=== PATIENT | female | born 1970 | race Caucasian/White ===

== ENCOUNTER → 2019-08-15 11:16 | Outpatient (BNVA) | payer MEDICAID, SELFPAY | PROVIDERS: Family Provider Family Medicine; PCP Family Medicine; Visit Provider Nurse Practitioner | DX: M54.42 Lumbago with sciatica, left side (principal); M54.2 Cervicalgia; G43.109 Migraine with aura, not intractable, without status migrainosus; F17.210 Nicotine dependence, cigarettes, uncomplicated; Z79.891 Long term (current) use of opiate analgesic | CPT/HCPCS: 99213; 99214 ==

== ENCOUNTER → 2019-09-01 10:16 | Outpatient (BNVA) | payer MEDICAID, SELFPAY | PROVIDERS: Family Provider Family Medicine; PCP Family Medicine; Visit Provider Nurse Practitioner | DX: F31.4 Bipolar disorder, current episode depressed, severe, without psychotic features (principal); F41.1 Generalized anxiety disorder | CPT/HCPCS: 99213 ==

== ENCOUNTER → 2019-09-04 11:00 | Outpatient (BNVA) | payer MEDICAID, SELFPAY | PROVIDERS: Family Provider Family Medicine; PCP Family Medicine; Visit Provider Counselor Professional | DX: F31.4 Bipolar disorder, current episode depressed, severe, without psychotic features (principal) | CPT/HCPCS: 90834 ==

== ENCOUNTER → 2019-09-26 10:52 | Outpatient (BNVA) | payer MEDICAID, SELFPAY | PROVIDERS: Family Provider Family Medicine; PCP Family Medicine; Visit Provider Anesthesiology | DX: G89.29 Other chronic pain (principal); M54.41 Lumbago with sciatica, right side; M54.42 Lumbago with sciatica, left side; M54.2 Cervicalgia; F17.210 Nicotine dependence, cigarettes, uncomplicated; Z79.891 Long term (current) use of opiate analgesic | CPT/HCPCS: 99214 ==

== ENCOUNTER → 2019-09-27 09:42 | Outpatient (BNVA) | payer MEDICAID, SELFPAY | PROVIDERS: Family Provider Family Medicine; PCP Family Medicine; Visit Provider Counselor Professional | DX: F31.4 Bipolar disorder, current episode depressed, severe, without psychotic features (principal) | CPT/HCPCS: 90834; 80053; 80061; 83721; 85025 ==

== ENCOUNTER → 2019-09-28 08:35 | Outpatient (BNVA) | payer MEDICAID, SELFPAY | PROVIDERS: Family Provider Family Medicine; PCP Family Medicine; Visit Provider Family Medicine | DX: Z13.6 Encounter for screening for cardiovascular disorders (principal); R06.2 Wheezing; K58.9 Irritable bowel syndrome, unspecified; G47.10 Hypersomnia, unspecified; R73.09 Other abnormal glucose | CPT/HCPCS: 83036 ==

== ENCOUNTER → 2019-10-31 12:12 | Outpatient (BNVA) | payer MEDICAID, SELFPAY | PROVIDERS: Family Provider Family Medicine; PCP Family Medicine; Visit Provider Counselor Professional | DX: F31.4 Bipolar disorder, current episode depressed, severe, without psychotic features (principal); F41.1 Generalized anxiety disorder | CPT/HCPCS: 90834 ==

== ENCOUNTER → 2019-11-07 12:44 | Outpatient (BNVA) | payer MEDICAID, SELFPAY | PROVIDERS: Family Provider Family Medicine; PCP Family Medicine; Visit Provider Counselor Professional | DX: F31.4 Bipolar disorder, current episode depressed, severe, without psychotic features (principal); F41.1 Generalized anxiety disorder | CPT/HCPCS: 90834 ==

== ENCOUNTER → 2019-11-14 08:37 | Outpatient (BNVA) | payer MEDICAID, SELFPAY | PROVIDERS: Family Provider Family Medicine; PCP Family Medicine; Visit Provider Counselor Professional | DX: F31.4 Bipolar disorder, current episode depressed, severe, without psychotic features (principal); F41.1 Generalized anxiety disorder | CPT/HCPCS: 90834 ==

== ENCOUNTER → 2019-11-21 08:32 | Outpatient (BNVA) | payer MEDICAID, SELFPAY | PROVIDERS: Family Provider Family Medicine; PCP Family Medicine; Visit Provider Counselor Professional | DX: F31.4 Bipolar disorder, current episode depressed, severe, without psychotic features (principal); F41.1 Generalized anxiety disorder | CPT/HCPCS: 90834 ==

== ENCOUNTER → 2019-11-24 08:22 | Outpatient (BNVA) | payer MEDICAID, SELFPAY | PROVIDERS: Family Provider Family Medicine; PCP Family Medicine; Visit Provider Nurse Practitioner | DX: F41.1 Generalized anxiety disorder (principal); F31.4 Bipolar disorder, current episode depressed, severe, without psychotic features; F43.12 Post-traumatic stress disorder, chronic | CPT/HCPCS: 99213 ==

== ENCOUNTER → 2019-11-29 09:35 | Outpatient (BNVA) | payer MEDICAID, SELFPAY | PROVIDERS: Family Provider Family Medicine; PCP Family Medicine; Visit Provider Family Medicine | DX: E78.5 Hyperlipidemia, unspecified (principal); E11.9 Type 2 diabetes mellitus without complications; F17.219 Nicotine dependence, cigarettes, with unspecified nicotine-induced disorders | CPT/HCPCS: 80053 ==

== ENCOUNTER → 2019-12-07 09:12 | Outpatient (BNVA) | payer MEDICAID, SELFPAY ==
[2019-11-21 14:38] VITALS: BP 122/68; BMI 38.1
== END ==
PROVIDERS: Family Provider Family Medicine; Visit Provider Counselor Professional
DX: F41.1 Generalized anxiety disorder (principal); F31.4 Bipolar disorder, current episode depressed, severe, without psychotic features
CPT/HCPCS: 90834

== ENCOUNTER → 2019-12-28 09:04 | Outpatient (BNVA) | payer MEDICAID, SELFPAY ==
[2019-11-21 14:38] VITALS: BP 122/68; BMI 38.1
== END ==
PROVIDERS: Family Provider Family Medicine; Visit Provider Counselor Professional
DX: F31.4 Bipolar disorder, current episode depressed, severe, without psychotic features (principal)
CPT/HCPCS: 90834

== ENCOUNTER → 2019-12-29 08:41 | Outpatient (BNVA) | payer MEDICAID, SELFPAY ==
[2019-11-21 14:38] VITALS: BP 122/68; BMI 38.1
== END ==
PROVIDERS: Family Provider Family Medicine; Visit Provider Family Medicine
DX: E11.9 Type 2 diabetes mellitus without complications (principal); F17.219 Nicotine dependence, cigarettes, with unspecified nicotine-induced disorders
CPT/HCPCS: 80053; 82044; 83036

== ENCOUNTER → 2020-01-04 08:31 | Outpatient (BNVA) | payer MEDICAID, SELFPAY ==
[2019-11-21 14:38] VITALS: BP 122/68; BMI 38.1
== END ==
PROVIDERS: Family Provider Family Medicine; Visit Provider Counselor Professional
DX: F31.4 Bipolar disorder, current episode depressed, severe, without psychotic features (principal)
CPT/HCPCS: 90834

== ENCOUNTER → 2020-01-10 09:35 | Outpatient (BNVA) | payer MEDICAID, SELFPAY ==
[2019-11-21 14:38] VITALS: BP 122/68; BMI 38.1
== END ==
PROVIDERS: Family Provider Family Medicine; PCP Family Medicine; Visit Provider Anesthesiology
DX: G89.29 Other chronic pain (principal); M54.41 Lumbago with sciatica, right side; M54.42 Lumbago with sciatica, left side; M54.2 Cervicalgia; G43.109 Migraine with aura, not intractable, without status migrainosus; F17.210 Nicotine dependence, cigarettes, uncomplicated; Z79.891 Long term (current) use of opiate analgesic
CPT/HCPCS: 99214

== ENCOUNTER → 2020-01-11 08:19 | Outpatient (BNVA) | payer MEDICAID, SELFPAY ==
[2020-01-10 10:00] VITALS: BP 122/68; BMI 38.1
== END ==
PROVIDERS: Family Provider Family Medicine; PCP Family Medicine; Visit Provider Counselor Professional
DX: F31.4 Bipolar disorder, current episode depressed, severe, without psychotic features (principal); F41.1 Generalized anxiety disorder
CPT/HCPCS: 90834

== ENCOUNTER → 2020-01-17 07:58 | Outpatient (BNVA) | payer MEDICAID, SELFPAY ==
[2020-01-10 10:00] VITALS: BP 122/68; BMI 38.1
== END ==
PROVIDERS: Family Provider Family Medicine; PCP Family Medicine; Visit Provider Counselor Professional
DX: F31.4 Bipolar disorder, current episode depressed, severe, without psychotic features (principal); F41.1 Generalized anxiety disorder
CPT/HCPCS: 90834

== ENCOUNTER → 2020-02-08 08:15 | Outpatient (BNVA) | payer MEDICAID, SELFPAY ==
[2020-01-10 10:00] VITALS: BP 122/68; BMI 38.1
== END ==
PROVIDERS: Family Provider Family Medicine; PCP Family Medicine; Visit Provider Counselor Professional
DX: F31.4 Bipolar disorder, current episode depressed, severe, without psychotic features (principal)
CPT/HCPCS: 90834

== ENCOUNTER → 2020-02-22 08:16 | Outpatient (BNVA) | payer MEDICAID, SELFPAY ==
[2020-02-08 13:39] VITALS: BP 122/68; BMI 38.1
== END ==
PROVIDERS: Family Provider Family Medicine; PCP Family Medicine; Visit Provider Counselor Professional
DX: F31.4 Bipolar disorder, current episode depressed, severe, without psychotic features (principal)
CPT/HCPCS: 90834

== ENCOUNTER → 2020-02-27 08:13 | Outpatient (BNVA) | payer MEDICAID, SELFPAY ==
[2020-02-08 13:39] VITALS: BP 122/68; BMI 38.1
== END ==
PROVIDERS: Family Provider Family Medicine; PCP Family Medicine; Visit Provider Nurse Practitioner
DX: F41.1 Generalized anxiety disorder (principal); F31.4 Bipolar disorder, current episode depressed, severe, without psychotic features; F17.219 Nicotine dependence, cigarettes, with unspecified nicotine-induced disorders
CPT/HCPCS: 99213

== ENCOUNTER → 2020-02-29 09:01 | Outpatient (BNVA) | payer MEDICAID, SELFPAY ==
[2020-02-08 13:39] VITALS: BP 122/68; BMI 38.1
== END ==
PROVIDERS: Family Provider Family Medicine; PCP Family Medicine; Visit Provider Counselor Professional
DX: F31.4 Bipolar disorder, current episode depressed, severe, without psychotic features (principal); F41.1 Generalized anxiety disorder
CPT/HCPCS: 90834; 80061; 83721

== ENCOUNTER → 2020-03-08 09:43 | Outpatient (BNVA) | payer MEDICAID, SELFPAY ==
[2020-02-08 13:39] VITALS: BP 122/68; BMI 38.1
== END ==
PROVIDERS: Family Provider Family Medicine; PCP Family Medicine; Visit Provider Anesthesiology
DX: G89.29 Other chronic pain (principal); M54.42 Lumbago with sciatica, left side; M54.41 Lumbago with sciatica, right side; M54.2 Cervicalgia; G43.109 Migraine with aura, not intractable, without status migrainosus; F17.219 Nicotine dependence, cigarettes, with unspecified nicotine-induced disorders; Z79.891 Long term (current) use of opiate analgesic
CPT/HCPCS: 99213; 99214

== ENCOUNTER → 2020-03-14 08:57 | Outpatient (BNVA) | payer MEDICAID, SELFPAY ==
[2020-03-08 10:02] VITALS: BP 122/68; BMI 38.1
== END ==
PROVIDERS: Family Provider Family Medicine; PCP Family Medicine; Visit Provider Counselor Professional
DX: F31.4 Bipolar disorder, current episode depressed, severe, without psychotic features (principal); F41.1 Generalized anxiety disorder
CPT/HCPCS: 90834

== ENCOUNTER → 2020-03-20 08:25 | Outpatient (BNVA) | payer MEDICAID, SELFPAY ==
[2020-03-08 10:02] VITALS: BP 122/68; BMI 38.1
== END ==
PROVIDERS: Family Provider Family Medicine; PCP Family Medicine; Visit Provider Counselor Professional
DX: F31.4 Bipolar disorder, current episode depressed, severe, without psychotic features (principal); F41.1 Generalized anxiety disorder
CPT/HCPCS: 90834

== ENCOUNTER 2020-03-29 09:09 | Outpatient (CLI) | payer MEDICAID, SELFPAY ==
[2020-03-08 10:02] VITALS: BP 122/68; BMI 38.1
[2020-03-29 09:45] LABS: Basophils # 0.1 10^3/uL (0.0-0.1); Basophils % 0.7 %; Eosinophils # 0.2 10^3/uL (0.0-0.8); Eosinophils % 2.9 %; Hematocrit 43.3 % (37.0-47.0); Hemoglobin 13.6 g/dL (11.5-15.3); Lymphocytes # 1.5 10^3/uL (0.8-4.8); Lymphocytes % 18.6 %; Mean Corpuscular HGB Conc 31.4 g/dL (30.0-36.0); Mean Corpuscular Hemoglobin 30.9 pg (28.0-34.0); Mean Corpuscular Volume 98.4 fL (81-99); Mean Platelet Volume 10.3 fL (7.4-10.4); Monocytes # 0.7 10^3/uL (0.2-0.9); Neutrophils # 5.56 10^3/uL (1.8-7.7); Neutrophils % 68.1 %; Nucleated Red Blood Cells % 0 %; Platelet Count 265 10^3/cmm (130-400); Red Cell Distribution Width 13.8 % (12.1-15.1); White Blood Count 8.2 10^3/uL (4.0-10.0)
[2020-03-29 10:24] LABS: Estmated Average Glucose 160; Hemoglobin A1C 7.2 % (4.0-6.0)
[2020-03-29 10:28] LABS: Calcium 10.5 mg/dL (8.5-10.5); Parathyroid Hormone 32.9 pg/mL (15-65)
[2020-03-29 10:44] LABS: 25 Hydroxy Vitamin D 20 ng/mL (30-100); Alanine Aminotransferase 19 U/L (0-33); Albumin Level 4.6 g/dL (3.5-5.2); Alkaline Phosphatase 63 IU/L (35-105); Anion Gap 12.1 (5-19); Aspartate Amino Transferase 13 U/L (0-32); Blood Urea Nitrogen 13 mg/dL (6-20); Calcium 9.8 mg/dL (8.5-10.5); Carbon Dioxide 25 mmol/L (22-29); Chloride 103 mmol/L (98-107); Glomerular Filtration Rate 39.6 mL/min (90-130); Glucose 151 mg/dL (65-115); Osmolality Calculated 281 mOsm/kg (285-295); Phosphorus 3.9 mg/dL (2.5-4.5); Potassium 4.1 mmol/L (3.5-5.1); Sodium 136 mmol/L (136-145); Total Bilirubin 0.3 mg/dL (0.15-1.2); Total Protein 7.6 g/dL (6.6-8.7)
[2020-03-29 11:09] LABS: Creatinine Urine, Random 14 mg/dL (28-217)
[2020-03-29 11:10] LABS: UPRO/UCREAT Ratio 0.29 mg/mg CR; Urine Creatinine 14 mg/dL (28-217)
[2020-03-29 11:11] LABS: Microalbum Creatinine Ratio Ur 71 mg/dL (0-20); Microalbumin Random Urine < 1 ug/dL (0-20); Urine Protein Random < 4 mg/dL
[2020-03-30 10:02] LABS: PROTEIN, TOTAL 7.1 g/dL (6.1-8.1)
[2020-04-02 15:53] LABS: KAPPA LIGHT CHAIN, FREE, SERUM 23.5 mg/L (3.3-19.4); KAPPA/LAMBDA LIGHT CHAINS FREE 1.12 (0.26-1.65)
[2020-04-02 17:17] LABS: ALBUMIN 4.2 g/dL (3.8-4.8); ALPHA 1 GLOBULIN 0.4 g/dL (0.2-0.3); ALPHA 2 GLOBULIN 0.8 g/dL (0.5-0.9); BETA 1 GLOBULIN 0.6 g/dL (0.4-0.6); BETA 2 GLOBULIN 0.4 g/dL (0.2-0.5); GAMMA GLOBULIN 0.8 g/dL (0.8-1.7)
== END 2020-03-29 09:10 | disposition home or self-care (01) ==
LOC: LAB 09:12
PROVIDERS: PCP Family Medicine; Visit Provider Family Medicine
DX: E11.9 Type 2 diabetes mellitus without complications (principal); N18.9 Chronic kidney disease, unspecified
CPT/HCPCS: 36415; 80053; 80069; 82044; 82306; 82310; 82570; 83036; 83883; 83970; 84155; 84156; 84165; 85025

== ENCOUNTER → 2020-04-03 08:38 | Outpatient (BNVA) | payer MEDICAID, SELFPAY ==
[2020-03-08 10:02] VITALS: BP 122/68; BMI 38.1
== END ==
PROVIDERS: Family Provider Family Medicine; PCP Family Medicine; Visit Provider Counselor Professional
DX: F31.4 Bipolar disorder, current episode depressed, severe, without psychotic features (principal); F41.1 Generalized anxiety disorder
CPT/HCPCS: 90834

== ENCOUNTER → 2020-04-11 07:43 | Outpatient (BNVA) | payer MEDICAID, SELFPAY ==
[2020-03-08 10:02] VITALS: BP 122/68; BMI 38.1
== END ==
PROVIDERS: Family Provider Family Medicine; PCP Family Medicine; Visit Provider Counselor Professional
DX: F31.4 Bipolar disorder, current episode depressed, severe, without psychotic features (principal); F41.1 Generalized anxiety disorder
CPT/HCPCS: 90834

== ENCOUNTER → 2020-04-18 07:45 | Outpatient (BNVA) | payer MEDICAID, SELFPAY ==
[2020-03-08 10:02] VITALS: BP 122/68; BMI 38.1
== END ==
PROVIDERS: Family Provider Family Medicine; PCP Family Medicine; Visit Provider Counselor Professional
DX: F31.4 Bipolar disorder, current episode depressed, severe, without psychotic features (principal); F41.1 Generalized anxiety disorder
CPT/HCPCS: 90832; 90834

== ENCOUNTER → 2020-04-26 08:51 | Outpatient (BNVA) | payer MEDICAID, SELFPAY ==
[2020-04-26 08:57] VITALS: BP 122/68; BMI 38.1
== END ==
PROVIDERS: Family Provider Family Medicine; PCP Family Medicine; Visit Provider Family Medicine
DX: E11.9 Type 2 diabetes mellitus without complications (principal); N61.0 Mastitis without abscess; F17.219 Nicotine dependence, cigarettes, with unspecified nicotine-induced disorders
CPT/HCPCS: 36415; 80048; 84450; 87070; 87075; 87205

== ENCOUNTER → 2020-04-29 08:34 | Outpatient (BNVA) | payer MEDICAID, SELFPAY ==
[2020-04-26 08:57] VITALS: BP 122/68; BMI 38.1
== END ==
PROVIDERS: Family Provider Family Medicine; PCP Family Medicine; Visit Provider Counselor Professional
DX: F31.4 Bipolar disorder, current episode depressed, severe, without psychotic features (principal); F41.1 Generalized anxiety disorder
CPT/HCPCS: 90834

== ENCOUNTER → 2020-05-07 08:59 | Outpatient (BNVA) | payer MEDICAID, SELFPAY ==
[2020-04-26 08:57] VITALS: BP 122/68; BMI 38.1
== END ==
PROVIDERS: Family Provider Family Medicine; PCP Family Medicine; Visit Provider Anesthesiology
DX: G89.29 Other chronic pain (principal); M54.41 Lumbago with sciatica, right side; M54.42 Lumbago with sciatica, left side; M54.2 Cervicalgia; G43.109 Migraine with aura, not intractable, without status migrainosus; F17.219 Nicotine dependence, cigarettes, with unspecified nicotine-induced disorders; Z79.891 Long term (current) use of opiate analgesic
CPT/HCPCS: 99214

== ENCOUNTER 2020-05-09 07:47 | Outpatient (CLI) | payer MEDICAID, SELFPAY ==
[2020-04-26 08:57] VITALS: BP 122/68; BMI 38.1
--- NOTE | 2020-05-09 08:00 | US_ITS ---
WS: [id number] ULTRASOUND BREAST RIGHT TECHNIQUE: Ultrasound right breast focused area of concern. CLINICAL INFORMATION: ABSCESS OF RIGHT BREAST COMPARISON: None. FINDINGS: Ultrasound right breast at the 6 clock position. No evidence of drainable abscess or fluid collection . Benign ductal ectasia. No cystic or solid lesions. No other abnormalities. US/US breast RT complete [id number] IMPRESSION: No evidence of drainable abscess or fluid collection. Incidental ductal ectasia .
== END 2020-05-09 07:48 | disposition home or self-care (01) ==
PROVIDERS: PCP Family Medicine; Visit Provider Surgery
DX: N61.1 Abscess of the breast and nipple (principal); N60.41 Mammary duct ectasia of right breast
CPT/HCPCS: 76641

== ENCOUNTER → 2020-05-10 08:49 | Outpatient (BNVA) | payer MEDICAID, SELFPAY ==
[2020-04-26 08:57] VITALS: BP 122/68; BMI 38.1
== END ==
PROVIDERS: Family Provider Family Medicine; PCP Family Medicine; Visit Provider Counselor Professional
DX: F31.4 Bipolar disorder, current episode depressed, severe, without psychotic features (principal); F41.1 Generalized anxiety disorder
CPT/HCPCS: 90834; 87635

== ENCOUNTER 2020-05-13 08:00 | Day surgery (SDC) | payer MEDICAID, SELFPAY ==
[2020-05-10 09:45] VITALS: BP 122/68; BMI 38.1
[2020-05-10 10:25] VITALS: BMI 37.1
[2020-05-13 08:27] LABS: Glucose Point of Care 161 mg/dL (70-110)
[2020-05-13] MEDS: sodium chloride 0.9% 1,000 ML 30 ML IV (08:30)
[2020-05-13 08:32] VITALS: BP 142/78; PULSE 89; RESP 18; TEMP 36.8; O2SAT 94
--- NOTE | 2020-05-13 08:37 | P.ANESASSM_ITS ---
Pre-Anesthetic Assessment Pre-Anesthetic Assessment: Height/Weight: Height 1.68 m Weight 104.326 kg Temp Pulse Resp BP Pulse Ox 98.2 F 89 18 142/78 94 05/13/20 08:32 05/13/20 08:32 05/13/20 08:32 05/13/20 08:32 05/13/20 08:32 Preop Diagnosis: Right breast abscess Proposed Procedure: Operation Date: 05/13/20 11:20 Proposed Procedures p Incision And Drainage of right breast abscess 1006 N61.1(Right) - Tor Ahuja MD Familial anesthetic complications: NOne Was Beta Tamy taken within 24 hours: N/A Last intake: Intake NPO > 8 hrs Last Liquid Date 05/12/20 Last Solid Date 05/12/20 Social: Social History: Tobacco and No alcohol Exam: Pre-Anes Outpt Exam: alert, oriented x 3 and regular rate & rhythm Additional Exam Findings (including area of procedure): B/L wheezes - had patient use her personal inhaler before procedure Airway: Cervical ROM: WNL MP: 2 Dentition: False Pulmonary: Comments: Wheezing, but no diagnosis GI: GI: GERD Comments: IBS Metabolic: Metabolic: DM and Hyperlipidemia Musc/skel: Musc/skel: OA/DJD Comments: Back and neck pain Neuropsych: Neuropsych: Anxiety, Bipolar and COLLAZO Comments: opioid contract Anesthetic Plan: ASA status: 3 Anesthesia: General Risk of > 500 ml blood loss (7ml/kg in children): No Meds/Allergies Current Medications: Current Medications Generic Name Dose Route Start Last Admin Trade Name Freq PRN Reason Stop Dose Admin Sodium Chloride 1,000 mls @ 30 ml s/hr 05/13/20 08:15 05/13/20 08:30 Sodium Chloride 0.9% IV 05/14/20 08:14 30 mls/hr .Q24H ÁNGEL Administration PFSH Anesthesia PFSH: Medical History Bipolar 1 disorder Bipolar disorder, current episode depressed, severe, without psychotic features Chronic bilateral low back pain with bilateral sciatica Dyslipidemia Encounter for long-term opiate analgesic use Encounter for long-term use of opiate analgesic Generalized anxiety disorder Long-term use of high-risk medication Migraine aura without headache Neck pain Opioid contract exists Panic disorder with agoraphobia Type 2 diabetes mellitus, without long-term current use of insulin Surgical History History of adenoidectomy S/P tonsillectomy AGE 4 Family History Mother Hypertension Grandmother Hypertension Atrial fibrillation Other Bipolar 1 disorder CAD (coronary artery disease) Denies family history of Anesthesia complication Bleeding disorder Social History (Updated 05/07/20 @ 09:21 by Jimena Obando LPN) Smoking and tobacco status: current every day smoker cigarettes Years cigarettes smoked: 35 [ Other cigarette details: 3 CIGS PER DAY ] Second hand smoke exposure: No Smoking risk assessment/counseling performed?: Yes Tobacco counseling given: counseling >3 minutes Alcohol intake: former Year of sobriety/quit date alcohol: 1999 Former alcohol use details: alcoholic - quit in 1999 Desire information about alcohol rehabilitation?: No Counseling given: No Adopted: No Caregiver/support person: No Lives independently: Yes Household members: family Housing: House Marital status: Number of children: 3 Number of grandchildren: 0 Highest education level completed: GED or Equivalent service: No Current occupational status: disabled Pets and animals: Yes Pets & animals: dog(s) Pets & animal details: indoor History of recent travel: No Leisure activites: music Sexually active: No Current gender identity: Female Tessa/Rastafari: Samaritan Special tessa needs: No Agree to transfusion: Yes Financial difficulty paying for basics: Decline to Answer Female Reproductive History: Para: 0 Spontaneous abortions: No Date of menopause: 08/27/17 Data Anesthesia Other Labs: Laboratory Results - last 48 hr 05/13/20 08:24 POC Glucose 161 Cardiac Studies: No Data to Display
--- NOTE | 2020-05-13 08:54 | SUR.PREOP ---
As patient got up to go to the bathroom, her grown came open in the back exposing different stages of dark red and purple mottled spots on her back and buttocks. patient reports she didn't know that was there but she is sure it is from her heating pad. she reports she has chronic back pain and spends approx 10 hrs per day sitting on her heating pad. I suggested patient should keep an eye on it and spend 20 min on and 20 min off of heating pad to avoid burn.
--- NOTE | 2020-05-13 09:30 | W.PM.OPSUD ---
Surgery/Procedure H&P Update DATE OF PROCEDURE: May 13, 2020 DATE H&P PERFORMED: 05/06/20 H&P UPDATE INFORMATION: I have reviewed H&P completed within last 30 days, I have examined patient prior to procedure and No changes to prior documentation PREOP DIAGNOSIS: Right breast abscess PRIMARY INDICATION FOR PROCEDURE: The same PLANNED PROCEDURE: Operation Date: 05/13/20 11:20 Proposed Procedures p Incision And Drainage of right breast abscess 1006 N61.1(Right) - Tor Ahuja MD
[2020-05-13] MEDS: lidocaine 2% INJ 20 mL INJECTION (09:48)
--- NOTE | 2020-05-13 10:02 | PM.OP ---
Operative Report Date of procedure: May 13, 2020 Pre-op Diagnosis: Right breast abscess Post-op diagnosis: other (Right breast mass with history of right breast abscess) Post-op Findings: No evidence of active infection or purulent discharge,No evidence of inflammatory breast cancerIn the form of pitting edema of the skin or redness Procedure Done: Excision of right breast mass Specimens removed/disposition: Mass with short sutures marked superior and long sutures marked right lateral Surgeon: Tor Ahuja Agronomy Location Manager: Pretty Doper Circulating nurse Jluis Anesthesia: General (winding machine operator Jorge) Estimated blood loss (mL): 5 Condition: stable Disposition: same day Brief History: This is a pleasant 50 years old female patient presented to my office with right breast abscess and with concern about inflammatory breast component of breast cancer on clinical basis.Patient was counseled for I&D of right breast abscess, today upon examination prior to surgery does not seem to have any purulent discharge yet she does have an indurated nodule/mass at the same site. Patient agreed to proceed accordingly and informed consent per chart Procedure: After identifying the patient holding area, the right breast was marked before the procedure by myself, in the form of female mobile manager Yaneth nursing staff, patient was then taken to the operative suite, was placed in supine position, intubated by anesthesia, prophylactic IV antibiotics were given per protocol, right arm was placed in 90? to her body, prep and drape of the right pectoralis region was done under the usual sterile technique. Timeout was done verifying the patient's name/date of /planned procedure and destination after the procedure, all were in agreement. After palpation of the breast lump I did add transverse,Elliptical incision on top of the mass Including the skin overlying.I was able to dissect using the Bovie cautery a good margin of normal breast tissue surrounding the mass , and appropriate orientation was done for the breast mass in the form of, short superior sutures, long right lateral sutures, and the specimen was taken out and passed to the circulating nurse for permanent pathology,Noticed that the mass was beneath the skin. Copious and Thorough irrigation of the cavity was done and hemostasis, followed by deep dermal closure by 3-0 Vicryl, then 4-0 Monocryl for skin closure Lidocaine 2% was injected at the site of the incision, surgical glue was then applied followed by dry dressing.Followed by sports bra Patient tolerated the procedure well, count of instruments, needles and sponges were completed at the end of the procedure. And then patient was taken to the recovery area in stable condition After extubation. I Was present for the whole entire procedure
[2020-05-13 10:16] VITALS: BP 131/69; PULSE 80; RESP 22; TEMP 36.8; O2SAT 97
[2020-05-13 10:20] VITALS: BP 134/69; PULSE 81; RESP 22; O2SAT 97
--- NOTE | 2020-05-13 10:23 | SUR.PHASEI ---
PT AWAKE ALERT ON RA PT REQUESTS GLASSES AND SPRITE TO SIP ON RT BREAST DRESSING D/I PT DENIES PAIN AND NAUSEA, VSS.
[2020-05-13 10:25] VITALS: BP 131/70; PULSE 82; RESP 24; TEMP 36.4; O2SAT 94
[2020-05-13 10:35] VITALS: BP 151/84; PULSE 81; RESP 18; O2SAT 94
--- NOTE | 2020-05-13 11:00 | ANE.PACU2 ---
Inpatient post-anesthesia follow up: Airway intact: Yes Vital signs: Temperature 97.6 F Pulse Rate 81 Respiratory Rate 18 Blood Pressure 151/84 Pulse Oximetry 94 Oxygen Delivery Me thod Room Air Oxygen Flow Rate 8 Fraction of Inspir ed Oxygen Hydration adequate: Yes Nausea and vomiting: No Pain level: 1 Mental status: Baseline
== END 2020-05-13 11:00 | disposition home or self-care (01) ==
PROVIDERS: PCP Family Medicine; Visit Provider Surgery
PROC: (CPT 19301; principal; 2020-05-13 09:50)
DX: N61.1 Abscess of the breast and nipple (principal); E11.9 Type 2 diabetes mellitus without complications; E78.5 Hyperlipidemia, unspecified; M19.90 Unspecified osteoarthritis, unspecified site; Z79.891 Long term (current) use of opiate analgesic; F41.9 Anxiety disorder, unspecified; Z79.4 Long term (current) use of insulin; F17.210 Nicotine dependence, cigarettes, uncomplicated
CPT/HCPCS: 19301; 12345; 36416; 82962; J0690; J2405; J2704; J2710; J3010; J3490; J7030

== ENCOUNTER → 2020-05-22 07:38 | Outpatient (BNVA) | payer MEDICAID, SELFPAY ==
[2020-05-13 10:32] VITALS: BP 122/68; BMI 38.1
== END ==
PROVIDERS: PCP Family Medicine; Visit Provider Nurse Practitioner
DX: F17.219 Nicotine dependence, cigarettes, with unspecified nicotine-induced disorders (principal); F31.4 Bipolar disorder, current episode depressed, severe, without psychotic features; F41.1 Generalized anxiety disorder
CPT/HCPCS: 99213

== ENCOUNTER → 2020-05-27 08:53 | Outpatient (BNVA) | payer MEDICAID, SELFPAY ==
[2020-05-13 10:32] VITALS: BP 122/68; BMI 38.1
== END ==
PROVIDERS: PCP Family Medicine; Visit Provider Counselor Professional
DX: F31.4 Bipolar disorder, current episode depressed, severe, without psychotic features (principal); F41.1 Generalized anxiety disorder
CPT/HCPCS: 90834

== ENCOUNTER → 2020-06-12 08:37 | Outpatient (BNVA) | payer MEDICAID, SELFPAY ==
[2020-05-13 10:32] VITALS: BP 122/68; BMI 38.1
== END ==
PROVIDERS: PCP Family Medicine; Visit Provider Counselor Professional
DX: F31.4 Bipolar disorder, current episode depressed, severe, without psychotic features (principal); F41.1 Generalized anxiety disorder
CPT/HCPCS: 90834

== ENCOUNTER → 2020-06-19 07:41 | Outpatient (BNVA) | payer MEDICAID, SELFPAY ==
[2020-06-12 09:43] VITALS: BP 122/68; BMI 38.1
== END ==
PROVIDERS: PCP Family Medicine; Visit Provider Counselor Professional
DX: F31.4 Bipolar disorder, current episode depressed, severe, without psychotic features (principal)
CPT/HCPCS: 90834

== ENCOUNTER 2020-07-01 11:19 | Outpatient (CLI) | payer MEDICAID, SELFPAY ==
[2020-06-12 09:43] VITALS: BP 122/68; BMI 38.1
[2020-07-01 12:44] LABS: Basophils # 0.1 10^3/uL (0.0-0.1); Basophils % 0.6 %; Eosinophils # 0.2 10^3/uL (0.0-0.8); Eosinophils % 1.9 %; Hematocrit 42.9 % (37.0-47.0); Hemoglobin 13.5 g/dL (11.5-15.3); Lymphocytes # 1.8 10^3/uL (0.8-4.8); Lymphocytes % 18.9 %; Mean Corpuscular HGB Conc 31.5 g/dL (30.0-36.0); Mean Corpuscular Hemoglobin 30.7 pg (28.0-34.0); Mean Corpuscular Volume 97.5 fL (81-99); Mean Platelet Volume 10.5 fL (7.4-10.4); Monocytes % 10.3 %; Neutrophils # 6.41 10^3/uL (1.8-7.7); Neutrophils % 67.6 %; Nucleated Red Blood Cells % 0 %; Platelet Count 263 10^3/cmm (130-400); White Blood Count 9.5 10^3/uL (4.0-10.0)
[2020-07-01 13:32] LABS: Albumin Level 4.5 g/dL (3.5-5.2); Anion Gap 14.4 (5-19); Blood Urea Nitrogen 15 mg/dL (6-20); Calcium 10.5 mg/dL (8.5-10.5); Carbon Dioxide 25 mmol/L (22-29); Chloride 103 mmol/L (98-107); Glomerular Filtration Rate 52.4 mL/min (90-130); Glucose 128 mg/dL (65-115); Phosphorus 3.8 mg/dL (2.5-4.5); Potassium 4.4 mmol/L (3.5-5.1); Sodium 138 mmol/L (136-145)
[2020-07-01 17:25] LABS: Calcium 10.3 mg/dL (8.5-10.5)
[2020-07-01 18:11] LABS: Parathyroid Hormone 44.9 pg/mL (15-65)
== END 2020-07-01 11:20 | disposition home or self-care (01) ==
PROVIDERS: PCP Family Medicine; Visit Provider Registered Nurse
DX: N18.30 Chronic kidney disease, stage 3 unspecified (principal)
CPT/HCPCS: 80069; 82310; 83970; 85025

== ENCOUNTER → 2020-07-03 09:46 | Outpatient (BNVA) | payer MEDICAID, SELFPAY ==
[2020-06-12 09:43] VITALS: BP 122/68; BMI 38.1
== END ==
PROVIDERS: Family Provider Family Medicine; PCP Family Medicine; Visit Provider Anesthesiology
DX: G89.29 Other chronic pain (principal); M54.42 Lumbago with sciatica, left side; M54.41 Lumbago with sciatica, right side; M17.12 Unilateral primary osteoarthritis, left knee; M54.2 Cervicalgia; G43.109 Migraine with aura, not intractable, without status migrainosus; F17.219 Nicotine dependence, cigarettes, with unspecified nicotine-induced disorders; Z79.899 Other long term (current) drug therapy; Z79.891 Long term (current) use of opiate analgesic
CPT/HCPCS: 99214

== ENCOUNTER → 2020-07-10 08:24 | Outpatient (BNVA) | payer MEDICAID, SELFPAY ==
[2020-06-12 09:43] VITALS: BP 122/68; BMI 38.1
== END ==
PROVIDERS: PCP Family Medicine; Visit Provider Counselor Professional
DX: F31.4 Bipolar disorder, current episode depressed, severe, without psychotic features (principal); F41.1 Generalized anxiety disorder
CPT/HCPCS: 90834

== ENCOUNTER → 2020-07-17 07:55 | Outpatient (BNVA) | payer MEDICAID, SELFPAY ==
[2020-06-12 09:43] VITALS: BP 122/68; BMI 38.1
== END ==
PROVIDERS: PCP Family Medicine; Visit Provider Counselor Professional
DX: F31.4 Bipolar disorder, current episode depressed, severe, without psychotic features (principal); F41.1 Generalized anxiety disorder
CPT/HCPCS: 90834

== ENCOUNTER → 2020-07-30 08:50 | Outpatient (BNVA) | payer MEDICAID, SELFPAY ==
[2020-06-12 09:43] VITALS: BP 122/68; BMI 38.1
== END ==
PROVIDERS: PCP Family Medicine; Visit Provider Counselor Professional
DX: F31.4 Bipolar disorder, current episode depressed, severe, without psychotic features (principal); F41.1 Generalized anxiety disorder
CPT/HCPCS: 90834

== ENCOUNTER → 2020-08-05 08:17 | Outpatient (BNVA) | payer MEDICAID, SELFPAY ==
[2020-07-30 09:37] VITALS: BP 122/68; BMI 38.1
== END ==
PROVIDERS: PCP Family Medicine; Visit Provider Counselor Professional
DX: F31.4 Bipolar disorder, current episode depressed, severe, without psychotic features (principal)
CPT/HCPCS: 90834

== ENCOUNTER → 2020-08-06 09:19 | Outpatient (BNVA) | payer MEDICAID, SELFPAY ==
[2020-07-30 09:37] VITALS: BP 122/68; BMI 38.1
== END ==
PROVIDERS: Family Provider Family Medicine; PCP Family Medicine; Visit Provider Family Medicine
DX: E11.9 Type 2 diabetes mellitus without complications (principal); E78.5 Hyperlipidemia, unspecified; N18.31 Chronic kidney disease, stage 3a; F17.219 Nicotine dependence, cigarettes, with unspecified nicotine-induced disorders; Z12.31 Encounter for screening mammogram for malignant neoplasm of breast
CPT/HCPCS: 80061; 83036

== ENCOUNTER → 2020-08-09 08:03 | Outpatient (BNVA) | payer MEDICAID, SELFPAY ==
[2020-07-30 09:37] VITALS: BP 122/68; BMI 38.1
== END ==
PROVIDERS: Family Provider Family Medicine; PCP Family Medicine; Visit Provider Nurse Practitioner
DX: F31.4 Bipolar disorder, current episode depressed, severe, without psychotic features (principal); F41.1 Generalized anxiety disorder; Z79.899 Other long term (current) drug therapy; F17.219 Nicotine dependence, cigarettes, with unspecified nicotine-induced disorders
CPT/HCPCS: 99213

== ENCOUNTER → 2020-08-13 08:25 | Outpatient (BNVA) | payer MEDICAID, SELFPAY ==
[2020-07-30 09:37] VITALS: BP 122/68; BMI 38.1
== END ==
PROVIDERS: Family Provider Family Medicine; PCP Family Medicine; Visit Provider Counselor Professional
DX: F31.4 Bipolar disorder, current episode depressed, severe, without psychotic features (principal); F41.1 Generalized anxiety disorder
CPT/HCPCS: 90834

== ENCOUNTER → 2020-08-20 08:44 | Outpatient (BNVA) | payer MEDICAID, SELFPAY ==
[2020-07-30 09:37] VITALS: BP 122/68; BMI 38.1
== END ==
PROVIDERS: PCP Family Medicine; Visit Provider Counselor Professional
DX: F31.4 Bipolar disorder, current episode depressed, severe, without psychotic features (principal)
CPT/HCPCS: 90834

== ENCOUNTER → 2020-08-27 08:32 | Outpatient (BNVA) | payer MEDICAID, SELFPAY ==
[2020-07-30 09:37] VITALS: BP 122/68; BMI 38.1
== END ==
PROVIDERS: Family Provider Family Medicine; PCP Family Medicine; Visit Provider Counselor Professional
DX: F31.4 Bipolar disorder, current episode depressed, severe, without psychotic features (principal)
CPT/HCPCS: 90834

== ENCOUNTER → 2020-09-04 09:42 | Outpatient (BNVA) | payer MEDICAID, SELFPAY ==
[2020-07-30 09:37] VITALS: BP 122/68; BMI 38.1
== END ==
PROVIDERS: Family Provider Family Medicine; PCP Family Medicine; Visit Provider Anesthesiology
DX: G89.29 Other chronic pain (principal); M54.41 Lumbago with sciatica, right side; M54.42 Lumbago with sciatica, left side; G43.109 Migraine with aura, not intractable, without status migrainosus; M54.2 Cervicalgia; M25.562 Pain in left knee; F17.219 Nicotine dependence, cigarettes, with unspecified nicotine-induced disorders; Z79.899 Other long term (current) drug therapy; Z79.891 Long term (current) use of opiate analgesic
CPT/HCPCS: 99214

== ENCOUNTER → 2020-09-18 08:14 | Outpatient (BNVA) | payer MEDICAID, SELFPAY ==
[2020-09-04 10:18] VITALS: BP 122/68; BMI 38.1
== END ==
PROVIDERS: PCP Family Medicine; Visit Provider Counselor Professional
DX: F31.4 Bipolar disorder, current episode depressed, severe, without psychotic features (principal); F41.1 Generalized anxiety disorder
CPT/HCPCS: 90834

== ENCOUNTER → 2020-10-02 07:51 | Outpatient (BNVA) | payer MEDICAID, SELFPAY ==
[2020-09-18 10:33] VITALS: BP 122/68; BMI 38.1
== END ==
PROVIDERS: PCP Family Medicine; Visit Provider Counselor Professional
DX: F41.1 Generalized anxiety disorder (principal)
CPT/HCPCS: 90834

== ENCOUNTER → 2020-10-07 08:13 | Outpatient (BNVA) | payer MEDICAID, SELFPAY ==
[2020-10-02 08:22] VITALS: BP 122/68; BMI 38.1
== END ==
PROVIDERS: PCP Family Medicine; Visit Provider Counselor Professional
DX: F41.1 Generalized anxiety disorder (principal); F31.5 Bipolar disorder, current episode depressed, severe, with psychotic features
CPT/HCPCS: 90832; 90834

== ENCOUNTER → 2020-10-16 08:26 | Outpatient (BNVA) | payer MEDICAID, SELFPAY ==
[2020-10-02 08:22] VITALS: BP 122/68; BMI 38.1
== END ==
PROVIDERS: PCP Family Medicine; Visit Provider Counselor Professional
DX: F41.1 Generalized anxiety disorder (principal); F31.5 Bipolar disorder, current episode depressed, severe, with psychotic features
CPT/HCPCS: 90834

== ENCOUNTER → 2020-10-23 09:25 | Outpatient (BNVA) | payer MEDICAID, SELFPAY ==
[2020-10-02 08:22] VITALS: BP 122/68; BMI 38.1
== END ==
PROVIDERS: PCP Family Medicine; Visit Provider Counselor Professional
DX: F31.5 Bipolar disorder, current episode depressed, severe, with psychotic features (principal)
CPT/HCPCS: 90834

== ENCOUNTER → 2020-10-24 09:56 | Outpatient (BNVA) | payer MEDICAID, SELFPAY ==
[2020-10-02 08:22] VITALS: BP 122/68; BMI 38.1
== END ==
PROVIDERS: PCP Family Medicine; Visit Provider Nurse Practitioner
DX: Z79.899 Other long term (current) drug therapy (principal)
CPT/HCPCS: 80178

== ENCOUNTER → 2020-10-29 08:16 | Outpatient (BNVA) | payer MEDICAID, SELFPAY ==
[2020-10-24 10:33] VITALS: BP 133/74; BMI 36.9
== END ==
PROVIDERS: PCP Family Medicine; Visit Provider Counselor Professional
DX: F31.9 Bipolar disorder, unspecified (principal); F41.1 Generalized anxiety disorder
CPT/HCPCS: 90834

== ENCOUNTER → 2020-10-31 08:16 | Outpatient (BNVA) | payer MEDICAID, SELFPAY ==
[2020-10-24 10:33] VITALS: BP 133/74; BMI 36.9
== END ==
PROVIDERS: PCP Family Medicine; Visit Provider Nurse Practitioner
DX: F31.4 Bipolar disorder, current episode depressed, severe, without psychotic features (principal); F41.1 Generalized anxiety disorder; F17.219 Nicotine dependence, cigarettes, with unspecified nicotine-induced disorders; G89.29 Other chronic pain; M54.42 Lumbago with sciatica, left side; M54.41 Lumbago with sciatica, right side; M54.2 Cervicalgia; G43.109 Migraine with aura, not intractable, without status migrainosus; M17.12 Unilateral primary osteoarthritis, left knee; Z79.891 Long term (current) use of opiate analgesic; Z79.899 Other long term (current) drug therapy
CPT/HCPCS: 99214

== ENCOUNTER → 2020-11-21 07:41 | Outpatient (BNVA) | payer MEDICAID, SELFPAY ==
[2020-10-24 10:33] VITALS: BP 133/74; BMI 36.9
== END ==
PROVIDERS: PCP Family Medicine; Visit Provider Counselor Professional
DX: F31.9 Bipolar disorder, unspecified (principal)
CPT/HCPCS: 90834

== ENCOUNTER → 2020-12-05 08:18 | Outpatient (BNVA) | payer MEDICAID, SELFPAY ==
[2020-10-24 10:33] VITALS: BP 133/74; BMI 36.9
== END ==
PROVIDERS: PCP Family Medicine; Visit Provider Counselor Professional
DX: F31.9 Bipolar disorder, unspecified (principal)
CPT/HCPCS: 90834

== ENCOUNTER → 2020-12-17 08:11 | Outpatient (BNVA) | payer MEDICAID, SELFPAY ==
[2020-10-24 10:33] VITALS: BP 133/74; BMI 36.9
== END ==
PROVIDERS: PCP Family Medicine; Visit Provider Counselor Professional
DX: F31.9 Bipolar disorder, unspecified (principal)
CPT/HCPCS: 90834

== ENCOUNTER → 2020-12-24 07:58 | Outpatient (BNVA) | payer MEDICAID, SELFPAY ==
[2020-12-17 08:14] VITALS: BP 133/74; BMI 36.9
== END ==
PROVIDERS: PCP Family Medicine; Visit Provider Counselor Professional
DX: F31.9 Bipolar disorder, unspecified (principal)
CPT/HCPCS: 90834

== ENCOUNTER → 2020-12-27 11:04 | Outpatient (BNVA) | payer MEDICAID, SELFPAY ==
[2020-12-17 08:14] VITALS: BP 133/74; BMI 36.9
== END ==
PROVIDERS: PCP Family Medicine; Visit Provider Anesthesiology
DX: G89.29 Other chronic pain (principal); M54.42 Lumbago with sciatica, left side; M54.41 Lumbago with sciatica, right side; M54.2 Cervicalgia; G43.109 Migraine with aura, not intractable, without status migrainosus; F17.219 Nicotine dependence, cigarettes, with unspecified nicotine-induced disorders; Z79.891 Long term (current) use of opiate analgesic
CPT/HCPCS: 99214

== ENCOUNTER → 2021-01-15 08:27 | Outpatient (BNVA) | payer MEDICAID, SELFPAY ==
[2020-12-17 08:14] VITALS: BP 133/74; BMI 36.9
== END ==
PROVIDERS: PCP Family Medicine; Visit Provider Counselor Professional
DX: F31.9 Bipolar disorder, unspecified (principal)
CPT/HCPCS: 90834

== ENCOUNTER → 2021-01-23 11:15 | Outpatient (BNVA) | payer MEDICAID, SELFPAY ==
[2021-01-15 09:45] VITALS: BP 133/74; BMI 36.9
== END ==
PROVIDERS: PCP Family Medicine; Visit Provider Nurse Practitioner
DX: F31.4 Bipolar disorder, current episode depressed, severe, without psychotic features (principal); F41.1 Generalized anxiety disorder; F17.219 Nicotine dependence, cigarettes, with unspecified nicotine-induced disorders; F31.9 Bipolar disorder, unspecified; Z79.899 Other long term (current) drug therapy
CPT/HCPCS: 99214

== ENCOUNTER → 2021-01-29 09:51 | Outpatient (BNVA) | payer MEDICAID, SELFPAY ==
[2021-01-15 09:45] VITALS: BP 133/74; BMI 36.9
== END ==
PROVIDERS: PCP Family Medicine; Visit Provider Counselor Professional
DX: F31.9 Bipolar disorder, unspecified (principal); F41.1 Generalized anxiety disorder
CPT/HCPCS: 90834

== ENCOUNTER → 2021-02-03 08:51 | Outpatient (BNVA) | payer MEDICAID, SELFPAY ==
[2021-01-15 09:45] VITALS: BP 133/74; BMI 36.9
== END ==
PROVIDERS: PCP Family Medicine; Visit Provider Family Medicine
DX: E11.9 Type 2 diabetes mellitus without complications (principal); E78.5 Hyperlipidemia, unspecified; N18.31 Chronic kidney disease, stage 3a; F17.219 Nicotine dependence, cigarettes, with unspecified nicotine-induced disorders; Z12.31 Encounter for screening mammogram for malignant neoplasm of breast
CPT/HCPCS: 80053; 82043; 83036

== ENCOUNTER → 2021-02-05 09:58 | Outpatient (BNVA) | payer MEDICAID, SELFPAY ==
[2021-01-15 09:45] VITALS: BP 133/74; BMI 36.9
== END ==
PROVIDERS: PCP Family Medicine; Visit Provider Counselor Professional
DX: F31.9 Bipolar disorder, unspecified (principal)
CPT/HCPCS: 90834

== ENCOUNTER → 2021-02-12 10:00 | Outpatient (BNVA) | payer MEDICAID, SELFPAY ==
[2021-01-15 09:45] VITALS: BP 133/74; BMI 36.9
== END ==
PROVIDERS: PCP Family Medicine; Visit Provider Counselor Professional
DX: F31.9 Bipolar disorder, unspecified (principal)
CPT/HCPCS: 90834

== ENCOUNTER → 2021-02-19 10:50 | Outpatient (BNVA) | payer MEDICAID, SELFPAY ==
[2021-01-15 09:45] VITALS: BP 133/74; BMI 36.9
== END ==
PROVIDERS: PCP Family Medicine; Visit Provider Counselor Professional
DX: F31.89 Other bipolar disorder (principal)
CPT/HCPCS: 90834

== ENCOUNTER → 2021-02-26 08:32 | Outpatient (BNVA) | payer MEDICAID, SELFPAY ==
[2021-01-15 09:45] VITALS: BP 133/74; BMI 36.9
== END ==
PROVIDERS: PCP Family Medicine; Visit Provider Anesthesiology
DX: G89.29 Other chronic pain (principal); M54.42 Lumbago with sciatica, left side; M54.41 Lumbago with sciatica, right side; M54.2 Cervicalgia; G43.109 Migraine with aura, not intractable, without status migrainosus; F17.219 Nicotine dependence, cigarettes, with unspecified nicotine-induced disorders; Z79.891 Long term (current) use of opiate analgesic
CPT/HCPCS: 99214

== ENCOUNTER → 2021-03-12 09:46 | Outpatient (BNVA) | payer MEDICAID, SELFPAY ==
[2021-02-26 09:16] VITALS: BP 133/74; BMI 36.9
== END ==
PROVIDERS: PCP Family Medicine; Visit Provider Social Worker
DX: F31.9 Bipolar disorder, unspecified (principal)
CPT/HCPCS: 90834

== ENCOUNTER → 2021-05-06 09:17 | Outpatient (BNVA) | payer MEDICAID, SELFPAY ==
[2021-02-26 09:16] VITALS: BP 133/74; BMI 36.9
== END ==
PROVIDERS: PCP Family Medicine; Visit Provider Anesthesiology
DX: F31.9 Bipolar disorder, unspecified (principal); G89.29 Other chronic pain; M25.551 Pain in right hip; M54.42 Lumbago with sciatica, left side; M54.41 Lumbago with sciatica, right side; M54.2 Cervicalgia; G43.109 Migraine with aura, not intractable, without status migrainosus; F17.290 Nicotine dependence, other tobacco product, uncomplicated; Z79.899 Other long term (current) drug therapy; Z79.891 Long term (current) use of opiate analgesic
CPT/HCPCS: 90832; 90834; 99214

== ENCOUNTER 2021-06-30 11:31 | Outpatient (CLI) | payer MEDICAID, SELFPAY ==
[2021-02-26 09:16] VITALS: BP 133/74; BMI 36.9
--- NOTE | 2021-06-30 12:09 | XR_ITS ---
WS: [id number] HIP WITH PELVIS RIGHT TECHNIQUE: 3 views of the right hip with pelvis CLINICAL INFORMATION: chronic right hip pain COMPARISON: None. FINDINGS: Mild osteoarthritis right hip. Mild joint space narrowing. No acute fractures. Visualized right pubic rami are normal. XR/XR hip RT 2-3V wo/w pel* [id number] IMPRESSION: Mild degenerative arthritis right hip with joint space narrowing. No acute frac tures. Tonnis classification: grade 1: sclerosis of femoral head and acetabulum or sli ght joint space narrowing or slight lippig at joint margins
== END 2021-06-30 11:32 | disposition home or self-care (01) ==
PROVIDERS: PCP Family Medicine; Visit Provider Family Medicine
DX: M16.11 Unilateral primary osteoarthritis, right hip (principal)
CPT/HCPCS: 73502

== ENCOUNTER → 2021-07-08 09:04 | Outpatient (BNVA) | payer MEDICAID, SELFPAY ==
[2021-02-26 09:16] VITALS: BP 133/74; BMI 36.9
== END ==
PROVIDERS: PCP Family Medicine; Visit Provider Family Medicine
DX: E11.9 Type 2 diabetes mellitus without complications (principal); E78.5 Hyperlipidemia, unspecified; M54.42 Lumbago with sciatica, left side; M54.41 Lumbago with sciatica, right side; G89.29 Other chronic pain; M25.551 Pain in right hip; F17.219 Nicotine dependence, cigarettes, with unspecified nicotine-induced disorders
CPT/HCPCS: 80053; 80061; 82043; 83036; 83721; 85025

== ENCOUNTER → 2021-07-23 09:16 | Outpatient (BNVA) | payer MEDICAID, SELFPAY ==
[2021-02-26 09:16] VITALS: BP 133/74; BMI 36.9
== END ==
PROVIDERS: PCP Family Medicine; Visit Provider Nurse Practitioner
DX: F31.9 Bipolar disorder, unspecified (principal); F41.1 Generalized anxiety disorder
CPT/HCPCS: 99214

== ENCOUNTER → 2021-08-04 09:16 | Outpatient (BNVA) | payer MEDICAID, SELFPAY ==
[2021-02-26 09:16] VITALS: BP 133/74; BMI 36.9
== END ==
PROVIDERS: PCP Family Medicine; Visit Provider Family Medicine
DX: E11.9 Type 2 diabetes mellitus without complications (principal)
CPT/HCPCS: 80048

== ENCOUNTER → 2021-08-06 08:51 | Outpatient (BNVA) | payer MEDICAID, SELFPAY ==
[2021-02-26 09:16] VITALS: BP 133/74; BMI 36.9
== END ==
PROVIDERS: PCP Family Medicine; Visit Provider Anesthesiology
DX: Z02.89 Encounter for other administrative examinations (principal); G89.29 Other chronic pain; M54.42 Lumbago with sciatica, left side; M54.41 Lumbago with sciatica, right side; M54.2 Cervicalgia; G43.109 Migraine with aura, not intractable, without status migrainosus; F17.219 Nicotine dependence, cigarettes, with unspecified nicotine-induced disorders; Z79.899 Other long term (current) drug therapy; Z79.891 Long term (current) use of opiate analgesic
CPT/HCPCS: 99214

== ENCOUNTER → 2021-08-12 09:30 | Outpatient (BNVA) | payer MEDICAID, SELFPAY ==
[2021-02-26 09:16] VITALS: BP 133/74; BMI 36.9
== END ==
PROVIDERS: PCP Family Medicine; Visit Provider Social Worker
DX: F31.9 Bipolar disorder, unspecified (principal)
CPT/HCPCS: 90834

== ENCOUNTER → 2021-09-09 09:37 | Outpatient (BNVA) | payer MEDICAID, SELFPAY ==
[2021-02-26 09:16] VITALS: BP 133/74; BMI 36.9
== END ==
PROVIDERS: PCP Family Medicine; Visit Provider Social Worker
DX: F41.1 Generalized anxiety disorder (principal)
CPT/HCPCS: 90834

== ENCOUNTER → 2021-10-03 10:20 | Outpatient (BNVA) | payer MEDICAID, SELFPAY ==
[2021-02-26 09:16] VITALS: BP 133/74; BMI 36.9
== END ==
PROVIDERS: PCP Family Medicine; Visit Provider Nurse Practitioner
DX: R51.9 Headache, unspecified (principal)
CPT/HCPCS: 87400

== ENCOUNTER → 2021-10-08 09:33 | Outpatient (BNVA) | payer MEDICAID, SELFPAY ==
[2021-02-26 09:16] VITALS: BP 133/74; BMI 36.9
== END ==
PROVIDERS: PCP Family Medicine; Visit Provider Social Worker
DX: F31.9 Bipolar disorder, unspecified (principal); F41.1 Generalized anxiety disorder
CPT/HCPCS: 90834

== ENCOUNTER 2021-10-23 11:19 | Outpatient (CLI) | payer MEDICAID, SELFPAY ==
[2021-02-26 09:16] VITALS: BP 133/74; BMI 36.9
[2021-10-23 12:13] LABS: Basophils # 0.1 10^3/uL (0.0-0.1); Basophils % 0.6 %; Eosinophils # 0.2 10^3/uL (0.0-0.8); Eosinophils % 1.8 %; Hematocrit 41.7 % (37.0-47.0); Lymphocytes # 1.2 10^3/uL (0.8-4.8); Lymphocytes % 14.7 %; Mean Corpuscular HGB Conc 31.2 g/dL (30.0-36.0); Mean Corpuscular Volume 96.3 fl (81-99); Mean Platelet Volume 10.6 fL (7.4-10.4); Monocytes # 0.7 10^3/uL (0.2-0.9); Monocytes % 8.4 %; Neutrophils # 6.09 10^3/uL (1.8-7.7); Neutrophils % 73.5 %; Nucleated Red Blood Cells % 0 %; Platelet Count 278 10^3/cmm (130-400); Red Blood Count 4.33 10^6/uL (4.1-5.3); Red Cell Distribution Width 14.3 % (12.1-15.1); White Blood Count 8.3 10^3/uL (4.0-10.0)
[2021-10-23 12:23] LABS: Albumin Level 4.4 g/dL (3.5-5.2); Blood Urea Nitrogen 18 mg/dL (6-20); Calcium 10.4 mg/dL (8.5-10.5); Carbon Dioxide 21 mmol/L (22-29); Chloride 103 mmol/L (98-107); Glomerular Filtration Rate 47.2 mL/min (90-130); Glucose 240 mg/dL (65-115); Phosphorus 3.3 mg/dL (2.5-4.5); Sodium 135 mmol/L (136-145)
[2021-10-23 12:26] LABS: Creatinine Urine, Random 16 mg/dL (28-217); Microalbumin Random Urine 1 ug/dL (0-20)
[2021-10-23 12:27] LABS: Calcium 10.3 mg/dL (8.5-10.5)
[2021-10-23 12:27] LABS: Microalbum Creatinine Ratio Ur 63 mg/dL (0-20)
[2021-10-23 12:29] LABS: Anion Gap 15.6 (5-19); Potassium 4.6 mmol/L (3.5-5.1)
[2021-10-23 12:34] LABS: Parathyroid Hormone 62.7 pg/mL (15-65)
== END 2021-10-23 11:20 | disposition home or self-care (01) ==
LOC: LAB 11:30
PROVIDERS: PCP Family Medicine; Visit Provider Internal Medicine Nephrology
DX: N18.31 Chronic kidney disease, stage 3a (principal)
CPT/HCPCS: 80069; 82044; 82310; 83970; 85025

== ENCOUNTER → 2021-10-24 08:28 | Outpatient (BNVA) | payer MEDICAID, SELFPAY ==
[2021-02-26 09:16] VITALS: BP 133/74; BMI 36.9
== END ==
PROVIDERS: PCP Family Medicine; Visit Provider Nurse Practitioner
DX: F41.1 Generalized anxiety disorder (principal); F31.9 Bipolar disorder, unspecified; Z79.899 Other long term (current) drug therapy
CPT/HCPCS: 99214

== ENCOUNTER → 2021-11-26 11:15 | Outpatient (BNVA) | payer MEDICAID, SELFPAY ==
[2021-02-26 09:16] VITALS: BP 133/74; BMI 36.9
== END ==
PROVIDERS: PCP Family Medicine; Visit Provider Orthopaedic Surgery
DX: M17.12 Unilateral primary osteoarthritis, left knee (principal); F17.210 Nicotine dependence, cigarettes, uncomplicated
CPT/HCPCS: 20610; J0702; J3490

== ENCOUNTER → 2021-12-09 09:27 | Outpatient (BNVA) | payer MEDICAID, SELFPAY ==
[2021-02-26 09:16] VITALS: BP 133/74; BMI 36.9
== END ==
PROVIDERS: PCP Family Medicine; Visit Provider Family Medicine
DX: E11.65 Type 2 diabetes mellitus with hyperglycemia (principal); F17.219 Nicotine dependence, cigarettes, with unspecified nicotine-induced disorders
CPT/HCPCS: 80053; 83036

== ENCOUNTER → 2022-01-22 09:22 | Outpatient (BNVA) | payer MEDICAID, SELFPAY ==
[2021-02-26 09:16] VITALS: BP 133/74; BMI 36.9
== END ==
PROVIDERS: PCP Family Medicine; Visit Provider Nurse Practitioner
DX: F31.9 Bipolar disorder, unspecified (principal); F41.1 Generalized anxiety disorder
CPT/HCPCS: 99214

== ENCOUNTER → 2022-03-03 09:33 | Outpatient (BNVA) | payer MEDICAID, SELFPAY ==
[2021-02-26 09:16] VITALS: BP 133/74; BMI 36.9
== END ==
PROVIDERS: PCP Family Medicine; Visit Provider Nurse Practitioner Family
DX: M17.12 Unilateral primary osteoarthritis, left knee (principal)
CPT/HCPCS: 20610; 99213; J1100; J2795; J3301

== ENCOUNTER → 2022-03-10 09:39 | Outpatient (BNVA) | payer MEDICAID, SELFPAY ==
[2021-02-26 09:16] VITALS: BP 133/74; BMI 36.9
== END ==
PROVIDERS: PCP Family Medicine; Visit Provider Family Medicine
DX: E78.5 Hyperlipidemia, unspecified (principal); E11.65 Type 2 diabetes mellitus with hyperglycemia
CPT/HCPCS: 80053; 80061; 83036

== ENCOUNTER 2022-04-28 13:23 | Outpatient (CLI) | payer MEDICAID, SELFPAY ==
[2021-02-26 09:16] VITALS: BP 133/74; BMI 36.9
--- NOTE | 2022-04-28 14:00 | USCV_ITS ---
Jabier Ignacio Age: 52 Gender: F : 1970 Exam Date: 04/28/2022 13:34 Ordering Phys: Zunilda Orta Technologist: Nati Pittman Exam Location[place] [facility] [place] Indication: Pt has swollen red Lt leg HISTORY: Pt had cellulitis but swelling is not getting better. PROCEDURES: Venous duplex imaging was performed in only the left lower extremity. The following venous structures were evaluated: common femoral vein, profunda vein, proximal portion of the greater saphenous vein, superficial femoral vein, and the popliteal vein. In addition, the posterior tibial and peroneal trunk were evaluated. Serial compression, augmentation maneuvers, and spectral Doppler flow evaluation were performed. FINDINGS: Normal 2-D Doppler and augmentation and compressibility throughout the lower extremity venous structures. Additional imaging through the proximal calf veins also reveals no thrombus. Limited evaluation of the greater saphenous vein is patent with no thrombus.. CONCLUSIONS No evidence of left lower extremity DVT. Dar Dwyer MD (Electronically Signed) Final Date: 28 April 2022 17:20 S
== END 2022-04-28 13:24 | disposition home or self-care (01) ==
LOC: RAD 13:23
PROVIDERS: PCP Family Medicine; Visit Provider Registered Nurse Neonatal Intensive Care
DX: R22.42 Localized swelling, mass and lump, left lower limb (principal)
CPT/HCPCS: 93971

== ENCOUNTER 2022-07-14 13:04 | Emergency (ER) | payer MEDICAID, SELFPAY ==
[2021-02-26 09:16] VITALS: BP 133/74; BMI 36.9
[2022-07-14] VITALS (20 sets, daily range): BP systolic 125–146; BP diastolic 64–107; PULSE 65–97; RESP 14–19; TEMP 37.2; O2SAT 94–99; BMI 35.5
--- NOTE | 2022-07-14 13:32 | CT_ITS ---
WS: [id number] CT HEAD NONCONTRAST HISTORY: R sided weakness, onset 5 days ago. TECHNIQUE: Contiguous axial imaging performed through the brain in 2.5 mm imaging. Bone and soft tiss ue windows. Sagittal and coronal reformats reviewed. All CT scans at [facility] use at least one of these dose optimization techniques: automated exposure control; mA and/or kV adjustment per pa tient size (includes targeted exams where dose is matched to clinical indication); or iterative recon struction. DLP: 985.88 mGy.cm COMPARISON: None available. No acute intracranial hemorrhage, midline shift or mass effect. Significant atrophy. No sulcal effacement. Prior lacunar infarct involving the anterior limb of the R IGHT internal capsule. Ventricles: Normal size with no hydrocephalus. No inferior displacement of cerebellar tonsils. Paranasal sinuses: As visualized are clear. Mastoid air cells: Well pneumatized. Calvarium and scalp: Skull is intact with no soft tissue edema or swelling. CT/CT head wo con* [id number] IMPRESSION: 1. No acute intracranial hemorrhage or edema. 2. Remote infarct anterior limb RIGHT internal capsule.
--- NOTE | 2022-07-14 13:48 | ECG_ITS ---
[facility] Test Date: 2022-07-14 Pat Name: Ignacio Eugene Department: Room: Gender: Female Mattress Weaver: : 1970 Requested By: Mukul Fairbanks Order Number: [id number] Ad MD: Chele Caro M.D. Measurements Intervals [place] Rate: 60 P: 55 WA: 215 QRS: 41 QRSD: 88 T: -21 QT: 376 QTc: 378 Interpretive Statements SINUS RHYTHM WITH FIRST DEGREE AV BLOCK LOW QRS VOLTAGE IN PRECORDIAL LEADS [QRS DEFLECTION < 1.0 mV IN CHEST LEADS] NONSPECIFIC T-WAVE ABNORMALITY No previous ECG available for comparison Electronically Signed On 07-14-2022 17:46:35 RECREATION ASSISTANT by Chele Caro M.D. [id number]
[2022-07-14 14:08] LABS: Basophils % 0.4 %; Eosinophils # 0.2 10^3/uL (0.0-0.8); Eosinophils % 1.5 %; Hematocrit 40.9 % (37.0-47.0); Hemoglobin 12.8 g/dL (11.5-15.3); Lymphocytes # 1.1 10^3/uL (0.8-4.8); Lymphocytes % 10.4 %; Mean Corpuscular HGB Conc 31.3 g/dL (30.0-36.0); Mean Corpuscular Hemoglobin 30.7 pg (28.0-34.0); Mean Corpuscular Volume 98.1 fl (81-99); Mean Platelet Volume 10.7 fL (7.4-10.4); Monocytes # 1.1 10^3/uL (0.2-0.9); Monocytes % 10.7 %; Neutrophils # 8.13 10^3/uL (1.8-7.7); Neutrophils % 76.4 %; Nucleated Red Blood Cells % 0 %; Platelet Count 277 10^3/cmm (130-400); Red Blood Count 4.17 10^6/uL (4.1-5.3); White Blood Count 10.6 10^3/uL (4.0-10.0)
--- NOTE | 2022-07-14 14:33 | W.ED.NEUROSD ---
HPI - Neuro Symptoms/Deficit General: Chief Complaint: Neuro Symptoms/Deficit Stated Complaint: Right Side Weakness Time Seen by Provider: 07/14/22 13:24 Source: patient Mode of arrival: ambulatory History of Present Illness: 52-year-old female presents emergency room with right-sided weakness evidently this is been going on for several months she has been using a cane during that time over the last 1 to 2 weeks is worsened and now she is progressed to using a walker. No chest pain no difficulty speech or swallowing. No chest pain no abdominal pain. Onset (ago): month(s) Location: right arm and right leg Severity: moderate Quality: weak Relieving factors: none Exacerbating factors: none Context: gradual onset Associated symptoms: Deny chest pain, cough, diaphoresis, fevers/chills, headache(s), anorexia, malaise, nausea, seizures, short of breath, syncope, tingling, vertigo, vomiting or weakness Treatments Prior to Arrival: none Review of Systems Const: Denies: fever(s), chills, fatigue, malaise or diaphoresis ENMT: Denies: throat pain, ear or mastoid pain, nasal discharge or nasal congestion Card: Denies: chest pain or syncope Resp: Denies: dyspnea, productive cough or non-productive cough GI: Denies: abdominal pain, nausea or vomiting : Denies: flank pain, difficulty voiding, dysuria, urinary frequency or urinary urgency Skin/Breast: Denies: rash or pruritus Neuro: Denies: headache(s) or vertigo PFSH ED PFSH: Medical History Bipolar 1 disorder Bipolar disorder, current episode depressed, severe, with psychotic features Chronic bilateral low back pain with bilateral sciatica Chronic headache with normal neurologic examination Dyslipidemia Encounter for long-term opiate analgesic use Encounter for long-term use of opiate analgesic Generalized anxiety disorder Acampo use Long-term use of high-risk medication Migraine aura without headache Neck pain Opioid contract exists Panic disorder with agoraphobia Psychiatric care Type 2 diabetes mellitus, without long-term current use of insulin Surgical History History of adenoidectomy S/P tonsillectomy AGE 4 Family History Mother Hypertension Grandmother Hypertension Atrial fibrillation Other Bipolar 1 disorder CAD (coronary artery disease) Denies family history of Anesthesia complication Bleeding disorder Social History Smoking and tobacco status: current every day smoker Quit status (tobacco): has tried quititng Second hand smoke exposure: Yes Smoking risk assessment/counseling performed?: Yes Tobacco counseling given: counseling >3 minutes Alcohol intake: former Year of sobriety/quit date alcohol: 1999 Former alcohol use details: alcoholic - quit in 1999 Desire information about alcohol rehabilitation?: No Counseling given: No Adopted: No Caregiver/support person: No Lives independently: Yes Household members: family and children Housing: House Marital status: Number of children: 3 Number of grandchildren: 1 Highest education level completed: GED or Equivalent service: No Current occupational status: disabled Pets and animals: Yes Pets & animals: cat(s) and dog(s) Pets & animal details: indoor History of recent travel: No Leisure activites: music, reading and other Leisure activities details: watch TV Sexually active: No Current gender identity: Female Tessa/Episcopalian: Episcopalian Special tessa needs: No Agree to transfusion: Yes Financial difficulty paying for basics: Not Very Hard Female Reproductive History: Para: 3 Spontaneous abortions: No Date of menopause: 08/27/17 Physical Exam Const: COMMON NORMALS: no acute distress GENERAL APPEARANCE: cooperative and comfortable ORIENTATION/CONSCIOUSNESS: Yes awake, Yes oriented to person, Yes oriented to place and Yes oriented to time HENMT: COMMON NORMALS: normocephalic, atraumatic and hearing grossly normal bilaterally HEAD & SCALP: normocephalic and atraumatic Resp: COMMON NORMALS: normal respiratory effort, No retractions, No use of accessory muscles and clear to auscultation bilaterally AUSCULTATION: clear to auscultation bilaterally Cardio: COMMON NORMALS: regular rate, regular rhythm and No murmurs present (Cardio) RATE: regular rate RHYTHM: regular rhythm GI: COMMON NORMALS: Soft to palpation and No hepatosplenomegaly present AUSCULTATION: Yes normoactive bowel sounds PALPATION: Yes Soft to palpation, No Tenderness to palpation present (GI), No Guarding due to palpation present (GI) and Yes No hepatosplenomegaly present Extremity: COMMON NORMALS: normal to inspection, capillary refill normal, no clubbing, cyanosis or edema, no calf tenderness and no pedal edema Neuro: SENSORIUM/ORIENTATION: Yes oriented to person, Yes oriented to place and Yes oriented to time Skin: COMMON NORMALS: no rashes or lesions noted GENERAL SKIN EXAM: no rashes or lesions noted Course Vital Signs: Vital signs: Vital Signs Temperature 98.9 F 07/14/22 13:18 Pulse Rate 97 07/14/22 17:15 Respiratory Rate 14 07/14/22 17:15 Blood Pressure 146/107 07/14/22 17:45 Pulse Oximetry 99 07/14/22 17:15 Oxygen Delivery Me thod 07/14/22 13:18 MDM - Neuro Symptoms/Deficit Medical Decision Making CT head shows old infarct but it is on the right side of the brain. We did have physical therapy walker she did well with the walker she has significant arthritic complaints and significant scoliosis at present severe challenge for her she does have a bladder infection but no sign of any obstruction or pyelonephritis discharged home on oral antibiotics and refer her to orthopedics. Medical Records I reviewed the patient's medical records. Lab Data I reviewed the patient's lab results. 07/14/22 14:00 07/14/22 14:[address] 07/14/22 13:32 IMPRESSION: 1. No acute intracranial hemorrhage or edema. 2. Remote infarct anterior limb RIGHT internal capsule. Abdomen/Pelvis CT 07/14/22 15:31 IMPRESSION: 1. No renal obstruction or significant perinephric stranding. 2. Normal appendix. 3. Distal colon diverticular disease without acute diverticulitis. 4. No adenopathy or free fluid. 5. LEFT adrenal adenoma. Laboratory Results WBC 10.6 10^3/uL (4.0-10.0) H 07/14/22 14:00 RBC 4.17 10^6/uL (4.1-5.3) 07/14/22 14:00 Hgb 12.8 g/dL (11.5-15.3) 07/14/22 14:00 Hct 40.9 % (37.0-47.0) 07/14/22 14:00 MCV 98.1 fl (81-99) 07/14/22 14:00 MCH 30.7 pg (28.0-34.0) 07/14/22 14:00 MCHC 31.3 g/dL (30.0-36.0) 07/14/22 14:00 RDW 14.0 % (12.1-15.1) 07/14/22 14:00 Plt Count 277 10^3/cmm (130-400) 07/14/22 14:00 MPV 10.7 fL (7.4-10.4) H 07/14/22 14:00 Neut % (Auto) 76.4 % 07/14/22 14:00 Lymph % (Auto) 10.4 % 07/14/22 14:00 Person % (Auto) 10.7 % 07/14/22 14:00 Eos % (Auto) 1.5 % 07/14/22 14:00 Baso % (Auto) 0.4 % 07/14/22 14:00 Neut # (Auto) 8.13 10^3/uL (1.8-7.7) H 07/14/22 14:00 Lymph # (Auto) 1.1 10^3/uL (0.8-4.8) 07/14/22 14:00 Person # (Auto) 1.1 10^3/uL (0.2-0.9) H 07/14/22 14:00 Eos # (Auto) 0.2 10^3/uL (0.0-0.8) 07/14/22 14:00 Baso # (Auto) 0.0 10^3/uL (0.0-0.1) 07/14/22 14:00 Nucleated RBC % (auto) 0 % 07/14/22 14:00 Nucleated RBCs # 0.0 /100WBC 07/14/22 14:00 Sodium 135 mmol/L (136-145) L 07/14/22 14:00 Potassium 4.8 mmol/L (3.5-5.1) 07/14/22 14:00 Chloride 103 mmol/L (98-107) 07/14/22 14:00 Carbon Dioxide 23 mmol/L (22-29) 07/14/22 14:00 Anion Gap 13.8 (5-19) 07/14/22 14:00 BUN 22 mg/dL (6-20) H 07/14/22 14:00 Creatinine 2.3 mg/dL (0.5-0.9) H 07/14/22 14:00 GFR Calculation 22.2 mL/min (90-130) L 07/14/22 14:00 Glucose 103 mg/dL (65-115) 07/14/22 14:00 Calculated Osmolality 284 mOsm/kg (285-295) L 07/14/22 14:00 Calcium 10.3 mg/dL (8.5-10.5) 07/14/22 14:00 Total Bilirubin 0.3 mg/dL (0.15-1.2) 07/14/22 14:00 AST 14 U/L (0-32) 07/14/22 14:00 ALT 13 U/L (0-33) 07/14/22 14:00 Alkaline Phosphatase 89 U/L (35-105) 07/14/22 14:00 Total Protein 7.4 g/dL (6.6-8.7) 07/14/22 14:00 Albumin 4.2 g/dL (3.5-5.2) 07/14/22 14:00 Globulin 3.2 g/dL (1.3-4.6) 07/14/22 14:00 Urine Color Yellow (Yellow) 07/14/22 14:21 Urine Appearance Cloudy (CLEAR) A 07/14/22 14:21 Urine pH 5 (5-7) 07/14/22 14:21 Ur Specific Heber 1.010 (1.005-1.030) 07/14/22 14:21 Urine Protein 1+ (Negative) H 07/14/22 14:21 Urine Glucose (UA) Norm (Normal) 07/14/22 14:21 Urine Ketones Negative (Negative) 07/14/22 14: Urine Blood 2+ (Negative) H 07/14/22 14:21 Urine Nitrate Negative (Negative) 07/14/22 14:21 Urine Bilirubin Neg (Negative) 07/14/22 14:21 Urine Urobilinogen Norm mg/dL (Negative) 07/14/22 14:21 Ur Leukocyte Esterase 2+ (Negative) H 07/14/22 14:21 Urine RBC 0-4 /hpf (0-2) H 07/14/22 14:21 Urine WBC Too numerous to cnt /hpf (0-5) H 07/14/22 14:21 Ur Squamous Epith Cells None /hpf (0-5) 07/14/22 14:21 Amorphous Sediment Not Reportable 07/14/22 14:21 Urine Bacteria 4+ /hpf (NONE) H 07/14/22 14:21 Discharge Plan Discharge Patient Disposition: Home Clinical Impression: Cystitis, SAMANTHA (acute kidney injury) Condition: Stable Prescriptions: New ciprofloxacin HCl 500 mg tablet 500 mg PO BID Qty: 14 0RF No Action (DME) blood-glucose meter [OneTouch Ultra2 Meter] Misc See Rx Instructions .Route Qty: 1 0RF Rx Instructions: to use to check blood sugar TID (DME) OneTouch Ultra Test Strip See Rx Instructions .Route Qty: 300 3RF Rx Instructions: to use in onetouch meter TID to check blood sugar 90 supply nicotine 14 mg/24 hr patch 24 hour 1 patch transdermal DAILY Qty: 28 0RF hydrocodone-acetaminophen 7.5-325 mg tablet 1 tab PO QID PRN (Reason: pain) 30 Days Qty: 120 0RF Rx Instructions: fill on or after 09/05/21 gabapentin 800 mg tablet 800 mg PO QID 30 Days Qty: 120 1RF budesonide-formoterol [Symbicort] 160-4.5 mcg/actuation HFA aerosol inhaler 2 puff inhalation Q12H Qty: 10.2 2RF Januvia 100 mg tablet 100 mg PO DAILY 90 Days Qty: 90 1RF atorvastatin 40 mg tablet 40 mg PO DAILY 90 Days Qty: 90 1RF fenofibrate nanocrystallized 145 mg tablet 145 mg PO DAILY Qty: 90 1RF (DME) lancets [OneTouch Delica Lancets] 30 gauge misc See Rx Instructions .Route Qty: 300 3RF Rx Instructions: use to check blood sugar TID 90 day supply hydroxyzine HCl 25 mg tablet 50 mg PO TID PRN (Reason: anxiety) Qty: 180 2RF lamotrigine 150 mg tablet 150 mg PO BID Qty: 60 2RF lithium carbonate 300 mg capsule 600 mg PO BID Qty: 120 2RF risperidone 2 mg tablet 2 mg PO BID Qty: 60 2RF methocarbamol 750 mg tablet 750 mg PO QID PRN (Reason: Muscle Spasm) omeprazole 20 mg capsule,delayed release(DR/EC) 20 mg PO DAILY ProAir HFA 90 mcg/actuation HFA aerosol inhaler 2 puff inhalation Q6H PRN (Reason: Shortness Of Breath Or Wheezing) Lantus Solostar U-100 Insulin 100 unit/mL (3 mL) insulin pen 60 unit SUBCUT QPM ibuprofen 200 mg Capsule 400 mg PO Q6H PRN (Reason: Pain) Discharge Orders: Discharge ED (Routine); Ordered 07/14/22 Ordered By: Mukul Capellan Referrals: Annabel Arcos DO [Primary Care Provider] - Discharge Diet: Usual diet Discharge Activity: Resume usual activity Patient Instructions: Opioid Safety, Pain Management Activity Restrictions/Additional Instructions: He was seen today for weakness. With physical therapy you are able to ambulate with the use of a walker. Additionally has found that you had a bladder infection but there is no signs of obstruction of the ureters or pyelonephritis. There is a mild worsening of your kidney function as well. The fluids given while you are in the emergency room should improve this. Recommend that you start the ciprofloxacin 1 pill twice daily tomorrow for 7 days. He should also have your kidney function rechecked in 2 to 3 days to your primary care doctor increase your oral fluid intake over the next several days. Coding Level of Care Code ED Pipe Threading Machine Operator for Damir Fwd Exam Detailed
[2022-07-14 14:40] LABS: Add Urine Culture? Yes; Add Urine Microscopic? YES; Bacteria Urine 4+ /hpf; Bilirubin Urine Neg (Negative); Blood Urine 2+ (Negative); Glucose Urine UA Norm (Normal); Ketones Urine Negative (Negative); Leukocyte Esterase Urine 2+ (Negative); Nitrate Urine Negative (Negative); Protein Urine 1+ (Negative); RBC Urine 0-4 /hpf (0-2); Urine Appearance Cloudy (CLEAR); Urine Color Yellow (Yellow); Urobilinogen Urine Norm (Negative); WBC Urine TOO NUMEROUS TO CNT /hpf (0-5); pH Urine 5 (5-7)
[2022-07-14 14:42] LABS: Alanine Aminotransferase 13 U/L (0-33); Albumin Level 4.2 g/dL (3.5-5.2); Alkaline Phosphatase 89 U/L (35-105); Anion Gap 13.8 (5-19); Aspartate Amino Transferase 14 U/L (0-32); Blood Urea Nitrogen 22 mg/dL (6-20); Calcium 10.3 mg/dL (8.5-10.5); Carbon Dioxide 23 mmol/L (22-29); Chloride 103 mmol/L (98-107); Globulin 3.2 g/dL (1.3-4.6); Glomerular Filtration Rate 22.2 mL/min (90-130); Glucose 103 mg/dL (65-115); Osmolality Calculated 284 mOsm/kg (285-295); Potassium 4.8 mmol/L (3.5-5.1); Sodium 135 mmol/L (136-145); Total Bilirubin 0.3 mg/dL (0.15-1.2); Total Protein 7.4 g/dL (6.6-8.7)
--- NOTE | 2022-07-14 15:31 | CT_ITS ---
WS: [id number] CT ABDOMEN AND PELVIS NONCONTRAST HISTORY: SAMANTHA /cystitis TECHNIQUE: Imaging performed through the abdomen and pelvis. Coronal and sagittal reformats are submi tted. All CT scans at [facility] use at least one of these dose optimization techniques: auto mated exposure control; mA and/or kV adjustment per patient size (includes targeted exams where dose is matched to clinical indication); or iterative reconstruction. DLP: 970.60 mGy.cm COMPARISON: None available. Lower thorax: Lung bases are clear. Visualized heart is normal. No hiatal hernia. Liver: Normal size liver. No mass or bile duct dilatation. Gallbladder: Normal gallbladder. Pancreas: Normal size and attenuation. Normal pancreatic duct. No pancreatitis or mass. Spleen: Normal. Adrenal glands: Normal RIGHT adrenal gland. LEFT adrenal adenoma 18 x 13 mm. Right kidney: Normal size kidney. Vague low-attenuation region mid kidney measures 13 x 17 mm. No obs truction of the kidney. Tiny exophytic nodule from the lower pole RIGHT kidney. Left kidney: Normal size kidney with no mass or hydronephrosis. Aorta: Mild atherosclerosis abdominal aorta with no aneurysm. No free fluid, intraperitoneal air or significant lymphadenopathy. GI tract: Nondistended stomach. No small bowel obstruction. Normal appendix. Mild diffuse constipatio n. Numerous diverticula in the distal colon. No evidence for acute diverticulitis. Abdominal wall: Negative. No hernia. Pelvis: No free fluid or adenopathy. Osseous structures: Small amount of fluid surrounding the LEFT femoral head. Cortical irregularity in volving the superior surface of the LEFT femoral head may be an area of developing osteonecrosis. Lum bar scoliosis. CT/CT kidney stone [id number] IMPRESSION: 1. No renal obstruction or significant perinephric stranding. 2. Normal appendix. 3. Distal colon diverticular disease without acute diverticulitis. 4. No adenopathy or free fluid. 5. LEFT adrenal adenoma.
[2022-07-14] MEDS: cefTRIAXone 1,000 MG in sodium chloride 0.9% (plus) 50 ML 100 MG IV (15:46)
[2022-07-14] MEDS: sodium chloride 0.9% 1,000 ML 999 ML IV ×2 (15:46→16:28)
--- NOTE | 2022-07-14 16:48 | PC.NURSE ---
PT IS PLACED ON CONTINUOUS SPO2, NIBP, AND CM.
--- NOTE | 2022-07-15 09:38 | DCPLANNER ---
Addendum entered by Miri Art 08/05/22 12:39: appointment cancelled Addendum entered by Miri Art 07/15/22 14:37: Patient has a follow up appointment scheduled for Thursday, August 04, 2022 at 11:[address] Goddard at ortho. Clinic will call patient with appointment information. Original Note: manager labor delivery had message to schedule a follow up appointment for patient with ortho. manager labor delivery sent patients information to the front office staff at ortho. Patients information will be printed and reviewed. Clinic will call patient with appointment information.
== END 2022-07-14 17:55 | disposition home or self-care (01) ==
PROVIDERS: Emergency Provider Family Medicine; PCP Family Medicine
DX: N17.9 Acute kidney failure, unspecified (principal); N30.90 Cystitis, unspecified without hematuria
CPT/HCPCS: 70450; 74176; 80053; 81001; 85025; 87040; 87086; 87186; 93005; 96365; 97116; 97161; 99285; J0696; J7030

== ENCOUNTER → 2022-07-23 09:34 | Outpatient (BNVA) | payer MEDICAID, SELFPAY ==
[2021-02-26 09:16] VITALS: BP 133/74; BMI 36.9
== END ==
PROVIDERS: PCP Family Medicine; Visit Provider Nurse Practitioner
DX: N39.0 Urinary tract infection, site not specified (principal); Z79.899 Other long term (current) drug therapy; Z13.6 Encounter for screening for cardiovascular disorders
CPT/HCPCS: 80053; 80178; 84439; 84443

== ENCOUNTER 2022-07-26 10:42 | Inpatient (IN) | payer MEDICAID, SELFPAY ==
[2021-02-26 09:16] VITALS: BP 133/74; BMI 36.9
[2022-07-26] VITALS (75 sets, daily range): BP systolic 119–198; BP diastolic 66–124; PULSE 73–99; RESP 15–33; TEMP 37.3–37.4; O2SAT 86–97; BMI 41.9; BMI 34.2
--- NOTE | 2022-07-26 10:55 | CTR_ITS ---
PROCEDURE INFORMATION: Exam: CT Head Without Contrast Exam date and time: 07/26/2022 11:22 AM Age: 52 years old Clinical indication: Altered mental status/memory loss; Additional info: Confusion, weakness TECHNIQUE: Imaging protocol: Computed tomography of the head without contrast. Radiation optimization: All CT scans at this facility use at least one of these dose optimization techniques: automated exposure control; mA and/or kV adjustment per patient size (includes targeted exams where dose is matched to clinical indication); or iterative reconstruction. COMPARISON: CT head wo con* [id number] 07/14/2022 2:03 PM RADIATION DOSE METRICS: Total DLP (mGy-cm): 914.94 FINDINGS: Brain: Indistinct hypodensity anterior limb right internal capsule and adjacent portion of the right lentiform nucleus likely representing a lacunar infarct of indeterminate age. No evidence of an acute cortical infarct. No evidence of intracranial hemorrhage. Cortical sulci are unremarkable. Cerebral ventricles: Unremarkable for age. Paranasal sinuses: Visualized sinuses are unremarkable. No fluid levels. Mastoid air cells: Visualized mastoid air cells are well aerated. Bones/joints: Unremarkable. No acute fracture. Soft tissues: Unremarkable. CT/CT head wo con* [id number] IMPRESSION: Stable appearance of right basal ganglia infarct of indeterminate age. Consider follow-up MRI examination for further assessment. Remainder of the CT examination is unremarkable.
--- NOTE | 2022-07-26 10:56 | ECG_ITS ---
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 Measurements Intervals [place] Rate: 74 P: 50 AZ: 173 QRS: 43 QRSD: 85 T: 3 QT: 371 QTc: 414 Interpretive Statements SINUS RHYTHM MODERATE T-WAVE ABNORMALITY, CONSIDER ANTERIOR ISCHEMIA [-0.1+ mV T-WAVE IN V3/V4] Compared to ECG 07/14/2022 13:48:01 Possible ischemia now present First degree AV block no longer present T-wave abnormality still present Electronically Signed On 07-26-2022 20:19:07 HEALTH CARE SANITARY TECHNICIAN by Felton Guidry M.D. [id number]
--- NOTE | 2022-07-26 10:57 | ED_ITS ---
HPI - General Adult General: Chief complaint: Altered Mental Status Stated complaint: AMS Time Seen by Provider: 07/26/22 10:49 History of Present Illness: 52-year-old female presents with generalized weakness and reports that she cannot think patient reports that she just cannot find the right words she feels. Patient reports that she cannot walk patient was seen on 07/23/2022 by her primary care provider with exact same complaints. At that time she reported that she has not been able to walk for 2 weeks that she just has a hard time finding words. Patient reports that she wants an MRI because she thinks she has muscular dystrophy. Patient has no acute changes based on her complaints today versus review of her chart on 07/23/2022 by her primary care provider. Associated symptoms: Deny chest pain, dyspnea, nausea, rash, palpitations or vomiting Review of Systems General: Reports: Other (Patient somewhat uncooperative in review of system) Const: Denies: fever(s) or chills ENMT: Denies: throat pain or ear or mastoid pain Card: Denies: chest pain, palpitations or lightheadedness Resp: Denies: dyspnea, productive cough or wheezing GI: Denies: abdominal pain, nausea or vomiting : Denies: flank pain or difficulty voiding Musc: Reports: other (Please see HPI) Skin/Breast: Denies: rash or pruritus Neuro: Reports: weakness in extremities, difficulty walking, difficulty communicating thoughts and involuntary movements PFSH ED PFSH: Medical History Bipolar 1 disorder Bipolar disorder, current episode depressed, severe, with psychotic features Chronic bilateral low back pain with bilateral sciatica Chronic headache with normal neurologic examination Dyslipidemia Encounter for long-term opiate analgesic use Encounter for long-term use of opiate analgesic Generalized anxiety disorder [place] use Long-term use of high-risk medication Migraine aura without headache Neck pain Opioid contract exists Panic disorder with agoraphobia Psychiatric care Type 2 diabetes mellitus, without long-term current use of insulin Surgical History History of adenoidectomy S/P tonsillectomy AGE 4 Family History Mother Hypertension Grandmother Hypertension Atrial fibrillation Other Bipolar 1 disorder CAD (coronary artery disease) Denies family history of Anesthesia complication Bleeding disorder Social History Smoking and tobacco status: current every day smoker Quit status (tobacco): has tried quititng Second hand smoke exposure: Yes Smoking risk assessment/counseling performed?: Yes Tobacco counseling given: counseling >3 minutes Alcohol intake: former Year of sobriety/quit date alcohol: 1999 Former alcohol use details: alcoholic - quit in 1999 Desire information about alcohol rehabilitation?: No Counseling given: No Adopted: No Caregiver/support person: No Lives independently: Yes Household members: family and children Housing: House Marital status: Number of children: 3 Number of grandchildren: 1 Highest education level completed: GED or Equivalent service: No Current occupational status: disabled Pets and animals: Yes Pets & animals: cat(s) and dog(s) Pets & animal details: indoor History of recent travel: No Leisure activites: music, reading and other Leisure activities details: watch TV Sexually active: No Current gender identity: Female Tessa/Catholic: Temple Special tessa needs: No Agree to transfusion: Yes Financial difficulty paying for basics: Not Very Hard Female Reproductive History: Para: 3 Spontaneous abortions: No Date of menopause: 08/27/17 Physical Exam Const: COMMON NORMALS: no acute distress, average body habitus and patient oriented x3 EXAM LIMITATIONS: behavioral limitations HENMT: COMMON NORMALS: hearing grossly normal bilaterally and moist oral mucous membranes Resp: COMMON NORMALS: normal respiratory effort, No retractions and No use of accessory muscles AUSCULTATION: diminished lung sounds Cardio: COMMON NORMALS: regular rate and regular rhythm RATE: regular rate RHYTHM: regular rhythm GI: COMMON NORMALS: Soft to palpation INSPECTION: Yes central obesity PALPATION: Yes Soft to palpation and Yes Firmness to palpation present (GI) Neuro: COMMON NORMALS: patient oriented x3 Skin: NARRATIVE SKIN EXAM: large reticular rash, back family states chronic x 2 years Course Vital Signs: Vital signs: Vital Signs Temperature 99.3 F 07/26/22 10:46 Pulse Rate 95 07/26/22 18:05 Respiratory Rate 21 H 07/26/22 16:45 Blood Pressure 151/66 07/26/22 18:05 Pulse Oximetry 93 07/26/22 18:05 Oxygen Delivery Me thod 07/26/22 15:00 Oxygen Flow Rate 2 01/01/23 10:46 Fraction of Inspir ed Oxygen 4 07/26/22 15:00 MDM - General Adult Medical Decision Making Patient with likely pneumonia. Patient was started on Rocephin 2 g prior to Infectious process. Patient with a negative lactate. Patient is normally not on oxygen and was requiring 2 L. Patient to be admitted to Dr. Voss for further inpatient management. Patient's chest CT showed infiltrate left lower lobe. Patient with no other findings on CT abdomen and pelvis. Lab Data 07/26/22 10:30 07/26/22 10:[address] 07/26/22 10:55 IMPRESSION: Stable appearance of right basal ganglia infarct of indeterminate age. Consider follow-up MRI examination for further assessment. Remainder of the CT examination is unremarkable. Chest X-Ray 07/26/22 14:09 IMPRESSION: Ill-defined retrocardiac opacity concerning for left lower lobe infiltrate which could be clarified on follow-up PA and lateral chest or CT exam. Chest/Abdomen/Pelvis CT 07/26/22 16:32 IMPRESSION: 1. Diffuse infiltrate left lower lobe likely secondary to pneumonia and atelectasis. 2. Subsegmental atelectasis right lung base. 3. Mild cardiomegaly. 4. Nodular goiter right lobe of the thyroid gland. IMPRESSION: 1. No acute findings within the abdomen or pelvis. 2. Moderate distended urinary bladder. No evidence of renal obstruction. 3. Mild-moderate degree of retained stool throughout the large bowel. Please correlate for constipation. 4. Mild splenomegaly Laboratory Results WBC 17.3 10^3/uL (4.0-10.0) H 07/26/22 10:30 RBC 4.48 10^6/uL (4.1-5.3) 07/26/22 10:30 Hgb 13.4 g/dL (11.5-15.3) 07/26/22 10:30 Hct 44.5 % (37.0-47.0) 07/26/22 10:30 MCV 99.3 fl (81-99) H 07/26/22 10:30 MCH 29.9 pg (28.0-34.0) 07/26/22 10:30 MCHC 30.1 g/dL (30.0-36.0) 07/26/22 10:30 RDW 14.8 % (12.1-15.1) 07/26/22 10:30 Plt Count 300 10^3/cmm (130-400) 07/26/22 10:30 MPV 11.5 fL (7.4-10.4) H 07/26/22 10:30 Neut % (Auto) 85.2 % 07/26/22 10:30 Lymph % (Auto) 5.3 % 07/26/22 10:30 [place] % (Auto) 7.6 % 07/26/22 10:30 Eos % (Auto) 0.8 % 07/26/22 10:30 Baso % (Auto) 0.2 % 07/26/22 10:30 Neut # (Auto) 14.78 10^3/uL (1.8-7.7) H 07/26/22 10:30 Lymph # (Auto) 0.9 10^3/uL (0.8-4.8) 07/26/22 10:30 [place] # (Auto) 1.3 10^3/uL (0.2-0.9) H 07/26/22 10:30 Eos # (Auto) 0.1 10^3/uL (0.0-0.8) 07/26/22 10:30 Baso # (Auto) 0.0 10^3/uL (0.0-0.1) 07/26/22 10:30 Nucleated RBC % (auto) 0 % 07/26/22 10:30 Nucleated RBCs # 0.0 /100WBC 07/26/22 10:30 Sodium 141 mmol/L (136-145) 07/26/22 10:30 Potassium 4.4 mmol/L (3.5-5.1) 07/26/22 10:30 Chloride 110 mmol/L (98-107) H 07/26/22 10:30 Carbon Dioxide 22 mmol/L (22-29) 07/26/22 10:30 Anion Gap 13.4 (5-19) 07/26/22 10:30 BUN 40 mg/dL (6-20) H 07/26/22 10:30 Creatinine 2.7 mg/dL (0.5-0.9) H 07/26/22 10:30 GFR Calculation 18.4 mL/min (90-130) L 07/26/22 10:30 Glucose 109 mg/dL (65-115) 07/26/22 10:30 Calculated Osmolality 302 mOsm/kg (285-295) H 07/26/22 10:30 Lactate 0.6 mmol/L (0.5-2.2) 07/26/22 11:50 Calcium 11.5 mg/dL (8.5-10.5) H 07/26/22 10:30 Magnesium 3.0 mg/dL (1.7-2.3) H 07/26/22 10:30 Total Bilirubin 0.3 mg/dL (0.15-1.2) 07/26/22 10:30 AST 14 U/L (0-32) 07/26/22 10:30 ALT 8 U/L (0-33) 07/26/22 10:30 Alkaline Phosphatase 103 U/L (35-105) 07/26/22 10:30 C-Reactive Protein 147.2 mg/L (0.0-4.9) H 07/26/22 10:30 Total Protein 8.4 g/dL (6.6-8.7) 07/26/22 10:30 Albumin 4.2 g/dL (3.5-5.2) 07/26/22 10:30 Globulin 4.2 g/dL (1.3-4.6) 07/26/22 10:30 Procalcitonin 0.59 ng/mL (0-0.5) H 07/26/22 10:30 TSH 0.79 uIU/mL (0.27-4.20) 07/26/22 10:30 Urine Color Yellow (Yellow) 07/26/22 14:32 Urine Appearance Sl hazy (CLEAR) A 07/26/22 14:32 Urine pH 6.5 (5-7) 07/26/22 14:32 Ur Specific [place] 1.005 (1.005-1.030) 07/26/22 14:32 Urine Protein Neg (Negative) 07/26/22 14:32 Urine Glucose (UA) Norm (Normal) 07/26/22 14:32 Urine Ketones Negative (Negative) 07/26/22 14:32 Urine Blood Neg (Negative) 07/26/22 14:32 Urine Nitrate Negative (Negative) 07/26/22 14:32 Urine Bilirubin Neg (Negative) 07/26/22 14:32 Urine Urobilinogen Norm mg/dL (Negative) 07/26/22 14:32 Ur Leukocyte Esterase Negative (Negative) 07/26/22 14:32 Urine Creatinine 37 mg/dL (28-217) 07/26/22 14:32 Urine Opiates Screen Positive ng/mL (Negative) H 07/26/22 14:32 Ur Barbiturates Screen Negative ng/mL (Negative) 07/26/22 14:32 Ur Phencyclidine Scrn Negative ng/mL (Negative) 07/26/22 14:32 Ur Amphetamines Screen Negative ng/mL (Negative) 07/26/22 14:32 U Benzodiazepines Scrn Negative ng/mL (Negative) 07/26/22 14:32 Urine Cocaine Screen Negative ng/mL (Negative) 07/26/22 14:32 U Marijuana (THC) Screen Negative ng/mL (Negative) 07/26/22 14:32 Influenza Type A Ag negative (Negative) 07/26/22 15:54 Influenza Type B Ag negative (Negative) 07/26/22 15:54 SARS-CoV-2 Ag (Rapid) negative (Negative) 07/26/22 15:54 EKG Data EKG 1: I personally reviewed and interpreted this EKG as follows: EKG interpretation date: 07/26/22 EKG interpretation time: 11:39 Interpretation: hr 74, NSR, IA 173, nonspecific lateral t wave. Computer generated interpretation: Head CT 07/26/22 10:55 IMPRESSION: Stable appearance of right basal ganglia infarct of indeterminate age. Consider follow-up MRI examination for further assessment. Remainder of the CT examination is unremarkable. Chest X-Ray 07/26/22 14:09 IMPRESSION: Ill-defined retrocardiac opacity concerning for left lower lobe infiltrate which could be clarified on follow-up PA and lateral chest or CT exam. Chest/Abdomen/Pelvis CT 07/26/22 16:32 IMPRESSION: 1. Diffuse infiltrate left lower lobe likely secondary to pneumonia and atelectasis. 2. Subsegmental atelectasis right lung base. 3. Mild cardiomegaly. 4. Nodular goiter right lobe of the thyroid gland. IMPRESSION: 1. No acute findings within the abdomen or pelvis. 2. Moderate distended urinary bladder. No evidence of renal obstruction. 3. Mild-moderate degree of retained stool throughout the large bowel. Please correlate for constipation. 4. Mild splenomegaly Discharge Plan Discharge Patient Disposition: Admitted As Inpatient Admit Provider: Carrington Voss Clinical Impression: Pneumonia, Weakness Condition: Stable Coding Level of Care Code ED Water Service Dispatcher for [place] Fwd Exam Detailed
[2022-07-26] MEDS: sodium chloride 0.9% 1,000 ML 999 ML IV (11:54)
[2022-07-26 12:15] LABS: Basophils % 0.2 %; Eosinophils # 0.1 10^3/uL (0.0-0.8); Eosinophils % 0.8 %; Hematocrit 44.5 % (37.0-47.0); Hemoglobin 13.4 g/dL (11.5-15.3); Lymphocytes # 0.9 10^3/uL (0.8-4.8); Lymphocytes % 5.3 %; Mean Corpuscular HGB Conc 30.1 g/dL (30.0-36.0); Mean Corpuscular Hemoglobin 29.9 pg (28.0-34.0); Mean Corpuscular Volume 99.3 fl (81-99); Mean Platelet Volume 11.5 fL (7.4-10.4); Monocytes # 1.3 10^3/uL (0.2-0.9); Monocytes % 7.6 %; Neutrophils # 14.78 10^3/uL (1.8-7.7); Neutrophils % 85.2 %; Nucleated Red Blood Cells % 0 %; Platelet Count 300 10^3/cmm (130-400); Red Blood Count 4.48 10^6/uL (4.1-5.3); Red Cell Distribution Width 14.8 % (12.1-15.1); White Blood Count 17.3 10^3/uL (4.0-10.0)
[2022-07-26 12:27] LABS: Lactate (Lactic Acid level) 0.6 mmol/L (0.5-2.2)
[2022-07-26 12:28] LABS: Procalcitonin 0.59 ng/mL (0-0.5); Thyroid Stimulating Hormone 0.79 uIU/mL (0.27-4.20)
[2022-07-26 12:39] LABS: Alanine Aminotransferase 8 U/L (0-33); Albumin Level 4.2 g/dL (3.5-5.2); Alkaline Phosphatase 103 U/L (35-105); Anion Gap 13.4 (5-19); Aspartate Amino Transferase 14 U/L (0-32); Blood Urea Nitrogen 40 mg/dL (6-20); C Reactive Protein 147.2 mg/L (0.0-4.9); Calcium 11.5 mg/dL (8.5-10.5); Carbon Dioxide 22 mmol/L (22-29); Chloride 110 mmol/L (98-107); Globulin 4.2 g/dL (1.3-4.6); Glomerular Filtration Rate 18.4 mL/min (90-130); Glucose 109 mg/dL (65-115); Osmolality Calculated 302 mOsm/kg (285-295); Potassium 4.4 mmol/L (3.5-5.1); Sodium 141 mmol/L (136-145); Total Bilirubin 0.3 mg/dL (0.15-1.2); Total Protein 8.4 g/dL (6.6-8.7)
[2022-07-26] MEDS: cefTRIAXone 2,000 MG in sodium chloride 0.9% (plus) 50 ML 100 MG IV (13:26)
--- NOTE | 2022-07-26 14:09 | XRR_ITS ---
PROCEDURE INFORMATION: Exam: XR Chest Exam date and time: 07/26/2022 2:19 PM Age: 52 years old Clinical indication: Other: AMS; Additional info: SOB TECHNIQUE: Imaging protocol: Radiologic exam of the chest. Views: 1 view. COMPARISON: CT kidney stone [id number] 07/14/2022 3:49 PM FINDINGS: Lungs: There is a large retrocardiac opacity on the current study concerning for left lower lobe consolidation. There are minor atelectatic changes at the right lung base. Upper lung zones are clear. Pleural spaces: Unremarkable. No pleural effusion. No pneumothorax. Heart/Mediastinum: Cardiac silhouette is enlarged. Bones/joints: Unremarkable for age. Other findings: Study is limited due to patient rotation. XR/XR chest 1V portable [id number] IMPRESSION: Ill-defined retrocardiac opacity concerning for left lower lobe infiltrate which could be clarified on follow-up PA and lateral chest or CT exam.
[2022-07-26 14:48] LABS: Add Urine Microscopic? NO; Charge for UA Resulting for Rev
[2022-07-26 14:50] LABS: Bilirubin Urine Neg (Negative); Blood Urine Neg (Negative); Glucose Urine UA Norm (Normal); Ketones Urine Negative (Negative); Leukocyte Esterase Urine Negative (Negative); Nitrate Urine Negative (Negative); Protein Urine Neg (Negative); Specific Gravity, Urine 1.005 (1.005-1.030); Urine Appearance SL Hazy (CLEAR); Urine Color Yellow (Yellow); Urobilinogen Urine Norm (Negative); pH Urine 6.5 (5-7)
[2022-07-26 14:59] LABS: Amphetamines Screen Urine Negative (Negative); Barbiturates Screen Urine Negative (Negative); Benzodiazepines Screen Urine Negative (Negative); Cocaine Screen Urine Negative (Negative); Opiate Screen Urine Positive (Negative); PCP Screen Urine Negative (Negative); THC Screen Urine Negative (Negative)
[2022-07-26] MEDS: albuterol 2.5 mg/3 mL Neb INHALATION ×2 (15:10→21:57)
[2022-07-26] MEDS: ipratropium 0.5 mg/2.5 mL Neb INHALATION ×2 (15:10→21:57)
[2022-07-26 16:19] LABS: Influenza A by IFA negative (Negative); Influenza B by IFA negative (Negative); SARS Covid-2 Antigen negative (Negative)
--- NOTE | 2022-07-26 16:32 | CTR_ITS ---
PROCEDURE INFORMATION: Exam: CT Chest Without Contrast; Diagnostic Exam date and time: 07/26/2022 4:49 PM Age: 52 years old Clinical indication: Abdominal tenderness and bloating; Shortness of breath; Additional info: Pna, edgardo, obstructive uropathy TECHNIQUE: Imaging protocol: Diagnostic computed tomography of the chest without contrast. Radiation optimization: All CT scans at this facility use at least one of these dose optimization techniques: automated exposure control; mA and/or kV adjustment per patient size (includes targeted exams where dose is matched to clinical indication); or iterative reconstruction. COMPARISON: CR (CHEST, ) 07/26/2022 2:19 PM RADIATION DOSE METRICS: Total DLP (mGy-cm): 1084.68 FINDINGS: Thyroid: Right lobe of the thyroid gland is enlarged and nodular in appearance likely secondary to multinodular goiter. Lungs: There is extensive consolidation within the left lower lung zone likely representing combination of pneumonia and atelectasis. There is mild subsegmental atelectasis posteriorly at the right lung base. Pleural spaces: Unremarkable. No pneumothorax. No pleural effusion. Heart: Heart is enlarged. No significant coronary artery calcifications or pericardial effusion. Lymph nodes: Unremarkable. No enlarged lymph nodes. Vasculature: Unremarkable. No aortic aneurysm. Bones/joints: Unremarkable. No acute fracture. Soft tissues: Unremarkable. PROCEDURE INFORMATION: Exam: CT Abdomen And Pelvis Without Contrast Exam date and time: 07/26/2022 4:49 PM Age: 52 years old Clinical indication: Abdominal tenderness and bloating; Shortness of breath; Additional info: Pna, edgardo, obstructive uropathy TECHNIQUE: Imaging protocol: Computed tomography of the abdomen and pelvis without contrast. Radiation optimization: All CT scans at this facility use at least one of these dose optimization techniques: automated exposure control; mA and/or kV adjustment per patient size (includes targeted exams where dose is matched to clinical indication); or iterative reconstruction. COMPARISON: CT kidney stone [id number] 07/14/2022 3:49 PM RADIATION DOSE METRICS: Total DLP (mGy-cm): 1084.68 FINDINGS: Lungs: Lung bases are clear. Liver: Normal. No mass. Gallbladder and bile ducts: Normal. No calcified stones. No ductal dilation. Pancreas: Normal. No ductal dilation. Spleen: Spleen is mildly enlarged. Adrenal glands: Normal. No mass. Kidneys and ureters: Small cortical and peripelvic cysts right kidney otherwise kidneys are unremarkable. No ureteral stones or hydronephrosis. Stomach and bowel: Mild-moderate degree of retained stool throughout the large bowel that may reflect some degree of constipation. Appendix: No evidence of acute appendicitis. Intraperitoneal space: Unremarkable. No free air. No significant fluid collection. Vasculature: Unremarkable. No abdominal aortic aneurysm. Lymph nodes: Unremarkable. No enlarged lymph nodes. Urinary bladder: Urinary bladder is distended measuring 16 cm in greatest dimension. Reproductive: Unremarkable as visualized. Bones/joints: Unremarkable. No acute fracture. Soft tissues: Unremarkable. CT/[place] [id number] IMPRESSION: 1. Diffuse infiltrate left lower lobe likely secondary to pneumonia and atelectasis. 2. Subsegmental atelectasis right lung base. 3. Mild cardiomegaly. 4. Nodular goiter right lobe of the thyroid gland. IMPRESSION: 1. No acute findings within the abdomen or pelvis. 2. Moderate distended urinary bladder. No evidence of renal obstruction. 3. Mild-moderate degree of retained stool throughout the large bowel. Please correlate for constipation. 4. Mild splenomegaly
--- NOTE | 2022-07-26 16:32 | PM.HP ---
Providers/Chief Complaint Primary Care Provider: Annabel Arcos DO Chief Complaint: AMS History of Present Illness Ignacio Eugene is a 52 year old female with past medical history of type 2 diabetes mellitus on insulin, bipolar disorder, dyslipidemia, COPD, chronic smoker presents to the hospital with, generalized weakness and confusion. As per the patient and her mother who is her caregiver patient has been having worsening weakness and confusion on and off for last 1 month but for last 4 days she has not been able to stand up because of weakness and confusion. Denies any fever. States shortness of breath is slightly worse than her usual. Attributes shortness of breath to chronic smoking. In the ER patient was slightly hypoxic and required with liters of oxygen supplementation. She denies any decrease, change in urination, diarrhea. Denies any changes in medication recently. Patient lives with her mother who also takes care of some of her ADLs given her history of bipolar disorder. As per mother patient has not taken her medications today including lithium. As per mother in the past when the lithium dose has been changed or dealt with she starts having worsening of bipolar disorder. Review of Systems General: Reports: 10 or more systems reviewed and unremarkable except in HPI and below Const: Denies: fever(s), chills, body aches, change in appetite, change in weight, malaise, night sweats, diaphoresis, change in sleep pattern, daytime sleepiness or snoring Eyes: Denies: change in vision, blurry vision, photophobia, eye discomfort or eye discharge ENMT: Denies: throat pain, enlarged tonsils, hoarseness, mouth pain, oral sores, dry mouth, tinnitus, nasal congestion or post nasal drip Card: Denies: chest pain, palpitations, irregular heart rhythm, edema, swelling of feet/ankles, lightheadedness, syncope, pre-syncope, dyspnea on exertion, orthopnea, leg pain with exertion or acrocyanosis Resp: Denies: dyspnea, productive cough, non-productive cough, wheezing, stridor, pain on inspiration, change in phlegm color, hemoptysis or chest congestion GI: Denies: abdominal pain, nausea, vomiting, hematemesis, coffee ground emesis, dysphagia, heartburn, diarrhea, constipation, bloating, GI cramping, change in bowel habits, pain on defecation, hematochezia or melena : Denies: flank pain, dysuria, urinary frequency, urinary urgency, urinary hesitancy, nocturia or hematuria Musc: Denies: neck pain, back pain, extremity pain, joint pain, joint swelling, joint redness, joint stiffness or limited range of motion Neuro: Denies: headache(s), numbness in extremities, weakness in extremities, sensory changes, lack of coordination, difficulty walking, frequent falls, dizziness, vertigo, confusion, Slurred speech present, difficulty communicating thoughts or seizure-like activity Psych: Denies: anxiety, depression, mood swings, panic attacks, hopelessness or irritability Endo: Denies: polyuria, polydipsia, tired all the time, cold intolerance, excessive sweating, flushing or heat intolerance Alexsander/Lymph: Denies: easy bruising or easy bleeding All/Imm: Denies: tongue swelling, facial swelling or acute wheezing Medications/Allergies Home Medications Medication Instructions Recorded Confirmed Last Taken Type blood sugar diagnostic ([facility] #300 ea 08/04/21 07/23/22 Unknown Rx Ultra Test strips) blood-glucose meter ([facility] #1 ea 08/04/21 07/23/22 Unknown Rx Ultra2 Meter) gabapentin 800 mg tablet 800 mg PO QID 30 days #120 tabs 08/06/21 07/23/22 07/14/22 Rx hydrocodone 7.5 mg-acetaminophen 1 tab PO QID PRN pain 30 days #120 08/06/21 07/23/22 07/14/22 Rx 325 mg tablet tabs nicotine 14 mg/24 hr daily 1 patch transdermal DAILY #28 ea 03/10/22 07/23/22 07/14/22 Rx transdermal patch atorvastatin 40 mg tablet 40 mg PO DAILY 90 days #90 tabs 04/03/22 07/23/22 07/14/22 Rx fenofibrate nanocrystallized 145 145 mg PO DAILY #90 tabs 04/03/22 07/23/22 07/14/22 Rx mg tablet budesonide-formoterol HFA 160 2 puff inhalation Q12H #10.2 grams 05/25/22 07/23/22 07/14/22 Rx mcg-4.5 mcg/actuation aerosol inhaler (Symbicort) lancets 30 gauge ([facility] [place] #300 ea 06/30/22 07/23/22 Unknown Rx Lancets) hydroxyzine HCl 25 mg tablet 50 mg PO TID PRN anxiety #180 tabs 07/09/22 07/23/22 Unknown Rx lamotrigine 150 mg tablet 150 mg PO BID #60 tabs 07/09/22 07/23/22 07/14/22 Rx lithium carbonate 300 mg capsule 600 mg PO BID #120 caps 07/09/22 07/23/22 07/14/22 Rx risperidone 2 mg tablet 2 mg PO BID #60 tabs 07/09/22 07/23/22 07/14/22 Rx albuterol sulfate 90 mcg/actuation 2 puff inhalation Q6H PRN 07/14/22 07/23/22 Unknown History aerosol inhaler (ProAir HFA) Shortness Of Breath Or Wheezing ibuprofen 200 mg capsule 400 mg PO Q6H PRN Pain 07/14/22 07/23/22 Unknown History insulin glargine 100 unit/mL (3 60 unit SUBCUT QPM 07/14/22 07/23/22 07/13/22 History mL) subcutaneous pen (Lantus Solostar U-100 Insulin) methocarbamol 750 mg tablet 750 mg PO QID PRN Muscle Spasm 07/14/22 07/23/22 Unknown History omeprazole 20 mg capsule,delayed 20 mg PO DAILY 07/14/22 07/23/22 07/14/22 History release sitagliptin 25 mg tablet (Januvia) 25 mg PO DAILY #90 tabs 07/24/22 Unknown Rx Allergies Allergy/AdvReac Type Severity Reaction Status Date / Time sulfamethoxazole AdvReac UNKNOWN Verified 07/23/22 09:51 [From Bactrim] trimethoprim [From Bactrim] AdvReac UNKNOWN Verified 07/23/22 09:51 PFSH Acute PFSH: Medical History Bipolar 1 disorder Bipolar disorder, current episode depressed, severe, with psychotic features Chronic bilateral low back pain with bilateral sciatica Chronic headache with normal neurologic examination Dyslipidemia Encounter for long-term opiate analgesic use Encounter for long-term use of opiate analgesic Generalized anxiety disorder [place] use Long-term use of high-risk medication Migraine aura without headache Neck pain Opioid contract exists Panic disorder with agoraphobia Psychiatric care Type 2 diabetes mellitus, without long-term current use of insulin Surgical History History of adenoidectomy S/P tonsillectomy AGE 4 Family History Mother Hypertension Grandmother Hypertension Atrial fibrillation Other Bipolar 1 disorder CAD (coronary artery disease) Denies family history of Anesthesia complication Bleeding disorder Social History Smoking and tobacco status: current every day smoker Quit status (tobacco): has tried quititng Second hand smoke exposure: Yes Smoking risk assessment/counseling performed?: Yes Tobacco counseling given: counseling >3 minutes Alcohol intake: former Year of sobriety/quit date alcohol: 1999 Former alcohol use details: alcoholic - quit in 1999 Desire information about alcohol rehabilitation?: No Counseling given: No Adopted: No Caregiver/support person: No Lives independently: Yes Household members: family and children Housing: House Marital status: Number of children: 3 Number of grandchildren: 1 Highest education level completed: GED or Equivalent service: No Current occupational status: disabled Pets and animals: Yes Pets & animals: cat(s) and dog(s) Pets & animal details: indoor History of recent travel: No Leisure activites: music, reading and other Leisure activities details: watch TV Sexually active: No Current gender identity: Female Tessa/Yarsanism: Alevism Special tessa needs: No Agree to transfusion: Yes Financial difficulty paying for basics: Not Very Hard Female Reproductive History: Para: 3 Spontaneous abortions: No Date of menopause: 08/27/17 Vitals/I&O/Wt Last Vital Signs Temp 99.3 F 07/26/22 10:46 Pulse 91 07/26/22 16:05 Resp 20 H 07/26/22 16:05 BP 182/124 07/26/22 16:05 Pulse Ox 90 07/26/22 16:05 O2 Del Method 07/26/22 15:00 O2 Flow Rate 2 07/26/22 10:46 FiO2 4 07/26/22 15:00 07/26/22 07/26/22 07/26/22 06:59 14:59 22:59 Intake Total 1000 / 1000 Balance 1000 / 1000 Weight last 48 hrs Weight 117.934 kg Physical Exam Narrative: General: No acute distress, AO x 2-3, slightly confused, NC oxygen supplementation HEENT: PERRLA, pupils bilaterally equal and reactive Chest:Bronchial breath sounds b/l ,decreased air entry, equal good air entry bilaterally, no more fine basal crackles CVS: S1-S2 regular, no murmurs, no tachycardia, no gallops, no rubs Abdomen: Soft, nontender, no organomegaly, bowel sounds present, morbidly obese Neuro: No focal deficits, no facial deformity, AO x3, power 5/5 in all limbs Data 07/26/22 10:30 07/26/22 10:30 A&P Assessment and plan (1) Confusion: (2) [place] toxicity: (3) Weakness: (4) SAMANTHA (acute kidney injury): (5) COPD (chronic obstructive pulmonary disease): Qualifiers: COPD type: emphysema Emphysema type: panlobular Qualified Code(s): J43.1 - Panlobular emphysema (6) Uncontrolled type II diabetes mellitus: Qualifiers: Glycemic state: with hyperglycemia Qualified Code(s): E11.65 - Type 2 diabetes mellitus with hyperglycemia (7) Bipolar 1 disorder: (8) Chronic kidney disease, stage 3a: Plan Most likely secondary to combination of acute kidney injury, uremia in setting of acute kidney injury, possible lithium toxicity in setting of recent 2.6 few days ago. Could be secondary to source though unlikely. Acute urinary most likely in setting of chronic NSAID use. Normal saline at 75 cc/h. Check urine lites, urine creatinine, urinalysis. López catheterization Strict input/output charting. CT abdomen pelvis without contrast to rule out obstructive nephropathy. Medical reconciliation done for nephrotoxic drugs. Change dose of gabapentin for now 200 mg 3 times a day. Check lithium level. Hold lithium for now. Patient has not taken lithium doses today morning. Shortness of breath: Could be secondary to COPD exacerbation. DuoNeb every 6 hour, desonide twice daily. Oxygen supplementation keeping saturation over 88%. CT chest to rule out consolidation. Check D-dimer. Cannot do CTA given SAMANTHA on CKD. Type 2 diabetes mellitus: Insulin sliding scale at low-dose protocol Carb consistent diet Continue with home dose of Lantus 60 units nightly. Check vitamin B12, folate, TSH levels. CODE STATUS: Discussed in detail with patient and patient's mother at bedside. In case patient is not able to make a decision she would want her mother to be DPOA. Patient wants to remain full code. Mother states in the past patient has wanted to be DNR/DNI. Mother was also discussed CODE STATUS again later in the admission. Full code for now. Carb consistent diet Heparin 5000 every 12 hourly Famotidine for PUD prophylaxis Physical therapy evaluation. 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
--- NOTE | 2022-07-26 16:42 | USCV_ITS ---
Ignacio Eugene Age: 52 Gender: F : 1970 Exam Date: 07/26/2022 17:00 Ordering Phys: Carrington Voss MD Technologist: JENNIFER Exam Location: [facility] [place]_ Indication: CHRONIC HEART FAILURE, HYPERTENSION BP: 182 / 94 HR: Rhythm: Sinus Technical Quality: Very technically difficult study MEASUREMENTS (Male / Female) Normal Values 2D ECHO LVOT Diameter 2.0 cm LA Diameter 3.3 cm Aorta at Sinotubular Diameter 2.3 cm IVC Diameter 1.8 cm M-MODE Aortic Annulus Diameter 2.6 cm LA Ao Ratio MM 1.2 MV E Point Septal Separation 0.9 cm DOPPLER Right Atrial Pressure 3.0 mmHg PV Peak Velocity 139.0 cm/s FINDINGS Left Ventricle Normal left ventricular size and systolic function, EF 67%. No regional wall motion abnormalities. Right Ventricle Possibly of normal size and ejection fraction Right Atrium Right atrium not well visualized. Left Atrium Possibly of normal size Mitral Valve No gross abnormalities noted Aortic Valve Leaflets cannot be visualized Tricuspid Valve Trace tricuspid valve regurgitation. Pulmonic Valve Pulmonic valve not well visualized. Pericardium Small to moderate echo-free space in the posterior lateral side. Small echo-free space anterior Aorta Normal aortic annulus size. IVC Normal inferior vena cava. CONCLUSIONS Normal left ventricular size and systolic function, EF 67%. Trace tricuspid valve regurgitation. No regional wall motion abnormalities. Small to moderate pericardial effusion. Technically difficult study because of the poor ultrasonic window. Dr Felton Guidry MD [facility] (Electronically Signed) Final Date: 26 July 2022 18:44 S
[2022-07-26 17:20] LABS: Urine Creatinine 37 mg/dL (28-217)
[2022-07-26 18:12] LABS: D Dimer 0.54 ug/mIFEU (0-0.59)
[2022-07-26 18:20] LABS: Iron 22 ug/dL (37-145); Percent Saturation 5.6 % (20-50); Total Iron Binding Capacity 392 mcg/dl; Unsaturated Iron Binding 370 ug/dL (112-347)
[2022-07-26 18:28] LABS: Thyroid Stimulating Hormone 0.62 uIU/mL (0.27-4.20)
[2022-07-26 18:34] LABS: Lithium 3.1 mmol/L (0.6-1.2)
[2022-07-26 18:36] LABS: Procalcitonin 0.47 ng/mL (0-0.5); Vitamin B12 250 pg/mL (232-1245)
[2022-07-26 18:46] LABS: Folate Level 6.7 ng/mL (4.8-37.3)
[2022-07-26] MEDS: ferrous gluconate 324 mg Tablet PO (19:56)
[2022-07-26] MEDS: heparin 5,000 unit/mL INJ 1 mL 5000 UNIT SUBCUT (19:56)
[2022-07-26] MEDS: sodium chloride 0.9% 1,000 ML 75 ML IV (19:56)
[2022-07-26] MEDS: docusate sodium 100 mg Capsule PO (19:56)
[2022-07-26] MEDS: risperiDONE 2 mg Tablet PO (19:57)
[2022-07-26] MEDS: lamoTRIgine 100 mg Tablet 150 MG PO (19:57)
[2022-07-26] MEDS: famotidine 20 mg/2 mL INJ IVP (19:59)
[2022-07-26 20:59] LABS: Glucose Point of Care 117 mg/dL (70-110)
[2022-07-26 21:07] LABS: Potassium, Radom Urine 11 mmol/L; Urine Random Sodium 23 mmol/L
[2022-07-26 21:10] LABS: Urine Random Chloride 16 mmol/L
[2022-07-26] MEDS: budesonide 0.5 mg/2 mL Neb INHALATION (21:58)
[2022-07-26] MEDS: insulin glargine 100 units/1 mL 60 UNIT SUBCUT (22:29)
--- NOTE | 2022-07-26 22:44 | PC.NURSE ---
Patient had change in neuro checks. Patient previously was able to swallow pills with some difficulty, perform hand dopster, barely lift feet off bed, and raise arms with moderate difficulty. Patient now unable to swallow PO meds, barely performing hand dopster, unable to lift feet off bed, and arms trembled at sides when patient tried to lift arms. Patient still A&O to name, , and current location, but now mumbling about her mother. Dr Mackenzie was notified and nurse was instructed to monitor and hold PO meds for now.
[2022-07-27] VITALS (66 sets, daily range): BP systolic 83–177; BP diastolic 43–97; PULSE 74–103; RESP 16–37; TEMP 36.7–38.8; O2SAT 85–95
[2022-07-27] MEDS: albuterol 2.5 mg/3 mL Neb INHALATION ×4 (02:25→20:01)
[2022-07-27] MEDS: ipratropium 0.5 mg/2.5 mL Neb INHALATION ×4 (02:25→20:01)
--- NOTE | 2022-07-27 04:40 | PC.NURSE ---
Dr Mackenzie informed of patient change in neuro status again. Patient is now oriented only to name, and cannot answer , location, or year. 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
[2022-07-27 04:48] LABS: Glucose Point of Care 115 mg/dL (70-110)
[2022-07-27 04:48] LABS: Basophils % 0.2 %; Eosinophils # 0.1 10^3/uL (0.0-0.8); Eosinophils % 0.4 %; Hematocrit 42.1 % (37.0-47.0); Hemoglobin 12.7 g/dL (11.5-15.3); Lymphocytes # 0.6 10^3/uL (0.8-4.8); Lymphocytes % 4.2 %; Mean Corpuscular HGB Conc 30.2 g/dL (30.0-36.0); Mean Corpuscular Hemoglobin 30.1 pg (28.0-34.0); Mean Corpuscular Volume 99.8 fl (81-99); Mean Platelet Volume 11.4 fL (7.4-10.4); Monocytes # 1.3 10^3/uL (0.2-0.9); Monocytes % 9.4 %; Neutrophils # 12.07 10^3/uL (1.8-7.7); Neutrophils % 85.1 %; Nucleated Red Blood Cells % 0 %; Platelet Count 311 10^3/cmm (130-400); Red Blood Count 4.22 10^6/uL (4.1-5.3); Red Cell Distribution Width 15.1 % (12.1-15.1); White Blood Count 14.2 10^3/uL (4.0-10.0)
--- NOTE | 2022-07-27 04:52 | PC.NURSE ---
Nurse requested Dr Mackenzie to come see patient. Awaiting physician at this time.
[2022-07-27 05:15] LABS: ABG PCO2 39.7 mmHg (35-45); ABG PH Result 7.29 (7.35-7.45); Arterial Blood Gas Hematocrit 39.5 % (37-47); Base Excess ABG -7.1 mmol/L (-2.0-2.0); Blood Gas Allen Test Pos; Blood Gas Operator Identificat CAK; Blood Gas Sample Site Radial, left; Blood Gas Sample Type Arterial; Oxygen Device OXY MASK
--- NOTE | 2022-07-27 05:15 | PC.NURSE ---
Dr Mackenzie came and saw patient. Fluids increased to 125, labs and ABG drawn. Dr Mackenzie stated that he would make decision to move to ICU after lab/ABG results. Patient lying in bed, tachypneic and lethargic at this time.
[2022-07-27 05:20] LABS: Alanine Aminotransferase 8 U/L (0-33); Alkaline Phosphatase 95 U/L (35-105); Anion Gap 16.5 (5-19); Aspartate Amino Transferase 12 U/L (0-32); Blood Urea Nitrogen 39 mg/dL (6-20); Calcium 10.8 mg/dL (8.5-10.5); Carbon Dioxide 17 mmol/L (22-29); Chloride 126 mmol/L (98-107); Chol HDL Ratio 4.57 mg/dL (0.0-4.40); Cholesterol 137 mg/dL (0-200); Globulin 3.5 g/dL (1.3-4.6); Glomerular Filtration Rate 24.6 mL/min (90-130); Glucose 119 mg/dL (65-115); HDL Cholesterol 30 mg/dL (60-100); LDL Cholesterol Calculated 56 mg/dL (50-129); Magnesium 3.1 mg/dL (1.7-2.3); Osmolality Calculated 331 mOsm/kg (285-295); Potassium 4.5 mmol/L (3.5-5.1); Sodium 155 mmol/L (136-145); Total Bilirubin 0.2 mg/dL (0.15-1.2); Total Protein 7.5 g/dL (6.6-8.7); Triglycerides 257 mg/dL (0-150); VLDL Cholestrol Calculation 51 mg/dL (0-30)
--- NOTE | 2022-07-27 05:23 | XRR_ITS ---
PROCEDURE INFORMATION: Exam: XR Chest Exam date and time: 07/27/2022 6:40 AM Age: 52 years old Clinical indication: Shortness of breath; Additional info: SOB TECHNIQUE: Imaging protocol: Radiologic exam of the chest. Views: 1 view. COMPARISON: [place] [id number] 07/26/2022 4:49 PM FINDINGS: Lungs: There are mildly decreased lung volumes with minimal accentuation of the right perihilar pulmonary vascularity. Unchanged left mid to lower lung zone opacification is seen, related to consolidation and small left pleural effusion (as seen on the prior CT). Pleural spaces: No right pleural effusion or pneumothorax. Heart/Mediastinum: The heart size is unchanged. The trachea is midline. The mediastinal contour appears unremarkable. Bones/joints: No acute osseous abnormalities seen. Soft tissues: Multiple external densities are seen overlying the chest, limiting assessment. XR/XR chest 1V portable [id number] IMPRESSION: Unchanged left mid to lower lung zone opacification, related to consolidation and small left pleural effusion (as seen on the prior CT).
[2022-07-27 05:24] LABS: Estmated Average Glucose 123; Hemoglobin A1C 5.9 % (4.0-6.0)
[2022-07-27] MEDS: sodium bicarbonate 8.4% 1 mEq/mL 50mL Syr 25 MEQ IVP (05:49)
[2022-07-27 05:50] LABS: Ammonia 56 umol/L (11-51)
[2022-07-27 05:54] LABS: Erythrocyte Sedimentation Rate 41 mm/hr (0-15)
[2022-07-27 05:58] LABS: Procalcitonin 0.41 ng/mL (0-0.5); Thyroid Stimulating Hormone 0.59 uIU/mL (0.27-4.20)
[2022-07-27 06:00] LABS: Lactate (Lactic Acid level) 0.7 mmol/L (0.5-2.2)
--- NOTE | 2022-07-27 06:02 | P.PNCC_ITS ---
Critical Care Event Note The high probability of a clinically significant, sudden or life threatening deterioration of the patient's [] system(s) required my full and direct attention, intervention and personal management. The critical care time is as shown. This time is in addition to time spent performing any reported procedures but includes the following: [x] Data and vital sign review and interpretation [x] Patient assessment, examination and intervention [x] Documentation [x] Medication orders and management Critical Care Time Code activated: No Critical Care Time (min): 30 Additional information about critical care time: I was asked to evaluate patient at roughly 5:30 AM -Throughout the night patient's mentation has declined, she is less responsive, more lethargic according to nursing staff -Upon examination, blood pressure 147/75, pulse 98, respiratory 28, temperature 100.7 4 L oxygen mask urine output 1900 cc -She awakens to her name, she is alert to person, to place, not to time -She can follow commands, but is quite drowsy and falls back to sleep -She can get her name right -She has no complaints, no complaints of back pain, no headache, blurry vision, no shortness of breath -She has equal strength bilateral upper extremities, she has weakness of her lower extremities, strength 1 out of 5, she tells that she does not walk at home -She does have some diffuse tremors of her upper extremities, nursing staff tell me that she has had this since admission -Review of her blood work showed a lithium level of 3.1 yesterday -Possible lithium toxicity? -Recheck lithium levels -Blood work revealed serum sodium of 155, increase for fluid to 125 cc also for lithium toxicity -Ammonia level slightly elevated -Her creatinine is 2.1, BUN 39 -For now we will move her down to the ICU -Neurochecks, aspiration precautions, stroke scale -Recheck lithium levels if her lithium levels go up with her creatinine, I have increased her fluids but she might need dialysis if this truly is lithium toxicity -I have ordered a CT of her head -She is covered appropriate with antibiotics is on Rocephin and azithromycin for her pneumonia, but given her persistent fever -I will broaden her antibiotic coverage to vancomycin and Zosyn Review of her ABG does show metabolic acidosis, will give 1 amp of bicarb It also shows hypoxia, likely secondary to pneumonia, broaden antibiotic cover age as above Possibly her altered mentation is from hypoxia Coding Level of Care Code Acute Php Consultant for [facility]
[2022-07-27 06:09] LABS: Creatine Phosphokinase 56 U/L (26-192); Lipase 100 U/L (13-60)
[2022-07-27 06:17] LABS: Acetaminophen < 5.0 ug/mL (10-30); Salicylate < 0.3 mg/dL (3-10)
[2022-07-27] MEDS: heparin 5,000 unit/mL INJ 1 mL 5000 UNIT SUBCUT ×2 (06:19→17:58)
[2022-07-27] MEDS: sodium chloride 0.9% 1,000 ML 75 ML IV (06:19)
[2022-07-27] MEDS: famotidine 20 mg/2 mL INJ IVP (06:19)
[2022-07-27 06:27] LABS: Lithium 2.5 mmol/L (0.6-1.2)
[2022-07-27 06:29] LABS: Glucose Point of Care 125 mg/dL (70-110)
[2022-07-27] MEDS: vancomycin 1,250 MG/250 ML PIGGYBACK 250 MG IV (06:41)
--- NOTE | 2022-07-27 06:55 | PC.NURSE ---
Bedside report completed with CRISTIAN Jin
--- NOTE | 2022-07-27 06:58 | PC.NURSE ---
Patient transferred to ICU 6 at 0545. Patient is lethargic. Oriented to name, date of , place, and year. Generalized weakness.
--- NOTE | 2022-07-27 08:00 | PC.NURSE ---
Elevated temp. 101.7 axillary . 101.5 orally. Pt too lethargic to swallow Tylenol, Ice packs applied to bilat axilla and groin. Dr Mendez notified of temp increase from arrival to ICU.
[2022-07-27 08:26] LABS: Sodium 160 mmol/L (136-145)
[2022-07-27 08:49] LABS: Glucose Point of Care 136 mg/dL (70-110)
--- NOTE | 2022-07-27 08:52 | CTR_ITS ---
PROCEDURE INFORMATION: Exam: CT Head Without Contrast Exam date and time: 07/27/2022 11:18 AM Age: 52 years old Clinical indication: Altered mental status/memory loss. TECHNIQUE: Imaging protocol: Computed tomography of the head without contrast. Radiation optimization: All CT scans at this facility use at least one of these dose optimization techniques: automated exposure control; mA and/or kV adjustment per patient size (includes targeted exams where dose is matched to clinical indication); or iterative reconstruction. COMPARISON: CT head wo con* [id number] 07/26/2022 11:22 AM RADIATION DOSE METRICS: Total DLP (mGy-cm): 1064.69 FINDINGS: Brain: Lacunar infarcts within/adjacent to the right basal ganglia that are unchanged since July 26. These infarcts remain indeterminate in age. Consider MRI to further assess if clinically warranted. No acute intracranial hemorrhage. No mass, mass effect or midline shift. There is no evidence of acute large vessel infarct. The subcortical and periventricular white matter is normal in attenuation. The posterior fossa is grossly unremarkable; however, it is partially obscurred by beam hardening artifact. Cerebral ventricles: The ventricles are normal in configuration. Paranasal sinuses: The visualized paranasal sinuses are clear. Mastoid air cells: No mastoid effusion. Orbital cavities: The visualized orbits are unremarkable. Bones/joints: No acute fracture is seen. Soft tissues: No significant soft tissue swelling. CT/CT head wo con* [id number] IMPRESSION: 1. Lacunar infarcts within/adjacent to the right basal ganglia that are unchanged since July 26. These infarcts remain indeterminate in age. Consider MRI to further assess if clinically warranted. 2. No acute intracranial hemorrhage.
[2022-07-27] MEDS: nicotine 14 mg Patch 1 PATCH TRANSDERMA (08:53)
[2022-07-27] MEDS: piperacillin-tazobactam 3.375 GM in sodium chloride 0.9% (plus) 50 ML IV ×2 (08:53→16:01)
--- NOTE | 2022-07-27 09:00 | PC.NURSE ---
Temp improved. Ice packs removed.
[2022-07-27] MEDS: lamoTRIgine 25 mg Tablet 50 MG PO (10:36)
[2022-07-27] MEDS: dextrose 5% 1,000 ML 75 ML IV (10:37)
[2022-07-27 11:36] LABS: Glucose Point of Care 169 mg/dL (70-110)
[2022-07-27] MEDS: insulin lispro 100 unit/1 mL SUBCUT ×3 (11:52→21:59)
--- NOTE | 2022-07-27 12:33 | PC.SLP ---
Multiple attempts made to assess patient per orders. Patient is unable to be aroused to participate in an evaluation. Will continue to monitor and assess when appropriate.
--- NOTE | 2022-07-27 12:44 | PHA.FALL ---
A Pharmacy Consult Was Conducted For Ignacio Eugene Due To: Maradiaga Fall Scale Risk Level: High Fall Risk On 07/27/22 08:00 And A Medication Fall Risk Score Greater Than 10. The Recommendations Are As Follows: The [place] [employer] has referenced several resources and compiled a list of High-Risk Medications Attributed to Falls in Older Adults. This list is viewable at www.[employer]. Medications which cause/contribute to: 1 = sedation/fatigue/lethargy 2 = decreased alertness 3 = postural/orthostatic hypotension 4 = dizziness 5 = decreased neuromuscular function/ataxia 6 = decreased memory/cognitive impairment 7 = blurred vision 8 = confusion 9 = arrhythmias 10 = syncope 11 = anemia risperidone: PADDY: 2,3,4,5,7,8 Morphine: PADDY: 1,2,3,4,5,6,7,8,9,10 Hydrocodone: PADDY: 1,2,3,4,5,6,7,8,9,10 Gabapentin: PADDY: 1,3,4,5,6,7,8,10 Famotidine: PADDY: 1,4,8 Drugs not included above with adverse effects of note: lamotrigine: Neurologic: Asthenia (2% to 8% ), Ataxia (immediate-release, 2% to 11% ), Coordination problem (3% to 7% ), Dizziness (immediate-release, 7% to 54%; extended release, 14% ), Headache (immediate-release, 29% ), Insomnia (immediate-release, 5% to 10% ), Somnolence (immediate-release, 9% to 17%; extended-release, 5% ), Tremor (4% to 10% )
--- NOTE | 2022-07-27 16:00 | PC.NURSE ---
Temp increased again. 101.5 orally. Ice packs to bilat axilla.
--- NOTE | 2022-07-27 16:31 | PM.PN ---
Subjective Subjective: This morning she is lethargic. Denies any pain. Denies headache. Has been coughing. Does not remember where she is. Vitals/I&O/Wt Last Vital Signs Temp 100.7 F H 07/27/22 13:45 Pulse 102 H 07/27/22 14:45 Resp 34 H 07/27/22 14:45 BP 168/81 07/27/22 14:45 Pulse Ox 90 07/27/22 14:45 O2 Del Method 07/27/22 14:45 O2 Flow Rate 4 07/27/22 14:45 FiO2 4 07/26/22 15:00 07/27/22 07/27/22 07/27/22 06:59 14:59 22:59 Intake Total 778.75 / 2308.75 80 / 80 Output Total 2300 / 2400 1400 / 1400 1100 / 2500 Balance -1521.25 / -91.25 -1320 / -1320 -1100 / -2420 Weight last 48 hrs Weight 95.617 kg Weight 96.218 kg Weight 117.934 kg Physical Exam Const: GENERAL APPEARANCE: lethargic ORIENTATION/CONSCIOUSNESS: Yes lethargic HENMT: COMMON NORMALS: oropharynx normal Eye: OTHER: Pupils equal. Keeps eyes closed. Neck/C-Spine: COMMON NORMALS: no JVD Resp: COMMON NORMALS: normal respiratory effort and clear to auscultation bilaterally AUSCULTATION: clear to auscultation bilaterally Cardio: COMMON NORMALS: no JVD, regular rhythm, S1 normal heart sound present, S2 normal heart sound present and No murmurs present (Cardio) RHYTHM: regular rhythm HEART SOUNDS: S1 normal heart sound present and S2 normal heart sound present GI: COMMON NORMALS: Normal to inspection, nondistended, normoactive bowel sounds present, Soft to palpation and non-tender PALPATION: Yes Soft to palpation Extremity: COMMON NORMALS: no joint enlargement and no pedal edema Neuro: COMMON NORMALS: moves all extremities SENSORIUM/ORIENTATION: Yes lethargic OTHER: Keeps eyes closed. Brudzinski and Kernig negative. Skin: OTHER: brownish/purplish scarring from old heating pad burn on buttocks, lower back, upper legs. Urinary Catheter Management: López: Cath Placed During This Visit: yes Reason for Continuing Indwelling Catheter: Other Urinary Catheter Date of Insertion: 07/26/22 Sepsis: Is patient septic: Yes Focused sepsis exam performed: Yes Data 07/27/22 04:03 07/27/22 07:44 Micro: Microbiology 07/26/22 18:45 MRSA Culture - Final Nose 07/26/22 20:43 Legionella Urinary Antigen - Final Urine Catheterized 07/26/22 17:23 Blood Culture - Preliminary Blood SPECIMEN COLLECTED 07/26/22 17:28 Blood Culture - Preliminary Blood SPECIMEN COLLECTED 07/26/22 14:32 Bacterial Antigens - Final Urine Kidney A&P Assessment and plan (1) Confusion: Acute encephalopathy, possibly metabolic hypernatremia, possibly toxic secondary to medication, possibly related to infection/sepsis with pneumonia, cannot exclude meningitis. With leukocytosis 14.2, fever 101.5. Lethargic/minimally conscious. Does answer some questions. Not oriented. Headache, some photophobia. Spiking fevers. Will broaden antibiotic coverage with ceftriaxone, ampicillin. Continue vancomycin. Overnight was also broadened to Zosyn for pneumonia. Additionally noted hypernatremia. Switch IVF to D5. Recheck sodium. [place] level is coming down. Check lamotrigine level. Risperidone and gabapentin have been held. Head CT obtained. 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 No acute abnormality. Normal vitamin B12, folate, TSH levels. (2) Pneumonia: Continue Zosyn, vancomycin. Collect urine bacterial antigens. Rapid influenza and COVID-negative. (3) [place] toxicity: [place] level improving, although still elevated. Continue to hold lithium. (4) Weakness: (5) SAMANTHA (acute kidney injury): SAMANTHA on CKD. Hold ibuprofen. Discontinue NSAIDs at discharge. Continue gentle fluid challenge. Change fluids to D5 due to hypernatremia. No obstructive uropathy on imaging. (6) COPD (chronic obstructive pulmonary disease): COPD with suspected exacerbation. Continue neb treatments. Qualifiers: COPD type: emphysema Emphysema type: panlobular Qualified Code(s): J43.1 - Panlobular emphysema (7) Uncontrolled type II diabetes mellitus: Lantus held for now as she has been NPO. Continue SSI. Qualifiers: Glycemic state: with hyperglycemia Qualified Code(s): E11.65 - Type 2 diabetes mellitus with hyperglycemia (8) Bipolar 1 disorder: (9) Chronic kidney disease, stage 3a: Plan Lower back, buttock, upper leg old burn from heating heating pad. Heparin 5000 every 12 hourly Famotidine for PUD prophylaxis Physical therapy evaluation. Attestations Medical Necessity Statement*: Continue admission for assessment of management of acute encephalopathy with sepsis, pneumonia, cannot exclude other infection, possible meningitis, possible medication toxicity in the setting of SAMANTHA on CKD. Critical Care Time: The high probability of a clinically significant, sudden or life threatening deterioration of the patient's neurologic, respiratory system(s) required my full and direct attention, intervention and personal management. The critical care time is as shown. This time is in addition to time spent performing any reported procedures but includes the following: x Data and vital sign review and interpretation x Patient assessment, examination and intervention x Documentation x Medication orders and management Critical Care Time (min): 40 Coding Level of Care Code Acute Try Out Person for [facility] Fwd Diagnoses Confusion R41.0 Pneumonia J18.9 [place] toxicity T56.891A Weakness R53.1 SAMANTHA (acute kidney injury) N17.9 COPD (chronic obstructive pulmonary disease) J43.1 COPD type: emphysema Emphysema type: panlobular Uncontrolled type II diabetes mellitus E11.65 Glycemic state: with hyperglycemia Bipolar 1 disorder F31.9 Chronic kidney disease, stage 3a N18.31
[2022-07-27 16:53] LABS: Glucose Point of Care 157 mg/dL (70-110)
[2022-07-27 17:30] LABS: Anion Gap 15.2 (5-19); Blood Urea Nitrogen 40 mg/dL (6-20); Calcium 11.9 mg/dL (8.5-10.5); Carbon Dioxide 18 mmol/L (22-29); Chloride 137 mmol/L (98-107); Glomerular Filtration Rate 22.2 mL/min (90-130); Glucose 178 mg/dL (65-115); Osmolality Calculated 356 mOsm/kg (285-295); Potassium 4.2 mmol/L (3.5-5.1)
[2022-07-27 17:36] LABS: Sodium 166 mmol/L (136-145)
[2022-07-27] MEDS: ampicillin 2,000 MG in sodium chloride 0.9% (plus) 50 ML 100 MG IV (17:49)
--- NOTE | 2022-07-27 18:00 | PC.NURSE ---
Temp improved 100. Ice packs removed.
--- NOTE | 2022-07-27 19:15 | PC.NURSE ---
Bedsdie report complete with CRISTIAN Valles
--- NOTE | 2022-07-27 19:46 | PC.NURSE ---
Shift Note: Pt has rested in bed throughout shift. She does answer you when spoken to, majority of the time she an tell you her name and she is in the hospital. Her Sodium levels have been increasing. IVF changed to D5% and now ABX to be mixed with D5%. She remained on 4lpm/NC throughout shift. , Bilat lung sounds diminished, the left much more diminished. Her temp has been 99.9 to 101.7, she has been packed with Ice twice today. SHe was able , with much coaxing, to swallow her Lamictal tablets around lunch time. The rest of the shift she has been too lethargic to try oral medications, Dr Mendez had been informed and this discussed today. Urine output greater than 1500ml this shift. She did get head CT today. Frequent safety and comfort rounds continue. Orders and/or nursing care completed as indicated. Patient monitored for response to intervention and treatment(s). Education provided includes progress, plan of care, lamictal, vancomycin, Zosyn. 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 . Will continue to monitor.
[2022-07-27 20:16] LABS: Sodium 170 mmol/L (136-145)
[2022-07-27 20:33] LABS: ABG PCO2 36.8 mmHg (35-45); ABG PH Result 7.29 (7.35-7.45); Alveolar-Arterial Oxygen Gradi 6.1 mmHg (5-10); Arterial Blood Gas Hematocrit 44.2 % (37-47); Blood Gas Allen Test Pos; Blood Gas Sample Site Radial, right; Blood Gas Sample Type Arterial; Carboxyhemoglobin 0.8 %THgb (0.4-20.1); HCO3 ABG 17.8 mmol/L (22-26); HGB O2 Sat 88.1 % (95-100); Ionized Calcium Level - ABG 1.7 mmol/L (1.1-1.4); Methemoglobin 0.6 % (0.4-1.5); Oxygen Device NC; Oxygen Saturation ABG 89.4; Potassium Level - ABG 4.1 mmol/L (3.5-5.0); Total Hemoglobin 14.4 g/dL (12-16)
[2022-07-27 20:43] LABS: Glucose Point of Care 189 mg/dL (70-110)
--- NOTE | 2022-07-27 21:45 | P.CONIM_ITS ---
Providers/Reason For Consult Consulting Physician/Specialty*: /nephrology Reason for Consult*: Hypernatremia and Mitchell toxicity Attending Physician: Iron Mendez Primary Care Provider: Annabel Arcos DO History of Present Illness History of Present Illness patient is a 52-year-old female with past medical history of diabetes, history of bipolar disorder dyslipidemia COPD presented to the hospital hospital due to generalized weakness and altered mental status. Symptoms have been going on for the last few days per patient and mother. In ER patient was noted to be slightly hypoxic. Vital signs stable. Currently patient is not able to answer any questions, on 6 L O2 by nasal cannula, more obtunded, no hypotension, no arrhythmias noted. Lab data was significant. Elevated lithium levels 3.1 , improved to 2. 5 currently. Repeat lithium levels pending. Also has elevated creatinine of 2.7 on presentation, currently at 3.3. Has good urine output. Also has mild metabolic acidosis. Review of Systems Narrative: unable to obtain from pt Medications/Allergies Home Medications Medication Instructions Recorded Confirmed Last Taken Type blood sugar diagnostic (OneTouch #300 ea 08/04/21 07/26/22 Unknown Rx Ultra Test strips) blood-glucose meter (OneTouch #1 ea 08/04/21 07/26/22 Unknown Rx Ultra2 Meter) gabapentin 800 mg tablet 800 mg PO QID 30 days #120 tabs 08/06/21 07/26/22 07/25/22 Rx hydrocodone 7.5 mg-acetaminophen 1 tab PO QID PRN pain 30 days #120 08/06/21 07/26/22 07/14/22 Rx 325 mg tablet tabs nicotine 14 mg/24 hr daily 1 patch transdermal DAILY #28 ea 03/10/22 07/26/22 07/25/22 Rx transdermal patch atorvastatin 40 mg tablet 40 mg PO DAILY 90 days #90 tabs 04/03/22 07/26/22 07/25/22 Rx fenofibrate nanocrystallized 145 145 mg PO DAILY #90 tabs 04/03/22 07/26/22 07/25/22 Rx mg tablet budesonide-formoterol HFA 160 2 puff inhalation Q12H #10.2 grams 05/25/22 07/26/22 07/25/22 Rx mcg-4.5 mcg/actuation aerosol inhaler (Symbicort) lancets 30 gauge (OneTouch Delica #300 ea 06/30/22 07/26/22 Unknown Rx Lancets) hydroxyzine HCl 25 mg tablet 50 mg PO TID PRN anxiety #180 tabs 07/09/22 07/26/22 Unknown Rx lamotrigine 150 mg tablet 150 mg PO BID #60 tabs 07/09/22 07/26/22 07/25/22 Rx lithium carbonate 300 mg capsule 600 mg PO BID #120 caps 07/09/22 07/26/22 07/25/22 Rx risperidone 2 mg tablet 2 mg PO BID #60 tabs 07/09/22 07/26/22 07/25/22 Rx albuterol sulfate 90 mcg/actuation 2 puff inhalation Q6H PRN 07/14/22 07/26/22 Unknown History aerosol inhaler (ProAir HFA) Shortness Of Breath Or Wheezing ibuprofen 200 mg capsule 400 mg PO Q6H PRN Pain 07/14/22 07/26/22 Unknown Histor y insulin glargine 100 unit/mL (3 60 unit SUBCUT QPM 07/14/22 07/26/22 07/25/22 History mL) subcutaneous pen (Lantus Solostar U-100 Insulin) methocarbamol 750 mg tablet 750 mg PO QID PRN Muscle Spasm 07/14/22 07/26/22 Unknown History omeprazole 20 mg capsule,delayed 20 mg PO DAILY 07/14/22 07/26/22 07/25/22 History release sitagliptin 25 mg tablet (Januvia) 25 mg PO DAILY #90 tabs 07/24/22 07/26/22 07/25/22 Rx Allergies Allergy/AdvReac Type Severity Reaction Status Date / Time sulfamethoxazole AdvReac UNKNOWN Verified 07/23/22 09:51 [From Bactrim] trimethoprim [From Bactrim] AdvReac UNKNOWN Verified 07/23/22 09:51 Current Medications Generic Name Dose Route Start Last Admin Trade Name Freq PRN Reason Stop Dose Admin Albuterol Sulfate 2.5 mg 07/26/22 21:00 07/27/22 20:01 Albuterol 2.5 Mg/3 Ml Neb INHALATION 2.5 mg Q6H.RESP ÁNGEL Administration Atorvastatin Calcium 40 mg 07/27/22 09:00 07/27/22 08:50 Atorvastatin 40 Mg Tablet PO Not Given DAILY [facility] Docusate Sodium 100 mg 07/26/22 18:30 07/27/22 18:05 Docusate Sodium 100 Mg Capsule PO Not Given BID [facility] Fenofibrate 145 mg 07/27/22 09:00 07/27/22 09:10 Fenofibrate 145 Mg Tablet PO Not Given DAILY [facility] Ferrous Gluconate 324 mg 07/26/22 18:30 07/27/22 18:05 Ferrous Gluconate 324 Mg Tablet PO Not Given BIDWM [facility] Gabapentin 200 mg 07/26/22 21:00 07/26/22 23:11 Gabapentin 100 Mg Capsule PO Not Given TID [facility] Heparin Sodium (Porcine) 5,000 unit 07/26/22 18:30 07/27/22 17:58 Heparin 5,000 Unit/Ml Inj 1 Ml SUBCUT 5,000 unit Q12H ÁNGEL Administration Vancomycin/PEG/NADA/Lysine/Water 1,250 mg in 250 mls @ 250 mls/hr 07/27/22 07:00 07/27/22 06:41 Vancocin IV 250 mls/hr Q24H ÁNGEL Administration Insulin Glargine 60 unit 07/26/22 21:00 07/26/22 22:29 Insulin Glargine 100 Units/1 Ml SUBCUT 60 unit BEDTIME ÁNGEL Administration Insulin Human Lispro 0 unit 07/26/22 21:00 07/27/22 17:58 Insulin Lispro 100 Unit/1 Ml SUBCUT 2 unit WM&BEDTIME ÁNGEL Administration Protocol Ipratropium [place] 0.5 mg 07/27/22 20:00 07/27/22 20:01 Ipratropium 0.5 Mg/2.5 Ml Neb INHALATION 0.5 mg Q6H.RESP ÁNGEL Administration Lamotrigine 50 mg 07/27/22 10:00 07/27/22 18:05 Lamotrigine 25 Mg Tablet PO Not Given BID [facility] Nicotine 1 patch 07/27/22 09:00 07/27/22 08:53 Nicotine 14 Mg Patch TRANSDERMA 1 patch DAILY ÁNGEL Administration Risperidone 2 mg 07/26/22 18:30 07/26/22 19:57 Risperidone 2 Mg Tablet PO 2 mg BID ÁNGEL Administration PFSH Acute PFSH: Medical History Bipolar 1 disorder Bipolar disorder, current episode depressed, severe, with psychotic features Chronic bilateral low back pain with bilateral sciatica Chronic headache with normal neurologic examination Dyslipidemia Encounter for long-term opiate analgesic use Encounter for long-term use of opiate analgesic Generalized anxiety disorder Mitchell use Long-term use of high-risk medication Migraine aura without headache Neck pain Opioid contract exists Panic disorder with agoraphobia Psychiatric care Type 2 diabetes mellitus, without long-term current use of insulin Surgical History History of adenoidectomy S/P tonsillectomy AGE 4 Family History Mother Hypertension Grandmother Hypertension Atrial fibrillation Other Bipolar 1 disorder CAD (coronary artery disease) Denies family history of Anesthesia complication Bleeding disorder Social History Smoking and tobacco status: current every day smoker Quit status (tobacco): has tried quititng Second hand smoke exposure: Yes Smoking risk assessment/counseling performed?: Yes Tobacco counseling given: counseling >3 minutes Alcohol intake: former Year of sobriety/quit date alcohol: 1999 Former alcohol use details: alcoholic - quit in 1999 Desire information about alcohol rehabilitation?: No Counseling given: No Adopted: No Caregiver/support person: No Lives independently: Yes Household members: family and children Housing: House Marital status: Number of children: 3 Number of grandchildren: 1 Highest education level completed: GED or Equivalent service: No Current occupational status: disabled Pets and animals: Yes Pets & animals: cat(s) and dog(s) Pets & animal details: indoor History of recent travel: No Leisure activites: music, reading and other Leisure activities details: watch TV Sexually active: No Current gender identity: Female Tessa/Uatsdin: Hindu Special tessa needs: No Agree to transfusion: Yes Financial difficulty paying for basics: Not Very Hard Female Reproductive History: Para: 3 Spontaneous abortions: No Date of menopause: 08/27/17 Vitals/I&O/Wt Last Vital Signs Temp 100 F H 07/27/22 18:00 Pulse 103 H 07/27/22 20:01 Resp 28 H 07/27/22 20:01 BP 146/71 07/27/22 19:15 Pulse Ox 90 07/27/22 20:01 O2 Del Method 07/27/22 20:01 O2 Flow Rate 4 07/27/22 20:01 FiO2 4 07/26/22 15:00 07/27/22 07/27/22 07/27/22 06:59 14:59 22:59 Intake Total 778.75 / 2308.75 80 / 80 Output Total 2300 / 2400 1400 / 1400 1400 / 2800 Balance -1521.25 / -91.25 -1320 / -1320 -1400 / -2720 Weight last 48 hrs Weight 95.617 kg Weight 96.218 kg Weight 117.934 kg Physical Exam Narrative: Patient is confused, on 2 L O2, no acute distress S1-S2 regular rate and rhythm per report Bibasilar crackles per report No pedal edema Urinary Catheter Management: López: Cath Placed During This Visit: yes Reason for Continuing Indwelling Catheter: Accurate Measurement of Urinary Output in Critically Ill Patients Urinary Catheter Date of Insertion: 07/26/22 Data 07/27/22 04:03 07/27/22 19:46 Micro: Microbiology 07/27/22 18:45 Legionella Urinary Antigen - Final Urine,Clean Catch 07/26/22 17:23 Blood Culture - Preliminary Blood NEGATIVE TO DATE 07/26/22 17:28 Blood Culture - Preliminary Blood NEGATIVE TO DATE 07/26/22 18:45 MRSA Culture - Final Nose 07/26/22 20:43 Legionella Urinary Antigen - Final Urine Catheterized 07/26/22 14:32 Bacterial Antigens - Final Urine Kidney A&P Assessment and plan (1) SAMANTHA (acute kidney injury): (2) Mitchell use: Plan 1. Acute on chronic kidney disease: Patient's creatinine is currently in the 2 range, has mild metabolic acidosis, nonoliguric has good urine output. Continue to monitor 2. Mitchell toxicity: Mitchell levels have been improving currently, trending down, no hypotension no arrhythmias, no seizures, -Await repeat lithium levels and BMP levels -Though patient do not have indication for dialysis currently, if no improvement in lithium levels will consider dialysis in a.m. 3. Hyponatremia: Worsening, increase D5W rate to 125 cc an hour, changed all medications to be mixed with D5W instead of normal saline. If patient is intubated, will request to place NGT to give more free water via NGT. 4. Acute respiratory failure: Patient hypoxic, likely has aspiration pneumonia, antibiotics per primary team, plan for intubation. 5. Metabolic acidosis: Mild, monitor. Patient evaluated using audiovisual cart. Time spent 45 minutes Consult Attestations Medical Necessity Statement: needs ICU stay Coding Level of Care Code Acute Brush Sander for g Fwd Diagnoses SAMANTHA (acute kidney injury) N17.9 Mitchell use Z79.899
--- NOTE | 2022-07-27 21:51 | XRR_ITS ---
PROCEDURE INFORMATION: Exam: XR Chest Exam date and time: 07/27/2022 10:14 PM Age: 52 years old Clinical indication: Device placement; Ett placement (vent status); Patient HX: Check S/P et and ng placement; Additional info: Post-intubation TECHNIQUE: Imaging protocol: Radiologic exam of the chest. Views: 1 view. COMPARISON: CR XR chest 1V portable [id number] 07/27/2022 6:40 AM FINDINGS: Tubes, catheters and devices: The tip of the endotracheal tube is approximately 1.5 cm above the renetta. The nasogastric tube is appropriately positioned with the tip in the stomach, well beyond the diaphragmatic hiatus. Lungs: There is near complete opacification of the left hemithorax. The right lung is clear. Pleural spaces: No pneumothorax. Heart/Mediastinum: The cardiomediastinal silhouette is obscured. There is leftward mediastinal shift which is progressive since the chest radiograph previously today. Bones/joints: Bones are unremarkable. XR/XR chest 1V portable [id number] IMPRESSION: 1. Progressive opacification of the left hemithorax and leftward mediastinal shift. Some component of atelectasis is present. Pleural fluid and/or infection may be superimposed. 2. Endotracheal tube tip is 1.5 cm above the renetta. 3. Satisfactory NG tube position.
[2022-07-27 22:06] LABS: Anion Gap 14.1 (5-19); Blood Urea Nitrogen 39 mg/dL (6-20); Calcium 11.3 mg/dL (8.5-10.5); Carbon Dioxide 20 mmol/L (22-29); Chloride 138 mmol/L (98-107); Glomerular Filtration Rate 22.2 mL/min (90-130); Glucose 227 mg/dL (65-115); Osmolality Calculated 363 mOsm/kg (285-295); Potassium 4.1 mmol/L (3.5-5.1)
[2022-07-27 22:07] LABS: Lithium 1.9 mmol/L (0.6-1.2)
[2022-07-27 22:13] LABS: Sodium 168 mmol/L (136-145)
[2022-07-27] MEDS: propofol 1,000 MG/100 ML INJ 5 MG IV (22:15)
--- NOTE | 2022-07-27 22:15 | ED_ITS ---
HPI - Altered Mental Status General: Chief Complaint: Altered Mental Status Stated Complaint: AMS Time Seen by Provider: 07/26/22 10:49 History of Present Illness: . PFSH ED PFSH: Medical History Bipolar 1 disorder Bipolar disorder, current episode depressed, severe, with psychotic features Chronic bilateral low back pain with bilateral sciatica Chronic headache with normal neurologic examination Dyslipidemia Encounter for long-term opiate analgesic use Encounter for long-term use of opiate analgesic Generalized anxiety disorder [place] use Long-term use of high-risk medication Migraine aura without headache Neck pain Opioid contract exists Panic disorder with agoraphobia Psychiatric care Type 2 diabetes mellitus, without long-term current use of insulin Surgical History History of adenoidectomy S/P tonsillectomy AGE 4 Family History Mother Hypertension Grandmother Hypertension Atrial fibrillation Other Bipolar 1 disorder CAD (coronary artery disease) Denies family history of Anesthesia complication Bleeding disorder Social History Smoking and tobacco status: current every day smoker Quit status (tobacco): has tried quititng Second hand smoke exposure: Yes Smoking risk assessment/counseling performed?: Yes Tobacco counseling given: counseling >3 minutes Alcohol intake: former Year of sobriety/quit date alcohol: 1999 Former alcohol use details: alcoholic - quit in 1999 Desire information about alcohol rehabilitation?: No Counseling given: No Adopted: No Caregiver/support person: No Lives independently: Yes Household members: family and children Housing: House Marital status: Number of children: 3 Number of grandchildren: 1 Highest education level completed: GED or Equivalent service: No Current occupational status: disabled Pets and animals: Yes Pets & animals: cat(s) and dog(s) Pets & animal details: indoor History of recent travel: No Leisure activites: music, reading and other Leisure activities details: watch TV Sexually active: No Current gender identity: Female Tessa/Taoism: Yarsanism Special tessa needs: No Agree to transfusion: Yes Financial difficulty paying for basics: Not Very Hard Female Reproductive History: Para: 3 Spontaneous abortions: No Date of menopause: 08/27/17 Physical Exam Urinary Catheter Management: López: Cath Placed During This Visit: yes Reason for Continuing Indwelling Catheter: Accurate Measurement of Urinary Output in Critically Ill Patients Urinary Catheter Date of Insertion: 07/26/22 Procedures Intubation Time out performed: Yes sedative: Etomidate Mg Given: 20 paralytic: Succinylcholine Mg Given: 150 Laryngoscope: Maria G ET Tube Size: 8 ET Tube Uncuffed: No Tube Secured Depth (cm): 25 Tube Secured Location: lips Tube Placement Confirmation: visualized tube passing through cords, equal breath sounds bilaterally, no breath sounds over epigastrium and confirmation by capnom etry Patient Tolerated Procedure: well Intubation Complications: none Course Vital Signs: Vital signs: Vital Signs Temperature 100 F H 07/27/22 18:00 Pulse Rate 103 H 07/27/22 20:01 Respiratory Rate 28 H 07/27/22 20:01 Blood Pressure 146/71 07/27/22 19:15 Pulse Oximetry 90 07/27/22 20:01 Oxygen Delivery Me thod 07/27/22 20:01 Oxygen Flow Rate 4 07/27/22 20:01 Fraction of Inspir ed Oxygen 4 07/26/22 15:00 MDM - Altered Mental Status Medical Decision Making I was called to ICU to intubate patient due to increasing decline patient was intubated with success no complications. Lab Data 07/27/22 04:03 07/27/22 21:20 Radiology Impressions Chest/Abdomen/Pelvis CT 07/26/22 16:32 IMPRESSION: 1. Diffuse infiltrate left lower lobe likely secondary to pneumonia and atelectasis. 2. Subsegmental atelectasis right lung base. 3. Mild cardiomegaly. 4. Nodular goiter right lobe of the thyroid gland. IMPRESSION: 1. No acute findings within the abdomen or pelvis. 2. Moderate distended urinary bladder. No evidence of renal obstruction. 3. Mild-moderate degree of retained stool throughout the large bowel. Please correlate for constipation. 4. Mild splenomegaly Chest X-Ray 07/27/22 05:23 IMPRESSION: Unchanged left mid to lower lung zone opacification, related to consolidation and small left pleural effusion (as seen on the prior CT). Head CT 07/27/22 08:52 IMPRESSION: 1. Lacunar infarcts within/adjacent to the right basal ganglia that are unchanged since July 26. These infarcts remain indeterminate in age. Consider MRI to further assess if clinically warranted. 2. No acute intracranial hemorrhage. Laboratory Results WBC 17.3 10^3/uL (4.0-10.0) H 07/26/22 10:30 RBC 4.48 10^6/uL (4.1-5.3) 07/26/22 10:30 Hgb 13.4 g/dL (11.5-15.3) 07/26/22 10:30 Hct 44.5 % (37.0-47.0) 07/26/22 10:30 MCV 99.3 fl (81-99) H 07/26/22 10:30 MCH 29.9 pg (28.0-34.0) 07/26/22 10:30 MCHC 30.1 g/dL (30.0-36.0) 07/26/22 10:30 RDW 14.8 % (12.1-15.1) 07/26/22 10:30 Plt Count 300 10^3/cmm (130-400) 07/26/22 10:30 MPV 11.5 fL (7.4-10.4) H 07/26/22 10:30 Neut % (Auto) 85.2 % 07/26/22 10:30 Lymph % (Auto) 5.3 % 07/26/22 10:30 [place] % (Auto) 7.6 % 07/26/22 10:30 Eos % (Auto) 0.8 % 07/26/22 10:30 Baso % (Auto) 0.2 % 07/26/22 10:30 Neut # (Auto) 14.78 10^3/uL (1.8-7.7) H 07/26/22 10:30 Lymph # (Auto) 0.9 10^3/uL (0.8-4.8) 07/26/22 10:30 [place] # (Auto) 1.3 10^3/uL (0.2-0.9) H 07/26/22 10:30 Eos # (Auto) 0.1 10^3/uL (0.0-0.8) 07/26/22 10:30 Baso # (Auto) 0.0 10^3/uL (0.0-0.1) 07/26/22 10:30 Nucleated RBC % (auto) 0 % 07/26/22 10:30 Nucleated RBCs # 0.0 /100WBC 07/26/22 10:30 PT 20.30 SECONDS (12.1-14.9) H 07/26/22 17:23 INR 1.70 (0.8-1.2) H 07/26/22 17:23 D-Dimer 0.54 ug/mIFEU (0-0.59) 07/26/22 17:23 Sodium 141 mmol/L (136-145) 07/26/22 10:30 Potassium 4.4 mmol/L (3.5-5.1) 07/26/22 10:30 Chloride 110 mmol/L (98-107) H 07/26/22 10:30 Carbon Dioxide 22 mmol/L (22-29) 07/26/22 10:30 Anion Gap 13.4 (5-19) 07/26/22 10:30 BUN 40 mg/dL (6-20) H 07/26/22 10:30 Creatinine 2.7 mg/dL (0.5-0.9) H 07/26/22 10:30 GFR Calculation 18.4 mL/min (90-130) L 07/26/22 10:30 Glucose 109 mg/dL (65-115) 07/26/22 10:30 Calculated Osmolality 302 mOsm/kg (285-295) H 07/26/22 10:30 Lactate 0.6 mmol/L (0.5-2.2) 07/26/22 11:50 Calcium 11.5 mg/dL (8.5-10.5) H 07/26/22 10:30 Magnesium 3.0 mg/dL (1.7-2.3) H 07/26/22 17:23 Iron 22 ug/dL (37-145) L 07/26/22 17:23 TIBC 392 mcg/dl 07/26/22 17: % Saturation 5.6 % (20-50) L 07/26/22 17:23 Unsat Iron Binding 370 ug/dL (112-347) H 07/26/22 17:23 Total Bilirubin 0.3 mg/dL (0.15-1.2) 07/26/22 10:30 AST 14 U/L (0-32) 07/26/22 10:30 ALT 8 U/L (0-33) 07/26/22 10:30 Alkaline Phosphatase 103 U/L (35-105) 07/26/22 10:30 C-Reactive Protein 147.2 mg/L (0.0-4.9) H 07/26/22 10:30 Total Protein 8.4 g/dL (6.6-8.7) 07/26/22 10:30 Albumin 4.2 g/dL (3.5-5.2) 07/26/22 10:30 Globulin 4.2 g/dL (1.3-4.6) 07/26/22 10:30 Vitamin B12 250 pg/mL (232-1245) 07/26/22 17:23 Folate 6.7 ng/mL (4.8-37.3) 07/26/22 17:23 Procalcitonin 0.47 ng/mL (0-0.5) 07/26/22 17:23 TSH 0.62 uIU/mL (0.27-4.20) 07/26/22 17:23 Urine Color Yellow (Yellow) 07/26/22 14:32 Urine Appearance Sl hazy (CLEAR) A 07/26/22 14:32 Urine pH 6.5 (5-7) 07/26/22 14:32 Ur Specific [place] 1.005 (1.005-1.030) 07/26/22 14:32 Urine Protein Neg (Negative) 07/26/22 14:32 Urine Glucose (UA) Norm (Normal) 07/26/22 14:32 Urine Ketones Negative (Negative) 07/26/22 14:32 Urine Blood Neg (Negative) 07/26/22 14:32 Urine Nitrate Negative (Negative) 07/26/22 14:32 Urine Bilirubin Neg (Negative) 07/26/22 14:32 Urine Urobilinogen Norm mg/dL (Negative) 07/26/22 14:32 Ur Leukocyte Esterase Negative (Negative) 07/26/22 14:32 Urine Creatinine 37 mg/dL (28-217) 07/26/22 14:32 Urine Opiates Screen Positive ng/mL (Negative) H 07/26/22 14:32 Ur Barbiturates Screen Negative ng/mL (Negative) 07/26/22 14:32 Ur Phencyclidine Scrn Negative ng/mL (Negative) 07/26/22 14:32 Ur Amphetamines Screen Negative ng/mL (Negative) 07/26/22 14:32 U Benzodiazepines Scrn Negative ng/mL (Negative) 07/26/22 14:32 [place] 3.1 mmol/L (0.6-1.2) H* 07/26/22 17:23 Urine Cocaine Screen Negative ng/mL (Negative) 07/26/22 14:32 U Marijuana (THC) Screen Negative ng/mL (Negative) 07/26/22 14:32 Influenza Type A Ag negative (Negative) 07/26/22 15:54 Influenza Type B Ag negative (Negative) 07/26/22 15:54 SARS-CoV-2 Ag (Rapid) negative (Negative) 07/26/22 15:54 Discharge Plan Discharge Patient Disposition: Admitted As Inpatient Admit Provider: Carrington Voss Clinical Impression: Pneumonia, Weakness Condition: Stable Coding Level of Care Code ED Public Health Outreach Worker for Damir Conway
[2022-07-27] MEDS: etomidate 2 mg/mL INJ SDV 10 mL 20 MG IVP (22:23)
[2022-07-27] MEDS: succinylcholine 20 mg/mL SDV 10mL 150 MG IVP (22:24)
[2022-07-27] MEDS: dextrose 5% 1,000 ML 125 ML IV (22:34)
[2022-07-27] MEDS: piperacillin-tazobactam 3.375 GM in dextrose 5% (plus) 50 ML IV (22:34)
--- NOTE | 2022-07-27 23:13 | PM.CCNAC ---
Critical Care Event Note Paged by RN that patient's x-ray looks worse compared to before. X-ray images reviewed. Patient does have left side almost complete white out compared to previous image. Percussion chest vest ordered along hypertonic saline nebs. Went to evaluate patient at bedside. Patient has worsening hypoxia with now requirement of 6 L nasal cannula saturating 90%. RN states that patient tends to drool and unable to take her medication. She has been in this state since the evening as per nursing staff. Patient is tachypneic breathing into 30s. Repeat blood gas done showed pH 7.2 9/36/56/17 0.8. Sodium 170. Chloride 137. Calcium 11.3. Patient does not really respond to her name at this time. She is quite drowsy. Unable to answer any questions or follow any commands. She does somewhat attempt to open her eyes and moan. Patient unable to protect her airway. Decision made to intubate. I discussed with patient's mother over the phone who is okay with intubation if needed. Discussed with nephrology as well. No acute indication to dialyze at this time however may consider that in a.m if labs are worsening. Talked with Dr. Perez over the phone. He will double to place dialysis catheter in a.m. if dialysis is required at the time. We will switch her medications to D5 water and place NG tube with free water flushes once patient is intubated. ER physician Dr. Greene intubated the patient. She has been placed on propofol and fentanyl at this time. Patient mother will come into the hospital in the morning. Patient to be reevaluated by nephrology in a.m. RN updated. Will check blood gas and adjust vent settings as required. The high probability of a clinically significant, sudden or life threatening deterioration of the patient's [resp] system(s) required my full and direct attention, intervention and personal management. The critical care time is as shown. This time is in addition to time spent performing any reported procedures but includes the following: [x] Data and vital sign review and interpretation [x] Patient assessment, examination and intervention [x] Documentation [x] Medication orders and management Critical Care Time Code activated: No Critical Care Time (min): 60 Coding Level of Care Code Acute Child Psychometrist for Damir Conway
--- NOTE | 2022-07-27 23:48 | PC.NURSE ---
Patient's Left Side lung mallyo were very diminished upon assessment. Xray from morning showed evidence of increased opacities despite report stating unchanged results. Dr. Morales notified who came and visited patient. It was determined due to increased respiration rate and blood gasses that intubation to preserve airway would be beneficial. ER physician and RT were present for intubation. Etomidate and Succs were given and patient was intubated @2211 on first attempt positive color change. Confirmation of placement of ET and OG were done thereafter with Xray. ET tube 22.5 @lip 8ga. Telenephrology was consulted before and after intubation. Orders were given for 300ml Q4 free water flushes as well as to contact after morning labs. Nephrology will confirm in AM after labs are read to determine if Dialysis line will be needed.
[2022-07-28] VITALS (49 sets, daily range): BP systolic 84–146; BP diastolic 45–68; PULSE 52–81; RESP 14–19; TEMP 37.6–39.1; O2SAT 92–100; BMI 34.2
[2022-07-28 00:09] LABS: ABG PH Result 7.26 (7.35-7.45); Arterial Blood Gas Hematocrit 40.7 % (37-47); Base Excess ABG -7.6 mmol/L (-2.0-2.0); Blood Gas Allen Test Pos; Blood Gas Sample Site Radial, right; Blood Gas Sample Type Arterial; Blood Gas Tidal Volume 0.43; HCO3 ABG 19.3 mmol/L (22-26); Oxygen Device VENT; PO2 ABG 66.3 mmHg (80.0-100.0)
[2022-07-28 01:36] LABS: Sodium 162 mmol/L (136-145)
[2022-07-28] MEDS: ipratropium 0.5 mg/2.5 mL Neb INHALATION ×3 (03:32→13:52)
[2022-07-28] MEDS: albuterol 2.5 mg/3 mL Neb INHALATION ×3 (03:33→13:52)
[2022-07-28] MEDS: piperacillin-tazobactam 3.375 GM in dextrose 5% (plus) 50 ML IV ×3 (04:32→20:15)
[2022-07-28 05:17] LABS: Basophils % 0.3 %; Eosinophils % 0.3 %; Hematocrit 44.7 % (37.0-47.0); Lymphocytes # 0.5 10^3/uL (0.8-4.8); Lymphocytes % 5.1 %; Mean Corpuscular HGB Conc 29.1 g/dL (30.0-36.0); Mean Corpuscular Hemoglobin 29.9 pg (28.0-34.0); Mean Corpuscular Volume 102.8 fl (81-99); Mean Platelet Volume 11.4 fL (7.4-10.4); Monocytes # 1.2 10^3/uL (0.2-0.9); Monocytes % 11.9 %; Neutrophils # 8.01 10^3/uL (1.8-7.7); Neutrophils % 81.7 %; Nucleated Red Blood Cells % 0 %; Platelet Count 282 10^3/cmm (130-400); Red Blood Count 4.35 10^6/uL (4.1-5.3); Red Cell Distribution Width 15.9 % (12.1-15.1); White Blood Count 9.8 10^3/uL (4.0-10.0)
[2022-07-28 05:32] LABS: Alanine Aminotransferase 9 U/L (0-33); Albumin Level 3.5 g/dL (3.5-5.2); Alkaline Phosphatase 99 U/L (35-105); Anion Gap 14.1 (5-19); Aspartate Amino Transferase 15 U/L (0-32); Blood Urea Nitrogen 47 mg/dL (6-20); Calcium 10.6 mg/dL (8.5-10.5); Carbon Dioxide 20 mmol/L (22-29); Chloride 127 mmol/L (98-107); Globulin 3.4 g/dL (1.3-4.6); Glomerular Filtration Rate 17.7 mL/min (90-130); Glucose 266 mg/dL (65-115); Osmolality Calculated 346 mOsm/kg (285-295); Potassium 4.1 mmol/L (3.5-5.1); Sodium 157 mmol/L (136-145); Total Bilirubin 0.2 mg/dL (0.15-1.2); Total Protein 6.9 g/dL (6.6-8.7)
[2022-07-28 05:42] LABS: Lithium 1.9 mmol/L (0.6-1.2)
[2022-07-28] MEDS: propofol 1,000 MG/100 ML INJ 15 MG IV ×2 (06:08→17:46)
[2022-07-28] MEDS: heparin 5,000 unit/mL INJ 1 mL 5000 UNIT SUBCUT (06:08)
[2022-07-28 07:28] LABS: Glucose Point of Care 268 mg/dL (70-110)
[2022-07-28] MEDS: dextrose 5% 1,000 ML 75 ML IV (07:39)
[2022-07-28] MEDS: ferrous gluconate 324 mg Tablet PO ×2 (08:07→18:15)
[2022-07-28] MEDS: insulin lispro 100 unit/1 mL SUBCUT ×3 (08:07→20:59)
[2022-07-28] MEDS: vancomycin 1,250 MG/250 ML PIGGYBACK 250 MG IV (08:07)
[2022-07-28] MEDS: fenofibrate 145 mg Tablet PO (08:55)
[2022-07-28] MEDS: nicotine 14 mg Patch 1 PATCH TRANSDERMA (08:55)
[2022-07-28] MEDS: lamoTRIgine 25 mg Tablet 50 MG PO ×2 (08:56→18:41)
[2022-07-28] MEDS: atorvastatin 40 mg Tablet PO (08:56)
[2022-07-28] MEDS: pantoprazole 40 mg SDV IVP (08:56)
[2022-07-28] MEDS: acetaminophen 325 mg Tablet 650 MG PO ×2 (10:29→19:37)
--- NOTE | 2022-07-28 10:41 | PM.CONSULT ---
Providers/Reason For Consult Consulting Physician/Specialty*: Dr. Freitas/thoracic surgery Reason for Consult*: Atelectasis left lung with recent intubation due to respiratory failure Requesting Physician: Dr. Mendez Attending Physician: Iron Mendez Primary Care Provider: Annabel Arcos DO History of Present Illness History of Present Illness Ignacio Eugene is a 52 year old female whom I was contacted by Dr. Mendez this morning concerning progressive respiratory failure requiring intubation yesterday with subsequent follow-up x-ray revealing atelectasis and near complete whiteout of the left hemithorax. Currently, patient is sedated and orally intubated. I was requested to assist with further evaluation to include bronchoscopy. I have tentatively made plans for this to be performed at bedside at approximately 5 PM this evening. All history was obtained from chart review and conversations with my hospitalist colleague. Her substantial history includes COPD, type 2 diabetes mellitus on insulin, bipolar disorder, and chronic tobaccoism. Patient resides with her mother. Initial laboratory data did reveal evidence for lithium toxicity with a initial level of 3.1. Most recent lab this morning revealed level is down to 1.9 which is still above our therapeutic range. Initial admitting CT scan of the chest abdomen and pelvis did reveal evidence for left lower lobe pneumonia with subsegmental atelectasis in the right lung base. She has mild splenomegaly but the abdominal portion of the CT scan was relatively unremarkable without acute findings other than a moderate distended urinary bladder and moderate degree of retained stool throughout the large bowel. Head CT scan revealed lacunar infarcts unchanged since July with no acute intracranial hemorrhage noted. The chest x-ray from yesterday morning revealed left hemothorax atelectasis with subsequent progressive respiratory failure requiring intubation. Patient currently receiving Zosyn and vancomycin IV. Review of Systems Narrative: Review of systems was obtained from chart review and dialogue with Dr. Mendez Medications/Allergies Home Medications Medication Instructions Recorded Confirmed Last Taken Type blood sugar diagnostic (OneTouch #300 ea 08/04/21 07/26/22 Unknown Rx Ultra Test strips) blood-glucose meter (OneTouch #1 ea 08/04/21 07/26/22 Unknown Rx Ultra2 Meter) gabapentin 800 mg tablet 800 mg PO QID 30 days #120 tabs 08/06/21 07/26/22 07/25/22 Rx hydrocodone 7.5 mg-acetaminophen 1 tab PO QID PRN pain 30 days #120 08/06/21 07/26/22 07/14/22 Rx 325 mg tablet tabs nicotine 14 mg/24 hr daily 1 patch transdermal DAILY #28 ea 03/10/22 07/26/22 07/25/22 Rx transdermal patch atorvastatin 40 mg tablet 40 mg PO DAILY 90 days #90 tabs 04/03/22 07/26/22 07/25/22 Rx fenofibrate nanocrystallized 145 145 mg PO DAILY #90 tabs 04/03/22 07/26/22 07/25/22 Rx mg tablet budesonide-formoterol HFA 160 2 puff inhalation Q12H #10.2 grams 05/25/22 07/26/22 07/25/22 Rx mcg-4.5 mcg/actuation aerosol inhaler (Symbicort) lancets 30 gauge (OneTouch [place] #300 ea 06/30/22 07/26/22 Unknown Rx Lancets) hydroxyzine HCl 25 mg tablet 50 mg PO TID PRN anxiety #180 tabs 07/09/22 07/26/22 Unknown Rx lamotrigine 150 mg tablet 150 mg PO BID #60 tabs 07/09/22 07/26/22 07/25/22 Rx lithium carbonate 300 mg capsule 600 mg PO BID #120 caps 07/09/22 07/26/22 07/25/22 Rx risperidone 2 mg tablet 2 mg PO BID #60 tabs 07/09/22 07/26/22 07/25/22 Rx albuterol sulfate 90 mcg/actuation 2 puff inhalation Q6H PRN 07/14/22 07/26/22 Unknown History aerosol inhaler (ProAir HFA) Shortness Of Breath Or Wheezing ibuprofen 200 mg capsule 400 mg PO Q6H PRN Pain 07/14/22 07/26/22 Unknown History insulin glargine 100 unit/mL (3 60 unit SUBCUT QPM 07/14/22 07/26/22 07/25/22 History mL) subcutaneous pen (Lantus Solostar U-100 Insulin) methocarbamol 750 mg tablet 750 mg PO QID PRN Muscle Spasm 07/14/22 07/26/22 Unknown History omeprazole 20 mg capsule,delayed 20 mg PO DAILY 1207/26/22 07/25/22 History release sitagliptin 25 mg tablet (Januvia) 25 mg PO DAILY #90 tabs 07/24/22 07/26/22 07/25/22 Rx Allergies Allergy/AdvReac Type Severity Reaction Status Date / Time sulfamethoxazole AdvReac UNKNOWN Verified 07/23/22 09:51 [From Bactrim] trimethoprim [From Bactrim] AdvReac UNKNOWN Verified 07/23/22 09:51 Current Medications Generic Name Dose Route Start Last Admin Trade Name Freq PRN Reason Stop Dose Admin Acetaminophen 650 mg 07/26/22 18:30 07/28/22 10:29 Acetaminophen 325 Mg Tablet PO 650 mg Q6H PRN Administration Mild/Mod Pain Or Temp >/= 101 Albuterol Sulfate 2.5 mg 07/26/22 21:00 07/28/22 07:39 Albuterol 2.5 Mg/3 Ml Neb INHALATION 2.5 mg Q6H.RESP ÁNGEL Administration Albuterol Sulfate 2.5 mg 07/27/22 20:00 07/28/22 07:40 Albuterol 2.5 Mg/3 Ml Neb INHALATION Not Given Q6H.RESP ÁNGEL Atorvastatin Calcium 40 mg 07/27/22 09:00 07/28/22 08:56 Atorvastatin 40 Mg Tablet PO 40 mg DAILY ÁNGEL Administration Chlorhexidine Gluconate 1 applic 07/28/22 01:00 07/28/22 07:39 Chlorhexidine Gluconate 4% Btl 118 Ml TOPICAL Not Given 0100 ÁNGEL Docusate Sodium 100 mg 07/26/22 18:30 07/28/22 08:56 Docusate Sodium 100 Mg Capsule PO Not Given BID ÁNGEL Fenofibrate 145 mg 07/27/22 09:00 07/28/22 08:55 Fenofibrate 145 Mg Tablet PO 145 mg DAILY ÁNGEL Administration Ferrous Gluconate 324 mg 07/26/22 18:30 07/28/22 08:07 Ferrous Gluconate 324 Mg Tablet PO 324 mg BIDWM ÁNGEL Administration Gabapentin 200 mg 07/26/22 21:00 07/26/22 23:11 Gabapentin 100 Mg Capsule PO Not Given TID ÁNGEL Heparin Sodium (Porcine) 5,000 unit 07/26/22 18:30 07/28/22 06:08 Heparin 5,000 Unit/Ml Inj 1 Ml SUBCUT 5,000 unit Q12H ÁNGEL Administration Vancomycin/PEG/NADA/Lysine/Water 1,250 mg in 250 mls @ 250 mls/hr 07/27/22 07:00 07/28/22 10:26 Vancocin IV Infused Q24H ÁNGEL Infusion Ampicillin Sodium 2,000 mg/ 50 mls @ 100 mls/hr 07/27/22 22:00 07/28/22 07:39 Dextrose IV Infused Q4H ÁNGEL Infusion Protocol Ceftriaxone Sodium 2,000 mg/ 50 mls @ 100 mls/hr 07/28/22 01:00 07/28/22 07:39 Dextrose IV Infused Q12H ÁNGEL Infusion Protocol Piperacillin Sod/Tazobactam 50 mls @ 12.5 mls/hr 07/27/22 20:00 07/28/22 08:50 Sod 3.375 gm/ Dextrose IV Infused Q8H ÁNGEL Infusion Propofol 1,000 mg in 100 mls @ 0 mls/hr 07/27/22 22:00 07/28/22 06:08 Diprivan IV 26.15 mcg/kg/min .Q0M ÁNGEL 15 mls/hr Administration Protocol Per Protocol Fentanyl 1,000 mcg/ Sodium 100 mls @ 0 mls/hr 07/27/22 22:00 07/28/22 08:51 Chloride IV 100 mcg/hr .Q0M ÁNGEL 10 mls/hr Administration Protocol Per Protocol Norepinephrine Bitartrate 4 mg 254 mls @ 0 mls/hr 07/28/22 02:00 07/28/22 05:47 / Dextrose IV 4 mcg/min .Q0M ÁNGEL 15.24 mls/hr Titration Protocol Per Protocol Insulin Glargine 60 unit 07/26/22 21:00 07/26/22 22:29 Insulin Glargine 100 Units/1 Ml SUBCUT 60 unit BEDTIME ÁNGEL Administration Insulin Human Lispro 0 unit 07/26/22 21:00 07/28/22 08:07 Insulin Lispro 100 Unit/1 Ml SUBCUT 8 unit WM&BEDTIME ÁNGEL Administration Protocol Ipratropium Mallory 0.5 mg 07/27/22 20:00 07/28/22 07:40 Ipratropium 0.5 Mg/2.5 Ml Neb INHALATION 0.5 mg Q6H.RESP ÁNGEL Administration Lamotrigine 50 mg 07/27/22 10:00 07/28/22 08:56 Lamotrigine 25 Mg Tablet PO 50 mg BID ÁNGEL Administration Nicotine 1 patch 07/27/22 09:00 07/28/22 08:55 Nicotine 14 Mg Patch TRANSDERMA 1 patch DAILY ÁNGEL Administration Pantoprazole Sodium 40 mg 07/28/22 09:00 07/28/22 08:56 Pantoprazole 40 Mg Sdv IVP 40 mg DAILY ÁNGEL Administration Risperidone 2 mg 07/26/22 18:30 07/26/22 19:57 Risperidone 2 Mg Tablet PO 2 mg BID ÁNGEL Administration PFSH Acute PFSH: Medical History Bipolar 1 disorder Bipolar disorder, current episode depressed, severe, with psychotic features Chronic bilateral low back pain with bilateral sciatica Chronic headache with normal neurologic examination Dyslipidemia Encounter for long-term opiate analgesic use Encounter for long-term use of opiate analgesic Generalized anxiety disorder [place] use Long-term use of high-risk medication Migraine aura without headache Neck pain Opioid contract exists Panic disorder with agoraphobia Psychiatric care Type 2 diabetes mellitus, without long-term current use of insulin Surgical History History of adenoidectomy S/P tonsillectomy AGE 4 Family History Mother Hypertension Grandmother Hypertension Atrial fibrillation Other Bipolar 1 disorder CAD (coronary artery disease) Denies family history of Anesthesia complication Bleeding disorder Social History Smoking and tobacco status: current every day smoker Quit status (tobacco): has tried quititng Second hand smoke exposure: Yes Smoking risk assessment/counseling performed?: Yes Tobacco counseling given: counseling >3 minutes Alcohol intake: former Year of sobriety/quit date alcohol: 1999 Former alcohol use details: alcoholic - quit in 1999 Desire information about alcohol rehabilitation?: No Counseling given: No Adopted: No Caregiver/support person: No Lives independently: Yes Household members: family and children Housing: House Marital status: Number of children: 3 Number of grandchildren: 1 Highest education level completed: GED or Equivalent service: No Current occupational status: disabled Pets and animals: Yes Pets & animals: cat(s) and dog(s) Pets & animal details: indoor History of recent travel: No Leisure activites: music, reading and other Leisure activities details: watch TV Sexually active: No Current gender identity: Female Tessa/Yazidism: Sikhism Special tessa needs: No Agree to transfusion: Yes Financial difficulty paying for basics: Not Very Hard Female Reproductive History: Para: 3 Spontaneous abortions: No Date of menopause: 08/27/17 Vitals/I&O/Wt Last Vital Signs Temp 101.1 F H 07/28/22 10:28 Pulse 63 07/28/22 08:30 Resp 14 07/28/22 10:25 BP 102/52 07/28/22 08:30 Pulse Ox 100 07/28/22 10:25 O2 Del Method 07/28/22 08:30 O2 Flow Rate 4 07/27/22 20:01 FiO2 40 07/28/22 10:25 07/27/22 07/28/22 07/28/22 22:59 06:59 14:59 Intake Total 2.5 / 82.5 2349.360 / 2431.860 792.25 / 792.25 Output Total 1400 / 2800 700 / 3500 Balance -1397.5 / -2717.5 1649.360 / -1068.140 792.25 / 792.25 Weight last 48 hrs Weight 212 lb Weight 210 lb 12.8 oz Weight 212 lb 2 oz Weight 260 lb Physical Exam HENMT: OTHER: Orally intubated Resp: AUSCULTATION: diminished lung sounds on the left and diffuse Cardio: COMMON NORMALS: regular rhythm and S1 normal heart sound present RATE: tachycardic RHYTHM: regular rhythm HEART SOUNDS: S1 normal heart sound present GI: AUSCULTATION: Yes Hypoactive bowel sounds present Extremity: OTHER: 1-2+ pedal edema Neuro: OTHER: Currently sedated while intubated with plantar support Urinary Catheter Management: López: Cath Placed During This Visit: yes Reason for Continuing Indwelling Catheter: Accurate Measurement of Urinary Output in Critically Ill Patients Urinary Catheter Date of Insertion: 07/26/22 Data 07/28/22 04:35 07/28/22 04:35 Micro: Microbiology 07/28/22 07:46 Gram Stain - Final Sputum - Endotracheal Tube Aspirate 07/27/22 18:45 Bacterial Antigens - Final Urine,Voided 07/27/22 18:45 Legionella Urinary Antigen - Final Urine,Clean Catch 07/26/22 17:23 Blood Culture - Preliminary Blood NEGATIVE TO DATE 07/26/22 17:28 Blood Culture - Preliminary Blood NEGATIVE TO DATE 07/26/22 18:45 MRSA Culture - Final Nose A&P Assessment and plan (1) Pneumonia: Plan We will plan for flexible diagnostic/therapeutic bronchoscopy this evening. Patient's mother will be contacted by phone to obtain appropriate informed consent. Consult Attestations Medical Necessity Statement: Respiratory failure with hemothorax opacification on the left. Coding Level of Care Code New Pt Acute Landscape Horticulture Instructor for g Fwd Patient Type New Medical Decision Making Moderate Complexity Diagnoses Pneumonia J18.9 Time Spent (min) 25
--- NOTE | 2022-07-28 11:12 | P.PN_ITS ---
Subjective Subjective: pt transferred to ICU intubated HD catheter placed Medications: Reviewed: Yes Vitals/I&O/Wt Last Vital Signs Temp 101.1 F H 07/28/22 10:28 Pulse 63 07/28/22 08:30 Resp 14 07/28/22 10:25 BP 102/52 07/28/22 08:30 Pulse Ox 100 07/28/22 10:25 O2 Del Method 07/28/22 08:30 O2 Flow Rate 4 07/27/22 20:01 FiO2 40 07/28/22 10:25 07/27/22 07/28/22 07/28/22 22:59 06:59 14:59 Intake Total 2.5 / 82.5 2349.360 / 2431.860 867.688 / 867.688 Output Total 1400 / 2800 700 / 3500 Balance -1397.5 / -2717.5 1649.360 / -1068.140 867.688 / 867.688 Weight last 48 hrs Weight 96.162 kg Weight 95.617 kg Weight 96.218 kg Physical Exam Narrative: Patient intubated and sedated No acute distress Urinary Catheter Management: López: Cath Placed During This Visit: yes Reason for Continuing Indwelling Catheter: Accurate Measurement of Urinary Output in Critically Ill Patients Urinary Catheter Date of Insertion: 07/26/22 Data 07/28/22 04:35 07/28/22 04:35 Micro: Microbiology 07/28/22 07:46 Gram Stain - Final Sputum - Endotracheal Tube Aspirate 07/27/22 18:45 Bacterial Antigens - Final Urine,Voided 07/27/22 18:45 Legionella Urinary Antigen - Final Urine,Clean Catch 07/26/22 17:23 Blood Culture - Preliminary Blood NEGATIVE TO DATE 07/26/22 17:28 Blood Culture - Preliminary Blood NEGATIVE TO DATE 07/26/22 18:45 MRSA Culture - Final Nose A&P Assessment and plan (1) [place] toxicity: (2) SAMANTHA (acute kidney injury): (3) Hypernatremia: (4) [place] use: Plan 1. Acute on chronic kidney disease: Patient's creatinine is currently in the 2 range, has mild metabolic acidosis, nonoliguric has good urine output. -Due to her neurological decline and abnormal renal function and elevated lithium levels-plan for dialysis today -Discussed with patient's mother at bedside, agreed to proceed with dialysis 2. [place] toxicity: [place] level is 1.9, but due to worsening renal function and neurological decline last night-we will do temporary dialysis, 3 hours HD today, will repeat lithium levels after HD 3. Hypernatremia: Improving, DC IV fluids, continue free water flushes via NGT 4. Acute respiratory failure: Patient hypoxic, likely has aspiration pneumonia, antibiotics per primary team, plan for intubation. 5. Metabolic acidosis: Mild, monitor. Patient evaluated using audiovisual cart. Time spent 45 minutes Attestations Medical Necessity Statement*: Continue admission for assessment of management of acute encephalopathy with sepsis, pneumonia, cannot exclude other infection, possible meningitis, possible medication toxicity in the setting of SAMANTHA on CKD. Coding Level of Care Code Acute Tree Cutter for [facility] Diagnoses [place] toxicity T56.891A SAMANTHA (acute kidney injury) N17.9 Hypernatremia E87.0 [place] use Z79.899
[2022-07-28 11:19] LABS: Hepatitis B Core AB, Total Non-Reactive (Nonreactive)
[2022-07-28] MEDS: acetylcysteine 200 mg/mL SDV 4 mL 100 MG INHALATION ×4 (12:18→23:18)
--- NOTE | 2022-07-28 12:24 | PC.CHAP ---
Pastoral Care Encounter/Spiritual Assessment Type of Contact [] Declined physician compensation analyst visit [] Patient/Family/Request visit [] Outpatient visit [] Follow-up visit [] Physician referral [] Code/Alert [x] Routine visit [] Staff referral [] Actively dying [x] Patient sleeping [] Family support [] [] Out of room [] Palliative care [] [] Receiving care in room [] Pre-surgical visit [] Trauma [] Long length of stay [x] ICU visit [x] Other: vent Relational/Emotional Strength [] Patient feels connected with others/family/visitors/staff [] Distress [] Loneliness/isolation [] Abandonment Spirituality of Patient [] Person of Tessa [] Attends Rastafarian of their Tessa [] Believes in Prayer [] Reads Bible or Rastafari materials [] There are Spiritual issues to be addressed Core Assembly Supervisor Interventions [x] Prayer [] Active listening [] Non-anxious presence [] Spiritual/emotional support [] Crisis/trauma care [] Spiritual counseling [] Bereavement support [] Provided bereavement packet [] Provided Bible/devotional materials [] Provided toy/stuffed animal, coloring book to patient or family member [] Provided Communion [] Anointing/[place] [] Salvation [x] Completed spiritual assessment [] Other: Impact on Illness or Injury [] Angry [] Fearful [] Anxious [] Often cries [] Exhaustion [] Unable to work [] Unable to attend taoism [] Unable to walk/stand [] Unable to read [] Unable to drive [] Unable to eat/drink [] Unable to sleep [] Unable to be with family [] Patient intubated [] Other: Summary Time spent with patient
[2022-07-28 12:53] LABS: Glucose Point of Care 135 mg/dL (70-110)
[2022-07-28 13:35] LABS: Hepatitis A Antibody IgM Non-Reactive (Nonreactive); Hepatitis B Core AB, Total Non-Reactive (Nonreactive); Hepatitis B Surface Antigen Non-Reactive (Nonreactive); Hepatitis C Virus Antibody Non-Reactive (Nonreactive)
[2022-07-28 13:41] LABS: Hepatitis B Surface AB < 3.5 (11.5-1000)
--- NOTE | 2022-07-28 14:58 | PM.CONSULT ---
Providers/Reason For Consult Consulting Physician/Specialty*: Dr. Zenon Perez DO/General surgery Reason for Consult*: Request for hemodialysis access Attending Physician: Iron Mendez Primary Care Provider: Annabel Arcos DO History of Present Illness History of Present Illness Ignacio Eugene is a 52 year old female who is currently in the ICU and nephrology has determined she is in need of hemodialysis. General surgery was consulted for hemodialysis access placement. Patient is intubated therefore HPI and review of systems are limited Review of Systems General: Reports: ROS unobtainable due to endotracheal tube Medications/Allergies Home Medications Medication Instructions Recorded Confirmed Last Taken Type blood sugar diagnostic ([employer]Touch #300 ea 08/04/21 07/26/22 Unknown Rx Ultra Test strips) blood-glucose meter ([employer] #1 ea 08/04/21 07/26/22 Unknown Rx Ultra2 Meter) gabapentin 800 mg tablet 800 mg PO QID 30 days #120 tabs 08/06/21 07/26/22 07/25/22 Rx hydrocodone 7.5 mg-acetaminophen 1 tab PO QID PRN pain 30 days #120 08/06/21 07/26/22 07/14/22 Rx 325 mg tablet tabs nicotine 14 mg/24 hr daily 1 patch transdermal DAILY #28 ea 03/10/22 07/26/22 07/25/22 Rx transdermal patch atorvastatin 40 mg tablet 40 mg PO DAILY 90 days #90 tabs 04/03/22 07/26/22 07/25/22 Rx fenofibrate nanocrystallized 145 145 mg PO DAILY #90 tabs 04/03/22 07/26/22 07/25/22 Rx mg tablet budesonide-formoterol HFA 160 2 puff inhalation Q12H #10.2 grams 05/25/22 07/26/22 07/25/22 Rx mcg-4.5 mcg/actuation aerosol inhaler (Symbicort) lancets 30 gauge ([employer]Touch Delica #300 ea 06/30/22 07/26/22 Unknown Rx Lancets) hydroxyzine HCl 25 mg tablet 50 mg PO TID PRN anxiety #180 tabs 07/09/22 07/26/22 Unknown Rx lamotrigine 150 mg tablet 150 mg PO BID #60 tabs 07/09/22 07/26/22 07/25/22 Rx lithium carbonate 300 mg capsule 600 mg PO BID #120 caps 07/09/22 07/26/22 07/25/22 Rx risperidone 2 mg tablet 2 mg PO BID #60 tabs 07/09/22 07/26/22 07/25/22 Rx albuterol sulfate 90 mcg/actuation 2 puff inhalation Q6H PRN 07/14/22 07/26/22 Unknown History aerosol inhaler (ProAir HFA) Shortness Of Breath Or Wheezing ibuprofen 200 mg capsule 400 mg PO Q6H PRN Pain 07/14/22 07/26/22 Unknown History insulin glargine 100 unit/mL (3 60 unit SUBCUT QPM 07/14/22 07/26/22 07/25/22 History mL) subcutaneous pen (Lantus Solostar U-100 Insulin) methocarbamol 750 mg tablet 750 mg PO QID PRN Muscle Spasm 07/14/22 07/26/22 Unknown History omeprazole 20 mg capsule,delayed 20 mg PO DAILY 07/14/22 07/26/22 07/25/22 History release sitagliptin 25 mg tablet (Januvia) 25 mg PO DAILY #90 tabs 07/24/22 07/26/22 07/25/22 Rx Allergies Allergy/AdvReac Type Severity Reaction Status Date / Time sulfamethoxazole AdvReac UNKNOWN Verified 07/23/22 09:51 [From Bactrim] trimethoprim [From Bactrim] AdvReac UNKNOWN Verified 07/23/22 09:51 Current Medications Generic Name Dose Route Start Last Admin Trade Name Freq PRN Reason Stop Dose Admin Acetaminophen 650 mg 07/26/22 18:30 07/28/22 10:29 Acetaminophen 325 Mg Tablet PO 650 mg Q6H PRN Administration Mild/Mod Pain Or Temp >/= 101 Acetylcysteine 100 mg 07/28/22 12:00 07/28/22 12:18 Acetylcysteine 200 Mg/Ml Sdv 4 Ml INHALATION 100 mg Q4H.RESPIRATORY ÁNGEL Administration Atorvastatin Calcium 40 mg 07/27/22 09:00 07/28/22 08:56 Atorvastatin 40 Mg Tablet PO 40 mg DAILY ÁNGEL Administration Chlorhexidine Gluconate 1 applic 07/28/22 01:00 07/28/22 07:39 Chlorhexidine Gluconate 4% Btl 118 Ml TOPICAL Not Given 0100 ÁNGEL Docusate Sodium 100 mg 07/26/22 18:30 07/28/22 08:56 Docusate Sodium 100 Mg Capsule PO Not Given BID ÁNGEL Fenofibrate 145 mg 07/27/22 09:00 07/28/22 08:55 Fenofibrate 145 Mg Tablet PO 145 mg DAILY ÁNGEL Administration Ferrous Gluconate 324 mg 07/26/22 18:30 07/28/22 08:07 Ferrous Gluconate 324 Mg Tablet PO 324 mg BIDWM ÁNGEL Administration Gabapentin 200 mg 07/26/22 21:00 07/26/22 23:11 Gabapentin 100 Mg Capsule PO Not Given TID ÁNGEL Heparin Sodium (Porcine) 5,000 unit 07/26/22 18:30 07/28/22 06:08 Heparin 5,000 Unit/Ml Inj 1 Ml SUBCUT 5,000 unit Q12H ÁNGEL Administration Vancomycin/PEG/NADA/Lysine/Water 1,250 mg in 250 mls @ 250 mls/hr 07/27/22 07:00 07/28/22 10:26 Vancocin IV Infused Q24H ÁNGEL Infusion Ampicillin Sodium 2,000 mg/ 50 mls @ 100 mls/hr 07/27/22 22:00 07/28/22 12:58 Dextrose IV Infused Q4H ÁNGEL Infusion Protocol Ceftriaxone Sodium 2,000 mg/ 50 mls @ 100 mls/hr 07/28/22 01:00 07/28/22 14:30 Dextrose IV 100 mls/hr Q12H ÁNGEL Administration Protocol Piperacillin Sod/Tazobactam 50 mls @ 12.5 mls/hr 07/27/22 20:00 07/28/22 13:02 Sod 3.375 gm/ Dextrose IV 12.5 mls/hr Q8H ÁNGEL Administration Propofol 1,000 mg in 100 mls @ 0 mls/hr 07/27/22 22:00 07/28/22 06:08 Diprivan IV 26.15 mcg/kg/min .Q0M ÁNGEL 15 mls/hr Administration Protocol Per Protocol Fentanyl 1,000 mcg/ Sodium 100 mls @ 0 mls/hr 07/27/22 22:00 07/28/22 08:51 Chloride IV 100 mcg/hr .Q0M ÁNGEL 10 mls/hr Administration Protocol Per Protocol Norepinephrine Bitartrate 4 mg 254 mls @ 0 mls/hr 07/28/22 02:00 07/28/22 14:50 / Dextrose IV 10 mcg/min .Q0M ÁNGEL 38.1 mls/hr Titration Protocol Per Protocol Insulin Glargine 60 unit 07/26/22 21:00 07/26/22 22:29 Insulin Glargine 100 Units/1 Ml SUBCUT 60 unit BEDTIME ÁNGEL Administration Insulin Human Lispro 0 unit 07/26/22 21:00 07/28/22 12:49 Insulin Lispro 100 Unit/1 Ml SUBCUT Not Given WM&BEDTIME ÁNGEL Protocol Ipratropium [place] 0.5 mg 07/27/22 20:00 07/28/22 13:52 Ipratropium 0.5 Mg/2.5 Ml Neb INHALATION 0.5 mg Q6H.RESP ÁNGEL Administration Lamotrigine 50 mg 07/27/22 10:00 07/28/22 08:56 Lamotrigine 25 Mg Tablet PO 50 mg BID ÁNGEL Administration Nicotine 1 patch 07/27/22 09:00 07/28/22 08:55 Nicotine 14 Mg Patch TRANSDERMA 1 patch DAILY ÁNGEL Administration Pantoprazole Sodium 40 mg 07/28/22 09:00 07/28/22 08:56 Pantoprazole 40 Mg Sdv IVP 40 mg DAILY ÁNGEL Administration Risperidone 2 mg 07/26/22 18:30 07/26/22 19:57 Risperidone 2 Mg Tablet PO 2 mg BID ÁNGEL Administration PFSH Acute PFSH: Medical History Bipolar 1 disorder Bipolar disorder, current episode depressed, severe, with psychotic features Chronic bilateral low back pain with bilateral sciatica Chronic headache with normal neurologic examination Dyslipidemia Encounter for long-term opiate analgesic use Encounter for long-term use of opiate analgesic Generalized anxiety disorder [place] use Long-term use of high-risk medication Migraine aura without headache Neck pain Opioid contract exists Panic disorder with agoraphobia Psychiatric care Type 2 diabetes mellitus, without long-term current use of insulin Surgical History History of adenoidectomy S/P tonsillectomy AGE 4 Family History Mother Hypertension Grandmother Hypertension Atrial fibrillation Other Bipolar 1 disorder CAD (coronary artery disease) Denies family history of Anesthesia complication Bleeding disorder Social History (Reviewed 07/28/22 @ 14:59 by EMILEE Coburn Smoking and tobacco status: current every day smoker Quit status (tobacco): has tried quititng Second hand smoke exposure: Yes Smoking risk assessment/counseling performed?: Yes Tobacco counseling given: counseling >3 minutes Alcohol intake: former Year of sobriety/quit date alcohol: 1999 Former alcohol use details: alcoholic - quit in 1999 Desire information about alcohol rehabilitation?: No Counseling given: No Adopted: No Caregiver/support person: No Lives independently: Yes Household members: family and children Housing: House Marital status: Number of children: 3 Number of grandchildren: 1 Highest education level completed: GED or Equivalent service: No Current occupational status: disabled Pets and animals: Yes Pets & animals: cat(s) and dog(s) Pets & animal details: indoor History of recent travel: No Leisure activites: music, reading and other Leisure activities details: watch TV Sexually active: No Current gender identity: Female Tessa/Synagogue: [employer] Special tessa needs: No Agree to transfusion: Yes Financial difficulty paying for basics: Not Very Hard Female Reproductive History: Para: 3 Spontaneous abortions: No Date of menopause: 08/27/17 Vitals/I&O/Wt Last Vital Signs Temp 102.3 F H 07/28/22 12:00 Pulse 70 07/28/22 14:00 Resp 15 07/28/22 14:00 BP 84/46 07/28/22 12:00 Pulse Ox 94 07/28/22 14:00 O2 Del Method 07/28/22 14:00 O2 Flow Rate 4 07/27/22 20:01 FiO2 40 07/28/22 14:00 07/27/22 07/28/22 07/28/22 22:59 06:59 14:59 Intake Total 2.5 / 82.5 2349.360 / 2431.860 1026.527 / 1026.527 Output Total 1400 / 2800 700 / 3500 Balance -1397.5 / -2717.5 1649.360 / -3651.161 8056.527 / 1026.527 Weight last 48 hrs Weight 212 lb Weight 210 lb 12.8 oz Weight 212 lb 2 oz Physical Exam Narrative: General: Intubated, sedated Abdomen: Soft, no grimace to palpation Urinary Catheter Management: López: Cath Placed During This Visit: yes Reason for Continuing Indwelling Catheter: Accurate Measurement of Urinary Output in Critically Ill Patients Urinary Catheter Date of Insertion: 07/26/22 Data 07/28/22 04:35 07/28/22 04:35 Micro: Microbiology 07/28/22 07:46 Gram Stain - Final Sputum - Endotracheal Tube Aspirate 07/27/22 18:45 Bacterial Antigens - Final Urine,Voided 07/27/22 18:45 Legionella Urinary Antigen - Final Urine,Clean Catch 07/26/22 17:23 Blood Culture - Preliminary Blood NEGATIVE TO DATE 07/26/22 17:28 Blood Culture - Preliminary Blood NEGATIVE TO DATE 07/26/22 18:45 MRSA Culture - Final Nose A&P Assessment and plan (1) [place] toxicity: Plan Right femoral vein hemodialysis catheter placement The risks and benefits of procedure, including but not limited to, bleeding, infection, damage to surrounding structures, catheter malfunction, were explained to the family. They are understanding the risks and wished to proceed Coding Level of Care Code Acute Machine Heddle Cleaner for Damir Conway Diagnoses [place] toxicity T56.891A
--- NOTE | 2022-07-28 15:01 | PM.DIACAT ---
Procedure Note: Date of procedure: 07/28/22 Pre-op diagnosis: [place] toxicity Post-op diagnosis: same Procedure Performed: femoral dialysis catheter Procedure: After obtaining consent, the right groin was inspected prepped and draped in usual sterile fashion. The right femoral artery was palpated and an access needle was used to access the right femoral vein just medial to this. Dark red nonpulsatile blood was found to return. A guidewire was then placed into the right femoral vein. An 11 blade scalpel was then used to make a trudi incision over the needle. Serial dilators were then used to dilate the right femoral vein. The hemodialysis catheter was then placed over the guidewire and the guidewire was removed. There was good blood flow through both sides. Normal saline was flushed through both sides. Caps were placed. The catheter was then sewn in place using 3-0 silk in an interrupted fashion. Sterile dressing was applied. Patient tolerated procedure well Anesthesia: other Surgeon: Zenon Perez Estimated blood loss (mL): 5 Coding Level of Care Code Acute Imaging Technician for Damir Conway
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
[2022-07-28] MEDS: ipratropium-albuterol 3 mL Neb INHALATION ×3 (16:14→23:18)
[2022-07-28 17:16] LABS: Glucose Point of Care 181 mg/dL (70-110)
[2022-07-28] MEDS: cetacaine Spray 5 gm Can 1 SPRAY XX (17:18)
--- NOTE | 2022-07-28 18:25 | US_ITS ---
WS: [id number] Ultrasound of left chest, 07/28/2022 Clinical Data: Assess for L side effusion Comparison: CT chest abdomen pelvis, 07/26/2022 Findings: Ultrasound of the left chest revealed no pleural effusion. US/US chest [id number] Impression: Negative for left pleural effusion.
[2022-07-28] MEDS: albumin 12.5 GM/50 ML VIAL IV (18:32)
--- NOTE | 2022-07-28 19:38 | P.OP_ITS ---
Operative Report Date of procedure: July 28, 2022 Pre-op diagnosis: Preop Diagnosis atelectasis left lung Post-op diagnosis: other (Mucous plugging left main bronchus) Procedure done: Flexible diagnostic/therapeutic bronchoscopy Specimens removed/disposition: None Pathology: none sent Surgeon: Branden Freitas Anesthesia: MAC Estimated blood loss (mL): 0 Complications: None Findings: Mucous plugging left with proximal Condition: stable Brief History: Patient is a 52-year-old female admitted for left lower lobe pneumonia and lithium toxicity. She had further detriment of her status requiring intubation and postprocedure left hemothorax opacification is noted consistent with left lung atelectasis. I was consulted by Dr. Mendez to consider bronchoscopy. This was Discussed with family preoperatively reviewed and signed. Procedure: Procedure: Ms. Eugene is currently intubated with IV Hernandez sedation in the ICU. Appropriate timeout was completed and consent confirmed. This is been signed by her mother. With adequate anesthesia, flexible bronchoscope was inserted through the endotracheal tube. In a methodical fashion the trachea, renetta, right main bronchus and associated lobar bronchi were inspected. In a similar fashion the left side was inspected. Secretions were cleared as needed to allow for adequate inspection. Normal saline or normal saline and bicarbonate solution were used to clear thick or tenacious secretions. Findings: There was moderate erythema and mild petechiae throughout the mucosa, more so on the left side than the right. Main renetta was sharp. Right side revealed mild. Spillover from the left side though no mary mucous plugging was noted. Inspection of the left side revealed moderate large volume of thick and moderately tenacious white secretions consistent with mucous plugging. This was systematically cleared with use of active bronchoscopic suction along with irrigation utilizing a solution of bicarbonate and saline. This was done in methodical fashion until bronchi. once all secretions were cleared, a methodical inspection were performed throughout the tracheobronchial tree Branching anatomy was normal. There was no evidence for submucosal infiltration or extrinsic compression. No endobronchial lesions were notified. Mucosa was mildly friable with mild edema and mild petechiae, greatest on the left side. Once completed, the scope was withdrawn under direct visualization confirming cleared secretions and no substantial bleeding. Endoscopic photos were taken as required to document pathology. The patient tolerated the procedure well. Vital signs and O2 saturation remained stable throughout the procedure and were consistently monitored. I did scholarship counselor with her mother at the completion of the procedure.
[2022-07-28] MEDS: sodium chloride 3.5% neb 4 mL Neb INHALATION (20:00)
[2022-07-28 20:26] LABS: Glucose Point of Care 263 mg/dL (70-110)
[2022-07-28 21:01] LABS: Sodium 136 mmol/L (136-145)
[2022-07-29] VITALS (91 sets, daily range): BP systolic 78–161; BP diastolic 49–83; PULSE 64–103; RESP 14–21; TEMP 37.6–38.8; O2SAT 84–100; BMI 34.5
[2022-07-29] MEDS: ipratropium-albuterol 3 mL Neb INHALATION ×6 (03:43→23:55)
[2022-07-29] MEDS: acetylcysteine 200 mg/mL SDV 4 mL 100 MG INHALATION ×6 (03:44→23:55)
[2022-07-29 04:05] LABS: Basophils # 0.1 10^3/uL (0.0-0.1); Basophils % 0.5 %; Eosinophils # 0.1 10^3/uL (0.0-0.8); Eosinophils % 0.7 %; Hematocrit 39.6 % (37.0-47.0); Hemoglobin 12.3 g/dL (11.5-15.3); Lymphocytes # 1.1 10^3/uL (0.8-4.8); Lymphocytes % 9.7 %; Mean Corpuscular HGB Conc 31.1 g/dL (30.0-36.0); Mean Corpuscular Hemoglobin 29.6 pg (28.0-34.0); Mean Corpuscular Volume 95.2 fl (81-99); Mean Platelet Volume 11.6 fL (7.4-10.4); Monocytes # 1.4 10^3/uL (0.2-0.9); Monocytes % 12.3 %; Neutrophils # 8.78 10^3/uL (1.8-7.7); Neutrophils % 76.3 %; Nucleated Red Blood Cells % 0 %; Platelet Count 235 10^3/cmm (130-400); Red Blood Count 4.16 10^6/uL (4.1-5.3); Red Cell Distribution Width 14.6 % (12.1-15.1); White Blood Count 11.5 10^3/uL (4.0-10.0)
[2022-07-29] MEDS: piperacillin-tazobactam 3.375 GM in dextrose 5% (plus) 50 ML IV ×3 (04:25→19:34)
[2022-07-29 04:38] LABS: Alanine Aminotransferase 18 U/L (0-33); Albumin Level 3.7 g/dL (3.5-5.2); Alkaline Phosphatase 90 U/L (35-105); Anion Gap 20.4 (5-19); Aspartate Amino Transferase 30 U/L (0-32); Blood Urea Nitrogen 30 mg/dL (6-20); Calcium 9.4 mg/dL (8.5-10.5); Carbon Dioxide 22 mmol/L (22-29); Chloride 98 mmol/L (98-107); Globulin 3.6 g/dL (1.3-4.6); Glomerular Filtration Rate 19.3 mL/min (90-130); Glucose 271 mg/dL (65-115); Osmolality Calculated 300 mOsm/kg (285-295); Potassium 3.4 mmol/L (3.5-5.1); Sodium 137 mmol/L (136-145); Total Bilirubin 0.4 mg/dL (0.15-1.2); Total Protein 7.3 g/dL (6.6-8.7)
[2022-07-29 04:41] LABS: ABG PCO2 41.4 mmHg (35-45); ABG PH Result 7.37 (7.35-7.45); Arterial Blood Gas Hematocrit 37.9 % (37-47); Base Excess ABG -1.4 mmol/L (-2.0-2.0); Blood Gas Operator Identificat JB; Blood Gas Sample Site Brachial, right; Blood Gas Sample Type Arterial; Carboxyhemoglobin 0.4 %THgb (0.4-20.1); HCO3 ABG 23.9 mmol/L (22-26); HGB O2 Sat 96.6 % (95-100); Ionized Calcium Level - ABG 1.3 mmol/L (1.1-1.4); Methemoglobin 0.6 % (0.4-1.5); Oxygen Device VENT; Oxygen Saturation ABG 97.6; Potassium Level - ABG 3.4 mmol/L (3.5-5.0); Total Hemoglobin 12.4 g/dL (12-16)
[2022-07-29 04:42] LABS: Alveolar-Arterial Oxygen Gradi 16.7 mmHg (5-10); Blood Gas Tidal Volume 0.43
[2022-07-29 06:03] LABS: Lithium 1.2 mmol/L (0.6-1.2)
--- NOTE | 2022-07-29 06:55 | PC.NURSE ---
Bedside report completed with CRISTIAN Valles.
[2022-07-29] MEDS: vancomycin 1,250 MG/250 ML PIGGYBACK 250 MG IV (07:42)
[2022-07-29] MEDS: sodium chloride 3.5% neb 4 mL Neb INHALATION ×2 (07:50→19:47)
--- NOTE | 2022-07-29 08:29 | XR_ITS ---
WS: [id number] Portable AP semiupright chest, 07/29/2022 Clinical Data: pna Comparison: Portable chest, 07/27/2022 Findings: The left lung shows significant improvement in the opacification. There is aeration in the left upper lobe. The right lung remains expanded. The endotracheal tube, nasal gastric tube and monit or leads remain in position. The heart is at the upper limits of normal. No pneumothorax is seen. XR/XR chest 1V portable 30011 Impression: 1. Improved aeration in the left upper lobe. 2. No change in position of nasogastric tube and endotracheal tube.
[2022-07-29] MEDS: lamoTRIgine 25 mg Tablet 50 MG PO ×2 (09:22→18:07)
[2022-07-29] MEDS: insulin lispro 100 unit/1 mL SUBCUT ×4 (09:22→20:52)
[2022-07-29] MEDS: docusate sodium 100 mg Capsule PO ×2 (09:22→18:07)
[2022-07-29] MEDS: fenofibrate 145 mg Tablet PO (09:22)
[2022-07-29] MEDS: nicotine 14 mg Patch 1 PATCH TRANSDERMA (09:22)
[2022-07-29] MEDS: pantoprazole 40 mg SDV IVP (09:23)
[2022-07-29] MEDS: atorvastatin 40 mg Tablet PO (09:23)
[2022-07-29] MEDS: ferrous gluconate 324 mg Tablet PO ×2 (09:23→18:07)
[2022-07-29] MEDS: propofol 1,000 MG/100 ML INJ 15 MG IV (09:43)
--- NOTE | 2022-07-29 10:41 | PC.CHAP ---
Pastoral Care Encounter/Spiritual Assessment Type of Contact [] Declined pure pak machine operator visit [] Patient/Family/Request visit [] Outpatient visit [] Follow-up visit [] Physician referral [] Code/Alert [x] Routine visit [] Staff referral [] Actively dying [] Patient sleeping [] Family support [] [] Out of room [] Palliative care [] [] Receiving care in room [] Pre-surgical visit [] Trauma [] Long length of stay [x] ICU visit [] Other: Relational/Emotional Strength [] Patient feels connected with others/family/visitors/staff [] Distress [] Loneliness/isolation [] Abandonment Spirituality of Patient [] Person of Tessa [] Attends Taoism of their Tessa [] Believes in Prayer [] Reads Bible or Jewish materials [] There are Spiritual issues to be addressed Battery Technician Interventions [x] Prayer [] Active listening [] Non-anxious presence [] Spiritual/emotional support [] Crisis/trauma care [] Spiritual counseling [] Bereavement support [] Provided bereavement packet [] Provided Bible/devotional materials [] Provided toy/stuffed animal, coloring book to patient or family member [] Provided Communion [] Anointing/[place] [] Salvation [x] Completed spiritual assessment [] Other: Impact on Illness or Injury [] Angry [] Fearful [] Anxious [] Often cries [] Exhaustion [] Unable to work [] Unable to attend gnosticist [] Unable to walk/stand [] Unable to read [] Unable to drive [] Unable to eat/drink [] Unable to sleep [] Unable to be with family [] Patient intubated [] Other: Summary Time spent with patient
--- NOTE | 2022-07-29 10:43 | PM.PN ---
Subjective Subjective: remains on vent sedated Medications: Reviewed: Yes Vitals/I&O/Wt Last Vital Signs Temp 99.7 F H 07/29/22 08:56 Pulse 75 07/29/22 08:56 Resp 15 07/29/22 09:42 BP 106/57 07/29/22 08:56 Pulse Ox 97 07/29/22 09:42 O2 Del Method 07/29/22 07:45 O2 Flow Rate 4 07/27/22 20:01 FiO2 30 07/29/22 09:42 07/28/22 07/29/22 07/29/22 22:59 06:59 14:59 Intake Total 2299.471 / 3425.998 1359.965 / 4785.963 422.357 / 422.357 Output Total 1523 / 1523 550 / 2073 Balance 776.471 / 1902.998 809.965 / 2712.963 422.357 / 422.357 Weight last 48 hrs Weight 97.069 kg Weight 97.1 kg Weight 96.162 kg Physical Exam Narrative: Patient intubated and sedated No acute distress Urinary Catheter Management: López: Cath Placed During This Visit: yes Reason for Continuing Indwelling Catheter: Accurate Measurement of Urinary Output in Critically Ill Patients Urinary Catheter Date of Insertion: 07/26/22 Data 07/29/22 03:27 07/29/22 03:27 Micro: Microbiology 07/28/22 07:46 Gram Stain - Final Sputum - Endotracheal Tube Aspirate 07/27/22 18:45 Bacterial Antigens - Final Urine,Voided A&P Assessment and plan (1) Hypernatremia: (2) SAMANTHA (acute kidney injury): (3) [place] toxicity: (4) [place] use: Plan 1. Acute on chronic kidney disease: Patient's creatinine is currently in the 2 range, -Due to her neurological decline and abnormal renal function and elevated lithium levels-HD inittiated -Discussed with patient's mother at bedside, agreed to proceed with dialysis 2. [place] toxicity: [place] level is 1.9, but due to worsening renal function and neurological decline, temporary dialysis catheter placed , and HD , #2 session today - hold off on further HD , [place] levels normal. 3. Hypernatremia: Improved , continue free water flushes via NGT 4. Acute respiratory failure: Patient hypoxic, likely has aspiration pneumonia, antibiotics per primary team, intubated 5. Metabolic acidosis: Mild, monitor. Patient evaluated using audiovisual cart. Time spent 45 minutes Attestations Medical Necessity Statement*: Continue admission for management of acute respiratory failure, acute encephalopathy, SAMANTHA Coding Level of Care Code Acute Clerk Travel Reservations for Chg Fwd Diagnoses Hypernatremia E87.0 SAMANTHA (acute kidney injury) N17.9 [place] toxicity T56.891A [place] use Z79.899
[2022-07-29 11:34] LABS: Glucose Point of Care 169 mg/dL (70-110)
[2022-07-29 11:34] LABS: Glucose Point of Care 233 mg/dL (70-110)
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
[2022-07-29 19:05] LABS: Glucose Point of Care 239 mg/dL (70-110)
--- NOTE | 2022-07-29 19:23 | PC.NURSE ---
Shift Note: PT remains sedated and intubated. Fio2 remains at 30%. Hemodialysis completed today, nearly 600ml removed. Pt tolerated well. Fentanyl and propofol remain infusing for sedation, Fentanyl decreased to 60 mcg/hr at end of shift. Pt tolerating .. Levophed gtt was off for about 3 hours this afternoon. She became hypotensive at end of shift and Levophed re started at 2mcg/min. Family declined the Lumbar puncture today want to re evaluate patient's level of alertness tomorrow. She is tolerating the 300ml H2O flushed every 4 hours well. She has had 775ml of urine output, at beginning of shift sediment noted. None noted at end of sift. Frequent safety and comfort rounds continue. Orders and/or nursing care completed as indicated. Patient monitored for response to intervention and treatment(s). Education provided includes Lumbar puncture, Antibiotics, Fentanyl, Propofol, Levophed,plan of care and progress. . Patient's financial service representative verbalized understanding of paln of care, nissa and other discussed topics. . Will continue to monitor.
[2022-07-29] MEDS: acetaminophen 325 mg Tablet 650 MG PO (19:46)
[2022-07-29 21:04] LABS: Glucose Point of Care 202 mg/dL (70-110)
[2022-07-29] MEDS: propofol 1,000 MG/100 ML INJ 8.61 MG IV (22:57)
[2022-07-30] VITALS (78 sets, daily range): BP systolic 97–185; BP diastolic 51–103; PULSE 73–122; RESP 16–28; TEMP 37.6–40.6; O2SAT 90–100; BMI 33.6
[2022-07-30] MEDS: chlorhexidine gluconate 4% Btl 118 mL 1 APPLIC TOPICAL (00:48)
[2022-07-30] MEDS: acetaminophen 325 mg Tablet 650 MG PO ×2 (02:15→13:52)
--- NOTE | 2022-07-30 02:20 | PC.NURSE ---
Fever Patient had a fever of 101.9 F orally at 1930; 650 mg of tylenol administered. At 0000, fever of 101.[address] Morales notified and no new orders received. Ice packs placed in axillae/on groin and PO PRN tylenol administered again at 0215. See MAR for details.
[2022-07-30 03:13] LABS: Basophils # 0.1 10^3/uL (0.0-0.1); Basophils % 0.5 %; Eosinophils # 0.2 10^3/uL (0.0-0.8); Eosinophils % 2.4 %; Hemoglobin 11.4 g/dL (11.5-15.3); Lymphocytes % 10.1 %; Mean Corpuscular HGB Conc 32.6 g/dL (30.0-36.0); Mean Corpuscular Hemoglobin 30.2 pg (28.0-34.0); Mean Corpuscular Volume 92.8 fl (81-99); Mean Platelet Volume 11.8 fL (7.4-10.4); Monocytes # 1.3 10^3/uL (0.2-0.9); Monocytes % 13.3 %; Neutrophils # 6.92 10^3/uL (1.8-7.7); Neutrophils % 73.1 %; Nucleated Red Blood Cells % 0 %; Platelet Count 211 10^3/cmm (130-400); Red Blood Count 3.77 10^6/uL (4.1-5.3); Red Cell Distribution Width 14.1 % (12.1-15.1); White Blood Count 9.5 10^3/uL (4.0-10.0)
[2022-07-30] MEDS: piperacillin-tazobactam 3.375 GM in dextrose 5% (plus) 50 ML IV ×3 (03:24→20:07)
[2022-07-30 03:45] LABS: Alanine Aminotransferase 15 U/L (0-33); Albumin Level 3.4 g/dL (3.5-5.2); Alkaline Phosphatase 75 U/L (35-105); Anion Gap 20.4 (5-19); Aspartate Amino Transferase 26 U/L (0-32); Blood Urea Nitrogen 32 mg/dL (6-20); Calcium 9.3 mg/dL (8.5-10.5); Carbon Dioxide 24 mmol/L (22-29); Chloride 95 mmol/L (98-107); Globulin 3.3 g/dL (1.3-4.6); Glomerular Filtration Rate 27.7 mL/min (90-130); Glucose 198 mg/dL (65-115); Osmolality Calculated 294 mOsm/kg (285-295); Potassium 3.4 mmol/L (3.5-5.1); Sodium 136 mmol/L (136-145); Total Bilirubin 0.3 mg/dL (0.15-1.2); Total Protein 6.7 g/dL (6.6-8.7)
[2022-07-30] MEDS: acetylcysteine 200 mg/mL SDV 4 mL 100 MG INHALATION ×3 (04:00→11:25)
[2022-07-30] MEDS: ipratropium-albuterol 3 mL Neb INHALATION ×6 (04:00→23:52)
[2022-07-30] MEDS: sodium chloride 3.5% neb 4 mL Neb INHALATION ×2 (08:05→19:47)
[2022-07-30 08:12] LABS: Glucose Point of Care 250 mg/dL (70-110)
[2022-07-30] MEDS: lamoTRIgine 25 mg Tablet 50 MG PO ×2 (08:33→18:12)
[2022-07-30] MEDS: vancomycin 1,250 MG/250 ML PIGGYBACK 250 MG IV (08:33)
[2022-07-30] MEDS: pantoprazole 40 mg SDV IVP (08:33)
[2022-07-30] MEDS: atorvastatin 40 mg Tablet PO (08:33)
[2022-07-30] MEDS: fenofibrate 145 mg Tablet PO (08:33)
[2022-07-30] MEDS: ferrous gluconate 324 mg Tablet PO ×2 (08:33→18:13)
[2022-07-30] MEDS: propofol 1,000 MG/100 ML INJ 8.61 MG IV (08:34)
[2022-07-30] MEDS: nicotine 14 mg Patch 1 PATCH TRANSDERMA (08:34)
[2022-07-30] MEDS: insulin lispro 100 unit/1 mL SUBCUT ×4 (08:34→21:44)
--- NOTE | 2022-07-30 12:16 | P.PN_ITS ---
Subjective Subjective: remains intubated Medications: Reviewed: Yes Vitals/I&O/Wt Last Vital Signs Temp 99.6 F 07/30/22 04:00 Pulse 95 07/30/22 11:20 Resp 19 H 07/30/22 11:15 BP 122/78 07/30/22 09:00 Pulse Ox 95 07/30/22 11:15 O2 Del Method 07/30/22 11:10 O2 Flow Rate 4 07/27/22 20:01 FiO2 30 07/30/22 11:15 07/29/22 07/30/22 07/30/22 22:59 06:59 14:59 Intake Total 1269.553 / 2924.202 1140.70 / 4064.902 513.905 / 513.905 Output Total 775 / 1943 1975 / 3918 Balance 494.553 / 981.202 -834.30 / 146.902 513.905 / 513.905 Weight last 48 hrs Weight 94.557 kg Weight 100 kg Weight 97.069 kg Weight 97.1 kg Physical Exam Narrative: Patient intubated and sedated No acute distress Urinary Catheter Management: López: Cath Placed During This Visit: yes Reason for Continuing Indwelling Catheter: Accurate Measurement of Urinary Output in Critically Ill Patients Urinary Catheter Date of Insertion: 07/26/22 Data 07/30/22 02:05 07/30/22 02:05 Micro: Microbiology 07/28/22 07:46 Gram Stain - Final Sputum - Endotracheal Tube Aspirate Sputum Culture - Preliminary A&P Assessment and plan (1) SAMANTHA (acute kidney injury): (2) Hypernatremia: (3) Iselin toxicity: (4) Iselin use: Plan 1. Acute on chronic kidney disease: Patient's creatinine is currently in the 2 range, -Due to her neurological decline and abnormal renal function and elevated lithium levels-HD inittiated -Discussed with patient's mother at bedside, agreed to proceed with dialysis 2. Iselin toxicity: [place] level is 1.9, but due to worsening renal function and neurological decline, temporary dialysis catheter placed , and s/p HD x 2 sessions - hold off on further HD , [place] levels normal. 3. Hypernatremia: Improved , continue free water flushes via NGT 4. Acute respiratory failure: Patient hypoxic, likely has aspiration pneumonia, antibiotics per primary team, intubated 5. Metabolic acidosis: Mild, monitor. Patient evaluated using audiovisual cart. Time spent 45 minutes Attestations Medical Necessity Statement*: Continue admission for management of acute respiratory failure, acute encephalopathy, SAMANTHA Coding Level of Care Code Acute Civil Service Worker for [facility] Diagnoses SAMANTHA (acute kidney injury) N17.9 Hypernatremia E87.0 Iselin toxicity T56.891A Iselin use Z79.899
[2022-07-30 12:36] LABS: Glucose Point of Care 233 mg/dL (70-110)
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
[2022-07-30] MEDS: lidocaine 1% 5 ML in potassium chloride premix 100 ML 50 ML IV (15:20)
--- NOTE | 2022-07-30 15:40 | PC.RESP ---
mother took ring off right hand home
[2022-07-30] MEDS: risperiDONE 1 mg Tablet PO (18:13)
[2022-07-30] MEDS: HYDROmorphone 1 mg/mL INJ 1 mL 0.5 MG IVP ×2 (18:13→23:12)
[2022-07-30] MEDS: fluconazole premix 200 MG/100 ML PREMIX 100 MG IV (18:14)
[2022-07-30 19:00] LABS: Ketone (Acetest) Serum Negative (Negative)
[2022-07-30 20:11] LABS: Glucose Point of Care 282 mg/dL (70-110)
[2022-07-30] MEDS: acetaminophen 1,000 MG/100 ML PIGGYBACK 400 MG IV (21:13)
[2022-07-30 21:51] LABS: Glucose Point of Care 224 mg/dL (70-110)
[2022-07-30] MEDS: insulin glargine 100 units/1 mL 20 UNIT SUBCUT (21:57)
[2022-07-30] MEDS: ibuprofen 200 mg Tablet 400 MG PO (23:28)
[2022-07-31] VITALS (56 sets, daily range): BP systolic 108–167; BP diastolic 63–101; PULSE 79–115; RESP 15–25; TEMP 38.3–40.2; O2SAT 75–100; BMI 33.7
[2022-07-31] MEDS: acetaminophen 325 mg Tablet 650 MG PO ×3 (01:44→20:36)
[2022-07-31] MEDS: chlorhexidine gluconate 4% Btl 118 mL 1 APPLIC TOPICAL (02:18)
[2022-07-31] MEDS: ipratropium-albuterol 3 mL Neb INHALATION ×6 (03:29→23:23)
[2022-07-31 03:36] LABS: Add Urine Microscopic? YES; Bilirubin Urine Neg (Negative); Blood Urine 3+ (Negative); Glucose Urine UA Norm (Normal); Ketones Urine Negative (Negative); Leukocyte Esterase Urine Negative (Negative); Nitrate Urine Negative (Negative); Protein Urine 3+ (Negative); Specific Gravity, Urine 1.015 (1.005-1.030); Urine Appearance Clear (CLEAR); Urine Color Yellow (Yellow); Urobilinogen Urine Norm (Negative); pH Urine 5 (5-7)
[2022-07-31 03:37] LABS: Add Urine Culture? No; Squamous Epithelial Cell Urine 0-4 /hpf (0-5); WBC Urine 0-4 /hpf (0-5)
[2022-07-31] MEDS: piperacillin-tazobactam 3.375 GM in dextrose 5% (plus) 50 ML IV ×3 (03:52→19:59)
--- NOTE | 2022-07-31 04:41 | PC.NURSE ---
Temperature At 2020, patient's oral temperature reading 104F. Rectal thermometer probe inserted for monitoring; rectal temperature reading as 105.3F. Dr. Morales contacted and orders received for 1000 mg IV acetaminophen once and to apply a cooling blanket. While amassing supplies for the cooling blanket, ice packs applied to groin and axillae. With gomez and open wounds on patient's back, cooling blanket applied on top of patient with ice packs and sheet underneath. Dr. Morales at bedside, verification of placement of cooling blanket and ice packs received. Further orders received for 400 mg ibuprofen PO once at 2300 if temperature still high as well as to collect urine, blood, and sputum cultures. See MAR for medication administration. Around 0100, patient's temperature still 103.5F rectally. Dr. Morales notified and order received to administer the PRN dose of PO tylenol ordered. Medication administered per SEP.
[2022-07-31] MEDS: magnesium hydroxide 30 mL UDC PO (05:36)
[2022-07-31 05:59] LABS: ABG PCO2 35.2 mmHg (35-45); ABG PH Result 7.41 (7.35-7.45); Alveolar-Arterial Oxygen Gradi 13.1 mmHg (5-10); Arterial Blood Gas Hematocrit 44.3 % (37-47); Base Excess ABG -1.8 mmol/L (-2.0-2.0); Blood Gas Operator Identificat JB; Blood Gas Sample Site Brachial, right; Blood Gas Sample Type Arterial; Blood Gas Tidal Volume 0.43; Carboxyhemoglobin 0.8 %THgb (0.4-20.1); HCO3 ABG 22.3 mmol/L (22-26); HGB O2 Sat 96.9 % (95-100); Ionized Calcium Level - ABG 1.2 mmol/L (1.1-1.4); Methemoglobin 0.9 % (0.4-1.5); Oxygen Device VENT; Oxygen Saturation ABG 98.6; Potassium Level - ABG 3.3 mmol/L (3.5-5.0); Total Hemoglobin 14.5 g/dL (12-16)
[2022-07-31 06:31] LABS: Basophils % 0.4 %; Eosinophils # 0.1 10^3/uL (0.0-0.8); Eosinophils % 1.6 %; Hematocrit 36.1 % (37.0-47.0); Hemoglobin 11.2 g/dL (11.5-15.3); Lymphocytes # 0.8 10^3/uL (0.8-4.8); Lymphocytes % 11.2 %; Mean Corpuscular Hemoglobin 29.2 pg (28.0-34.0); Mean Corpuscular Volume 94.3 fl (81-99); Mean Platelet Volume 12.2 fL (7.4-10.4); Monocytes # 0.9 10^3/uL (0.2-0.9); Monocytes % 13.2 %; Neutrophils # 5.12 10^3/uL (1.8-7.7); Neutrophils % 72.6 %; Nucleated Red Blood Cells % 0 %; Platelet Count 198 10^3/cmm (130-400); Red Blood Count 3.83 10^6/uL (4.1-5.3); Red Cell Distribution Width 14.4 % (12.1-15.1); White Blood Count 7.1 10^3/uL (4.0-10.0)
[2022-07-31 06:56] LABS: Vancomycin Trough 21.9 ug/mL (10-15)
[2022-07-31 06:57] LABS: Alanine Aminotransferase 13 U/L (0-33); Alkaline Phosphatase 69 U/L (35-105); Anion Gap 21.3 (5-19); Aspartate Amino Transferase 18 U/L (0-32); Blood Urea Nitrogen 55 mg/dL (6-20); Calcium 9.6 mg/dL (8.5-10.5); Carbon Dioxide 20 mmol/L (22-29); Chloride 102 mmol/L (98-107); Globulin 3.8 g/dL (1.3-4.6); Glomerular Filtration Rate 18.4 mL/min (90-130); Glucose 252 mg/dL (65-115); Osmolality Calculated 314 mOsm/kg (285-295); Potassium 3.3 mmol/L (3.5-5.1); Sodium 140 mmol/L (136-145); Total Bilirubin 0.3 mg/dL (0.15-1.2); Total Protein 6.8 g/dL (6.6-8.7)
[2022-07-31] MEDS: sodium chloride 3.5% neb 4 mL Neb INHALATION ×2 (07:57→20:27)
[2022-07-31] MEDS: insulin lispro 100 unit/1 mL SUBCUT ×4 (08:01→20:44)
[2022-07-31] MEDS: ferrous gluconate 324 mg Tablet PO ×2 (08:01→17:10)
[2022-07-31 08:18] LABS: Glucose Point of Care 247 mg/dL (70-110)
--- NOTE | 2022-07-31 08:20 | PM.PN ---
Subjective Subjective: remains on vent has temp 105 Medications: Reviewed: Yes Vitals/I&O/Wt Last Vital Signs Temp 101.5 F H 07/31/22 04:00 Pulse 87 07/31/22 08:08 Resp 18 07/31/22 08:00 BP 129/68 07/31/22 04:00 Pulse Ox 100 07/31/22 08:00 O2 Del Method 07/31/22 07:57 O2 Flow Rate 4 07/27/22 20:01 FiO2 30 07/31/22 08:00 07/30/22 07/31/22 07/31/22 22:59 06:59 14:59 Intake Total 1455 / 1968.905 861 / 2829.905 50 / 50 Output Total 2750 / 2750 900 / 3650 Balance -1295 / -781.095 -39 / -820.095 50 / 50 Weight last 48 hrs Weight 94.846 kg Weight 94.557 kg Weight 100 kg Physical Exam Narrative: Patient intubated and sedated No acute distress Urinary Catheter Management: López: Cath Placed During This Visit: yes Reason for Continuing Indwelling Catheter: Accurate Measurement of Urinary Output in Critically Ill Patients Urinary Catheter Date of Insertion: 07/26/22 Data 07/31/22 06:14 07/31/22 06:14 Micro: Microbiology 07/30/22 22:35 Blood Culture - Preliminary Blood SPECIMEN COLLECTED 07/30/22 22:39 Blood Culture - Preliminary Blood SPECIMEN COLLECTED 07/28/22 07:46 Gram Stain - Final Sputum - Endotracheal Tube Aspirate Sputum Culture - Preliminary Yeast species A&P Assessment and plan (1) [place] toxicity: (2) Hypernatremia: (3) SAMANTHA (acute kidney injury): (4) [place] use: Plan 1. Acute on chronic kidney disease: Patient's creatinine is currently in the 2 range, -Due to her neurological decline and abnormal renal function and elevated lithium levels-HD inittiated -Discussed with patient's mother at bedside, agreed to proceed with dialysis 2. [place] toxicity: [place] level is 1.9, but due to worsening renal function and neurological decline, temporary dialysis catheter placed , and s/p HD x 2 sessions - hold off on further HD , [place] levels normalized 3. Hypernatremia: Improved , continue free water flushes via NGT 4. Acute respiratory failure: Patient hypoxic, likely has aspiration pneumonia, antibiotics per primary team, intubated 5. Metabolic acidosis: Mild, monitor. 6. Fever with Neurological decline : work up in progress Patient evaluated using audiovisual cart. Time spent 25 minutes Attestations Medical Necessity Statement*: Continue admission for assessment and management of acute encephalopathy, respiratory failure, weaning sedation and mechanical ventilatory support. Coding Level of Care Code Acute [employer] for [facility] Fwd Diagnoses [place] toxicity T56.891A Hypernatremia E87.0 SAMANTHA (acute kidney injury) N17.9 [place] use Z79.899
[2022-07-31] MEDS: fenofibrate 145 mg Tablet PO (09:02)
[2022-07-31] MEDS: risperiDONE 1 mg Tablet PO ×2 (09:02→17:10)
[2022-07-31] MEDS: pantoprazole 40 mg SDV IVP (09:09)
[2022-07-31] MEDS: nicotine 14 mg Patch 1 PATCH TRANSDERMA (09:09)
[2022-07-31] MEDS: sodium bicarbonate 8.4% 1 mEq/mL 50mL Syr 50 MEQ IVP (09:10)
[2022-07-31] MEDS: atorvastatin 40 mg Tablet PO (09:10)
[2022-07-31] MEDS: docusate sodium 100 mg Capsule PO ×2 (09:10→17:10)
[2022-07-31] MEDS: lamoTRIgine 25 mg Tablet 50 MG PO (09:49)
[2022-07-31] MEDS: lidocaine 1% 5 ML in potassium chloride premix 100 ML 50 ML IV (09:54)
[2022-07-31 11:19] LABS: Glucose Point of Care 285 mg/dL (70-110)
--- NOTE | 2022-07-31 11:56 | PC.NURSE ---
family continue to refuse lumbar puncture due to sever back issue and pain
--- NOTE | 2022-07-31 14:49 | PC.NURSE ---
noted more generalized movement by self but not follow commands will open eyes and move legs off bed reposition frequently as pt family related has severe back pain.
[2022-07-31] MEDS: LORazepam 2 mg/mL INJ 1 mL 0.5 MG IVP (16:02)
--- NOTE | 2022-07-31 16:03 | PC.NURSE ---
doctor here noted tremor of feet ... ativan given iv at this time more movement of feet on bed purposful to swing them off bed questionable seizure activity also with feet tremor
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
[2022-07-31] MEDS: levETIRAcetam 750 MG in sodium chloride 0.9% (100 ml) 100 ML 430 MG IV (16:43)
[2022-07-31] MEDS: fluconazole premix 200 MG/100 ML PREMIX 100 MG IV (17:09)
[2022-07-31] MEDS: lamoTRIgine 100 mg Tablet PO (17:10)
[2022-07-31 17:20] LABS: Glucose Point of Care 244 mg/dL (70-110)
[2022-07-31 20:49] LABS: Glucose Point of Care 209 mg/dL (70-110)
[2022-07-31] MEDS: insulin glargine 100 units/1 mL 20 UNIT SUBCUT (21:19)
[2022-08-01] VITALS (47 sets, daily range): BP systolic 103–153; BP diastolic 67–95; PULSE 70–106; RESP 10–24; TEMP 37.9–39.7; O2SAT 93–100; BMI 33.0
[2022-08-01] MEDS: vancomycin 1,500 MG/300 ML PIGGYBACK 200 MG IV (02:00)
[2022-08-01] MEDS: ipratropium-albuterol 3 mL Neb INHALATION ×6 (03:54→23:14)
[2022-08-01] MEDS: piperacillin-tazobactam 3.375 GM in dextrose 5% (plus) 50 ML IV ×3 (04:42→20:19)
[2022-08-01 05:51] LABS: Basophils % 0.4 %; Eosinophils % 0.5 %; Hemoglobin 12.7 g/dL (11.5-15.3); Lymphocytes % 12.6 %; Mean Corpuscular Volume 96.7 fl (81-99); Mean Platelet Volume 12.5 fL (7.4-10.4); Monocytes # 0.9 10^3/uL (0.2-0.9); Monocytes % 12.4 %; Neutrophils # 5.47 10^3/uL (1.8-7.7); Neutrophils % 72.8 %; Nucleated Red Blood Cells % 0 %; Platelet Count 229 10^3/cmm (130-400); Red Blood Count 4.24 10^6/uL (4.1-5.3); Red Cell Distribution Width 14.9 % (12.1-15.1); White Blood Count 7.5 10^3/uL (4.0-10.0)
[2022-08-01] MEDS: levETIRAcetam 750 MG in sodium chloride 0.9% (100 ml) 100 ML 430 MG IV (06:10)
[2022-08-01 06:12] LABS: Alanine Aminotransferase 15 U/L (0-33); Albumin Level 3.5 g/dL (3.5-5.2); Alkaline Phosphatase 71 U/L (35-105); Anion Gap 20.6 (5-19); Aspartate Amino Transferase 23 U/L (0-32); Blood Urea Nitrogen 51 mg/dL (6-20); Calcium 9.9 mg/dL (8.5-10.5); Carbon Dioxide 24 mmol/L (22-29); Chloride 110 mmol/L (98-107); Glomerular Filtration Rate 26.1 mL/min (90-130); Glucose 261 mg/dL (65-115); Osmolality Calculated 335 mOsm/kg (285-295); Potassium 3.6 mmol/L (3.5-5.1); Sodium 151 mmol/L (136-145); Total Bilirubin 0.3 mg/dL (0.15-1.2); Total Protein 7.5 g/dL (6.6-8.7)
[2022-08-01] MEDS: insulin lispro 100 unit/1 mL SUBCUT ×3 (07:36→20:48)
[2022-08-01] MEDS: ferrous gluconate 324 mg Tablet PO ×2 (07:36→17:22)
[2022-08-01] MEDS: sodium chloride 3.5% neb 4 mL Neb INHALATION ×2 (07:51→20:48)
[2022-08-01 07:59] LABS: Glucose Point of Care 266 mg/dL (70-110)
[2022-08-01] MEDS: nicotine 14 mg Patch 1 PATCH TRANSDERMA (10:02)
[2022-08-01] MEDS: fenofibrate 145 mg Tablet PO (10:02)
[2022-08-01] MEDS: risperiDONE 1 mg Tablet PO (10:02)
[2022-08-01] MEDS: atorvastatin 40 mg Tablet PO (10:03)
[2022-08-01] MEDS: lamoTRIgine 100 mg Tablet PO ×2 (10:03→17:22)
[2022-08-01] MEDS: pantoprazole 40 mg SDV IVP (10:03)
[2022-08-01] MEDS: docusate sodium 100 mg Capsule PO ×2 (10:03→17:22)
[2022-08-01] MEDS: insulin glargine 100 units/1 mL 23 UNIT SUBCUT ×2 (10:05→22:24)
[2022-08-01 10:16] LABS: Lamotrigine (Lamictal) Level 5.6 mcg/mL (4.0-18.0)
--- NOTE | 2022-08-01 10:38 | P.CONIM_ITS ---
Providers/Reason For Consult Consulting Physician/Specialty*: Dr. Mendez Reason for Consult*: Altered mental status Requesting Physician: Dr. Mendez Attending Physician: Iron Mendez Primary Care Provider: Annabel Arcos DO History of Present Illness History of Present Illness Ignacio Eugene is a 52 year old woman with diabetes, closely followed by Dr. Arcos in the clinic for her diabetes, persistent smoking, COPD, chronic shortness of breath, low back pain and opioid use. She has been on lithium for psychiatric disorder as well as Risperdal 2 mg twice daily and lamotrigine 150 mg twice daily. She is on chronic opioid therapy with hydrocodone. She presented here 07/14/2022 with right-sided weakness that was severe enough that she had adopted the use of a walker. CT head showed an old stroke on the right and nothing to explain her right-sided weakness. She was treated for a UTI. When she returned to see Dr. Arcos 07/23/2022 she was complaining of shakes, jerks and trouble thinking for several weeks such that her mind would go blank. 2 days later she came to our emergency department complaining that she could not think, could not find words and wanted to have an MRI. She had concluded that she had muscular dystrophy. CT of the chest showed an infiltrate on the left and her creatinine was 2.7. She was lithium toxic with a level of 3.1. CT scan of the head once again showed an old lacunar in the right basal ganglia. Dr. Euceda indicated that she was so weak that she could not stand. In the middle of the night she became less responsive and more lethargic and Dr. Lori wset ated her urgently. She remained lethargic the next day. Critical care note from on [facility] from 07/27/2022 showed complete white out of the right lung with worsening hypoxia. Patient was noted to be drooling and unable to take her medication and she was tachypneic as well as drowsy. She was intubated to protect her airway. She continued to be treated with broad- spectrum antibiotics from the time of admission. She was dialyzed. She remains sedated and intubated and she was opening her eyes according to Dr. Mendez on 07/30 but she did not follow commands. Her chest x-ray looked better. Family declined lumbar puncture. Dr. Mendez covered her with broad-spectrum antibiotics. Yesterday she was kicking her feet and she was not following commands clearly and she was rolling her eyes. Dr. Mendez asked me to evaluate her neurologic state. Dr. Mendez started her on levetiracetam yesterday. She is still on Lamictal but her dosage was reduced from 150 to 100 mg twice daily. She has had a persistent temperature as high as 102 degrees for the last several days with very little fluctuation. The last time that she was fully independent was about 4 years ago and at that time she drove a car, got up and took care of her self. 4 years ago she started taking care of her mother and around that time she became much less active, spending most of her day sitting in a chair watching television and going out to smoke. She has become progressively less responsive with other people. Over the last 4 months she has been even less active and moved very little. She shuffles her feet. She has had a mild tremor in the right hand for 3 years but in the last 4 months her tremor has become so vigorous that she could not answer the phone with her right hand. On arrival here she was discovered to be lithium toxic with a level of 2.6 and by 07/26 her level was 3.1. Her last lithium level was done a year ago. Review of Systems Narrative: Her lithium is on hold. She has a history of severe bipolar disorder. She has no history of seizures. She has been complaining of decreased responsiveness for some time with a change in memory. She could not think of words for several months. Medications/Allergies Home Medications Medication Instructions Recorded Confirmed Last Taken Type blood sugar diagnostic (OneTouch #300 ea 08/04/21 07/26/22 Unknown Rx Ultra Test strips) blood-glucose meter (OneTouch #1 ea 08/04/21 07/26/22 Unknown Rx Ultra2 Meter) gabapentin 800 mg tablet 800 mg PO QID 30 days #120 tabs 08/06/21 07/26/22 07/25/22 Rx hydrocodone 7.5 mg-acetaminophen 1 tab PO QID PRN pain 30 days #120 08/06/21 07/26/22 07/14/22 Rx 325 mg tablet tabs nicotine 14 mg/24 hr daily 1 patch transdermal DAILY #28 ea 03/10/22 07/26/22 07/25/22 Rx transdermal patch atorvastatin 40 mg tablet 40 mg PO DAILY 90 days #90 tabs 04/03/22 07/26/22 07/25/22 Rx fenofibrate nanocrystallized 145 145 mg PO DAILY #90 tabs 04/03/22 07/26/22 07/25/22 Rx mg tablet lancets 30 gauge (KrisTouch Delstew #300 ea 06/30/22 07/26/22 Unknown Rx Lancets) hydroxyzine HCl 25 mg tablet 50 mg PO TID PRN anxiety #180 tabs 07/09/22 07/26/22 Unknown Rx lamotrigine 150 mg tablet 150 mg PO BID #60 tabs 07/09/22 07/26/22 07/25/22 Rx lithium carbonate 300 mg capsule 600 mg PO BID #120 caps 07/09/22 07/26/22 07/25/22 Rx risperidone 2 mg tablet 2 mg PO BID #60 tabs 07/09/22 07/26/22 07/25/22 Rx albuterol sulfate 90 mcg/actuation 2 puff inhalation Q6H PRN 07/14/22 07/26/22 Unknown History aerosol inhaler (ProAir HFA) Shortness Of Breath Or Wheezing ibuprofen 200 mg capsule 400 mg PO Q6H PRN Pain 07/14/22 07/26/22 Unknown History insulin glargine 100 unit/mL (3 60 unit SUBCUT QPM 07/14/22 07/26/22 07/25/22 History mL) subcutaneous pen (Lantus Solostar U-100 Insulin) methocarbamol 750 mg tablet 750 mg PO QID PRN Muscle Spasm 07/14/22 07/26/22 Unknown History omeprazole 20 mg capsule,delayed 20 mg PO DAILY 07/14/22 07/26/22 07/25/22 History release sitagliptin 25 mg tablet (Januvia) 25 mg PO DAILY #90 tabs 07/24/22 07/26/22 07/25/22 Rx budesonide-formoterol HFA 160 2 puff inhalation Q12H #10.2 grams 07/29/22 Unknown Rx mcg-4.5 mcg/actuation aerosol inhaler (Symbicort) Allergies Allergy/AdvReac Type Severity Reaction Status Date / Time sulfamethoxazole AdvReac UNKNOWN Verified 07/23/22 09:51 [From Bactrim] trimethoprim [From Bactrim] AdvReac UNKNOWN Verified 07/23/22 09:51 Current Medications Generic Name Dose Route Start Last Admin Trade Name Freq PRN Reason Stop Dose Admin Acetaminophen 650 mg 07/26/22 18:30 07/31/22 20:36 Acetaminophen 325 Mg Tablet PO 650 mg Q6H PRN Administration Mild/Mod Pain Or Temp >/= 101 Albuterol/Ipratropium 3 ml 07/28/22 16:00 08/01/22 07:51 Ipratropium-Albuterol 3 Ml Neb INHALATION 3 ml Q4H.RESPIRATORY ÁNGEL Administration Atorvastatin Calcium 40 mg 07/27/22 09:00 08/01/22 10:03 Atorvastatin 40 Mg Tablet PO 40 mg DAILY ÁNGEL Administration Chlorhexidine Gluconate 1 applic 07/28/22 01:00 08/01/22 04:41 Chlorhexidine Gluconate 4% Btl 118 Ml TOPICAL Not Given 0100 [facility] Docusate Sodium 100 mg 07/26/22 18:30 08/01/22 10:03 Docusate Sodium 100 Mg Capsule PO 100 mg BID ÁNGEL Administration Fenofibrate 145 mg 07/27/22 09:00 08/01/22 10:02 Fenofibrate 145 Mg Tablet PO 145 mg DAILY ÁNGEL Administration Ferrous Gluconate 324 mg 07/26/22 18:30 08/01/22 07:36 Ferrous Gluconate 324 Mg Tablet PO 324 mg BIDWM ÁNGEL Administration Gabapentin 200 mg 07/26/22 21:00 07/26/22 23:11 Gabapentin 100 Mg Capsule PO Not Given TID ÁNGEL Heparin Sodium (Porcine) 5,000 unit 07/26/22 18:30 07/28/22 06:08 Heparin 5,000 Unit/Ml Inj 1 Ml SUBCUT 5,000 unit Q12H ÁNGEL Administration Hydromorphone HCl 0.5 mg 07/30/22 16:56 07/30/22 23:12 Hydromorphone 1 Mg/Ml Inj 1 Ml IVP 0.5 mg Q4H PRN Administration PAIN Ceftriaxone Sodium 2,000 mg/ 50 mls @ 100 mls/hr 07/28/22 01:00 08/01/22 04:43 Dextrose IV Infused Q12H ÁNGEL Infusion Protocol Piperacillin Sod/Tazobactam 50 mls @ 12.5 mls/hr 07/27/22 20:00 08/01/22 10:21 Sod 3.375 gm/ Dextrose IV Infused Q8H ÁNGEL Infusion Propofol 1,000 mg in 100 mls @ 0 mls/hr 07/27/22 22:00 07/30/22 10:44 Diprivan IV 0 mcg/kg/min .Q0M ÁNGEL 0 mls/hr Titration Protocol Per Protocol Norepinephrine Bitartrate 4 mg 254 mls @ 0 mls/hr 07/28/22 02:00 07/29/22 23:40 / Dextrose IV 0 mcg/min .Q0M ÁNGEL 0 mls/hr Titration Protocol Per Protocol Albumin Human 12.5 gm in 50 mls @ 60 mls/hr 07/28/22 09:54 07/28/22 19:15 Albumin IV Infused PRN PRN Infusion Hypotension and/or symptomatic Fluconazole 200 mg in 100 mls @ 100 mls/hr 07/30/22 18:00 07/31/22 18:15 Diflucan Premix IV Infused Q24H ÁNGEL Infusion Levetiracetam 750 mg/ Sodium 107.5 mls @ 430 mls/hr 07/31/22 18:00 08/01/22 07:13 Chloride IV Infused Q12H ÁNGEL Infusion Ampicillin Sodium 2,000 mg/ 50 mls @ 100 mls/hr 07/31/22 23:00 08/01/22 10:04 Dextrose IV 100 mls/hr Q6H ÁNGEL Administration Protocol Vancomycin/PEG/NADA/Lysine/Water 1,500 mg in 300 mls @ 200 mls/hr 08/01/22 01:00 08/01/22 04:43 Vancocin IV Infused Q36H ÁNGEL Infusion Insulin Glargine 23 unit 08/01/22 10:00 08/01/22 10:05 Insulin Glargine 100 Units/1 Ml SUBCUT 23 unit BEDTIME ÁNGEL Administration Insulin Human Lispro 0 unit 07/26/22 21:00 08/01/22 07:36 Insulin Lispro 100 Unit/1 Ml SUBCUT 8 unit WM&BEDTIME ÁNGEL Administration Protocol Lamotrigine 100 mg 07/31/22 18:00 08/01/22 10:03 Lamotrigine 100 Mg Tablet PO 100 mg BID ÁNGEL Administration Lorazepam 0.5 mg 07/30/22 16:57 07/31/22 16:02 Lorazepam 2 Mg/Ml Inj 1 Ml IVP 0.5 mg Q2H PRN Administration ANXIETY Magnesium Hydroxide 30 ml 07/26/22 18:30 07/31/22 05:36 Magnesium Hydroxide 30 Ml Udc PO 30 ml DAILY PRN Administration Constipation (see protocol) Protocol Nicotine 1 patch 07/27/22 09:00 08/01/22 10:02 Nicotine 14 Mg Patch TRANSDERMA 1 patch DAILY ÁNGEL Administration Pantoprazole Sodium 40 mg 07/28/22 09:00 08/01/22 10:03 Pantoprazole 40 Mg Sdv IVP 40 mg DAILY ÁNGEL Administration Risperidone 1 mg 07/30/22 18:00 08/01/22 10:02 Risperidone 1 Mg Tablet PO 1 mg BID ÁNGEL Administration Sodium Chloride 4 ml 07/28/22 20:00 08/01/22 07:51 Sodium Chloride 3.5% Neb 4 Ml Neb INHALATION 4 ml BID.RESPIRATORY ÁNGEL Administration PFSH Acute PFSH: Medical History Bipolar 1 disorder Bipolar disorder, current episode depressed, severe, with psychotic features Chronic bilateral low back pain with bilateral sciatica Chronic headache with normal neurologic examination Dyslipidemia Encounter for long-term opiate analgesic use Encounter for long-term use of opiate analgesic Generalized anxiety disorder [place] use Long-term use of high-risk medication Migraine aura without headache Neck pain Opioid contract exists Panic disorder with agoraphobia Psychiatric care Type 2 diabetes mellitus, without long-term current use of insulin Surgical History History of adenoidectomy S/P tonsillectomy AGE 4 Family History Mother Hypertension Grandmother Hypertension Atrial fibrillation Other Bipolar 1 disorder CAD (coronary artery disease) Denies family history of Anesthesia complication Bleeding disorder Social History Smoking and tobacco status: current every day smoker Quit status (tobacco): has tried quititng Second hand smoke exposure: Yes Smoking risk assessment/counseling performed?: Yes Tobacco counseling given: counseling >3 minutes Alcohol intake: former Year of sobriety/quit date alcohol: 1999 Former alcohol use details: alcoholic - quit in 1999 Desire information about alcohol rehabilitation?: No Counseling given: No Adopted: No Caregiver/support person: No Lives independently: Yes Household members: family and children Housing: House Marital status: Number of children: 3 Number of grandchildren: 1 Highest education level completed: GED or Equivalent service: No Current occupational status: disabled Pets and animals: Yes Pets & animals: cat(s) and dog(s) Pets & animal details: indoor History of recent travel: No Leisure activites: music, reading and other Leisure activities details: watch TV Sexually active: No Current gender identity: Female Tessa/Zoroastrianism: Mormonism Special tessa needs: No Agree to transfusion: Yes Financial difficulty paying for basics: Not Very Hard Female Reproductive History: Para: 3 Spontaneous abortions: No Date of menopause: 08/27/17 Vitals/I&O/Wt Last Vital Signs Temp 101.3 F H 08/01/22 04:00 Pulse 86 08/01/22 08:00 Resp 23 H 08/01/22 07:45 BP 138/84 08/01/22 05:00 Pulse Ox 95 08/01/22 07:45 O2 Del Method 08/01/22 07:45 O2 Flow Rate 4 07/27/22 20:01 FiO2 30 08/01/22 08:00 07/31/22 08/01/22 08/01/22 22:59 06:59 14:59 Intake Total 367.5 / 2173.5 1074 / 3247.5 157.5 / 157.5 Output Total 1000 / 4450 1900 / 6350 Balance -632.5 / -2276.5 -826 / -3102.5 157.5 / 157.5 Weight last 48 hrs Weight 204 lb 4.8 oz Weight 209 lb 1.6 oz Physical Exam Narrative: General: Obese middle-aged woman intubated in ICU Mental status exam: She does not follow commands. She does not open her eyes to voice. She responds briskly to pain by appropriate withdrawal on the right side only. Cranial nerves: Oculocephalic movements intact. No gaze deviation. Her eyes rest wherever her head is placed consistent with doll's eyes. PERRL. I could not get a good look at her optic nerves. She responds to orbital pressure with grimace on both sides. Tongue midline in the mouth. Sensorimotor: She withdraws slightly from nailbed pressure in the right hand and right foot. She has rhythmic intermittent movements in the feet consisting of elevation of the toes and a nonspecific tremulous movement. Deep tendon reflexes hypoactive throughout. Right toe upgoing left toe mute. HEENT: Normocephalic. Conjunctiva not injected. Neck: Rigid Chest: Clear to auscultation. Cardiovascular: S1 and S2 normal without murmur or gallop. Abdomen deferred Extremities: No rash. CT scan of the head performed today shows the right subcortical chronic lucency consistent with an old subcortical infarct and nothing new Urinary Catheter Management: López: Cath Placed During This Visit: yes Reason for Continuing Indwelling Catheter: Accurate Measurement of Urinary Output in Critically Ill Patients Urinary Catheter Date of Insertion: 07/26/22 Data 08/01/22 04:35 08/01/22 04:35 Micro: Microbiology 07/30/22 22:37 Urine Culture - Preliminary Urine Catheterized 07/30/22 22:39 Blood Culture - Preliminary Blood NEGATIVE TO DATE 07/30/22 22:35 Blood Culture - Preliminary Blood NEGATIVE TO DATE 07/26/22 17:23 Blood Culture - Final Blood NO GROWTH AFTER 5 DAYS 07/26/22 17:28 Blood Culture - Final Blood NO GROWTH AFTER 5 DAYS A&P Assessment and plan (1) [place] toxicity: (2) Toxic metabolic encephalopathy: 52-year-old woman with chronic lithium toxicity, possibly for months its unknown the duration as she was not keeping up with her [facility] appointments and has been suffering symptoms that could be consistent with lithium toxicity for several months. The generalized symptoms of tremor, reduced mental status with inabilit y to communicate, gait deterioration with shuffling could also be indicative of more significant generalized neurologic disorder including slow virus disease (Creutzfeldt Murray) which can develop subacutely and progress rapidly. Lewy body dementia would also be of consideration. Acutely she has been treated with a large number of antibiotics, including ceftriaxone, piperacillin, and others that provide INSOLE ROUNDER penetration so that if she has bacterial meningitis she is being treated. There was nothing about her presentation that would have suggested bacterial meningitis and her blood cultures have been negative. I do not think that obtaining spinal fluid at this point in her course would be of any value. There is nothing about her examination that suggests underlying seizures. Her current exam is consistent with diffuse toxic metabolic encephalopathy and possibly progressive neurologic disorder. Consider syndrome of irreversible lithium effectuated neurotoxicity (SILENT), which cannot be treated any differently than you already have by with holding lithium. Supportive treatment at this point is the only appropriate approach. Her CPK was not elevated on arrival but it is probably worth rechecking in case of neuroleptic malignant syndrome. She does have rigidity of the neck but no other motor hyperexcitability on exam. Her B12 was only 250 and so it is worth treating her with B12, folate and thiamine.TSH has not indicated a thyroid problem. In summary, ongoing appropriate support and attempt to wean her from respiratory support would seem the most appropriate approach. I have talked with her sister, Suma, and warned her that the patient may ultimately not survive and the children are aware. Thanks for asking me to participate in her care (3) Bipolar 1 disorder: Consult Attestations Medical Necessity Statement: Profound respiratory delacruz and brain dysfunction requiring ICU care Coding Level of Care Code Acute Cat Tender for Mirandag Nicoled Diagnoses Fifth [place] toxicity T56.891A Toxic metabolic encephalopathy G92.8 Bipolar 1 disorder F31.9
--- NOTE | 2022-08-01 10:56 | P.PN_ITS ---
Subjective Subjective: intubated, febrile Vitals/I&O/Wt Last Vital Signs Temp 101.3 F H 08/01/22 04:00 Pulse 94 08/01/22 10:38 Resp 23 H 08/01/22 07:45 BP 125/77 08/01/22 10:38 Pulse Ox 97 08/01/22 10:38 O2 Del Method 08/01/22 07:45 O2 Flow Rate 4 07/27/22 20:01 FiO2 30 08/01/22 10:00 07/31/22 08/01/22 08/01/22 22:59 06:59 14:59 Intake Total 367.5 / 2173.5 1074 / 3247.5 207.5 / 207.5 Output Total 1000 / 4450 1900 / 6350 Balance -632.5 / -2276.5 -826 / -3102.5 207.5 / 207.5 Weight last 48 hrs Weight 92.669 kg Weight 94.846 kg Physical Exam Resp: AUSCULTATION: rhonchi Cardio: COMMON NORMALS: regular rate RATE: regular rate Extremity: COMMON NORMALS: no pedal edema Urinary Catheter Management: López: Cath Placed During This Visit: yes Reason for Continuing Indwelling Catheter: Accurate Measurement of Urinary Output in Critically Ill Patients Urinary Catheter Date of Insertion: 07/26/22 Data 08/01/22 04:35 08/01/22 04:35 Micro: Microbiology 07/30/22 22:37 Urine Culture - Preliminary Urine Catheterized 07/30/22 22:39 Blood Culture - Preliminary Blood NEGATIVE TO DATE 07/30/22 22:35 Blood Culture - Preliminary Blood NEGATIVE TO DATE 07/26/22 17:23 Blood Culture - Final Blood NO GROWTH AFTER 5 DAYS 07/26/22 17:28 Blood Culture - Final Blood NO GROWTH AFTER 5 DAYS Other data: Seen via telemedicine with assistance of RN at bedside A&P Assessment and plan (1) Hypernatremia: Plan 1. 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 Diabetes with Hyperglycemia 3. Encephalopathy 4. SAMANTHA due to lithium toxicity, resolved 5. Fever Recommend: hypotonic IVF to keep I/O +, control BS. Continue oral H20. Will not need further dialysis, recommend remove HD catheter Attestations Medical Necessity Statement*: see above Time Spent in Patient Care: 16 - 35 minutes Coding Level of Care Code Acute Commercial Journeyman Electrician for Chg Fwd Diagnoses Hypernatremia E87.0
--- NOTE | 2022-08-01 11:49 | CTR_ITS ---
PROCEDURE INFORMATION: Exam: CT Head Without Contrast Exam date and time: 08/01/2022 11:56 AM Age: 52 years old Clinical indication: Altered mental status/memory loss; Additional info: AMS TECHNIQUE: Imaging protocol: Computed tomography of the head without contrast. Axial, coronal and sagittal reformatted images were created and reviewed. Radiation optimization: All CT scans at this facility use at least one of these dose optimization techniques: automated exposure control; mA and/or kV adjustment per patient size (includes targeted exams where dose is matched to clinical indication); or iterative reconstruction. COMPARISON: CT head wo con* [id number] 07/27/2022 11:18 AM RADIATION DOSE METRICS: Total DLP (mGy-cm): 1174.28 FINDINGS: Brain: Unchanged age-indeterminate lacunar infarcts in the right basal ganglia/internal capsule. Subtle, patchy areas of hypoattenuation in the periventricular and subcortical white matter, nonspecific but suggestive of mild chronic small vessel ischemic disease. No CT evidence of acute intracranial hemorrhage or acute territorial infarction. No significant mass effect or midline shift. Basal cisterns patent. Cerebral ventricles: Prominence of the cortical sulci, cisterns and ventricular system, consistent with cerebral and cerebellar volume loss. Paranasal sinuses: Mild left maxillary sinus mucosal thickening. No fluid levels. Mastoid air cells: Minimal opacification of the left mastoid air cells. Bones/joints: No acute osseous abnormality. Soft tissues: Grossly unremarkable. CT/CT head wo con* [id number] IMPRESSION: 1. No CT evidence of acute intracranial pathology. 2. Additional findings, as above.
[2022-08-01 11:52] LABS: Glucose Point of Care 233 mg/dL (70-110)
[2022-08-01] MEDS: sodium chloride 0.45% 1,000 ML 150 ML IV ×2 (12:27→20:50)
[2022-08-01] MEDS: cyanocobalamin 1,000 mcg/mL SDV 1000 MCG SUBCUT (13:16)
[2022-08-01 13:34] LABS: Creatine Phosphokinase 137 U/L (26-192)
--- NOTE | 2022-08-01 15:34 | PC.NURSE ---
after long exam and repeat ct today Dr Hicks
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
--- NOTE | 2022-08-01 16:49 | PC.NURSE ---
repositioned temp remains elevated right groin site no bruising or bleeding noted oral care done no purposful response at this time family aware prior bath and linen change cooling blanket remains on at this time ...
[2022-08-01 17:36] LABS: Glucose Point of Care 217 mg/dL (70-110)
[2022-08-01 17:56] LABS: Sodium 150 mmol/L (136-145)
[2022-08-01] MEDS: micafungin 100 MG in sodium chloride 0.9% (plus) 100 ML IV (18:36)
[2022-08-01] MEDS: levETIRAcetam 750 MG in sodium chloride 0.9% (100 ml) 100 ML 400 MG IV (18:44)
[2022-08-01 20:21] LABS: Glucose Point of Care 250 mg/dL (70-110)
[2022-08-01] MEDS: dextrose 5% 1,000 ML 50 ML IV (22:30)
[2022-08-01] MEDS: metoprolol tartrate 25 mg Tablet 12.5 MG PO (22:46)
[2022-08-02] VITALS (56 sets, daily range): BP systolic 92–162; BP diastolic 53–88; PULSE 67–90; RESP 10–27; TEMP 37.9–38.5; O2SAT 80–100; BMI 35.9
--- NOTE | 2022-08-02 01:37 | PC.NURSE ---
Patient has been able to follow simple commands throughout this nurses shift, including independent movement of each leg and blinks. Patient did have two runs of Vtach from 5-12 seconds each. Hospitalist ordered 12.5 Metoprolol BID. Fluids were also changed to D5W @50mls/hr due to increasing NA+.
[2022-08-02] MEDS: insulin lispro 100 unit/1 mL SUBCUT ×4 (02:29→21:19)
[2022-08-02] MEDS: ipratropium-albuterol 3 mL Neb INHALATION ×5 (03:00→20:13)
[2022-08-02] MEDS: chlorhexidine gluconate 4% Btl 118 mL 1 APPLIC TOPICAL (03:31)
[2022-08-02] MEDS: piperacillin-tazobactam 3.375 GM in dextrose 5% (plus) 50 ML IV ×3 (03:32→19:46)
[2022-08-02] MEDS: levETIRAcetam 750 MG in sodium chloride 0.9% (100 ml) 100 ML 400 MG IV ×2 (06:06→17:40)
[2022-08-02 06:27] LABS: Basophils # 0.1 10^3/uL (0.0-0.1); Basophils % 0.6 %; Eosinophils # 0.1 10^3/uL (0.0-0.8); Eosinophils % 1.3 %; Hematocrit 40.3 % (37.0-47.0); Hemoglobin 11.9 g/dL (11.5-15.3); Lymphocytes # 1.1 10^3/uL (0.8-4.8); Lymphocytes % 13.2 %; Mean Corpuscular HGB Conc 29.5 g/dL (30.0-36.0); Mean Corpuscular Volume 98.1 fl (81-99); Monocytes % 11.9 %; Neutrophils # 5.92 10^3/uL (1.8-7.7); Neutrophils % 72.4 %; Nucleated Red Blood Cells % 0 %; Platelet Count 234 10^3/cmm (130-400); Red Blood Count 4.11 10^6/uL (4.1-5.3); Red Cell Distribution Width 15.1 % (12.1-15.1); White Blood Count 8.2 10^3/uL (4.0-10.0)
--- NOTE | 2022-08-02 07:26 | P.PN_ITS ---
Subjective Subjective: failed CPAP trial, waking up , remains intubated hemodialysis catheter removed Vitals/I&O/Wt Last Vital Signs Temp 100.3 F H 08/02/22 03:30 Pulse 71 08/02/22 05:00 Resp 10 L 08/02/22 05:25 BP 111/58 08/02/22 05:00 Pulse Ox 99 08/02/22 05:25 O2 Del Method 08/02/22 03:00 O2 Flow Rate 4 07/27/22 20:01 FiO2 30 08/02/22 05:25 08/01/22 08/02/22 08/02/22 22:59 06:59 14:59 Intake Total 1897.5 / 2155.0 1563 / 3718.0 Output Total 1200 / 2200 1550 / 3750 Balance 697.5 / -45.0 13 / -32.0 Weight last 48 hrs Weight 92.669 kg Physical Exam Urinary Catheter Management: López: Cath Placed During This Visit: yes Reason for Continuing Indwelling Catheter: Accurate Measurement of Urinary Output in Critically Ill Patients Urinary Catheter Date of Insertion: 07/26/22 Data 08/02/22 05:12 08/01/22 17:31 Other Labs: calcium 9.6, Na 152, K 3.2 Micro: Microbiology 07/28/22 07:46 Gram Stain - Final Sputum - Endotracheal Tube Aspirate Sputum Culture - Final Roberta glabrata 07/30/22 22:37 Urine Culture - Preliminary Urine Catheterized Other data: seen via telemedicine with assistance of RN at bedside A&P Assessment and plan (1) Hypernatremia: Plan 1. Hypernatremia likely due to nephrogenic DI due to lithium, urine output decreasing, no improvement in serum sodium 2. Diabetes with Hyperglycemia on insulin 3. Encephalopathy 4. SAMANTHA due to lithium toxicity, improving 5. Hypokalemia, replace po Recommend: increase D5W IVF to 125 ml/min, control BS. Continue oral H20 300 ml Q4h. Attestations Medical Necessity Statement*: see above Time Spent in Patient Care: 16 - 35 minutes Coding Level of Care Code Acute Bone Char Kiln Tender for Chg Fwd Diagnoses Hypernatremia E87.0
[2022-08-02 07:34] LABS: Alanine Aminotransferase 16 U/L (0-33); Albumin Level 3.6 g/dL (3.5-5.2); Alkaline Phosphatase 63 U/L (35-105); Anion Gap 17.2 (5-19); Aspartate Amino Transferase 21 U/L (0-32); Blood Urea Nitrogen 52 mg/dL (6-20); Calcium 9.6 mg/dL (8.5-10.5); Carbon Dioxide 24 mmol/L (22-29); Chloride 114 mmol/L (98-107); Globulin 3.5 g/dL (1.3-4.6); Glomerular Filtration Rate 33.7 mL/min (90-130); Glucose 240 mg/dL (65-115); Osmolality Calculated 336 mOsm/kg (285-295); Potassium 3.2 mmol/L (3.5-5.1); Sodium 152 mmol/L (136-145); Total Bilirubin 0.2 mg/dL (0.15-1.2); Total Protein 7.1 g/dL (6.6-8.7)
[2022-08-02 07:35] LABS: Glucose Point of Care 220 mg/dL (70-110)
[2022-08-02] MEDS: sodium chloride 3.5% neb 4 mL Neb INHALATION ×2 (08:02→20:13)
[2022-08-02] MEDS: lamoTRIgine 100 mg Tablet PO ×2 (08:33→17:39)
[2022-08-02] MEDS: fenofibrate 145 mg Tablet PO (08:33)
[2022-08-02] MEDS: nicotine 14 mg Patch 1 PATCH TRANSDERMA (08:33)
[2022-08-02] MEDS: ferrous gluconate 324 mg Tablet PO ×2 (08:33→17:39)
[2022-08-02] MEDS: atorvastatin 40 mg Tablet PO (08:33)
[2022-08-02] MEDS: pantoprazole 40 mg SDV IVP (08:34)
[2022-08-02] MEDS: docusate sodium 100 mg Capsule PO ×2 (08:34→17:39)
[2022-08-02] MEDS: cyanocobalamin 1,000 mcg/mL SDV 1000 MCG SUBCUT (08:34)
[2022-08-02] MEDS: metoprolol tartrate 25 mg Tablet 12.5 MG PO ×2 (08:36→21:19)
[2022-08-02 11:27] LABS: Glucose Point of Care 193 mg/dL (70-110)
--- NOTE | 2022-08-02 12:21 | PC.NURSE ---
more responsive this shift moves extremities and withdrawl from pain oral care done will credit officer with hands now . and frequent turns . attempted cpap has some period of apnea noted placed back on mmv ..
[2022-08-02] MEDS: vancomycin 1,500 MG/300 ML PIGGYBACK 200 MG IV (12:43)
[2022-08-02] MEDS: potassium chloride oral liq 20 mEq/15 mL UDC 40 MEQ PO (14:12)
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
[2022-08-02] MEDS: dextrose 5% 1,000 ML 50 ML IV ×2 (17:38)
[2022-08-02] MEDS: micafungin 100 MG in sodium chloride 0.9% (plus) 100 ML IV (17:57)
[2022-08-02 21:06] LABS: Glucose Point of Care 205 mg/dL (70-110)
[2022-08-02] MEDS: insulin glargine 100 units/1 mL 23 UNIT SUBCUT (21:57)
[2022-08-03] VITALS (49 sets, daily range): BP systolic 95–149; BP diastolic 53–74; PULSE 59–89; RESP 13–23; TEMP 37.2–38.8; O2SAT 91–97; BMI 35.9
[2022-08-03] MEDS: ipratropium-albuterol 3 mL Neb INHALATION ×5 (03:36→19:48)
[2022-08-03 03:44] LABS: Glucose Point of Care 280 mg/dL (70-110)
[2022-08-03 03:51] LABS: Alanine Aminotransferase 16 U/L (0-33); Albumin Level 3.2 g/dL (3.5-5.2); Alkaline Phosphatase 57 U/L (35-105); Anion Gap 15.7 (5-19); Aspartate Amino Transferase 19 U/L (0-32); Blood Urea Nitrogen 46 mg/dL (6-20); Calcium 10.1 mg/dL (8.5-10.5); Carbon Dioxide 23 mmol/L (22-29); Chloride 119 mmol/L (98-107); Globulin 3.2 g/dL (1.3-4.6); Glomerular Filtration Rate 33.7 mL/min (90-130); Glucose 301 mg/dL (65-115); Osmolality Calculated 341 mOsm/kg (285-295); Potassium 3.7 mmol/L (3.5-5.1); Sodium 154 mmol/L (136-145); Total Bilirubin 0.2 mg/dL (0.15-1.2); Total Protein 6.4 g/dL (6.6-8.7)
[2022-08-03 03:52] LABS: Basophils # 0.1 10^3/uL (0.0-0.1); Basophils % 0.6 %; Eosinophils # 0.2 10^3/uL (0.0-0.8); Eosinophils % 2.6 %; Hemoglobin 11.2 g/dL (11.5-15.3); Lymphocytes # 1.1 10^3/uL (0.8-4.8); Lymphocytes % 12.6 %; Mean Corpuscular HGB Conc 29.5 g/dL (30.0-36.0); Mean Corpuscular Hemoglobin 29.9 pg (28.0-34.0); Mean Corpuscular Volume 101.3 fl (81-99); Monocytes # 0.8 10^3/uL (0.2-0.9); Neutrophils # 6.14 10^3/uL (1.8-7.7); Neutrophils % 73.1 %; Nucleated Red Blood Cells % 0 %; Platelet Count 221 10^3/cmm (130-400); Red Blood Count 3.75 10^6/uL (4.1-5.3); Red Cell Distribution Width 15.4 % (12.1-15.1); White Blood Count 8.4 10^3/uL (4.0-10.0)
[2022-08-03] MEDS: insulin lispro 100 unit/1 mL SUBCUT ×3 (03:55→21:20)
[2022-08-03] MEDS: piperacillin-tazobactam 3.375 GM in dextrose 5% (plus) 50 ML IV (03:55)
[2022-08-03] MEDS: levETIRAcetam 750 MG in sodium chloride 0.9% (100 ml) 100 ML 400 MG IV (06:05)
--- NOTE | 2022-08-03 06:05 | CTR_ITS ---
PROCEDURE INFORMATION: Exam: CT Chest Without Contrast; Diagnostic Exam date and time: 08/03/2022 10:34 AM Age: 52 years old Clinical indication: Abdominal tenderness; Fever; Additional info: Persistent fevers TECHNIQUE: Imaging protocol: Diagnostic computed tomography of the chest without contrast. Radiation optimization: All CT scans at this facility use at least one of these dose optimization techniques: automated exposure control; mA and/or kV adjustment per patient size (includes targeted exams where dose is matched to clinical indication); or iterative reconstruction. COMPARISON: [place] [id number] 07/26/2022 4:49 PM RADIATION DOSE METRICS: Total DLP (mGy-cm): 1125.22 FINDINGS: Tubes, catheters and devices: An endotracheal tube is present in satisfactory position. A nasogastric tube extends down to the stomach. Thyroid: The right lobe of the thyroid gland is enlarged but unchanged and consistent with goiter. Lungs: There is left lower lobe atelectasis and patchy consolidation consistent with pneumonia. This has improved when compared to previous examination. Mild atelectasis is present in the right base. There is a 11 mm noncalcified nodule in the left upper lobe. Small benign calcified granulomas are present in the right apex. Pleural spaces: Unremarkable. No pneumothorax. No pleural effusion. Heart: Heart is not enlarged. No significant coronary artery calcification. Lymph nodes: Unremarkable. No enlarged lymph nodes. Vasculature: Unremarkable. No aortic aneurysm. Bones/joints: Unremarkable. No acute fracture. Soft tissues: Unremarkable. biopsy. (Reference: Luis Enrique) REFERENCES: Emelyholinus H, et al. Guidelines for Management of Incidental Pulmonary Nodules Detected on CT Images: From the Fleischner Society 2017. Radiology. 2017;284(1):228-243. PROCEDURE INFORMATION: Exam: CT Abdomen And Pelvis Without Contrast Exam date and time: 08/03/2022 10:34 AM Age: 52 years old Clinical indication: Abdominal tenderness; Fever; Additional info: Persistent fevers TECHNIQUE: Imaging protocol: Computed tomography of the abdomen and pelvis without contrast. Radiation optimization: All CT scans at this facility use at least one of these dose optimization techniques: automated exposure control; mA and/or kV adjustment per patient size (includes targeted exams where dose is matched to clinical indication); or iterative reconstruction. COMPARISON: CT chest [facility] [id number] 07/26/2022 4:49 PM RADIATION DOSE METRICS: Total DLP (mGy-cm): 1125.22 FINDINGS: Tubes, catheters and devices: The thin rectal catheter or probe is present. Liver: Normal. No mass. Gallbladder and bile ducts: Normal. No calcified stones. No ductal dilation. Pancreas: Normal. No ductal dilation. Spleen: Normal. No splenomegaly. Adrenal glands: Normal. No mass. Kidneys and ureters: Normal. No hydronephrosis. Stomach and bowel: There is a large amount of stool in the rectum which could indicate fecal impaction. There is no significant small bowel dilatation. Appendix: Normal appendix. Intraperitoneal space: Unremarkable. No free air. No significant fluid collection. Vasculature: Mild calcification of the aorta. No abdominal aortic aneurysm. Lymph nodes: Unremarkable. No enlarged lymph nodes. Urinary bladder: Urinary bladder is collapsed around a López catheter. Reproductive: Unremarkable as visualized. Bones/joints: Degenerative changes are present in the spine. No acute bony abnormality. Soft tissues: Unremarkable. CT/CT chest [facility] [id number] IMPRESSION: 1. There is persistent atelectasis and patchy infiltrate in the left lower lobe but when compared to the previous examination the pneumonia has improved. 2. There is an 11 mm noncalcified nodule in the left upper lobe.For both low risk and high risk patients, consider CT Chest at 3 months, PET/CT, or IMPRESSION: 1. Prominent amount of stool in the rectum may indicate impaction. 2. No acute abnormality is seen in the abdomen and pelvis.
[2022-08-03 07:15] LABS: Glucose Point of Care 246 mg/dL (70-110)
[2022-08-03] MEDS: chlorhexidine gluconate 4% Btl 118 mL 1 APPLIC TOPICAL (07:24)
[2022-08-03] MEDS: sodium chloride 3.5% neb 4 mL Neb INHALATION ×2 (07:34→19:48)
--- NOTE | 2022-08-03 07:37 | P.PN_ITS ---
Subjective Subjective: remains intubated. on free water. she responds by moving. minimally verbal. Medications: Reviewed: Yes Medication Review Details: Current Medications Acetaminophen (Acetaminophen 325 Mg Tablet) 650 mg PO Q6H PRN PRN Reason: Mild/Mod Pain Or Temp >/= 101 Last Admin: 07/31/22 20:36 Dose: 650 mg Hydrocodone Bitart/Acetaminophen (Hydrocodone-Acetaminophen 7.5-325 Mg Tablet) 1 tab PO QID PRN PRN Reason: pain Albuterol/Ipratropium (Ipratropium-Albuterol 3 Ml Neb) 3 ml INHALATION Q 4H.RESPIRATORY [facility] Last Admin: 08/03/22 07:34 Dose: 3 ml Albuterol/Ipratropium (Ipratropium-Albuterol 3 Ml Neb) 3 ml INHALATION Q6H PRN PRN Reason: SHORTNESS OF BREATH Atorvastatin Calcium (Atorvastatin 40 Mg Tablet) 40 mg PO DAILY [facility] Last Admin: 08/02/22 08:33 Dose: 40 mg Chlorhexidine Gluconate (Chlorhexidine Gluconate 4% Btl 118 Ml) 1 applic TOPICAL 0100 [facility] Last Admin: 08/03/22 07:24 Dose: 1 applic Cyanocobalamin (Cyanocobalamin 1,000 Mcg/Ml Sdv) 1,000 mcg SUBCUT DAILY [facility] Stop: 08/04/22 11:00 Last Admin: 08/02/22 08:34 Dose: 1,000 mcg Dextrose (Dextrose 50% Syringe 50 Ml) 25 ml IVP ONCE PRN; Protocol PRN Reason: hypoglycemia protocol Dextrose (Dextrose 50% Syringe 50 Ml) 50 ml IVP PRN PRN; Protocol PRN Reason: hypoglycemia protocol Docusate Sodium (Docusate Sodium 100 Mg Capsule) 100 mg PO BID [facility] Last Admin: 08/02/22 17:39 Dose: 100 mg Fenofibrate (Fenofibrate 145 Mg Tablet) 145 mg PO DAILY [facility] Last Admin: 08/02/22 08:33 Dose: 145 mg Ferrous Gluconate (Ferrous Gluconate 324 Mg Tablet) 324 mg PO BIDWM [facility] Last Admin: 08/02/22 17:39 Dose: 324 mg Gabapentin (Gabapentin 100 Mg Capsule) 200 mg PO TID [facility] Last Admin: 07/26/22 23:11 Dose: Not Given Glucagon (Glucagon 1 Mg/Ml Inj 1 Ml) 1 mg IM ONCE PRN; Protocol PRN Reason: Adult Acute Hypoglycemia Prot. Heparin Sodium (Porcine) (Heparin 5,000 Unit/Ml Inj 1 Ml) 5,000 unit SUBCUT Q 12H [facility] Last Admin: 07/28/22 06:08 Dose: 5,000 unit Hydromorphone HCl (Hydromorphone 1 Mg/Ml Inj 1 Ml) 0.5 mg IVP Q4H PRN PRN Reason: PAIN Last Admin: 07/30/22 23:12 Dose: 0.5 mg Propofol (Diprivan) 1,000 mg in 100 mls @ 0 mls/hr IV .Q0M [facility]; Protocol Last Titration: 07/30/22 10:44 Dose: 0 mcg/kg/min, 0 mls/hr Norepinephrine Bitartrate 4 mg (/ Dextrose) 254 mls @ 0 mls/hr IV .Q0M [facility]; Protocol Last Titration: 07/29/22 23:40 Dose: 0 mcg/min, 0 mls/hr Sodium Chloride (Sodium Chloride 0.9%) 1,000 mls @ 0 mls/hr IV .Q0M PRN PRN Reason: hypotension or symptomatic Albumin Human (Albumin) 12.5 gm in 50 mls @ 60 mls/hr IV PRN PRN PRN Reason: Hypotension and/or symptomatic Last Infusion: 07/28/22 19:15 Dose: Infused Sodium Chloride (Sodium Chloride 0.9%) 1,000 mls @ 0 mls/hr IV .Q0M PRN PRN Reason: hypotension or symptomatic Levetiracetam 750 mg/ Sodium (Chloride) 107.5 mls @ 430 mls/hr IV Q12H [facility] Last Admin: 08/03/22 06:05 Dose: 400 mls/hr Vancomycin/PEG/[place]/Lysine/Water (Vancocin) 1,500 mg in 300 mls @ 200 mls/hr IV Q36H [facility] Last Infusion: 08/02/22 14:16 Dose: Infused micafungin 100 mg/ Sodium (Chloride) 100 mls @ 100 mls/hr IV Q24H [facility] Last Infusion: 08/02/22 19:13 Dose: Infused Acetaminophen (Acetaminophen) 1,000 mg in 100 mls @ 400 mls/hr IV Q8H PRN PRN Reason: fever more tnan 101 Stop: 08/03/22 22:29 Meropenem 1,000 mg/ Sodium (Chloride) 50 mls @ 100 mls/hr IV Q8H ÁNGEL Sodium Chloride (Sodium Chloride 0.45%) 1,000 mls @ 100 mls/hr IV .Q10H ÁNGEL Insulin Glargine (Insulin Glargine 100 Units/1 Ml) 30 unit SUBCUT BEDTIME ÁNGEL Insulin Human Lispro (Insulin Lispro 100 Unit/1 Ml) 0 unit SUBCUT Q6H ÁNGEL; Protocol Last Admin: 08/03/22 03:55 Dose: 10 unit Lamotrigine (Lamotrigine 100 Mg Tablet) 150 mg PO BID ÁNGEL Lorazepam (Lorazepam 2 Mg/Ml Inj 1 Ml) 0.5 mg IVP Q2H PRN PRN Reason: ANXIETY Last Admin: 07/31/22 16:02 Dose: 0.5 mg Magnesium Hydroxide (Magnesium Hydroxide 30 Ml Udc) 30 ml PO DAILY PRN; Protocol PRN Reason: Constipation (see protocol) Last Admin: 07/31/22 05:36 Dose: 30 ml Metoprolol Tartrate (Metoprolol Tartrate 25 Mg Tablet) 12.5 mg PO BID@0900,2100 [facility] Last Admin: 08/02/22 21:19 Dose: 12.5 mg Morphine Sulfate (Morphine 4 Mg/Ml Sdv 1 Ml) 2 mg IVP Q4H PRN PRN Reason: SEVERE PAIN Nicotine (Nicotine 14 Mg Patch) 1 patch TRANSDERMA DAILY [facility] Last Admin: 08/02/22 08:33 Dose: 1 patch Ondansetron HCl (Ondansetron 2 Mg/Ml Sdv 2 Ml) 4 mg IVP Q8H PRN PRN Reason: vomiting, or N/V if npo Pantoprazole Sodium (Pantoprazole 40 Mg Sdv) 40 mg IVP DAILY [facility] Last Admin: 08/02/22 08:34 Dose: 40 mg Risperidone (Risperidone 1 Mg Tablet) 1 mg PO BID [facility] Last Admin: 08/01/22 10:02 Dose: 1 mg Sodium Chloride (Sodium Chloride 3.5% Neb 4 Ml Neb) 4 ml INHALATION BID.RESPIRATORY [facility] Last Admin: 08/03/22 07:34 Dose: 4 ml Vitals/I&O/Wt Last Vital Signs Temp 101.4 F H 08/03/22 04:30 Pulse 74 08/03/22 06:00 Resp 20 H 08/03/22 06:26 BP 133/64 08/03/22 04:30 Pulse Ox 91 08/03/22 06:26 O2 Del Method 08/02/22 20:14 O2 Flow Rate 4 07/27/22 20:01 FiO2 28 08/03/22 06:26 08/02/22 08/03/22 08/03/22 22:59 06:59 14:59 Intake Total 2494.167 / 4251.667 100 / 4351.667 Output Total 1800 / 1800 1000 / 2800 Balance 694.167 / 2451.667 -900 / 1551.667 Weight last 48 hrs Weight 101.151 kg Weight 101.151 kg Physical Exam Narrative: febrile, intubated, NG tube vs noted heent- nc/at,eomi neck supple lungs rt crackles heart reg abd soft, nt, nd, + bs ext 1+ b/l leg edema neuro- sedated, responds Urinary Catheter Management: López: Cath Placed During This Visit: yes Reason for Continuing Indwelling Catheter: Accurate Measurement of Urinary Output in Critically Ill Patients Urinary Catheter Date of Insertion: 07/26/22 Data 08/03/22 03:02 08/03/22 03:02 Micro: Microbiology 08/03/22 06:56 Blood Culture - Preliminary Blood SPECIMEN COLLECTED 08/03/22 06:56 Blood Culture - Preliminary Blood SPECIMEN COLLECTED 08/02/22 18:15 C.difficile Toxin B Gene (PCR) - Final Stool - Stool Aspirate 08/01/22 14:50 Catheter Tip Culture - Preliminary Other Source 07/30/22 22:37 Urine Culture - Preliminary Urine Catheterized Yeast species A&P Assessment and plan (1) [place] toxicity: 52 yr old female 1, fevers- multi-focal fungal infection- UTI and PNA 2. lithium toxicity s/p HD 3. SAMANTHA -monitor w/ ivf- cr was already 1.2 in 2021 4. hypernatremia - due to diarrhea, fevers, and hyperglycemia -repeat urine studies - Q of lithium induced DI 5. DM control meds reviewed seen and examined w/ rN- telehealth visit time spent 30 minutes Plan as above Attestations Medical Necessity Statement*: VDRF, SAMANTHA, fevers, hypernatremia Time Spent in Patient Care: 16 - 35 minutes (>than 50% of time spent in counselling and/or direct pt care on unit) . Coding Level of Care Code Acute Bonding Equipment Operator for Chg Fwd Diagnoses [place] toxicity T56.891A
[2022-08-03] MEDS: meropenem 1,000 MG in sodium chloride 0.9% (plus) 50 ML 100 MG IV ×2 (07:44→22:14)
[2022-08-03] MEDS: sodium chloride 0.45% 1,000 ML 100 ML IV (07:44)
[2022-08-03] MEDS: docusate sodium 100 mg Capsule PO ×2 (09:37→17:47)
[2022-08-03] MEDS: metoprolol tartrate 25 mg Tablet 12.5 MG PO ×2 (09:37→21:19)
[2022-08-03] MEDS: nicotine 14 mg Patch 1 PATCH TRANSDERMA (09:38)
[2022-08-03] MEDS: cyanocobalamin 1,000 mcg/mL SDV 1000 MCG SUBCUT (09:38)
[2022-08-03] MEDS: ferrous gluconate 324 mg Tablet PO ×2 (09:38→17:47)
[2022-08-03] MEDS: lamoTRIgine 100 mg Tablet 150 MG PO ×2 (09:39→17:46)
[2022-08-03] MEDS: fenofibrate 145 mg Tablet PO (09:39)
[2022-08-03] MEDS: gabapentin 100 mg Capsule 200 MG PO ×3 (09:39→21:20)
[2022-08-03] MEDS: pantoprazole 40 mg SDV IVP (09:40)
[2022-08-03 09:59] LABS: D Dimer 1.08 ug/mIFEU (0-0.59)
[2022-08-03 10:01] LABS: Alanine Aminotransferase 17 U/L (0-33); Albumin Level 3.5 g/dL (3.5-5.2); Alkaline Phosphatase 55 U/L (35-105); Aspartate Amino Transferase 18 U/L (0-32); Blood Urea Nitrogen 44 mg/dL (6-20); Calcium 9.3 mg/dL (8.5-10.5); Carbon Dioxide 23 mmol/L (22-29); Chloride 120 mmol/L (98-107); Globulin 3.2 g/dL (1.3-4.6); Glomerular Filtration Rate 39.3 mL/min (90-130); Glucose 263 mg/dL (65-115); Osmolality Calculated 340 mOsm/kg (285-295); Sodium 155 mmol/L (136-145); Total Bilirubin 0.2 mg/dL (0.15-1.2); Total Protein 6.7 g/dL (6.6-8.7)
[2022-08-03 10:02] LABS: Anion Gap 15.6 (5-19); Potassium 3.6 mmol/L (3.5-5.1)
[2022-08-03 11:01] LABS: Adenovirus Not Detected (NOT DETECT); Chlamydia Pneumoniae Not Detected (NOT DETECT); Coronavirus 229E,HKU1,NL63,OC4 Not Detected (NOT DETECT); Human Metapneumovirus Not Detected (NOT DETECT); Human Rhinovirus/Enterovirus Not Detected (NOT DETECT); Influenza A Not Detected (NOT DETECT); Influenza A H1 Not Detected (NOT DETECT); Influenza A H1-2009 Not Detected (NOT DETECT); Influenza A H3 Not Detected (NOT DETECT); Influenza B Not Detected (NOT DETECT); Mycoplasma Pneumoniae Not Detected (NOT DETECT); Parainfluenza Virus Type 1 Not Detected (NOT DETECT); Parainfluenza Virus Type 2 Not Detected (NOT DETECT); Parainfluenza Virus Type 3 Not Detected (NOT DETECT); Parainfluenza Virus Type 4 Not Detected (NOT DETECT); Respiratory Syncytial Virus A Not Detected (NOT DETECT); Respiratory Syncytial Virus B Not Detected (NOT DETECT); SARS-COV-2 Not Detected (NOT DETECT)
[2022-08-03 11:54] LABS: Glucose Point of Care 221 mg/dL (70-110)
--- NOTE | 2022-08-03 12:09 | PC.CHAP ---
Pastoral Care Encounter/Spiritual Assessment Type of Contact [] Declined rug sizer visit [] Patient/Family/Request visit [] Outpatient visit [] Follow-up visit [] Physician referral [] Code/Alert [x] Routine visit [] Staff referral [] Actively dying [] Patient sleeping [] Family support [] [x] Out of room [] Palliative care [] [] Receiving care in room [] Pre-surgical visit [] Trauma [] Long length of stay [x] ICU visit [x] Other: testing Relational/Emotional Strength [] Patient feels connected with others/family/visitors/staff [] Distress [] Loneliness/isolation [] Abandonment Spirituality of Patient [] Person of Tessa [] Attends Anabaptist of their Tessa [] Believes in Prayer [] Reads Bible or Congregational materials [] There are Spiritual issues to be addressed [place] Sorter Interventions [x] Prayer [] Active listening [] Non-anxious presence [] Spiritual/emotional support [] Crisis/trauma care [] Spiritual counseling [] Bereavement support [] Provided bereavement packet [] Provided Bible/devotional materials [] Provided toy/stuffed animal, coloring book to patient or family member [] Provided Communion [] Anointing/[place] [] Salvation [x] Completed spiritual assessment [] Other: Impact on Illness or Injury [] Angry [] Fearful [] Anxious [] Often cries [] Exhaustion [] Unable to work [] Unable to attend scientology [] Unable to walk/stand [] Unable to read [] Unable to drive [] Unable to eat/drink [] Unable to sleep [] Unable to be with family [] Patient intubated [] Other: Summary Time spent with patient
--- NOTE | 2022-08-03 12:46 | PC.NUTR ---
If medically appropriate, recommend consideration of moving from trophic feeds of Glucerna 1.2 @ 30 mls/hr to a goal rate of 55 mls/hr with fresh water flushes 100 mls Q4H or per MD discretion. Details in RD assessment.
[2022-08-03] MEDS: acetaminophen 1,000 MG/100 ML PIGGYBACK 400 MG IV (14:31)
[2022-08-03] MEDS: ibuprofen 200 mg Tablet 400 MG PO (16:25)
[2022-08-03] MEDS: dextrose 5%-sod chloride 0.45% 1,000 ML 175 ML IV ×2 (16:25→23:43)
[2022-08-03] MEDS: hydroCHLOROthiazide 25 mg Tablet 50 MG PO (16:26)
[2022-08-03] MEDS: meropenem 1,000 MG in sodium chloride 0.9% (plus) 50 ML 175 MG IV (16:27)
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
[2022-08-03 16:51] LABS: Blood Urea Nitrogen 47 mg/dL (6-20); Calcium 9.2 mg/dL (8.5-10.5); Carbon Dioxide 22 mmol/L (22-29); Chloride 120 mmol/L (98-107); Glomerular Filtration Rate 33.7 mL/min (90-130); Glucose 220 mg/dL (65-115); Osmolality Calculated 337 mOsm/kg (285-295); Sodium 154 mmol/L (136-145)
[2022-08-03] MEDS: heparin 5,000 unit/mL INJ 1 mL 5000 UNIT SUBCUT (17:46)
[2022-08-03] MEDS: micafungin 100 MG in sodium chloride 0.9% (plus) 100 ML IV (18:44)
--- NOTE | 2022-08-03 21:04 | P.CONIM_ITS ---
Providers/Reason For Consult Consulting Physician/Specialty*: Lili Siegel MD/infectious diseases Reason for Consult*: persistent fever Requesting Physician: Carrington Voss MD Attending Physician: Carrington Voss MD Primary Care Provider: Annabel Arcos DO History of Present Illness History of Present Illness Ammonia.Ignacio Eugene is a 52 year old female with PMH ?COPD, chronic shortness of breath, low back pain and opioid use, chronically on lithium. She was admitted on 07/28/21 acute kidney injury, uremia, suspicion for lithium toxicity with elevated lithium levels. She also had complaints of shortness of breath and on the night of July 27 she developed complete whiteout of the left lung for which she underwent bronchoscopy on July 28, 2021. Due to rapidly developing respiratory distress patient was also intubated overnight. She was increasingly lethargic. CT performed of her chest abdomen and pelvis showed left lower lobe pneumonia. CT head had lacunar infarcts unchanged since July without any other acute events. She was started on treatment with IV vancomycin and piperacillin tazobactam. She underwent hemodialysis for lithium toxicity after placement of a temporary HD access on July 28, 2022. Her chest x-ray looked improved after undergoing bronchoscopy. Due to concern for fever, lethargy and altered mental status concern was raised for possibility of meningitis however it appears her family refused a lumbar puncture. Neurology was consulted on August 01, 2022. It appears she had been having a slow cognitive and neurological decline over the past several months. Possibility of CJD versus Lewy body dementia was raised by neurology. Her antibiotic regimen was expanded to ceftriaxone, ampicillin, vancomycin and Zosyn. She is additionally on micafungin currently due to Roberta glabrata that was isolated in her sputum culture. T-max trend: 100.7, 101.5, 103, 101.4, overall no improvement in fever curve since admission in spite of broad antifungal and antibacterial coverage. No leukocytosis since admission. On July 27 patient had a mild leukocytosis of 17, trended down to 11.5 on July 29 upon admission. Since then has had a normal WBC count. Pertinent imaging: CT head July 26: Stable appearance of light basal ganglia infarct which is old. Chest x-ray July 26: Ill-defined opacity in the left lower lobe concerning for possible pneumonia. CT of the chest abdomen and pelvis on July 26: Diffuse infiltrate in the left lower lobe likely secondary to pneumonia and atelectasis. No acute findings within the abdomen or pelvis. Retained stool in the large bowel. Mild splenomegaly. Above is per radiology read. Pneumonia does not appear impressive enough to explain her persistent fevers. July 27 chest x-ray prior to intubation with unchanged lower zone opacification July 27 chest x-ray: Opacification of the left hemithorax and mediastinal s hift. (developed post intubation). July 28 ultrasound of the chest: No evidence of pleural effusion July chest x-ray: Improved aeration in the left upper lobe. Review of Systems General: Reports: ROS unobtainable due to endotracheal tube Medications/Allergies Home Medications Medication Instructions Recorded Confirmed Last Taken Type blood sugar diagnostic (VouchercloudTouch #300 ea 08/04/21 07/26/22 Unknown Rx Ultra Test strips) blood-glucose meter (OneTouch #1 ea 08/04/21 07/26/22 Unknown Rx Ultra2 Meter) gabapentin 800 mg tablet 800 mg PO QID 30 days #120 tabs 08/06/21 07/26/22 07/25/22 Rx hydrocodone 7.5 mg-acetaminophen 1 tab PO QID PRN pain 30 days #120 08/06/21 07/26/22 07/14/22 Rx 325 mg tablet tabs nicotine 14 mg/24 hr daily 1 patch transdermal DAILY #28 ea 03/10/22 07/26/22 07/25/22 Rx transdermal patch atorvastatin 40 mg tablet 40 mg PO DAILY 90 days #90 tabs 04/03/22 07/26/22 07/25/22 Rx fenofibrate nanocrystallized 145 145 mg PO DAILY #90 tabs 04/03/22 07/26/22 07/25/22 Rx mg tablet lancets 30 gauge (OneTouch Delica #300 ea 06/30/22 07/26/22 Unknown Rx Lancets) hydroxyzine HCl 25 mg tablet 50 mg PO TID PRN anxiety #180 tabs 07/09/22 07/26/22 Unknown Rx lamotrigine 150 mg tablet 150 mg PO BID #60 tabs 07/09/22 07/26/22 07/25/22 Rx lithium carbonate 300 mg capsule 600 mg PO BID #120 caps 07/09/22 07/26/22 07/25/22 Rx risperidone 2 mg tablet 2 mg PO BID #60 tabs 07/09/22 07/26/22 07/25/22 Rx albuterol sulfate 90 mcg/actuation 2 puff inhalation Q6H PRN 07/14/22 07/26/22 Unknown History aerosol inhaler (ProAir HFA) Shortness Of Breath Or Wheezing ibuprofen 200 mg capsule 400 mg PO Q6H PRN Pain 07/14/22 07/26/22 Unknown History insulin glargine 100 unit/mL (3 60 unit SUBCUT QPM 07/14/22 07/26/22 07/25/22 History mL) subcutaneous pen (Lantus Solostar U-100 Insulin) methocarbamol 750 mg tablet 750 mg PO QID PRN Muscle Spasm 07/14/22 07/26/22 Unknown History omeprazole 20 mg capsule,delayed 20 mg PO DAILY 07/14/22 07/26/22 07/25/22 History release sitagliptin 25 mg tablet (Januvia) 25 mg PO DAILY #90 tabs 07/24/22 07/26/22 07/25/22 Rx budesonide-formoterol HFA 160 2 puff inhalation Q12H #10.2 grams 07/29/22 Unkno wn Rx mcg-4.5 mcg/actuation aerosol inhaler (Symbicort) Allergies Allergy/AdvReac Type Severity Reaction Status Date / Time sulfamethoxazole AdvReac UNKNOWN Verified 07/23/22 09:51 [From Bactrim] trimethoprim [From Bactrim] AdvReac UNKNOWN Verified 07/23/22 09:51 Current Medications Generic Name Dose Route Start Last Admin Trade Name Freq PRN Reason Stop Dose Admin Acetaminophen 650 mg 07/26/22 18:30 07/31/22 20:36 Acetaminophen 325 Mg Tablet PO 650 mg Q6H PRN Administration Mild/Mod Pain Or Temp >/= 101 Albuterol/Ipratropium 3 ml 07/28/22 16:00 08/03/22 19:48 Ipratropium-Albuterol 3 Ml Neb INHALATION 3 ml Q4H.RESPIRATORY ÁNGEL Administration Atorvastatin Calcium 40 mg 07/27/22 09:00 08/02/22 08:33 Atorvastatin 40 Mg Tablet PO 40 mg DAILY ÁNGEL Administration Chlorhexidine Gluconate 1 applic 07/28/22 01:00 08/03/22 07:24 Chlorhexidine Gluconate 4% Btl 118 Ml TOPICAL 1 applic 0100 ÁNGEL Administration Cyanocobalamin 1,000 mcg 08/01/22 09:00 08/03/22 09:38 Cyanocobalamin 1,000 Mcg/Ml Sdv SUBCUT 08/04/22 11:00 1,000 mcg DAILY ÁNGEL Administration Docusate Sodium 100 mg 07/26/22 18:30 08/03/22 17:47 Docusate Sodium 100 Mg Capsule PO 100 mg BID ÁNGEL Administration Fenofibrate 145 mg 07/27/22 09:00 08/03/22 09:39 Fenofibrate 145 Mg Tablet PO 145 mg DAILY ÁNGEL Administration Ferrous Gluconate 324 mg 07/26/22 18:30 08/03/22 17:47 Ferrous Gluconate 324 Mg Tablet PO 324 mg BIDWM ÁNGEL Administration Gabapentin 200 mg 07/26/22 21:00 08/03/22 16:25 Gabapentin 100 Mg Capsule PO 200 mg TID ÁNGEL Administration Heparin Sodium (Porcine) 5,000 unit 07/26/22 18:30 08/03/22 17:46 Heparin 5,000 Unit/Ml Inj 1 Ml SUBCUT 5,000 unit Q12H ÁNGEL Administration Hydrochlorothiazide 50 mg 08/03/22 15:55 08/03/22 16:26 Hydrochlorothiazide 25 Mg Tablet PO 50 mg DAILY ÁNGEL Administration Hydromorphone HCl 0.5 mg 07/30/22 16:56 07/30/22 23:12 Hydromorphone 1 Mg/Ml Inj 1 Ml IVP 0.5 mg Q4H PRN Administration PAIN Norepinephrine Bitartrate 4 mg 254 mls @ 0 mls/hr 07/28/22 02:00 07/29/22 23:40 / Dextrose IV 0 mcg/min .Q0M ÁNGEL 0 mls/hr Titration Protocol Per Protocol Albumin Human 12.5 gm in 50 mls @ 60 mls/hr 07/28/22 09:54 07/28/22 19:15 Albumin IV Infused PRN PRN Infusion Hypotension and/or symptomatic Vancomycin/PEG/NADA/Lysine/Water 1,500 mg in 300 mls @ 200 mls/hr 08/01/22 01:00 08/02/22 14:16 Vancocin IV Infused Q36H ÁNGEL Infusion micafungin 100 mg/ Sodium 100 mls @ 100 mls/hr 08/01/22 18:30 08/03/22 18:44 Chloride IV 100 mls/hr Q24H ÁNGEL Administration Acetaminophen 1,000 mg in 100 mls @ 400 mls/hr 08/03/22 06:15 08/03/22 19:17 Acetaminophen IV 08/03/22 22:29 Infused Q8H PRN Infusion fever more tnan 101 Meropenem 1,000 mg/ Sodium 50 mls @ 100 mls/hr 08/03/22 07:00 08/03/22 19:17 Chloride IV Infused Q8H ÁNGEL Infusion Dextrose/Sodium Chloride 1,000 mls @ 175 mls/hr 08/03/22 16:00 08/03/22 16:25 Dextrose 5%-Sod Chloride 0.45% IV 175 mls/hr .Q5H43M ÁNGEL Administration Insulin Human Lispro 0 unit 08/01/22 21:00 08/03/22 16:12 Insulin Lispro 100 Unit/1 Ml SUBCUT Not Given Q6H ÁNGEL Protocol Lamotrigine 150 mg 08/03/22 09:00 08/03/22 17:46 Lamotrigine 100 Mg Tablet PO 150 mg BID ÁNGEL Administration Lorazepam 0.5 mg 07/30/22 16:57 07/31/22 16:02 Lorazepam 2 Mg/Ml Inj 1 Ml IVP 0.5 mg Q2H PRN Administration ANXIETY Magnesium Hydroxide 30 ml 07/26/22 18:30 07/31/22 05:36 Magnesium Hydroxide 30 Ml Udc PO 30 ml DAILY PRN Administration Constipation (see protocol) Protocol Metoprolol Tartrate 12.5 mg 08/01/22 22:30 08/03/22 09:37 Metoprolol Tartrate 25 Mg Tablet PO 12.5 mg BID@0900,2100 ÁNGEL Administration Nicotine 1 patch 07/27/22 09:00 08/03/22 09:38 Nicotine 14 Mg Patch TRANSDERMA 1 patch DAILY ÁNGEL Administration Pantoprazole Sodium 40 mg 07/28/22 09:00 08/03/22 09:40 Pantoprazole 40 Mg Sdv IVP 40 mg DAILY ÁNGEL Administration Risperidone 1 mg 07/30/22 18:00 08/01/22 10:02 Risperidone 1 Mg Tablet PO 1 mg BID ÁNGEL Administration Sodium Chloride 4 ml 07/28/22 20:00 08/03/22 19:48 Sodium Chloride 3.5% Neb 4 Ml Neb INHALATION 4 ml BID.RESPIRATORY ÁNGEL Administration Additional Medication Information ABX history: iv vancomycin : Jul 27- current iv Zosyn 07/27- current iv ceftriaxone 2gm iv q12h 07/28- current iv ampicillin 07/27-current iv micafungin 08/01- current iv fluconazole 07/30-07/31 PFSH Acute PFSH: Medical History Bipolar 1 disorder Bipolar disorder, current episode depressed, severe, with psychotic features Chronic bilateral low back pain with bilateral sciatica Chronic headache with normal neurologic examination Dyslipidemia Encounter for long-term opiate analgesic use Encounter for long-term use of opiate analgesic Generalized anxiety disorder [place] use Long-term use of high-risk medication Migraine aura without headache Neck pain Opioid contract exists Panic disorder with agoraphobia Psychiatric care Type 2 diabetes mellitus, without long-term current use of insulin Surgical History History of adenoidectomy S/P tonsillectomy AGE 4 Family History Mother Hypertension Grandmother Hypertension Atrial fibrillation Other Bipolar 1 disorder CAD (coronary artery disease) Denies family history of Anesthesia complication Bleeding disorder Social History Smoking and tobacco status: current every day smoker Quit status (tobacco): has tried quititng Second hand smoke exposure: Yes Smoking risk assessment/counseling performed?: Yes Tobacco counseling given: counseling >3 minutes Alcohol intake: former Year of sobriety/quit date alcohol: 1999 Former alcohol use details: alcoholic - quit in 1999 Desire information about alcohol rehabilitation?: No Counseling given: No Adopted: No Caregiver/support person: No Lives independently: Yes Household members: family and children Housing: House Marital status: Number of children: 3 Number of grandchildren: 1 Highest education level completed: GED or Equivalent service: No Current occupational status: disabled Pets and animals: Yes Pets & animals: cat(s) and dog(s) Pets & animal details: indoor History of recent travel: No Leisure activites: music, reading and other Leisure activities details: watch TV Sexually active: No Current gender identity: Female Tessa/Anabaptist: Druze Special tessa needs: No Agree to transfusion: Yes Financial difficulty paying for basics: Not Very Hard Female Reproductive History: Para: 3 Spontaneous abortions: No Date of menopause: 08/27/17 Vitals/I&O/Wt Last Vital Signs Temp 101.8 F H 08/03/22 16:00 Pulse 65 08/03/22 19:48 Resp 15 08/03/22 19:50 BP 116/71 08/03/22 16:00 Pulse Ox 96 08/03/22 19:50 O2 Del Method 08/03/22 19:48 O2 Flow Rate 4 07/27/22 20:01 FiO2 28 08/03/22 20:00 08/03/22 08/03/22 08/03/22 06:59 14:59 22:59 Intake Total 100 / 4351.667 600.5 / 600.5 3443 / 4043.5 Output Total 1000 / 2800 4000 / 4000 Balance -900 / 1551.667 -3399.5 / -3399.5 3443 / 43.5 Weight last 48 hrs Weight 101.151 kg Weight 101.151 kg Physical Exam Narrative: General: Intubated, sedated HEENT: PERRLA, pupils bilaterally equal and reactive, pallors not present Chest: Normal vesicular breath sounds, no added sounds, equal good air entry bilaterally CVS: S1-S2 regular, no murmurs, no tachycardia, no gallops, no rubs Abdomen: Soft, nontender, no organomegaly, bowel sounds present Neuro: Unable to assess is currently intubated and sedated Urinary Catheter Management: López: Cath Placed During This Visit: yes Reason for Continuing Indwelling Catheter: Accurate Measurement of Urinary Output in Critically Ill Patients Urinary Catheter Date of Insertion: 07/26/22 Data 08/03/22 03:02 08/03/22 16:28 Micro: Microbiology 08/03/22 Unknown MRSA Culture - Final Nose 08/01/22 14:50 Catheter Tip Culture - Final Other Source 08/03/22 06:56 Blood Culture - Preliminary Blood SPECIMEN COLLECTED 08/03/22 06:56 Blood Culture - Preliminary Blood SPECIMEN COLLECTED 08/02/22 18:15 C.difficile Toxin B Gene (PCR) - Final Stool - Stool Aspirate July 26, 2021: Bacterial antigen negative, negative urine Legionella antigen July 26, 2022 blood culture no growth to date July 30, 2022: Blood culture no growth to date July 26, 2022 MRSA nasal screen positive July 28, 2022: Sputum culture: Roberta glabrata July 30, 2022: Urine culture Roberta glabrata August 01, 2022 catheter tip culture from HD catheter no growth August 02, 2022: C. difficile PCR : negative : confirmed with micro lab that though the result is marked as a critical the test is truly negative. A&P Assessment and plan (1) Fever: Patient with HPI as above admitted to the hospital with chief complains of increasing lethargy fever, found to have evidence of left lower lobe pneumonia upon admission and signs of lithium toxicity and acute kidney injury. As regards to her left lower lobe pneumonia, this was present upon admission, as seen on CT of the chest abdomen and pelvis. However the consolidation not nearly impressive enough to explain her persistent ongoing fever and spite of appropriate antimicrobials. Her serial chest x-rays are improving. Consider repeating CT of the chest abdomen and pelvis to evaluate for any interim development of a localized empyema which may be a cause of persistence of fevers. White out of her left lung was postintubation, suspect an aspiration event Patient never had a leukocytosis since admission. Overall possibility of untreated pneumonia as a cause of her persisting fever appears to be highly unlikely. Additionally patient's onset of symptoms appears to be more subacute going on over a few months. LP was unable to be performed admission. At a minimum even considering the possibility of bacterial meningitis, patient has had an adequate course. Recommend to discontinue ampicillin, ceftriaxone, piperacillin tazobactam today. Overall cultures have remained negative. Check blood cultures again given persisting fevers. Can trial changing antibiotic to meropenem 1 g IV every 8 hour. Can continue vancomycin for now while pending CT chest and cultures. We will be looking to discontinue if overall stable findings. Discontinue micafungin as no evidence of systemic candidiasis. Urine culture positive, in the setting of a positive López catheter. Change López. R espiratory culture positive for Roberta glabrata more likely to represent oropharyngeal candidiasis rather than an invasive candidal infection especially since her chest x-rays are improving. In the absence of candidemia and this is unlikely to be a candidal lung abscess. Patient does not otherwise immunocompromised therefore less likely to have atypical causes such as fungal pneumonia. Check CT of the abdomen and pelvis to address any abdominal abscess. highly possible that these are drug fever related to chronic lithium toxicity, central fever, drug fever related to multiple abx. Will simplify regimen. Less likely that persistent high-grade fevers would be related to a slow prion disea se will follow (2) Pneumonia: (3) [place] toxicity: management per primary (4) SAMANTHA (acute kidney injury): improving, per renal (5) Oropharyngeal candidiasis: Consult Attestations Medical Necessity Statement: per admitting note Coding Level of Care Code Acute [place] Setting Machine Operator for g Fwd Diagnoses Fever R50.9 Pneumonia J18.9 [place] toxicity T56.891A SAMANTHA (acute kidney injury) N17.9 Oropharyngeal candidiasis B37.0
[2022-08-03] MEDS: insulin glargine 100 units/1 mL 30 UNIT SUBCUT (21:20)
[2022-08-03 21:29] LABS: Glucose Point of Care 264 mg/dL (70-110)
[2022-08-04] VITALS (53 sets, daily range): BP systolic 92–130; BP diastolic 48–70; PULSE 57–76; RESP 13–30; TEMP 37.1–37.7; O2SAT 86–100; BMI 33.7
[2022-08-04 00:12] LABS: Anion Gap 15.7 (5-19); Blood Urea Nitrogen 50 mg/dL (6-20); Calcium 8.7 mg/dL (8.5-10.5); Carbon Dioxide 23 mmol/L (22-29); Chloride 119 mmol/L (98-107); Glomerular Filtration Rate 31.4 mL/min (90-130); Glucose 308 mg/dL (65-115); Osmolality Calculated 343 mOsm/kg (285-295); Potassium 3.7 mmol/L (3.5-5.1); Sodium 154 mmol/L (136-145)
[2022-08-04] MEDS: vancomycin 1,500 MG/300 ML PIGGYBACK 200 MG IV (00:29)
[2022-08-04] MEDS: insulin lispro 100 unit/1 mL SUBCUT ×4 (02:40→17:40)
[2022-08-04 02:45] LABS: Glucose Point of Care 356 mg/dL (70-110)
[2022-08-04] MEDS: ipratropium-albuterol 3 mL Neb INHALATION ×7 (03:07→23:33)
[2022-08-04] MEDS: chlorhexidine gluconate 4% Btl 118 mL 1 APPLIC TOPICAL (03:32)
[2022-08-04 04:59] LABS: Basophils % 0.6 %; Eosinophils # 0.2 10^3/uL (0.0-0.8); Eosinophils % 3.4 %; Hematocrit 39.6 % (37.0-47.0); Hemoglobin 11.4 g/dL (11.5-15.3); Lymphocytes # 1.4 10^3/uL (0.8-4.8); Lymphocytes % 19.6 %; Mean Corpuscular HGB Conc 28.8 g/dL (30.0-36.0); Mean Corpuscular Hemoglobin 29.7 pg (28.0-34.0); Mean Corpuscular Volume 103.1 fl (81-99); Mean Platelet Volume 12.8 fL (7.4-10.4); Monocytes # 0.5 10^3/uL (0.2-0.9); Monocytes % 7.4 %; Neutrophils # 4.75 10^3/uL (1.8-7.7); Nucleated Red Blood Cells % 0 %; Platelet Count 212 10^3/cmm (130-400); Red Blood Count 3.84 10^6/uL (4.1-5.3); Red Cell Distribution Width 15.9 % (12.1-15.1)
[2022-08-04 05:16] LABS: Alanine Aminotransferase 15 U/L (0-33); Albumin Level 3.4 g/dL (3.5-5.2); Alkaline Phosphatase 52 U/L (35-105); Anion Gap 17.9 (5-19); Aspartate Amino Transferase 15 U/L (0-32); Blood Urea Nitrogen 49 mg/dL (6-20); Calcium 9.1 mg/dL (8.5-10.5); Carbon Dioxide 23 mmol/L (22-29); Chloride 121 mmol/L (98-107); Globulin 3.2 g/dL (1.3-4.6); Glomerular Filtration Rate 31.4 mL/min (90-130); Glucose 289 mg/dL (65-115); Osmolality Calculated 350 mOsm/kg (285-295); Potassium 3.9 mmol/L (3.5-5.1); Sodium 158 mmol/L (136-145); Total Bilirubin 0.3 mg/dL (0.15-1.2); Total Protein 6.6 g/dL (6.6-8.7)
[2022-08-04] MEDS: heparin 5,000 unit/mL INJ 1 mL 5000 UNIT SUBCUT ×2 (06:01→17:31)
[2022-08-04] MEDS: meropenem 1,000 MG in sodium chloride 0.9% (plus) 50 ML 100 MG IV ×2 (06:01→22:30)
[2022-08-04] MEDS: sodium chloride 3.5% neb 4 mL Neb INHALATION (07:33)
[2022-08-04 08:06] LABS: Glucose Point of Care 269 mg/dL (70-110)
[2022-08-04] MEDS: nicotine 14 mg Patch 1 PATCH TRANSDERMA (08:56)
[2022-08-04] MEDS: magnesium hydroxide 30 mL UDC PO (08:56)
[2022-08-04] MEDS: pantoprazole 40 mg SDV IVP (08:56)
[2022-08-04] MEDS: lamoTRIgine 100 mg Tablet 150 MG PO ×2 (08:56→17:31)
[2022-08-04] MEDS: fenofibrate 145 mg Tablet PO (08:56)
[2022-08-04] MEDS: hydroCHLOROthiazide 25 mg Tablet 50 MG PO (08:57)
[2022-08-04] MEDS: ferrous gluconate 324 mg Tablet PO ×2 (08:57→17:31)
[2022-08-04] MEDS: gabapentin 100 mg Capsule 200 MG PO ×3 (08:57→21:01)
[2022-08-04] MEDS: cyanocobalamin 1,000 mcg/mL SDV 1000 MCG SUBCUT (08:58)
[2022-08-04] MEDS: metoprolol tartrate 25 mg Tablet 12.5 MG PO ×2 (09:00→21:01)
[2022-08-04] MEDS: docusate sodium 100 mg Capsule PO (09:00)
[2022-08-04 09:13] LABS: Add Urine Microscopic? YES; Bacteria Urine TRACE /hpf; Bilirubin Urine Neg (Negative); Blood Urine 2+ (Negative); Glucose Urine UA 1+ (Normal); Ketones Urine Negative (Negative); Leukocyte Esterase Urine Negative (Negative); Nitrate Urine Negative (Negative); Protein Urine Neg (Negative); RBC Urine 0-4 /hpf (0-2); Squamous Epithelial Cell Urine 0-4 /hpf (0-5); Urine Appearance Clear (CLEAR); Urine Color Yellow (Yellow); Urobilinogen Urine Norm (Negative); WBC Urine 0-4 /hpf (0-5); pH Urine 6 (5-7)
[2022-08-04 09:14] LABS: Add Urine Culture? No
[2022-08-04 09:19] LABS: Potassium, Radom Urine 6 mmol/L; Urine Random Chloride 43 mmol/L; Urine Random Sodium 60 mmol/L
[2022-08-04] MEDS: dextrose 5% 1,000 ML 125 ML IV ×2 (09:29→17:38)
--- NOTE | 2022-08-04 10:11 | PM.PN ---
Subjective Subjective: remains intubated and polyuric in ICU Medications: Reviewed: Yes Medication Review Details: Current Medications Acetaminophen (Acetaminophen 325 Mg Tablet) 650 mg PO Q6H PRN PRN Reason: Mild/Mod Pain Or Temp >/= 101 Last Admin: 07/31/22 20:36 Dose: 650 mg Hydrocodone Bitart/Acetaminophen (Hydrocodone-Acetaminophen 7.5-325 Mg Tablet) 1 tab PO QID PRN PRN Reason: pain Albuterol/Ipratropium (Ipratropium-Albuterol 3 Ml Neb) 3 ml INHALATION Q4H.RESPIRATORY [facility] Last Admin: 08/04/22 07:33 Dose: 3 ml Albuterol/Ipratropium (Ipratropium-Albuterol 3 Ml Neb) 3 ml INHALATION Q6H PRN PRN Reason: SHORTNESS OF BREATH Atorvastatin Calcium (Atorvastatin 40 Mg Tablet) 40 mg PO DAILY [facility] Last Admin: 08/02/22 08:33 Dose: 40 mg Chlorhexidine Gluconate (Chlorhexidine Gluconate 4% Btl 118 Ml) 1 applic TOPICAL 0100 [facility] Last Admin: 08/04/22 03:32 Dose: 1 applic Cyanocobalamin (Cyanocobalamin 1,000 Mcg/Ml Sdv) 1,000 mcg SUBCUT DAILY [facility] Stop: 08/04/22 11:00 Last Admin: 08/04/22 08:58 Dose: 1,000 mcg Dextrose (Dextrose 50% Syringe 50 Ml) 25 ml IVP ONCE PRN; Protocol PRN Reason: hypoglycemia protocol Dextrose (Dextrose 50% Syringe 50 Ml) 50 ml IVP PRN PRN; Protocol PRN Reason: hypoglycemia protocol Docusate Sodium (Docusate Sodium 100 Mg Capsule) 100 mg PO BID [facility] Last Admin: 08/04/22 09:00 Dose: 100 mg Fenofibrate (Fenofibrate 145 Mg Tablet) 145 mg PO DAILY [facility] Last Admin: 08/04/22 08:56 Dose: 145 mg Ferrous Gluconate (Ferrous Gluconate 324 Mg Tablet) 324 mg PO BIDWM [facility] Last Admin: 08/04/22 08:57 Dose: 324 mg Gabapentin (Gabapentin 100 Mg Capsule) 200 mg PO TID [facility] Last Admin: 08/04/22 08:57 Dose: 200 mg Glucagon (Glucagon 1 Mg/Ml Inj 1 Ml) 1 mg IM ONCE PRN; Protocol PRN Reason: Adult Acute Hypoglycemia Prot. Heparin Sodium (Porcine) (Heparin 5,000 Unit/Ml Inj 1 Ml) 5,000 unit SUBCUT Q12H [facility] Last Admin: 08/04/22 06:01 Dose: 5,000 unit Hydrochlorothiazide (Hydrochlorothiazide 25 Mg Tablet) 50 mg PO DAILY [facility] Last Admin: 08/04/22 08:57 Dose: 50 mg Hydromorphone HCl (Hydromorphone 1 Mg/Ml Inj 1 Ml) 0.5 mg IVP Q4H PRN PRN Reason: PAIN Last Admin: 07/30/22 23:12 Dose: 0.5 mg Norepinephrine Bitartrate 4 mg (/ Dextrose) 254 mls @ 0 mls/hr IV .Q0M [facility]; Protocol Last Titration: 07/29/22 23:40 Dose: 0 mcg/min, 0 mls/hr Sodium Chloride (Sodium Chloride 0.9%) 1,000 mls @ 0 mls/hr IV .Q0M PRN PRN Reason: hypotension or symptomatic Albumin Human (Albumin) 12.5 gm in 50 mls @ 60 mls/hr IV PRN PRN PRN Reason: Hypotension and/or symptomatic Last Infusion: 07/28/22 19:15 Dose: Infused Vancomycin/PEG/NADA/Lysine/Water (Vancocin) 1,500 mg in 300 mls @ 200 mls/hr IV Q36H [facility] Last Infusion: 08/04/22 03:42 Dose: Infused micafungin 100 mg/ Sodium (Chloride) 100 mls @ 100 mls/hr IV Q24H [facility] Last Infusion: 08/03/22 22:08 Dose: Infused Meropenem 1,000 mg/ Sodium (Chloride) 50 mls @ 100 mls/hr IV Q8H [facility] Last Infusion: 08/04/22 06:42 Dose: Infused Dextrose (D5w) 1,000 mls @ 125 mls/hr IV .Q8H [facility] Last Admin: 08/04/22 09:29 Dose: 125 mls/hr Insulin Glargine (Insulin Glargine 100 Units/1 Ml) 30 unit SUBCUT BEDTIME [facility] Last Admin: 08/03/22 21:20 Dose: 30 unit Insulin Human Lispro (Insulin Lispro 100 Unit/1 Ml) 0 unit SUBCUT Q4H [facility]; Protocol Lamotrigine (Lamotrigine 100 Mg Tablet) 150 mg PO BID [facility] Last Admin: 08/04/22 08:56 Dose: 150 mg Lorazepam (Lorazepam 2 Mg/Ml Inj 1 Ml) 0.5 mg IVP Q2H PRN PRN Reason: ANXIETY Last Admin: 07/31/22 16:02 Dose: 0.5 mg Magnesium Hydroxide (Magnesium Hydroxide 30 Ml Udc) 30 ml PO DAILY [facility]; Protocol Last Admin: 08/04/22 08:56 Dose: 30 ml Metoprolol Tartrate (Metoprolol Tartrate 25 Mg Tablet) 12.5 mg PO BID@0900,2100 [facility] Last Admin: 08/04/22 09:00 Dose: 12.5 mg Morphine Sulfate (Morphine 4 Mg/Ml Sdv 1 Ml) 2 mg IVP Q4H PRN PRN Reason: SEVERE PAIN Nicotine (Nicotine 14 Mg Patch) 1 patch TRANSDERMA DAILY [facility] Last Admin: 08/04/22 08:56 Dose: 1 patch Ondansetron HCl (Ondansetron 2 Mg/Ml Sdv 2 Ml) 4 mg IVP Q8H PRN PRN Reason: vomiting, or N/V if npo Pantoprazole Sodium (Pantoprazole 40 Mg Sdv) 40 mg IVP DAILY [facility] Last Admin: 08/04/22 08:56 Dose: 40 mg Risperidone (Risperidone 1 Mg Tablet) 1 mg PO BID [facility] Last Admin: 08/01/22 10:02 Dose: 1 mg Sodium Chloride (Sodium Chloride 3.5% Neb 4 Ml Neb) 4 ml INHALATION BID.RESPIRATORY [facility] Last Admin: 08/04/22 07:33 Dose: 4 ml Vitals/I&O/Wt Last Vital Signs Temp 99.5 F 08/04/22 08:00 Pulse 68 08/04/22 08:00 Resp 19 H 08/04/22 09:30 BP 117/61 08/04/22 08:00 Pulse Ox 96 08/04/22 09:30 O2 Del Method 08/04/22 07:15 O2 Flow Rate 4 07/27/22 20:01 FiO2 28 08/04/22 09:30 08/03/22 08/04/22 08/04/22 22:59 06:59 14:59 Intake Total 5203 / 5803.5 2175.750 / 7979.250 0 / 0 Output Total 750 / 4750 1974 / 25 Balance 4453 / 1053.5 200.750 / 1254.250 0 / 0 Weight last 48 hrs Weight 94.801 kg Weight 101.151 kg Physical Exam Narrative: temp improved to 99.8 f intubated cpap fio2=28%, PEEP 5, NG tube vs noted, ++polyuric heent- nc/at,eomi neck supple lungs clear b/l heart reg abd soft, nt, nd, + bs ext nol leg edema neuro- sedated, responds Urinary Catheter Management: López: Cath Placed During This Visit: yes Reason for Continuing Indwelling Catheter: Accurate Measurement of Urinary Output in Critically Ill Patients Urinary Catheter Date of Insertion: 07/26/22 Data 08/04/22 04:11 08/04/22 04:11 Micro: Microbiology 08/03/22 06:56 Blood Culture - Preliminary Blood NEGATIVE TO DATE 08/03/22 06:56 Blood Culture - Preliminary Blood NEGATIVE TO DATE 08/03/22 Unknown MRSA Culture - Final Nose 08/01/22 14:50 Catheter Tip Culture - Final Other Source A&P Assessment and plan (1) [place] toxicity: 52 yr old female 1, fevers- multi-focal fungal infection- UTI and PNA- temps improving -check vanco levels 2. lithium toxicity s/p HD 3. SAMANTHA -monitor w/ ivf- cr was already 1.2 in 2021 4. hypernatremia - due to diarrhea, fevers, and hyperglycemia -repeat urine studies - Q of lithium induced nephrogenic DI- repeat urine na is now 60 -cont water -add amiloride if possible -will give a dose of desmopressin 5. DM control 6. MS slowly improving. Q of PEG and /or trach meds reviewed seen and examined w/ rN- telehealth visit -discussed w/ dr Oshea time spent 30 minutes Plan as above Attestations Medical Necessity Statement*: hypernatremia, lithium toxicity Time Spent in Patient Care: 16 - 35 minutes (>than 50% of time spent in counselling and/or direct pt care on unit). Coding Level of Care Code Acute Double End Chucking Machine Operator for Damir Conway Diagnoses [place] toxicity T56.891A
--- NOTE | 2022-08-04 10:37 | PC.CHAP ---
Pastoral Care Encounter/Spiritual Assessment Type of Contact [] Declined production cost estimator visit [] Patient/Family/Request visit [] Outpatient visit [] Follow-up visit [] Physician referral [] Code/Alert [x] Routine visit [] Staff referral [] Actively dying [] Patient sleeping [x] Family support [] [] Out of room [] Palliative care [] [] Receiving care in room [] Pre-surgical visit [] Trauma [] Long length of stay [x] ICU visit [x] Other: family present.. PT responds to family Relational/Emotional Strength [] Patient feels connected with others/family/visitors/staff [] Distress [] Loneliness/isolation [] Abandonment Spirituality of Patient [] Person of Tessa [] Attends Religious of their Tessa [] Believes in Prayer [] Reads Bible or Caodaism materials [] There are Spiritual issues to be addressed Diesel Service Technician Interventions [x] Prayer [] Active listening [] Non-anxious presence [] Spiritual/emotional support [] Crisis/trauma care [] Spiritual counseling [] Bereavement support [] Provided bereavement packet [] Provided Bible/devotional materials [] Provided toy/stuffed animal, coloring book to patient or family member [] Provided Communion [] Anointing/[place] [] Salvation [x] Completed spiritual assessment [] Other: Impact on Illness or Injury [] Angry [] Fearful [] Anxious [] Often cries [] Exhaustion [] Unable to work [] Unable to attend taoist [] Unable to walk/stand [] Unable to read [] Unable to drive [] Unable to eat/drink [] Unable to sleep [] Unable to be with family [] Patient intubated [] Other: Summary Time spent with patient
[2022-08-04 11:27] LABS: Glucose Point of Care 243 mg/dL (70-110)
[2022-08-04 11:29] LABS: Anion Gap 16.7 (5-19); Blood Urea Nitrogen 45 mg/dL (6-20); Carbon Dioxide 22 mmol/L (22-29); Chloride 121 mmol/L (98-107); Glomerular Filtration Rate 36.3 mL/min (90-130); Glucose 267 mg/dL (65-115); Osmolality Calculated 343 mOsm/kg (285-295); Potassium 3.7 mmol/L (3.5-5.1); Sodium 156 mmol/L (136-145)
[2022-08-04 11:46] LABS: Vancomycin Random 26.9 ug/mL (20.0-40.0)
[2022-08-04 14:00] LABS: Anion Gap 14.6 (5-19); Blood Urea Nitrogen 41 mg/dL (6-20); Carbon Dioxide 23 mmol/L (22-29); Chloride 120 mmol/L (98-107); Creatinine Clr Calc Pharmacy 53.9222; Glomerular Filtration Rate 39.3 mL/min (90-130); Glucose 226 mg/dL (65-115); Osmolality Calculated 335 mOsm/kg (285-295); Potassium 3.6 mmol/L (3.5-5.1); Sodium 154 mmol/L (136-145)
--- NOTE | 2022-08-04 15:45 | PC.NURSE ---
Extubate Pt extubated at 1545 and placed on 3l nc. Pt is doing well. Family is at bedside.
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
[2022-08-04] MEDS: meropenem 1,000 MG in sodium chloride 0.9% (plus) 50 ML 50 MG IV (17:34)
[2022-08-04 17:42] LABS: Glucose Point of Care 163 mg/dL (70-110)
[2022-08-04] MEDS: micafungin 100 MG in sodium chloride 0.9% (plus) 100 ML 50 MG IV (17:44)
--- NOTE | 2022-08-04 19:41 | PM.PN ---
Subjective Subjective: I saw the patient at about 740 in the evening on 08/03/2022. She was alert and open her eyes. I talked with Dr. Euceda about the plan and prognosis. Vitals/I&O/Wt Last Vital Signs Temp 99.8 F H 08/04/22 16:30 Pulse 72 08/04/22 16:30 Resp 24 H 08/04/22 16:00 BP 122/68 08/04/22 16:30 Pulse Ox 95 08/04/22 16:30 O2 Del Method 08/04/22 15:00 O2 Flow Rate 4 07/27/22 20:01 FiO2 28 08/04/22 16:00 08/04/22 08/04/22 08/04/22 06:59 14:59 22:59 Intake Total 2175.750 / 7979.250 413 / 413 1546.25 / 1959.25 Output Total 1974 / 6725 475 / 475 Balance 200.750 / 1254.250 -62 / -62 1546.25 / 1484.25 Weight last 48 hrs Weight 209 lb Weight 223 lb Physical Exam Narrative: She opened her eyes to voice. She could not seem to nod yes to command but on command she shook her head no multiple times. On another occasion I asked her if she had pain in her head and she shook her head no. She has full eye movements. She remains intubated. Facial movements flaccid. she squeezed each of my hands to command and she could differentiate right from left, as she would squeeze the right hand while not squeezing the left and vice versa. She moved her toes to command. None of her motions were vigorous but they were consistent and repeatedly demonstrated. Her muscle strength was very poor with diffuse profound weakness. Urinary Catheter Management: López: Cath Placed During This Visit: yes Reason for Continuing Indwelling Catheter: Accurate Measurement of Urinary Output in Critically Ill Patients Urinary Catheter Date of Insertion: 07/26/22 Data 08/04/22 04:11 08/04/22 13:32 Micro: Microbiology 07/30/22 22:37 Urine Culture - Final Urine Catheterized Roberta glabrata 08/03/22 06:56 Blood Culture - Preliminary Blood NEGATIVE TO DATE 08/03/22 06:56 Blood Culture - Preliminary Blood NEGATIVE TO DATE 08/03/22 Unknown MRSA Culture - Final Nose A&P Assessment and plan (1) Toxic metabolic encephalopathy: This patient presents with 4 months of progressive encephalopathy and weakness culminating in respiratory arrest and requirement for mechanical ventilation. The only thing that we have been able to come up with is her chronic lithium toxicity which was significant. I think it likely that she is suffering the long-term effects of lithium toxicity. We were unable to demonstrate cerebral edema on CAT scan. She is improving. Discussed with Dr. Oshea. Patient is clearly improving and should be supported although her long-term prognosis, based upon recent neurologic performance, is probably poor. Attestations Medical Necessity Statement*: Severe multiorgan failure with requirement for intubation and ICU and dialysis. 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
[2022-08-04 20:36] LABS: Glucose Point of Care 140 mg/dL (70-110)
[2022-08-04] MEDS: insulin glargine 100 units/1 mL 30 UNIT SUBCUT (21:01)
[2022-08-04 21:22] LABS: Anion Gap 14.5 (5-19); Blood Urea Nitrogen 42 mg/dL (6-20); Calcium 9.3 mg/dL (8.5-10.5); Carbon Dioxide 23 mmol/L (22-29); Chloride 116 mmol/L (98-107); Glomerular Filtration Rate 39.3 mL/min (90-130); Glucose 148 mg/dL (65-115); Osmolality Calculated 323 mOsm/kg (285-295); Potassium 3.5 mmol/L (3.5-5.1); Sodium 150 mmol/L (136-145)
[2022-08-04 21:43] LABS: Creatinine Clr Calc Pharmacy 53.9222
[2022-08-05] VITALS (54 sets, daily range): BP systolic 91–129; BP diastolic 46–73; PULSE 61–87; RESP 16–20; TEMP 36.6–37.2; O2SAT 91–98; BMI 33.5
[2022-08-05] MEDS: insulin lispro 100 unit/1 mL SUBCUT ×3 (00:41→13:01)
[2022-08-05 00:59] LABS: Glucose Point of Care 154 mg/dL (70-110)
[2022-08-05] MEDS: dextrose 5% 1,000 ML 125 ML IV (02:59)
[2022-08-05] MEDS: HYDROmorphone 1 mg/mL INJ 1 mL 0.5 MG IVP ×2 (03:33→13:45)
[2022-08-05] MEDS: ipratropium-albuterol 3 mL Neb INHALATION ×5 (03:44→19:54)
[2022-08-05 03:54] LABS: Glucose Point of Care 159 mg/dL (70-110)
[2022-08-05 04:44] LABS: Basophils % 0.7 %; Eosinophils # 0.2 10^3/uL (0.0-0.8); Eosinophils % 4.4 %; Hematocrit 33.6 % (37.0-47.0); Hemoglobin 9.9 g/dL (11.5-15.3); Lymphocytes % 18.6 %; Mean Corpuscular HGB Conc 29.5 g/dL (30.0-36.0); Mean Corpuscular Hemoglobin 29.7 pg (28.0-34.0); Mean Corpuscular Volume 100.9 fl (81-99); Mean Platelet Volume 12.7 fL (7.4-10.4); Monocytes # 0.5 10^3/uL (0.2-0.9); Monocytes % 9.1 %; Neutrophils # 3.64 10^3/uL (1.8-7.7); Neutrophils % 66.3 %; Nucleated Red Blood Cells % 0 %; Platelet Count 220 10^3/cmm (130-400); Red Blood Count 3.33 10^6/uL (4.1-5.3); Red Cell Distribution Width 15.4 % (12.1-15.1); White Blood Count 5.5 10^3/uL (4.0-10.0)
[2022-08-05 05:10] LABS: Vancomycin Random 16.4 ug/mL (20.0-40.0)
[2022-08-05 05:13] LABS: Alanine Aminotransferase 17 U/L (0-33); Albumin Level 3.3 g/dL (3.5-5.2); Alkaline Phosphatase 52 U/L (35-105); Anion Gap 13.3 (5-19); Aspartate Amino Transferase 18 U/L (0-32); Blood Urea Nitrogen 39 mg/dL (6-20); Calcium 9.1 mg/dL (8.5-10.5); Carbon Dioxide 22 mmol/L (22-29); Chloride 116 mmol/L (98-107); Globulin 2.8 g/dL (1.3-4.6); Glomerular Filtration Rate 42.8 mL/min (90-130); Glucose 147 mg/dL (65-115); Osmolality Calculated 318 mOsm/kg (285-295); Potassium 3.3 mmol/L (3.5-5.1); Sodium 148 mmol/L (136-145); Total Bilirubin 0.2 mg/dL (0.15-1.2); Total Protein 6.1 g/dL (6.6-8.7)
[2022-08-05] MEDS: meropenem 1,000 MG in sodium chloride 0.9% (plus) 50 ML 100 MG IV ×3 (06:24→23:43)
[2022-08-05] MEDS: heparin 5,000 unit/mL INJ 1 mL 5000 UNIT SUBCUT ×2 (06:24→18:17)
--- NOTE | 2022-08-05 06:55 | PM.PN ---
Subjective Subjective: more awake, She is extubated. is answering, verbal and follows commands. no n/v/f/cp/mendez Medications: Reviewed: Yes Medication Review Details: Current Medications Acetaminophen (Acetaminophen 325 Mg Tablet) 650 mg PO Q6H PRN PRN Reason: Mild/Mod Pain Or Temp >/= 101 Last Admin: 07/31/22 20:36 Dose: 650 mg Hydrocodone Bitart/Acetaminophen (Hydrocodone-Acetaminophen 7.5-325 Mg Tablet) 1 tab PO QID PRN PRN Reason: pain Albuterol/Ipratropium (Ipratropium-Albuterol 3 Ml Neb) 3 ml INHALATION Q4H.RESPIRATORY [facility] Last Admin: 08/05/22 03:44 Dose: 3 ml Albuterol/Ipratropium (Ipratropium-Albuterol 3 Ml Neb) 3 ml INHALATION Q6H PRN PRN Reason: SHORTNESS OF BREATH Atorvastatin Calcium (Atorvastatin 40 Mg Tablet) 40 mg PO DAILY [facility] Last Admin: 08/02/22 08:33 Dose: 40 mg Chlorhexidine Gluconate (Chlorhexidine Gluconate 4% Btl 118 Ml) 1 applic TOPICAL 0100 [facility] Last Admin: 08/05/22 01:04 Dose: Not Given Dextrose (Dextrose 50% Syringe 50 Ml) 25 ml IVP ONCE PRN; Protocol PRN Reason: hypoglycemia protocol Dextrose (Dextrose 50% Syringe 50 Ml) 50 ml IVP PRN PRN; Protocol PRN Reason: hypoglycemia protocol Docusate Sodium (Docusate Sodium 100 Mg Capsule) 100 mg PO BID [facility] Last Admin: 08/04/22 17:48 Dose: Not Given Fenofibrate (Fenofibrate 145 Mg Tablet) 145 mg PO DAILY [facility] Last Admin: 08/04/22 08:56 Dose: 145 mg Ferrous Gluconate (Ferrous Gluconate 324 Mg Tablet) 324 mg PO BIDWM [facility] Last Admin: 08/04/22 17:31 Dose: 324 mg Gabapentin (Gabapentin 100 Mg Capsule) 200 mg PO TID [facility] Last Admin: 08/04/22 21:01 Dose: 200 mg Glucagon (Glucagon 1 Mg/Ml Inj 1 Ml) 1 mg IM ONCE PRN; Protocol PRN Reason: Adult Acute Hypoglycemia Prot. Heparin Sodium (Porcine) (Heparin 5,000 Unit/Ml Inj 1 Ml) 5,000 unit SUBCUT Q12H [facility] Last Admin: 08/05/22 06:24 Dose: 5,000 unit Hydromorphone HCl (Hydromorphone 1 Mg/Ml Inj 1 Ml) 0.5 mg IVP Q4H PRN PRN Reason: PAIN Last Admin: 08/05/22 03:33 Dose: 0.5 mg Norepinephrine Bitartrate 4 mg (/ Dextrose) 254 mls @ 0 mls/hr IV .Q0M [facility]; Protocol Last Titration: 07/29/22 23:40 Dose: 0 mcg/min, 0 mls/hr Sodium Chloride (Sodium Chloride 0.9%) 1,000 mls @ 0 mls/hr IV .Q0M PRN PRN Reason: hypotension or symptomatic Albumin Human (Albumin) 12.5 gm in 50 mls @ 60 mls/hr IV PRN PRN PRN Reason: Hypotension and/or symptomatic Last Infusion: 07/28/22 19:15 Dose: Infused Vancomycin/PEG/[place]/Lysine/Water (Vancocin) 1,500 mg in 300 mls @ 200 mls/hr IV Q36H [facility] Last Infusion: 08/04/22 03:42 Dose: Infused micafungin 100 mg/ Sodium (Chloride) 100 mls @ 100 mls/hr IV Q24H [facility] Stop: 08/11/22 18:29 Last Infusion: 08/04/22 21:43 Dose: Infused Meropenem 1,000 mg/ Sodium (Chloride) 50 mls @ 100 mls/hr IV Q8H [facility] Last Admin: 08/05/22 06:24 Dose: 100 mls/hr Dextrose/Sodium Chloride (Dextrose 5%-Sod Chloride 0.45%) 1,000 mls @ 100 mls/hr IV .Q10H [facility] Insulin Glargine (Insulin Glargine 100 Units/1 Ml) 30 unit SUBCUT BEDTIME [facility] Last Admin: 08/04/22 21:01 Dose: 30 unit Insulin Human Lispro (Insulin Lispro 100 Unit/1 Ml) 0 unit SUBCUT Q6H [facility]; Protocol Lamotrigine (Lamotrigine 100 Mg Tablet) 150 mg PO BID [facility] Last Admin: 08/04/22 17:31 Dose: 150 mg Lorazepam (Lorazepam 2 Mg/Ml Inj 1 Ml) 0.5 mg IVP Q2H PRN PRN Reason: ANXIETY Last Admin: 07/31/22 16:02 Dose: 0.5 mg Magnesium Hydroxide (Magnesium Hydroxide 30 Ml Udc) 30 ml PO DAILY [facility]; Protocol Last Admin: 08/04/22 08:56 Dose: 30 ml Metoprolol Tartrate (Metoprolol Tartrate 25 Mg Tablet) 12.5 mg PO BID@0900,2100 [facility] Last Admin: 08/04/22 21:01 Dose: 12.5 mg Nicotine (Nicotine 14 Mg Patch) 1 patch TRANSDERMA DAILY [facility] Last Admin: 08/04/22 08:56 Dose: 1 patch Ondansetron HCl (Ondansetron 2 Mg/Ml Sdv 2 Ml) 4 mg IVP Q8H PRN PRN Reason: vomiting, or N/V if npo Pantoprazole Sodium (Pantoprazole 40 Mg Sdv) 40 mg IVP DAILY [facility] Last Admin: 08/04/22 08:56 Dose: 40 mg Risperidone (Risperidone 1 Mg Tablet) 1 mg PO BID [facility] Last Admin: 08/01/22 10:02 Dose: 1 mg Vitals/I&O/Wt Last Vital Signs Temp 98.7 F 08/05/22 04:00 Pulse 70 08/05/22 04:00 Resp 17 08/05/22 03:44 BP 109/55 08/05/22 04:00 Pulse Ox 94 08/05/22 04:00 O2 Del Method 08/05/22 04:00 O2 Flow Rate 2 08/05/22 03:44 FiO2 28 08/04/22 16:00 08/04/22 08/04/22 08/05/22 14:59 22:59 06:59 Intake Total 413 / 413 2269.25 / 2682.25 1033.333 / 3715.583 Output Total 475 / 475 850 / 1325 750 / 2075 Balance -62 / -62 1419.25 / 1357.25 283.333 / 1640.583 Weight last 48 hrs Weight 94.801 kg Physical Exam Narrative: afebrile, extubated vs noted heent- nc/at,eomi neck supple lungs clear b/l heart reg abd soft, nt, nd, + bs ext nol leg edema neuro- awake, interactive, more alert moving Urinary Catheter Management: López: Cath Placed During This Visit: yes Reason for Continuing Indwelling Catheter: Accurate Measurement of Urinary Output in Critically Ill Patients Urinary Catheter Date of Insertion: 07/26/22 Data 08/05/22 04:23 08/05/22 04:23 Micro: Microbiology 07/30/22 22:39 Blood Culture - Final Blood NO GROWTH AFTER 5 DAYS 07/30/22 22:35 Blood Culture - Final Blood NO GROWTH AFTER 5 DAYS 07/30/22 22:37 Urine Culture - Final Urine Catheterized Roberta glabrata 08/03/22 06:56 Blood Culture - Preliminary Blood NEGATIVE TO DATE 08/03/22 06:56 Blood Culture - Preliminary Blood NEGATIVE TO DATE A&P Assessment and plan (1) [place] toxicity: 52 yr old female 1, fevers- multi-focal fungal infection- UTI and PNA- temps improving -check vanco levels -keep trough under 19 2. lithium toxicity s/p HD 3. SAMANTHA -monitor w/ ivf- cr was already 1.2 in 2021 -cr close to baseline 4. hypernatremia - due to diarrhea, fevers, and hyperglycemia -repeat urine studies - Q of lithium induced nephrogenic DI- repeat urine na is now 60 -cont water -add amiloride if possible -s/p desmopressin yesterday. 5. replace potassium- likely being lost w/ polyuria 6.DM control 7. MS slowly improving. meds reviewed seen and examined w/ rN- telehealth visit -discussed w/ dr Oshea time spent 30 minutes Plan as above Attestations Medical Necessity Statement*: ams, hypernatremia Time Spent in Patient Care: 16 - 35 minutes (>than 50% of time spent in counselling and/or direct pt care on unit). 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
[2022-08-05] MEDS: potassium chloride oral liq 20 mEq/15 mL UDC 40 MEQ PO (07:09)
[2022-08-05] MEDS: dextrose 5%-sod chloride 0.45% 1,000 ML 100 ML IV ×2 (07:09→15:56)
--- NOTE | 2022-08-05 08:03 | P.PN_ITS ---
Subjective Subjective: I saw the patient with her sister. She is tolerating extubation. Speech therapy will be evaluating her swallowing capacity later. She is a little sleepy this morning. She is not anxious. No push of speech. She has been so weak that she could not go outside to smoke for more than a month leading up to this. Vitals/I&O/Wt Last Vital Signs Temp 98.7 F 08/05/22 04:00 Pulse 68 08/05/22 07:00 Resp 17 08/05/22 03:44 BP 128/66 08/05/22 07:00 Pulse Ox 93 08/05/22 05:30 O2 Del Method 08/05/22 04:00 O2 Flow Rate 2 08/05/22 03:44 FiO2 28 08/04/22 16:00 08/04/22 08/05/22 08/05/22 22:59 06:59 14:59 Intake Total 2269.25 / 2682.25 1645.333 / 4327.583 572.917 / 572.917 Output Total 850 / 1325 1150 / 2475 Balance 1419.25 / 1357.25 495.333 / 1852.583 572.917 / 572.917 Weight last 48 hrs Weight 208 lb Weight 209 lb Physical Exam Narrative: She is awake and alert. She recognizes me. She follows simple and complex commands. Cranial nerves remarkable for full eye movements. Normal facial movements. Tongue midline in the mouth and she can protrude her tongue. She has a tremor. Motor: She has a resting tremor in both legs and the left hand. She is profoundly weak proximally in all 4 extremities such that she is unable to lift either of her arms from the bed and she is able to lift the right leg just against gravity and the left unable. Distal strength is better. Cardiac: S1 and S2 normal without murmur or gallop. Urinary Catheter Management: López: Cath Placed During This Visit: yes Reason for Continuing Indwelling Catheter: Accurate Measurement of Urinary Output in Critically Ill Patients Urinary Catheter Date of Insertion: 07/26/22 Data 08/05/22 04:23 08/05/22 04:23 Micro: Microbiology 07/30/22 22:39 Blood Culture - Final Blood NO GROWTH AFTER 5 DAYS 07/30/22 22:35 Blood Culture - Final Blood NO GROWTH AFTER 5 DAYS 07/30/22 22:37 Urine Culture - Final Urine Catheterized Roberta glabrata 08/03/22 06:56 Blood Culture - Preliminary Blood NEGATIVE TO DATE 08/03/22 06:56 Blood Culture - Preliminary Blood NEGATIVE TO DATE A&P Assessment and plan (1) Toxic metabolic encephalopathy: Chronic [place] toxicity with profound weakness and parkinsonian syndrome leading finally to respiratory arrest and respiratory failure. 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 This may just be residual of her toxic metabolic encephalopathy and may resolve. Dr. Oshea has successfully extubated the patient and she looks pretty good although her respiratory status remains tenuous. She may be able to be rehabilitated at a local half-way which would be better for her family. I will continue to follow her post discharge and I may start her on dopaminergic therapy. For now minimize sedation. I do not think she should be back on lithium at all. Recommend cutting her gabapentin down to 800 mg 3 times a day because of her sedated appearance. It might be reasonable to stop a atorvastatin right now although her CPKs have not been elevated. Attestations Medical Necessity Statement*: Profound weakness suggesting critical illness polyneuropathy. Her respiratory status remains tenuous. Coding Level of Care Code Acute [employer] Builder for [facility] Diagnoses Toxic metabolic encephalopathy G92.8
[2022-08-05] MEDS: magnesium hydroxide 30 mL UDC PO (09:07)
[2022-08-05] MEDS: gabapentin 100 mg Capsule 200 MG PO ×2 (09:08→15:55)
[2022-08-05] MEDS: lamoTRIgine 100 mg Tablet 150 MG PO ×2 (09:08→18:17)
[2022-08-05] MEDS: docusate sodium 100 mg Capsule PO (09:08)
[2022-08-05] MEDS: pantoprazole 40 mg SDV IVP (09:08)
[2022-08-05] MEDS: ferrous gluconate 324 mg Tablet PO ×2 (09:08→18:17)
[2022-08-05] MEDS: fenofibrate 145 mg Tablet PO (09:08)
[2022-08-05] MEDS: nicotine 14 mg Patch 1 PATCH TRANSDERMA (09:10)
[2022-08-05] MEDS: metoprolol tartrate 25 mg Tablet 12.5 MG PO ×2 (09:16→20:53)
--- NOTE | 2022-08-05 10:26 | PC.CHAP ---
Pastoral Care Encounter/Spiritual Assessment Type of Contact [] Declined transportation coordinator visit [] Patient/Family/Request visit [] Outpatient visit [] Follow-up visit [] Physician referral [] Code/Alert [x] Routine visit [] Staff referral [] Actively dying [] Patient sleeping [] Family support [] [] Out of room [] Palliative care [] [] Receiving care in room [] Pre-surgical visit [] Trauma [] Long length of stay [x] ICU visit [x] Other: PT resting... 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 [x] Prayer [] Active listening [] Non-anxious presence [] Spiritual/emotional support [] Crisis/trauma care [] Spiritual counseling [] Bereavement support [] Provided bereavement packet [] Provided Bible/devotional materials [] Provided toy/stuffed animal, coloring book to patient or family member [] Provided Communion [] Anointing/Vaughn [] Salvation [x] Completed spiritual assessment [] Other: Impact on Illness or Injury [] Angry [] Fearful [] Anxious [] Often cries [] Exhaustion [] Unable to work [] Unable to attend buddhist [] Unable to walk/stand [] Unable to read [] Unable to drive [] Unable to eat/drink [] Unable to sleep [] Unable to be with family [] Patient intubated [] Other: Summary Time spent with patient
[2022-08-05 11:44] LABS: Glucose Point of Care 166 mg/dL (70-110)
[2022-08-05] MEDS: vancomycin 1,500 MG/300 ML PIGGYBACK 200 MG IV (13:01)
[2022-08-05] MEDS: AMILORIDE 5 MG 1 EACH PO (13:02)
[2022-08-05 13:14] LABS: Anion Gap 13.1 (5-19); Blood Urea Nitrogen 38 mg/dL (6-20); Calcium 9.3 mg/dL (8.5-10.5); Carbon Dioxide 22 mmol/L (22-29); Chloride 115 mmol/L (98-107); Creatinine Clr Calc Pharmacy 57.9266; Glomerular Filtration Rate 42.8 mL/min (90-130); Glucose 179 mg/dL (65-115); Osmolality Calculated 316 mOsm/kg (285-295); Potassium 4.1 mmol/L (3.5-5.1); Sodium 146 mmol/L (136-145)
[2022-08-05 14:10] LABS: Vancomycin Trough 12.1 ug/mL (10-15)
[2022-08-05 16:25] LABS: Osmolality Urine 229 mOsm/kg (50-1200)
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
[2022-08-05 17:31] LABS: Glucose Point of Care 149 mg/dL (70-110)
[2022-08-05 20:35] LABS: Glucose Point of Care 183 mg/dL (70-110)
[2022-08-05] MEDS: insulin glargine 100 units/1 mL 30 UNIT SUBCUT (20:53)
[2022-08-05] MEDS: gabapentin 100 mg Capsule PO (20:53)
[2022-08-05 20:57] LABS: Anion Gap 15.3 (5-19); Blood Urea Nitrogen 38 mg/dL (6-20); Calcium 9.3 mg/dL (8.5-10.5); Carbon Dioxide 22 mmol/L (22-29); Chloride 113 mmol/L (98-107); Glomerular Filtration Rate 42.8 mL/min (90-130); Glucose 178 mg/dL (65-115); Osmolality Calculated 315 mOsm/kg (285-295); Potassium 4.3 mmol/L (3.5-5.1); Sodium 146 mmol/L (136-145)
[2022-08-05 21:01] LABS: Creatinine Clr Calc Pharmacy 57.9266
--- NOTE | 2022-08-05 22:00 | PC.NURSE ---
Fluids Crackles auscultated in patient's lungs and moist, unproductive cough observed. Patient's oxygenation level 96% on room air. Dr. Mackenzie notified; order received to decrease D5 with 20 meq KCL maintenance fluid to 50 ml/hr. See MAR for administration.
[2022-08-06] VITALS (49 sets, daily range): BP systolic 92–138; BP diastolic 51–68; PULSE 63–87; RESP 16–25; TEMP 36.8–37.1; O2SAT 71–100; BMI 33.5
[2022-08-06] MEDS: insulin lispro 100 unit/1 mL SUBCUT ×3 (00:01→17:33)
[2022-08-06 00:35] LABS: Glucose Point of Care 147 mg/dL (70-110)
[2022-08-06] MEDS: HYDROmorphone 1 mg/mL INJ 1 mL 0.5 MG IVP (00:51)
[2022-08-06 04:28] LABS: Basophils # 0.1 10^3/uL (0.0-0.1); Basophils % 1.1 %; Eosinophils # 0.3 10^3/uL (0.0-0.8); Eosinophils % 4.5 %; Hematocrit 37.3 % (37.0-47.0); Lymphocytes # 1.2 10^3/uL (0.8-4.8); Lymphocytes % 19.2 %; Mean Corpuscular HGB Conc 29.5 g/dL (30.0-36.0); Mean Corpuscular Hemoglobin 29.4 pg (28.0-34.0); Mean Corpuscular Volume 99.7 fl (81-99); Mean Platelet Volume 12.7 fL (7.4-10.4); Monocytes # 0.7 10^3/uL (0.2-0.9); Monocytes % 10.2 %; Neutrophils # 4.13 10^3/uL (1.8-7.7); Neutrophils % 63.9 %; Nucleated Red Blood Cells % 0 %; Platelet Count 246 10^3/cmm (130-400); Red Blood Count 3.74 10^6/uL (4.1-5.3); White Blood Count 6.5 10^3/uL (4.0-10.0)
[2022-08-06] MEDS: HYDROcodone-acetaminophen 7.5-325 mg Tablet 1 TAB PO ×2 (04:42→11:57)
[2022-08-06 04:50] LABS: Alanine Aminotransferase 20 U/L (0-33); Albumin Level 3.6 g/dL (3.5-5.2); Alkaline Phosphatase 61 U/L (35-105); Anion Gap 16.6 (5-19); Aspartate Amino Transferase 20 U/L (0-32); Blood Urea Nitrogen 36 mg/dL (6-20); Calcium 9.8 mg/dL (8.5-10.5); Carbon Dioxide 22 mmol/L (22-29); Chloride 116 mmol/L (98-107); Globulin 3.2 g/dL (1.3-4.6); Glomerular Filtration Rate 42.8 mL/min (90-130); Glucose 101 mg/dL (65-115); Osmolality Calculated 318 mOsm/kg (285-295); Potassium 4.6 mmol/L (3.5-5.1); Sodium 150 mmol/L (136-145); Total Bilirubin 0.2 mg/dL (0.15-1.2); Total Protein 6.8 g/dL (6.6-8.7)
[2022-08-06 04:53] LABS: Vancomycin Random 24.7 ug/mL (20.0-40.0)
[2022-08-06 04:56] LABS: Creatinine Clr Calc Pharmacy 57.9266
[2022-08-06 05:42] LABS: Urine Color Colorless (Yellow)
[2022-08-06 05:43] LABS: Add Urine Microscopic? YES; Bilirubin Urine Neg (Negative); Blood Urine 2+ (Negative); Glucose Urine UA Norm (Normal); Ketones Urine Negative (Negative); Leukocyte Esterase Urine Negative (Negative); Nitrate Urine Negative (Negative); Protein Urine Neg (Negative); RBC Urine 0-4 /hpf (0-2); Specific Gravity, Urine 1.005 (1.005-1.030); Squamous Epithelial Cell Urine 0-4 /hpf (0-5); Urine Appearance Clear (CLEAR); Urobilinogen Urine Norm (Negative); pH Urine 7 (5-7)
[2022-08-06 05:44] LABS: Add Urine Culture? No
[2022-08-06 05:51] LABS: Potassium, Radom Urine 4 mmol/L; Urine Random Chloride 37 mmol/L; Urine Random Sodium 53 mmol/L
[2022-08-06] MEDS: meropenem 1,000 MG in sodium chloride 0.9% (plus) 50 ML 100 MG IV ×3 (06:22→23:30)
[2022-08-06] MEDS: heparin 5,000 unit/mL INJ 1 mL 5000 UNIT SUBCUT ×2 (06:22→17:33)
[2022-08-06 06:31] LABS: Glucose Point of Care 113 mg/dL (70-110)
[2022-08-06 07:41] LABS: Glucose Point of Care 139 mg/dL (70-110)
--- NOTE | 2022-08-06 07:45 | P.PN_ITS ---
Subjective Subjective: more awake. has some edema. high urine output. starting to eat this morning. denies nausea. she is hungry. Medications: Reviewed: Yes Medication Review Details: Current Medications Acetaminophen (Acetaminophen 325 Mg Tablet) 650 mg PO Q6H PRN PRN Reason: Mild/Mod Pain Or Temp >/= 101 Last Admin: 07/31/22 20:36 Dose: 650 mg Hydrocodone Bitart/Acetaminophen (Hydrocodone-Acetaminophen 7.5-325 Mg Tablet) 1 tab PO QID PRN PRN Reason: pain Last Admin: 08/06/22 04:42 Dose: 1 tab Albuterol/Ipratropium (Ipratropium-Albuterol 3 Ml Neb) 3 ml INHALATION Q6H PRN PRN Reason: SHORTNESS OF BREATH Albuterol/Ipratropium (Ipratropium-Albuterol 3 Ml Neb) 3 ml INHALATION QID.RESPIRATORY [facility] Last Admin: 08/05/22 19:54 Dose: 3 ml Atorvastatin Calcium (Atorvastatin 40 Mg Tablet) 40 mg PO DAILY [facility] Last Admin: 08/02/22 08:33 Dose: 40 mg Dextrose (Dextrose 50% Syringe 50 Ml) 25 ml IVP ONCE PRN; Protocol PRN Reason: hypoglycemia protocol Dextrose (Dextrose 50% Syringe 50 Ml) 50 ml IVP PRN PRN; Protocol PRN Reason: hypoglycemia protocol Docusate Sodium (Docusate Sodium 100 Mg Capsule) 100 mg PO BID [facility] Last Admin: 08/05/22 18:18 Dose: Not Given Fenofibrate (Fenofibrate 145 Mg Tablet) 145 mg PO DAILY [facility] Last Admin: 08/05/22 09:08 Dose: 145 mg Ferrous Gluconate (Ferrous Gluconate 324 Mg Tablet) 324 mg PO BIDWM [facility] Last Admin: 08/05/22 18:17 Dose: 324 mg Gabapentin (Gabapentin 100 Mg Capsule) 100 mg PO TID [facility] Last Admin: 08/05/22 20:53 Dose: 100 mg Glucagon (Glucagon 1 Mg/Ml Inj 1 Ml) 1 mg IM ONCE PRN; Protocol PRN Reason: Adult Acute Hypoglycemia Prot. Heparin Sodium (Porcine) (Heparin 5,000 Unit/Ml Inj 1 Ml) 5,000 unit SUBCUT Q12H [facility] Last Admin: 08/06/22 06:22 Dose: 5,000 unit Hydromorphone HCl (Hydromorphone 1 Mg/Ml Inj 1 Ml) 0.5 mg IVP Q4H PRN PRN Reason: PAIN Last Admin: 08/06/22 00:51 Dose: 0.5 mg Sodium Chloride (Sodium Chloride 0.9%) 1,000 mls @ 0 mls/hr IV .Q0M PRN PRN Reason: hypotension or symptomatic Albumin Human (Albumin) 12.5 gm in 50 mls @ 60 mls/hr IV PRN PRN PRN Reason: Hypotension and/or symptomatic Last Infusion: 07/28/22 19:15 Dose: Infused Meropenem 1,000 mg/ Sodium (Chloride) 50 mls @ 100 mls/hr IV Q8H [facility] Last Admin: 08/06/22 06:22 Dose: 100 mls/hr Dextrose/Sodium Chloride (Dextrose 5%-Sod Chloride 0.45%) 1,000 mls @ 100 mls/hr IV .Q10H [facility] Last Infusion: 08/05/22 19:07 Dose: 0 mls/hr Potassium Chloride 20 meq/ (Dextrose) 1,010 mls @ 50 mls/hr IV .[id number] [facility] Last Infusion: 08/05/22 22:00 Dose: 50 mls/hr Insulin Glargine (Insulin Glargine 100 Units/1 Ml) 30 unit SUBCUT BEDTIME [facility] Last Admin: 08/05/22 20:53 Dose: 30 unit Insulin Human Lispro (Insulin Lispro 100 Unit/1 Ml) 0 unit SUBCUT Q6H [facility]; Protocol Last Admin: 08/06/22 06:41 Dose: Not Given Lamotrigine (Lamotrigine 100 Mg Tablet) 150 mg PO BID [facility] Last Admin: 08/05/22 18:17 Dose: 150 mg Magnesium Hydroxide (Magnesium Hydroxide 30 Ml Udc) 30 ml PO DAILY [facility]; Protocol Last Admin: 08/05/22 09:07 Dose: 30 ml Metoprolol Tartrate (Metoprolol Tartrate 25 Mg Tablet) 12.5 mg PO BID@0900,2100 [facility] Last Admin: 08/05/22 20:53 Dose: 12.5 mg Nicotine (Nicotine 14 Mg Patch) 1 patch TRANSDERMA DAILY [facility] Last Admin: 08/05/22 09:10 Dose: 1 patch Amiloride 5mg 1 each PO DAILY [facility] Last Admin: 08/05/22 13:02 Dose: 1 each Ondansetron HCl (Ondansetron 2 Mg/Ml Sdv 2 Ml) 4 mg IVP Q8H PRN PRN Reason: vomiting, or N/V if npo Pantoprazole Sodium (Pantoprazole 40 Mg Sdv) 40 mg IVP DAILY [facility] Last Admin: 08/05/22 09:08 Dose: 40 mg Risperidone (Risperidone 1 Mg Tablet) 1 mg PO BID [facility] Last Admin: 08/01/22 10:02 Dose: 1 mg Vitals/I&O/Wt Last Vital Signs Temp 98.8 F 08/06/22 04:00 Pulse 69 08/06/22 06:00 Resp 16 08/06/22 00:51 BP 138/62 08/06/22 05:00 Pulse Ox 95 08/06/22 04:30 O2 Del Method 08/06/22 04:00 O2 Flow Rate 2 08/05/22 03:44 FiO2 28 08/04/22 16:00 08/05/22 08/06/22 08/06/22 22:59 06:59 14:59 Intake Total 3364.999 / 3937.916 825 / 4762.916 Output Total 3700 / 3700 2225 / 5925 Balance -335.001 / 237.916 -1400 / -1162.084 Weight last 48 hrs Weight 94.347 kg Weight 94.347 kg Physical Exam Narrative: afebrile, comfortable has a NGT vs noted heent- nc/at,eomi neck supple lungs clear b/l heart reg abd soft, nt, nd, + bs ext 1+ b/l leg edema neuro- awake, interactive, more alert, talking and answering appropriately moving Urinary Catheter Management: López: Cath Placed During This Visit: yes Reason for Continuing Indwelling Catheter: Accurate Measurement of Urinary Output in Critically Ill Patients Urinary Catheter Date of Insertion: 07/26/22 Data 08/06/22 04:03 08/06/22 04:03 Micro: Microbiology 08/04/22 15:40 Gram Stain - Final Sputum - Endotracheal Tube Aspirate A&P Assessment and plan (1) [place] toxicity: 52 yr old female 1, fevers- multi-focal fungal infection- UTI and PNA- temps improving -check vanco levels -keep trough under 19 2. lithium toxicity s/p HD 3. SAMANTHA -monitor w/ ivf- cr was already 1.2 in 2021 -cr close to baseline 4. hypernatremia - due to diarrhea, fevers, and hyperglycemia -repeat urine studies noted - Q of lithium induced nephrogenic DI- repeat urine na is now 53 -cont water -agree w/ amiloride -s/p desmopressin on 08-04-22. will redose today. -at home pt would drink 2 gallons of water daily- likely from lithium induced DI 5.DM control 6. MS improving. meds reviewed seen and examined w/ rN- telehealth visit -discussed w/ her sister time spent 30 minutes Plan as above Attestations Medical Necessity Statement*: hypernatremia Time Spent in Patient Care: 16 - 35 minutes (>than 50% of time spent in c ounselling and/or direct pt care on unit) . Coding Level of Care Code Acute Front End Specialist for [employer] [facility] Diagnoses [place] toxicity T56.891A
[2022-08-06] MEDS: lamoTRIgine 100 mg Tablet 150 MG PO ×2 (08:36→17:32)
[2022-08-06] MEDS: metoprolol tartrate 25 mg Tablet 12.5 MG PO ×2 (08:36→20:34)
[2022-08-06] MEDS: gabapentin 100 mg Capsule PO ×3 (08:36→20:34)
[2022-08-06] MEDS: pantoprazole 40 mg SDV IVP (08:36)
[2022-08-06] MEDS: ferrous gluconate 324 mg Tablet PO ×2 (08:36→17:32)
[2022-08-06] MEDS: nicotine 14 mg Patch 1 PATCH TRANSDERMA (08:36)
[2022-08-06] MEDS: fenofibrate 145 mg Tablet PO (08:37)
[2022-08-06] MEDS: AMILORIDE 5 MG 1 EACH PO (08:37)
[2022-08-06] MEDS: ipratropium-albuterol 3 mL Neb INHALATION ×4 (08:46→20:39)
[2022-08-06 11:57] LABS: Glucose Point of Care 162 mg/dL (70-110)
[2022-08-06] MEDS: dextrose 5%-sod chloride 0.45% 1,000 ML 100 ML IV (14:18)
[2022-08-06 17:11] LABS: Glucose Point of Care 155 mg/dL (70-110)
--- NOTE | 2022-08-06 18:28 | PC.NURSE ---
Pt was up to chair this afternoon with PT via lesly lift. She was later able to transfer with two person assist back to bed. Multiple loose bowel movements noted this shift.
--- NOTE | 2022-08-06 18:32 | P.PN_ITS ---
Subjective Subjective: Infectious disease progress note. Patient has been extubated since last being seen. She continues to be afebrile and hemodynamically stable. Saturating well on 2 L/min. She is extremely deconditioned from her prolonged hospital stay. She is able to answer all orientation questions alert awake oriented x3. Medications: Reviewed: Yes Medication Review Details: Current Medications Acetaminophen (Acetaminophen 325 Mg Tablet) 650 mg PO Q6H PRN PRN Reason: Mild/Mod Pain Or Temp >/= 101 Last Admin: 07/31/22 20:36 Dose: 650 mg Hydrocodone Bitart/Acetaminophen (Hydrocodone-Acetaminophen 7.5-325 Mg Tablet) 1 tab PO QID PRN PRN Reason: pain Last Admin: 08/06/22 04:42 Dose: 1 tab Albuterol/Ipratropium (Ipratropium-Albuterol 3 Ml Neb) 3 ml INHALATION Q6H PRN PRN Reason: SHORTNESS OF BREATH Albuterol/Ipratropium (Ipratropium-Albuterol 3 Ml Neb) 3 ml INHALATION QID.RESPIRATORY [facility] Last Admin: 08/05/22 19:54 Dose: 3 ml Atorvastatin Calcium (Atorvastatin 40 Mg Tablet) 40 mg PO DAILY [facility] Last Admin: 08/02/22 08:33 Dose: 40 mg Dextrose (Dextrose 50% Syringe 50 Ml) 25 ml IVP ONCE PRN; Protocol PRN Reason: hypoglycemia protocol Dextrose (Dextrose 50% Syringe 50 Ml) 50 ml IVP PRN PRN; Protocol PRN Reason: hypoglycemia protocol Docusate Sodium (Docusate Sodium 100 Mg Capsule) 100 mg PO BID [facility] Last Admin: 08/05/22 18:18 Dose: Not Given Fenofibrate (Fenofibrate 145 Mg Tablet) 145 mg PO DAILY [facility] Last Admin: 08/05/22 09:08 Dose: 145 mg Ferrous Gluconate (Ferrous Gluconate 324 Mg Tablet) 324 mg PO BIDWM [facility] Last Admin: 08/05/22 18:17 Dose: 324 mg Gabapentin (Gabapentin 100 Mg Capsule) 100 mg PO TID [facility] Last Admin: 08/05/22 20:53 Dose: 100 mg Glucagon (Glucagon 1 Mg/Ml Inj 1 Ml) 1 mg IM ONCE PRN; Protocol PRN Reason: Adult Acute Hypoglycemia Prot. Heparin Sodium (Porcine) (Heparin 5,000 Unit/Ml Inj 1 Ml) 5,000 unit SUBCUT Q12H [facility] Last Admin: 08/06/22 06:22 Dose: 5,000 unit Hydromorphone HCl (Hydromorphone 1 Mg/Ml Inj 1 Ml) 0.5 mg IVP Q4H PRN PRN Reason: PAIN Last Admin: 08/06/22 00:51 Dose: 0.5 mg Sodium Chloride (Sodium Chloride 0.9%) 1,000 mls @ 0 mls/hr IV .Q0M PRN PRN Reason: hypotension or symptomatic Albumin Human (Albumin) 12.5 gm in 50 mls @ 60 mls/hr IV PRN PRN PRN Reason: Hypotension and/or symptomatic Last Infusion: 07/28/22 19:15 Dose: Infused Meropenem 1,000 mg/ Sodium (Chloride) 50 mls @ 100 mls/hr IV Q8H [facility] Last Admin: 08/06/22 06:22 Dose: 100 mls/hr Dextrose/Sodium Chloride (Dextrose 5%-Sod Chloride 0.45%) 1,000 mls @ 100 mls/hr IV .Q10H [facility] Last Infusion: 08/05/22 19:07 Dose: 0 mls/hr Potassium Chloride 20 meq/ (Dextrose) 1,010 mls @ 50 mls/hr IV .[id number] [facility] Last Infusion: 08/05/22 22:00 Dose: 50 mls/hr Insulin Glargine (Insulin Glargine 100 Units/1 Ml) 30 unit SUBCUT BEDTIME [facility] Last Admin: 08/05/22 20:53 Dose: 30 unit Insulin Human Lispro (Insulin Lispro 100 Unit/1 Ml) 0 unit SUBCUT Q6H [facility]; Protocol Last Admin: 08/06/22 06:41 Dose: Not Given Lamotrigine (Lamotrigine 100 Mg Tablet) 150 mg PO BID [facility] Last Admin: 08/05/22 18:17 Dose: 150 mg Magnesium Hydroxide (Magnesium Hydroxide 30 Ml Udc) 30 ml PO DAILY [facility]; Protocol Last Admin: 08/05/22 09:07 Dose: 30 ml Metoprolol Tartrate (Metoprolol Tartrate 25 Mg Tablet) 12.5 mg PO BID@0900,2100 [facility] Last Admin: 08/05/22 20:53 Dose: 12.5 mg Nicotine (Nicotine 14 Mg Patch) 1 patch TRANSDERMA DAILY [facility] Last Admin: 08/05/22 09:10 Dose: 1 patch Amiloride 5mg 1 each PO DAILY [facility] Last Admin: 08/05/22 13:02 Dose: 1 each Ondansetron HCl (Ondansetron 2 Mg/Ml Sdv 2 Ml) 4 mg IVP Q8H PRN PRN Reason: vomiting, or N/V if npo Pantoprazole Sodium (Pantoprazole 40 Mg Sdv) 40 mg IVP DAILY [facility] Last Admin: 08/05/22 09:08 Dose: 40 mg Risperidone (Risperidone 1 Mg Tablet) 1 mg PO BID [facility] Last Admin: 08/01/22 10:02 Dose: 1 mg Vitals/I&O/Wt Last Vital Signs Temp 98.6 F 08/06/22 16:00 Pulse 73 08/06/22 16:30 Resp 22 H 08/06/22 16:30 BP 108/57 08/06/22 16:30 Pulse Ox 98 08/06/22 16:30 O2 Del Method 08/06/22 15:35 O2 Flow Rate 2 08/05/22 03:44 FiO2 28 08/04/22 16:00 08/06/22 08/06/22 08/06/22 06:59 14:59 22:59 Intake Total 875 / 4812.916 120 / 120 Output Total 2225 / 5925 700 / 700 Balance -1350 / -1112.084 -580 / -580 Weight last 48 hrs Weight 94.347 kg Weight 94.347 kg Physical Exam Narrative: General: Awake alert oriented x3. Converses appropriately. However significantly deconditioned, unable to move in bed. Cannot change sides. HEENT: PERRLA, pupils bilaterally equal and reactive, pallors not present Chest: Reduced air entry left lower lobe. CVS: S1-S2 regular, no murmurs, no tachycardia, no gallops, no rubs Abdomen: Soft, nontender, no organomegaly, bowel sounds present. Ext: significantly deconditioned Urinary Catheter Management: López: Cath Placed During This Visit: yes Reason for Continuing Indwelling Catheter: Accurate Measurement of Urinary Output in Critically Ill Patients Urinary Catheter Date of Insertion: 07/26/22 Data 08/06/22 04:03 08/06/22 04:03 A&P Assessment and plan (1) Fever: Patient admitted to the hospital with chief complains of increasing lethargy fever, found to have evidence of left lower lobe pneumonia upon admission and signs of lithium toxicity and acute kidney injury. As regards to her left lower lobe pneumonia, this was present upon admission, as seen on CT of the chest abdomen and pelvis. However the consolidation not nearly impressive enough to explain her persistent ongoing fever as she was experiencing. Her serial chest x-rays are improving. Repeat CT of the chest abdomen and pelvis on 08/03 with improving pneumonia. no acute events in the abdomen. White out of her left lung was postintubation, suspect an aspiration event Patient never had a leukocytosis since admission. Overall possibility of untreated pneumonia as a cause of her persisting fever appears to be highly unlikely. patient's fever have now resolved as of 08/03. More likely discontinued ampicillin, ceftriaxone, piperacillin tazobactam on 08/03 Additionally vancomycin and micafungin d/rafi 08/[address] Voss Currently only on meropenem 1g iv q8h Overall all cultures have remained negative. Since fever curve appears to have improved after addition of meropenem, can complete a short 7 day course and then d/c. Though overall more likely that that this is related to resuming her home gabapentin, narrowing antimicrobials and extubation. Highly likely that chronic lithium toxicity, central fever are the likely explanations. Please call with any further questions or concerns (2) Pneumonia: (3) [place] toxicity: management per primary (4) SAMANTHA (acute kidney injury): improving, per renal (5) Oropharyngeal candidiasis: Attestations Medical Necessity Statement*: per admitting Coding Level of Care Code Acute Code for [facility] Diagnoses Fever R50.9 Pneumonia J18.9 [place] toxicity T56.891A SAMANTHA (acute kidney injury) N17.9 Oropharyngeal candidiasis B37.0
[2022-08-06 19:01] LABS: Blood Urea Nitrogen 34 mg/dL (6-20); Calcium 10.3 mg/dL (8.5-10.5); Carbon Dioxide 22 mmol/L (22-29); Chloride 111 mmol/L (98-107); Glomerular Filtration Rate 39.3 mL/min (90-130); Glucose 136 mg/dL (65-115); Osmolality Calculated 308 mOsm/kg (285-295); Sodium 144 mmol/L (136-145)
[2022-08-06 19:14] LABS: Anion Gap 15.5 (5-19); Potassium 4.5 mmol/L (3.5-5.1)
--- NOTE | 2022-08-06 19:51 | PC.NURSE ---
Dr. Voss called with orders to change fluids to 75ml/hr and free fluid flush in NG tube to 250ml Q6HR. Fluid order changed and critical message to nurse order placed with new orders.
[2022-08-06 20:05] LABS: Glucose Point of Care 119 mg/dL (70-110)
[2022-08-06] MEDS: insulin glargine 100 units/1 mL 30 UNIT SUBCUT (20:34)
[2022-08-07] VITALS (40 sets, daily range): BP systolic 103–142; BP diastolic 52–85; PULSE 62–88; RESP 15–25; TEMP 37.1–37.6; O2SAT 82–100
--- NOTE | 2022-08-07 01:36 | PC.NURSE ---
Patient's urine output 2375 since 190. Physician notified of increased urine output with decreased fluids intake. Order given to increase IV fluids to 100ml/HR
[2022-08-07] MEDS: dextrose 5%-sod chloride 0.45% 1,000 ML 100 ML IV ×3 (02:26→20:59)
[2022-08-07 05:04] LABS: Glucose Point of Care 132 mg/dL (70-110)
[2022-08-07 05:12] LABS: Basophils # 0.1 10^3/uL (0.0-0.1); Basophils % 0.9 %; Eosinophils # 0.3 10^3/uL (0.0-0.8); Eosinophils % 5.5 %; Hematocrit 39.6 % (37.0-47.0); Hemoglobin 11.6 g/dL (11.5-15.3); Lymphocytes # 1.2 10^3/uL (0.8-4.8); Lymphocytes % 20.8 %; Mean Corpuscular HGB Conc 29.3 g/dL (30.0-36.0); Mean Corpuscular Hemoglobin 29.4 pg (28.0-34.0); Mean Corpuscular Volume 100.5 fl (81-99); Monocytes # 0.6 10^3/uL (0.2-0.9); Monocytes % 10.3 %; Neutrophils # 3.46 10^3/uL (1.8-7.7); Neutrophils % 61.4 %; Nucleated Red Blood Cells % 0 %; Platelet Count 271 10^3/cmm (130-400); Red Blood Count 3.94 10^6/uL (4.1-5.3); Red Cell Distribution Width 15.1 % (12.1-15.1); White Blood Count 5.6 10^3/uL (4.0-10.0)
[2022-08-07 05:40] LABS: Alanine Aminotransferase 19 U/L (0-33); Albumin Level 3.7 g/dL (3.5-5.2); Alkaline Phosphatase 63 U/L (35-105); Anion Gap 17.5 (5-19); Aspartate Amino Transferase 23 U/L (0-32); Blood Urea Nitrogen 29 mg/dL (6-20); Calcium 9.9 mg/dL (8.5-10.5); Carbon Dioxide 20 mmol/L (22-29); Chloride 119 mmol/L (98-107); Globulin 3.3 g/dL (1.3-4.6); Glucose 125 mg/dL (65-115); Magnesium 2.3 mg/dL (1.7-2.3); Osmolality Calculated 321 mOsm/kg (285-295); Phosphorus 3.3 mg/dL (2.5-4.5); Potassium 4.5 mmol/L (3.5-5.1); Sodium 152 mmol/L (136-145); Total Bilirubin 0.3 mg/dL (0.15-1.2)
[2022-08-07 05:44] LABS: Vancomycin Random 11.5 ug/mL (20.0-40.0)
[2022-08-07] MEDS: meropenem 1,000 MG in sodium chloride 0.9% (plus) 50 ML 100 MG IV ×2 (06:02→15:42)
[2022-08-07] MEDS: heparin 5,000 unit/mL INJ 1 mL 5000 UNIT SUBCUT ×2 (06:03→17:55)
[2022-08-07 07:40] LABS: Glucose Point of Care 128 mg/dL (70-110)
[2022-08-07] MEDS: gabapentin 100 mg Capsule PO ×3 (08:49→20:07)
[2022-08-07] MEDS: ferrous gluconate 324 mg Tablet PO ×2 (08:49→17:55)
[2022-08-07] MEDS: pantoprazole 40 mg SDV IVP (08:49)
[2022-08-07] MEDS: nicotine 14 mg Patch 1 PATCH TRANSDERMA (08:49)
[2022-08-07] MEDS: docusate sodium 100 mg Capsule PO ×2 (08:49→17:55)
[2022-08-07] MEDS: lamoTRIgine 100 mg Tablet 150 MG PO ×2 (08:49→17:54)
[2022-08-07] MEDS: fenofibrate 145 mg Tablet PO (08:50)
[2022-08-07] MEDS: magnesium hydroxide 30 mL UDC PO (08:50)
[2022-08-07] MEDS: metoprolol tartrate 25 mg Tablet 12.5 MG PO ×2 (08:51→20:07)
[2022-08-07] MEDS: AMILORIDE 5 MG 1 EACH PO (08:53)
[2022-08-07] MEDS: ipratropium-albuterol 3 mL Neb INHALATION ×2 (09:29→11:46)
--- NOTE | 2022-08-07 09:51 | P.DS_ITS ---
Discharge Providers Date of Admission: 07/26/22 18:30 Date of Discharge: August 07, 2022 Attending Provider at Admission: Carrington Voss MD Attending Provider at Discharge: Carrington Voss MD Consults: Telemetry nephrology Infectious disease: Dr. Siegel Neurology: Dr. Hicks Cardiothoracic surgery: Dr. Freitas Surgery: Dr. Perez Psychiatry: Dr. Anaya Primary Care Provider: Annabel Arcos DO Diagnoses at Discharge Discharge Diagnosis (1) Fever: Status: Acute (2) Pneumonia: Status: Acute (3) [place] toxicity: Status: Acute (4) SAMANTHA (acute kidney injury): Status: Acute (5) Oropharyngeal candidiasis: Status: Acute (6) Diabetes insipidus: Status: Acute (7) Goals of care, counseling/discussion: Status: Acute (8) Ventilator dependent: Status: Acute (9) Toxic metabolic encephalopathy: Status: Acute (10) Hypernatremia: Status: Acute (11) COPD (chronic obstructive pulmonary disease): Status: Acute Qualifiers: COPD type: emphysema Emphysema type: panlobular Qualified Code(s): J43.1 - Panlobular emphysema (12) Uncontrolled type II diabetes mellitus: Status: Acute Qualifiers: Glycemic state: with hyperglycemia Qualified Code(s): E11.65 - Type 2 diabetes mellitus with hyperglycemia Reason for Visit Reason for Visit: AMS Hospital Course Hospital Course Ignacio Eugene is a 52 year old female with PMH ?COPD, chronic shortness of breath, low back pain and opioid use, chronically on lithium. She was admitted on 07/28/21 acute kidney injury, uremia, suspicion for lithium toxicity with elevated lithium levels.? She also had complaints of shortness of breath and on the night of July 27 she developed complete whiteout of the left lung for which she underwent bronchoscopy on July 28, 2021.? Due to rapidly developing respiratory distress patient was also intubated overnight.? She was increasingly lethargic.? CT performed of her chest abdomen and pelvis showed left lower lobe pneumonia.? CT head had lacunar infarcts unchanged since July without any other acute events. Because of worsening mentation, being on ventilator for more than 3 to 4 days off sedation, review of system negative for a stroke or seizure there was a high concern for chronic lithium toxicity/silent syndrome. Nephrology was consulted and patient underwent hemodialysis after placement of temporary dialysis catheter on 07/28. [place] levels normalized post dialysis. Patient's mentation remained poor and she remained on ventilator for overall 9 days off sedation. Her hospitalization was also complicated by her developing hypernatremia in setting of nephrogenic diabetic insipidus along with acute kidney injury for which she required multiple fluid resuscitation's. Fluid sta tus was changed as per sodium levels every 8 hourly. Gradually her mentation improved on day 8 and day 9 of sedation after restarting gabapentin at a lower dose and once sodium levels are little stabilized. Patient's hospitalization was also complicated by her developing hyperthermia with body temperatures going as high as 105 Fahrenheit. During hospitalization her blood cultures remain negative sputum culture from bronchoscopy came back positive for Roberta glabrata and urine culture came back positive for Roberta glabrata as well. Meningitis was unlikely and family denied lumbar puncture. At first she was treated with multiple antimicrobials and has finished a course of IV antibiotics with vancomycin, Zosyn, micafungin. She remained persistently hypothermic. Finally fevers broke after stopping antimicrobials. It is believed high-grade fevers are most likely secondary to central from chronic lithium toxicity versus drug fevers. Extensive goals of care discussions were done with patient's family at bedside. Options discussed for hospice versus reintubation if patient fails extubation followed by tracheostomy and PEG tube. Family was agreeable for aggressive management. Eventually patient was extubated on 08/04. Patient has been on room air for last 48 hours postextubation. She has been gradually improving with her physical therapy participation. Speech therapy has been following up with patient as well and diet has been advanced to pur?e dysphagia level 4. Patient is still having polyuria with urine output of more than 5 to 6 L with sodium levels fluctuating from 1 44-1 54 which is being managed by dynamic fluid changes. Given poor oral intake and inability to take fluid regularly by mouth NG tube has remained in place to which she is getting free water flushes. It is advised patient has BMP checked every 8 hours and fluid status being monitored and changed accordingly. It is advised that patient should have extensive physical therapy and diet should be advanced as per speech therapy. Patient should be on meropenem for 2 more days to finish a 7-day course of IV antibiotics. López catheter has been replaced. For all of the above safe discharge planning were discussed in detail with the patient and they were agreeable for transfer to select for further rehabitation. She has been discharged in hemodynamically stable condition. Physical Exam Narrative: General: Awake, alert to self, following simple commands, tired appearing, weak, more awake, family able to communicate and participate in conversation HEENT: PERRLA, pupils bilaterally equal and reactive Chest:Bronchial breath sounds b/l ,decreased air entry, equal good air entry bilaterally, no more fine basal crackles CVS: S1-S2 regular, no murmurs, no tachycardia, no gallops, no rubs Abdomen: Soft, nontender, no organomegaly, bowel sounds present, morbidly obese Neuro: Left jerky movements of the lower limbs, able to move all limbs, power 1/4 all limbs, maintaining airway Urinary Catheter Management: López: Cath Placed During This Visit: yes Reason for Continuing Indwelling Catheter: Accurate Measurement of Urinary Output in Critically Ill Patients Urinary Catheter Date of Insertion: 07/26/22 Discharge Data Studies Completed and Pending Completed Studies During Hospitalization Category Date Time Status CT chest abdomen pelvis [[place] [id number] Cat Scan 08/03/22 06:05 Completed ] Routine CT chest abdomen pelvis [[place] [id number] Cat Scan 07/26/22 16:32 Completed ] Stat CT head wo con* [id number] Routine Cat Scan 07/27/22 08:[address] head wo con* [id number] Stat Cat Scan 07/26/22 10:[address] head wo con* [id number] Stat Cat Scan 08/01/22 11:49 Completed CXRP [XR chest 1V portable [id number]] Routine Exams 07/29/22 08:29 Completed XR chest 1V portable [id number] Routine Exams 07/27/22 05:23 Completed XR chest 1V portable [id number] Stat Exams 07/26/22 14:09 Completed XR chest 1V portable [id number] Stat Exams 07/27/22 21:51 Completed CV. echo complete* [id number] Routine Ultrasound 07/26/22 16:42 Completed [place] chest [id number] Routine Ultrasound 07/28/22 18:25 Completed Pending at discharge Category Date Time Status Blood Culture Stat Lab 08/03/22 06:56 Results Complete Blood Count w/Auto AM LABS Lab 08/08/22 04:00 Ordered Comprehensive Metabolic Panel AM LABS Lab 08/08/22 04:00 Ordered Comprehensive Metabolic Panel AM LABS Lab 08/09/22 04:00 Ordered Magnesium AM LABS Lab 08/08/22 04:00 Ordered Magnesium AM LABS Lab 08/09/22 04:00 Ordered Phosphorus AM LABS Lab 08/08/22 04:00 Ordered Phosphorus AM LABS Lab 08/09/22 04:00 Ordered Sputum Culture and Gram Stain Stat Lab 08/04/22 15:40 Results Radiology Impressions Chest Ultrasound 07/28/22 18:25 Impression: Negative for left pleural effusion. Chest X-Ray 07/29/22 08:29 Impression: 1. Improved aeration in the left upper lobe. 2. No change in position of nasogastric tube and endotracheal tube. Head CT 08/01/22 11:[address]: 1[address] No CT evidence of acute intracranial pathology. 2. Additional findings, as above. Chest/Abdomen/Pelvis CT 08/03/22 06:05 IMPRESSION: 1. There is persistent atelectasis and patchy infiltrate in the left lower lobe but when compared to the previous examination the pneumonia has improved. 2. There is an 11 mm noncalcified nodule in the left upper lobe.For both low risk and high risk patients, consider CT Chest at 3 months, PET/CT, or IMPRESSION: 1. Prominent amount of stool in the rectum may indicate impaction. 2. No acute abnormality is seen in the abdomen and pelvis. Pertinent imaging: CT head July 26: Stable appearance of light basal ganglia infarct which is old. Chest x-ray July 26: Ill-defined opacity in the left lower lobe concerning for possible pneumonia. CT of the chest abdomen and pelvis on July 26: Diffuse infiltrate in the left lower lobe likely secondary to pneumonia and atelectasis.? No acute findings within the abdomen or pelvis.? Retained stool in the large bowel.? Mild splenomegaly.? Above is per radiology read.? Pneumonia does not appear impressive enough to explain her persistent fevers. July 27 chest x-ray prior to intubation with unchanged lower zone opacification July 27 chest x-ray: Opacification of the left hemithorax and mediastinal shift. (developed post intubation). July 28 ultrasound of the chest: No evidence of pleural effusion July chest x-ray: Improved aeration in the left upper lobe. Microbiology 08/04/22 15:40 Sputum - Endotracheal Tube Aspirate Gram Stain - Final 08/04/22 15:40 Sputum - Endotracheal Tube Aspirate Sputum Culture - Preliminary 07/30/22 22:39 Blood Blood Culture - Final NO GROWTH AFTER 5 DAYS 07/30/22 22:35 Blood Blood Culture - Final NO GROWTH AFTER 5 DAYS 07/30/22 22:37 Urine Catheterized Urine Culture - Final Roberta glabrata 08/03/22 06:56 Blood Blood Culture - Preliminary NEGATIVE TO DATE 08/03/22 06:56 Blood Blood Culture - Preliminary NEGATIVE TO DATE 08/03/22 Unknown Nose MRSA Culture - Final 08/01/22 14:50 Other Source Catheter Tip Culture - Final 08/02/22 18:15 Stool - Stool Aspirate C.difficile Toxin B Gene (PCR) - Final 07/28/22 07:46 Sputum - Endotracheal Tube Aspirate Gram Stain - Final 07/28/22 07:46 Sputum - Endotracheal Tube Aspirate Sputum Culture - Final Roberta glabrata 07/26/22 17:23 Blood Blood Culture - Final NO GROWTH AFTER 5 DAYS 07/26/22 17:28 Blood Blood Culture - Final NO GROWTH AFTER 5 DAYS 07/27/22 18:45 Urine,Voided Bacterial Antigens - Final 07/27/22 18:45 Urine,Clean Catch Legionella Urinary Antigen - Final 07/26/22 18:45 Nose MRSA Culture - Final 07/26/22 20:43 Urine Catheterized Legionella Urinary Antigen - Final 07/26/22 14:32 Urine Kidney Bacterial Antigens - Final Laboratory Results WBC 5.6 10^3/uL (4.0-10.0) 08/07/22 03:46 RBC 3.94 10^6/uL (4.1-5.3) L 08/07/22 03:46 Hgb 11.6 g/dL (11.5-15.3) 08/07/22 03:46 Hct 39.6 % (37.0-47.0) 08/07/22 03:46 MCV 100.5 fl (81-99) H 08/07/22 03:46 MCH 29.4 pg (28.0-34.0) 08/07/22 03:46 MCHC 29.3 g/dL (30.0-36.0) L 08/07/22 03:46 RDW 15.1 % (12.1-15.1) 08/07/22 03:46 Plt Count 271 10^3/cmm (130-400) 08/07/22 03:46 MPV 13.0 fL (7.4-10.4) H 08/07/22 03:46 Neut % (Auto) 61.4 % 08/07/22 03:46 Lymph % (Auto) 20.8 % 08/07/22 03:46 [place]ley % (Auto) 10.3 % 08/07/22 03:46 Eos % (Auto) 5.5 % 08/07/22 03:46 Baso % (Auto) 0.9 % 08/07/22 03:46 Neut # (Auto) 3.46 10^3/uL (1.8-7.7) 08/07/22 03:46 Lymph # (Auto) 1.2 10^3/uL (0.8-4.8) 08/07/22 03:46 Whitley # (Auto) 0.6 10^3/uL (0.2-0.9) 08/07/22 03:46 Eos # (Auto) 0.3 10^3/uL (0.0-0.8) 08/07/22 03:46 Baso # (Auto) 0.1 10^3/uL (0.0-0.1) 08/07/22 03:46 Nucleated RBC % (auto) 0 % 08/07/22 03:46 Nucleated RBCs # 0.0 /100WBC 08/07/22 03:46 ESR 41 mm/hr (0-15) H 07/27/22 05:30 PT 20.30 SECONDS (12.1-14.9) H 07/26/22 17:23 INR 1.70 (0.8-1.2) H 07/26/22 17:23 D-Dimer 1.08 ug/mIFEU (0-0.59) H 08/03/22 09:23 Specimen Type Arterial 07/31/22 05:46 Sample Site Brachial, right 07/31/22 05:46 ABG pH 7.41 (7.35-7.45) 07/31/22 05:46 ABG pCO2 35.2 mmHg (35-45) 07/31/22 05:46 ABG pO2 105.0 mmHg (80.0-100.0) H 07/31/22 05:46 ABG HCO3 22.3 mmol/L (22-26) 07/31/22 05:46 ABG O2 Saturation 98.6 07/31/22 05:46 ABG Base Excess -1.8 mmol/L (-2.0-2.0) 07/31/22 05:46 Quique Test N/a 07/31/22 05:46 A-a O2 Gradient 13.1 mmHg (5-10) H 07/31/22 05:46 Hematocrit 44.3 % (37-47) 07/31/22 05:46 Hgb O2 Saturation 96.9 % (95-100) 07/31/22 05:46 Carboxyhemoglobin 0.8 %THgb (0.4-20.1) 07/31/22 05:46 Methemoglobin 0.9 % (0.4-1.5) 07/31/22 05:46 Total Hemoglobin 14.5 g/dL (12-16) 07/31/22 05:46 Sodium 143.0 mmol/L (131-143) 07/31/22 05:46 Potassium 3.3 mmol/L (3.5-5.0) L 07/31/22 05:46 Glucose 254.0 mg/dL (70-115) H 07/31/22 05:46 Ionized Calcium 1.2 mmol/L (1.1-1.4) 07/31/22 05:46 O2 Delivery Device Vent 07/31/22 05:46 O2 Liters/Min 6.0 % 07/27/22 20:25 FiO2 35.0 % 07/31/22 05:46 Tidal Volume 0.43 07/31/22 05:46 PEEP 8.0 cmH20 07/31/22 05:46 Carpenter Packing ID Adryan 07/31/22 05:46 Sodium 152 mmol/L (136-145) H 08/07/22 03:46 Potassium 4.5 mmol/L (3.5-5.1) 08/07/22 03:46 Chloride 119 mmol/L (98-107) H 08/07/22 03:46 Carbon Dioxide 20 mmol/L (22-29) L 08/07/22 03:46 Anion Gap 17.5 (5-19) 08/07/22 03:46 BUN 29 mg/dL (6-20) H 08/07/22 03:46 Creatinine 1.2 mg/dL (0.5-0.9) H 08/07/22 03:46 GFR Calculation 47.0 mL/min (90-130) L 08/07/22 03:46 Glucose 125 mg/dL (65-115) H 08/07/22 03:46 POC Glucose 128 mg/dL (70-110) H 08/07/22 07:26 Estimat Average Glucose 123 07/27/22 04:03 Hemoglobin A1c 5.9 % (4.0-6.0) 07/27/22 04:03 Calculated Osmolality 321 mOsm/kg (285-295) H 08/07/22 03:46 Lactate 0.7 mmol/L (0.5-2.2) 07/27/22 05:30 Calcium 9.9 mg/dL (8.5-10.5) 08/07/22 03:46 Phosphorus 3.3 mg/dL (2.5-4.5) 08/07/22 03:46 Magnesium 2.3 mg/dL (1.7-2.3) 08/07/22 03:46 Iron 22 ug/dL (37-145) L 07/26/22 17:23 TIBC 392 mcg/dl 07/26/22 17:23 % Saturation 5.6 % (20-50) L 07/26/22 17:23 Unsat Iron Binding 370 ug/dL (112-347) H 07/26/22 17:23 Total Bilirubin 0.3 mg/dL (0.15-1.2) 08/07/22 03:46 AST 23 U/L (0-32) 08/07/22 03:46 ALT 19 U/L (0-33) 08/07/22 03:46 Alkaline Phosphatase 63 U/L (35-105) 08/07/22 03:46 Ammonia 56 umol/L (11-51) H 07/27/22 05:06 Creatine Kinase 137 U/L (26-192) 08/01/22 04:35 C-Reactive Protein 147.2 mg/L (0.0-4.9) H 07/26/22 10:30 Total Protein 7.0 g/dL (6.6-8.7) 08/07/22 03:46 Albumin 3.7 g/dL (3.5-5.2) 08/07/22 03:46 Globulin 3.3 g/dL (1.3-4.6) 08/07/22 03:46 Triglycerides 257 mg/dL (0-150) H 07/27/22 04:03 Cholesterol 137 mg/dL (0-200) 07/27/22 04:03 LDL Cholesterol, Calc 56 mg/dL (50-129) 07/27/22 04:03 Total VLDL Cholesterol 51 mg/dL (0-30) H 07/27/22 04:03 HDL Cholesterol 30 mg/dL (60-100) L 07/27/22 04:03 Cholesterol/HDL Ratio 4.57 mg/dL (0.0-4.40) H 07/27/22 04:03 Lipase 100 U/L (13-60) H 07/27/22 04:03 Vitamin B12 250 pg/mL (232-1245) 07/26/22 17: Folate 6.7 ng/mL (4.8-37.3) 07/26/22 17:23 Procalcitonin 0.41 ng/mL (0-0.5) 07/27/22 04:03 TSH 0.59 uIU/mL (0.27-4.20) 07/27/22 04:03 Urine Color Colorless (Yellow) 08/06/22 04:23 Urine Appearance Clear (CLEAR) 08/06/22 04:23 Urine pH 7 (5-7) 08/06/22 04:23 Ur Specific [place] 1.005 (1.005-1.030) 08/06/22 04:23 Urine Protein Neg (Negative) 08/06/22 04:23 Urine Glucose (UA) Norm (Normal) 08/06/22 04:23 Urine Ketones Negative (Negative) 08/06/22 04:23 Urine Blood 2+ (Negative) H 08/06/22 04:23 Urine Nitrate Negative (Negative) 08/06/22 04:23 Urine Bilirubin Neg (Negative) 08/06/22 04:23 Urine Urobilinogen Norm mg/dL (Negative) 08/06/22 04:23 Ur Leukocyte Esterase Negative (Negative) 08/06/22 04:23 Urine RBC 0-4 /hpf (0-2) H 08/06/22 04:23 Urine WBC None /hpf (0-5) 08/06/22 04:23 Ur Squamous Epith Cells 0-4 /hpf (0-5) H 08/06/22 04:23 Amorphous Sediment Not Reportable 08/06/22 04:23 Urine Bacteria None /hpf (NONE) 08/06/22 04:23 Urine Osmolality 229 mOsm/kg (50-1200) 08/04/22 Unknown Ur Random Sodium 53 mmol/L 08/06/22 04:23 Ur Random Potassium 4 mmol/L 08/06/22 04:23 Ur Random Chloride 37 mmol/L 08/06/22 04:23 Urine Creatinine 37 mg/dL (28-217) 07/26/22 14:32 Vancomycin Trough 12.1 ug/mL (10-15) 08/05/22 12:47 Random Vancomycin 11.5 ug/mL (20.0-40.0) L 08/07/22 03:46 Salicylates < 0.3 mg/dL (3-10) L 07/27/22 04:03 Urine Opiates Screen Positive ng/mL (Negative) H 07/26/22 14:32 Acetaminophen < 5.0 ug/mL (10-30) L 07/27/22 04:03 Ur Barbiturates Screen Negative ng/mL (Negative) 07/26/22 14:32 Lamotrigine 5.6 mcg/mL (4.0-18.0) 07/27/22 04:03 Ur Phencyclidine Scrn Negative ng/mL (Negative) 07/26/22 14:32 Ur Amphetamines Screen Negative ng/mL (Negative) 07/26/22 14:32 U Benzodiazepines Scrn Negative ng/mL (Negative) 07/26/22 14:32 [place] 1.2 mmol/L (0.6-1.2) 07/29/22 03:27 Urine Cocaine Screen Negative ng/mL (Negative) 07/26/22 14:32 U Marijuana (THC) Screen Negative ng/mL (Negative) 07/26/22 14:32 Serum Ketones Negative (Negative) 07/30/22 18:23 Coronavirus 229E (PCR) Not detected (NOT DETECT) 08/03/22 Unknown Hepatitis A IgM Ab Non-reactive (Nonreactive) 07/28/22 04:35 Hep Bs Antigen Non-reactive (Nonreactive) 07/28/22 04:35 Hep Bs Antibody < 3.5 (11.5-1000) L 07/28/22 04:35 Hep B Core Total Ab Non-reactive (Nonreactive) 07/28/22 04:35 Hep B Core Total Ab Non-reactive (Nonreactive) 07/28/22 04:35 Hepatitis C Antibody Non-reactive (Nonreactive) 07/28/22 04:35 Influenza Type A Ag negative (Negative) 07/26/22 15:54 Influenza Type B Ag negative (Negative) 07/26/22 15:54 SARS-CoV-2 (PCR) Not detected (NOT DETECT) 08/03/22 Unknown SARS-CoV-2 Ag (Rapid) negative (Negative) 07/26/22 15:54 Vitals Last Vital Signs Temp 99.6 F 08/07/22 04:30 Pulse 80 08/07/22 09:34 Resp 16 08/07/22 09:00 BP 104/55 08/07/22 09:00 Pulse Ox 94 08/07/22 09:00 O2 Del Method 08/07/22 09:00 O2 Flow Rate 2 08/05/22 03:44 FiO2 28 08/04/22 16:00 Discharge Plan Discharge Patient Disposition: Xfer LT Condition: Stable Prescriptions: New gabapentin 100 mg Capsule 100 mg PO TID 30 Days Qty: 90 0RF insulin lispro [Humalog U-100 Insulin] 100 unit/mL Solution See Protocol SUBCUT WM&BEDTIME Qty: 10 0RF Protocol: Insulin Corrective High-Dose Regimen Condition: Fingerstick Blood Glucose Dose/Route: Insulin Units Condition: 141-180 mg/dl Dose/Route: 4 units/SQ Condition: 181-220 mg/dl Dose/Route: 6 units/SQ Condition: 221-260 mg/dl Dose/Route: 8 units/SQ Condition: 261-300 mg/dl Dose/Route: 12 units/SQ Condition: 301-350 mg/dl Dose/Route: 14 units/SQ Condition: 351-400 mg/dl Dose/Route: 16 units/SQ Condition: greater than 400 mg/dl Dose/Route: 18 units/SQ ferrous gluconate 324 mg (37.5 mg iron) Tablet 324 mg PO BIDWM Qty: 60 0RF metoprolol tartrate 25 mg Tablet 12.5 mg PO BID@0900,2100 30 Days Qty: 30 0RF Continued (DME) blood-glucose meter [OneShareGroveuch Ultra2 Meter] Misc See Rx Instructions .Route Qty: 1 0RF Rx Instructions: to use to check blood sugar TID (DME) OneTouch Ultra Test Strip See Rx Instructions .Route Qty: 300 3RF Rx Instructions: to use in onetouch meter TID to check blood sugar 90 supply nicotine 14 mg/24 hr patch 24 hour 1 patch transdermal DAILY Qty: 28 0RF hydrocodone-acetaminophen 7.5-325 mg tablet 1 tab PO QID PRN (Reason: pain) 30 Days Qty: 120 0RF Rx Instructions: fill on or after 09/05/21 fenofibrate nanocrystallized 145 mg tablet 145 mg PO DAILY Qty: 90 1RF (DME) lancets [OneTouch Delica Lancets] 30 gauge misc See Rx Instructions .Route Qty: 300 3RF Rx Instructions: use to check blood sugar TID 90 day supply hydroxyzine HCl 25 mg tablet 50 mg PO TID PRN (Reason: anxiety) Qty: 180 2RF lamotrigine 150 mg tablet 150 mg PO BID Qty: 60 2RF Januvia 25 mg tablet 25 mg PO DAILY Qty: 90 0RF budesonide-formoterol [Symbicort] 160-4.5 mcg/actuation HFA aerosol inhaler 2 puff inhalation Q12H Qty: 10.2 2RF methocarbamol 750 mg tablet 750 mg PO QID PRN (Reason: Muscle Spasm) omeprazole 20 mg capsule,delayed release(DR/EC) 20 mg PO DAILY albuterol sulfate [ProAir HFA] 90 mcg/actuation HFA aerosol inhaler 2 puff inhalation Q6H PRN (Reason: Shortness Of Breath Or Wheezing) Changed atorvastatin 40 mg tablet 20 mg PO DAILY 90 Days Qty: 90 1RF insulin glargine [Lantus Solostar U-100 Insulin] 100 unit/mL (3 mL) insulin pen 30 unit SUBCUT QPM Qty: 30 0RF Discontinued gabapentin 800 mg tablet 800 mg PO QID 30 Days Qty: 120 1RF lithium carbonate 300 mg capsule 600 mg PO BID Qty: 120 2RF risperidone 2 mg tablet 2 mg PO BID Qty: 60 2RF ibuprofen 200 mg Capsule 400 mg PO Q6H PRN (Reason: Pain) Discharge Orders: Discharge Order (Routine); Ordered 08/07/22 Ordered By: Carrington Voss Referrals: [facility] [Other] (Call this number to get [facility] Home Services [facility]. They will ask you questions & based off your answers, you are given points. You have to have a certain number of points to qualify for In Home Services. ) Annabel Arcos DO [Primary Care Provider] - 2 weeks Discharge Diet: Advance as tolerated and As Directed Discharge Activity: Resume usual activity and Increase activity as tolerated Patient Instructions: Opioid Safety Activity Restrictions/Additional Instructions: It is advised that dose of gabapentin should be decreased to 100 mg 3 times a day. Patient should not be on risperidone for now. Patient should not be on lithium anymore going forward. Dose of Lantus has been changed to 30 units nightly. Insulin sliding scale. Continue meropenem for 2 more days to finish a course of IV antibiotics for 7 days. Check BMP every 8 hourly for monitoring of sodium levels. Continue with NG tube free water flushes. Currently patient is getting 300 every 4 hourly. Change the fluid rate and free water flush rate as per dynamic sodium levels and dynamic daily urine output. Increase physical activity as tolerated with physical therapy. Dysphagia level 4 diet/extremely thick and pur?e. Advance with speech therapy gradually. Please follow-up with a powertrain control systems engineer and behavioral health clinic as an outpatient. Discharge Attestations Time Spent in Discharge Care*: greater than 30 min Status at Discharge: Cognitive status at discharge: moderately impaired cognition , Behavioral status at discharge: cooperative , Functional status at discharge: other assisted ambulation , Overall status at discharge: patient is progressing back to baseline Quality Metrics Clinical Quality Measures [ No reported AMI, CVA or VTE this stay] Coding Level of Care Code Acute Chg FW DC note History Comprehensive Exam Comprehensive Medical Decision Making High Complexity Diagnoses Fever R50.9 Pneumonia J18.9 [place] toxicity T56.891A SAMANTHA (acute kidney injury) N17.9 Oropharyngeal candidiasis B37.0 Diabetes insipidus E23.2 Goals of care, counseling/discussion Z71.89 Ventilator dependent Z99.11 Toxic metabolic encephalopathy G92.8 Hypernatremia E87.0 COPD (chronic obstructive pulmonary disease) J43.1 COPD type: emphysema Emphysema type: panlobular Uncontrolled type II diabetes mellitus E11.65 Glycemic state: with hyperglycemia
--- NOTE | 2022-08-07 11:12 | PM.PN ---
Vitals/I&O/Wt Last Vital Signs Temp 99.6 F 08/07/22 04:30 Pulse 80 08/07/22 09:34 Resp 16 08/07/22 09:00 BP 104/55 08/07/22 09:00 Pulse Ox 94 08/07/22 09:00 O2 Del Method 08/07/22 09:00 O2 Flow Rate 2 08/05/22 03:44 FiO2 28 08/04/22 16:00 08/06/22 08/07/22 08/07/22 22:59 06:59 14:59 Intake Total 1225 / 1395 50 / 1445 480 / 480 Output Total 2950 / 3650 1125 / 4775 Balance -1725 / -2255 -1075 / -3330 480 / 480 Weight last 48 hrs Weight 90.917 kg Weight 94.347 kg Physical Exam Urinary Catheter Management: López: Cath Placed During This Visit: yes Reason for Continuing Indwelling Catheter: Accurate Measurement of Urinary Output in Critically Ill Patients Urinary Catheter Date of Insertion: 07/26/22 Data 08/07/22 03:46 08/07/22 03:46 Other Labs: Ca 9.9, phos 3.3, Mg 2.3 Micro: Microbiology 08/04/22 15:40 Gram Stain - Final Sputum - Endotracheal Tube Aspirate Sputum Culture - Preliminary A&P Assessment and plan Plan 1. 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 s/p dialysis for lithium toxicity 3. Fungal UTI and pneumonia Attestations Medical Necessity Statement*: see above Coding Level of Care Code Acute Code for Chg Fwd
[2022-08-07 12:04] LABS: Glucose Point of Care 197 mg/dL (70-110)
[2022-08-07] MEDS: HYDROcodone-acetaminophen 7.5-325 mg Tablet 1 TAB PO ×2 (12:22→17:54)
[2022-08-07] MEDS: insulin lispro 100 unit/1 mL SUBCUT ×2 (12:23→20:08)
[2022-08-07 17:27] LABS: Glucose Point of Care 113 mg/dL (70-110)
[2022-08-07 17:28] LABS: Anion Gap 15.4 (5-19); Blood Urea Nitrogen 27 mg/dL (6-20); Calcium 10.2 mg/dL (8.5-10.5); Carbon Dioxide 19 mmol/L (22-29); Chloride 118 mmol/L (98-107); Glomerular Filtration Rate 42.8 mL/min (90-130); Glucose 118 mg/dL (65-115); Osmolality Calculated 312 mOsm/kg (285-295); Potassium 4.4 mmol/L (3.5-5.1); Sodium 148 mmol/L (136-145)
[2022-08-07 19:57] LABS: Glucose Point of Care 164 mg/dL (70-110)
[2022-08-07] MEDS: insulin glargine 100 units/1 mL 30 UNIT SUBCUT (20:08)
== END 2022-08-07 21:10 | DRG 163 ==
LOC: ER 16:54 → MEDSURG 18:29 → ICU 07-27 06:45
PROVIDERS: Family Medicine; Hospitalist; Internal Medicine; Internal Medicine Nephrology; Specialist; Thoracic Surgery (Cardiothoracic Vascular Surgery); Admitting Provider Student in an Organized Health Care Education/Training Program; Emergency Provider Student in an Organized Health Care Education/Training Program; PCP Family Medicine; Visit Provider Student in an Organized Health Care Education/Training Program
PROC: 0BJ08ZZ Inspection of Tracheobronchial Tree, Via Natural or Artificial Opening Endoscopic (ICD-10-PCS; CPT 31622; principal; 2022-07-28 17:00)
DX: J69.0 Pneumonitis due to inhalation of food and vomit (principal); G92.8 Other toxic encephalopathy; J96.01 Acute respiratory failure with hypoxia; N17.9 Acute kidney failure, unspecified; B37.0 Candidal stomatitis; E87.0 Hyperosmolality and hypernatremia; G62.81 Critical illness polyneuropathy; T43.595A Adverse effect of other antipsychotics and neuroleptics, initial encounter; E11.22 Type 2 diabetes mellitus with diabetic chronic kidney disease; E11.65 Type 2 diabetes mellitus with hyperglycemia; N18.31 Chronic kidney disease, stage 3a; J43.1 Panlobular emphysema; M54.42 Lumbago with sciatica, left side; M54.41 Lumbago with sciatica, right side; Z79.891 Long term (current) use of opiate analgesic; R50.9 Fever, unspecified; Z22.322 Carrier or suspected carrier of Methicillin resistant Staphylococcus aureus; Z66 Do not resuscitate; F41.1 Generalized anxiety disorder; Z88.2 Allergy status to sulfonamides; Z86.73 Personal history of transient ischemic attack (TIA), and cerebral infarction without residual deficits; T39.395A Adverse effect of other nonsteroidal anti-inflammatory drugs [NSAID], initial encounter; F40.01 Agoraphobia with panic disorder; F17.200 Nicotine dependence, unspecified, uncomplicated; E78.5 Hyperlipidemia, unspecified; F31.9 Bipolar disorder, unspecified; Z79.4 Long term (current) use of insulin; Z79.51 Long term (current) use of inhaled steroids; Z79.84 Long term (current) use of oral hypoglycemic drugs; R13.10 Dysphagia, unspecified
CPT/HCPCS: 12345; 31500; 36415; 36416; 36600; 51702; 70450; 71045; 71250; 74176; 76604; 80048; 80051; 80053; 80061; 80175; 80178; 80202; 80306; 80307; 81001; 81003; 82009; 82140; 82330; 82436; 82550; 82570; 82607; 82746; 82803; 82805; 82962; 83036; 83540; 83550; 83605; 83690; 83735; 83935; 84100; 84133; 84145; 84295; 84300; 84443; 85025; 85378; 85610; 85651; 86140; 86403; 86704; 86705; 86706; 86709; 86803; 87040; 87070; 87075; 87086; 87106; 87205; 87340; 87426; 87449; 87493; 87635; 87641; 87804; 90935; 92526; 92610; 93005; 93306; 94002; 94003; 94640; 94669; 94799; 96365; 96372; 97110; 97162; 97164; 97167; 97530; 97535; 99285; A4570; C9113; J0131; J0290; J0330; J0696; J1170; J1450; J1644; J1815; J1953; J2060; J2185; J2248; J2543; J2597; J2704; J3010; J3370; J3411; J3420; J3480; J3490; J7030; J7060; J7070; J7608; J7613; J7626; J7644; J7799; P9047; Q3014

== ENCOUNTER → 2022-09-01 08:36 | Outpatient (BNVA) | payer MEDICAID, SELFPAY ==
[2021-02-26 09:16] VITALS: BP 133/74; BMI 36.9
== END ==
PROVIDERS: PCP Family Medicine; Visit Provider Orthopaedic Surgery
DX: M17.12 Unilateral primary osteoarthritis, left knee (principal)
CPT/HCPCS: 20610; 73560; 73565; 99213; J0702; J3490

== ENCOUNTER 2022-09-04 15:34 | Emergency (ER) | payer MEDICAID, SELFPAY ==
[2021-02-26 09:16] VITALS: BP 133/74; BMI 36.9
[2022-09-04 15:36] VITALS: BP 135/75; PULSE 82; RESP 16; TEMP 36.7; O2SAT 96
[2022-09-04 15:42] VITALS: BP 118/51; PULSE 78; RESP 15; O2SAT 95
--- NOTE | 2022-09-04 15:47 | ED_ITS ---
Documented by User: RADHA Urban 09/04/22 16:57 HPI - Extremity Problem General: Chief complaint: Extremity Problem,Nontraumatic Stated complaint: left arm swollen and hurting Time Seen by Provider: 09/04/22 15:46 Source: patient Mode of arrival: ambulatory Limitations: no limitations History of Present Illness: Patient is a 52-year-old female presents to ED today with a complaint of left arm pain and swelling. Patient states upon arrival she is not really having much swelling to her left arm but states she has had previously. She is concerned as she had an IV placed to that arm recently. She was seen at an [facility] clinic prior to arrival and sent to the ED for DVT rule out. MD Complaint: extremity pain and extremity swelling Onset (ago): day(s) Pain Consistency: constant Location: left and upper extremity Radiation: none Relieving factors: nothing Exacerbating factors: nothing Associated symptoms: Reports no associated symptoms; Deny chest pain, fever(s) or rash Context: other (recent IV insertion ) Review of Systems Const: Denies: fever(s), chills, body aches, fatigue or malaise Card: Denies: chest pain Resp: Denies: dyspnea Musc: Reports: extremity pain and extremity swelling; Denies: neck pain, back pain, joint pain or joint swelling Skin/Breast: Denies: rash, erythema or changes in skin color Neuro: Denies: numbness in extremities, weakness in extremities or sensory changes [facility] ED PFSH: Medical History Bipolar 1 disorder Bipolar disorder, current episode depressed, severe, with psychotic features Chronic bilateral low back pain with bilateral sciatica Chronic headache with normal neurologic examination Dyslipidemia Encounter for long-term opiate analgesic use Encounter for long-term use of opiate analgesic Generalized anxiety disorder [place] use Long-term use of high-risk medication Migraine aura without headache Neck pain Opioid contract exists Panic disorder with agoraphobia Psychiatric care Type 2 diabetes mellitus, without long-term current use of insulin Surgical History History of adenoidectomy S/P tonsillectomy AGE 4 Family History Mother Hypertension Grandmother Hypertension Atrial fibrillation Other Bipolar 1 disorder CAD (coronary artery disease) Denies family history of Anesthesia complication Bleeding disorder Social History Smoking and tobacco status: current every day smoker Quit status (tobacco): has tried quititng Second hand smoke exposure: Yes Smoking risk assessment/counseling performed?: Yes Tobacco counseling given: counseling >3 minutes Alcohol intake: former Year of sobriety/quit date alcohol: 1999 Former alcohol use details: alcoholic - quit in 1999 Desire information about alcohol rehabilitation?: No Counseling given: No Adopted: No Caregiver/support person: No Lives independently: Yes Household members: family and children Housing: House Marital status: Number of children: 3 Number of grandchildren: 1 Highest education level completed: GED or Equivalent service: No Current occupational status: disabled Pets and animals: Yes Pets & animals: cat(s) and dog(s) Pets & animal details: indoor History of recent travel: No Leisure activites: music, reading and other Leisure activities details: watch T V Sexually active: No Current gender identity: Female Tessa/Oriental Orthodox: Bahai Special tessa needs: No Agree to transfusion: Yes Financial difficulty paying for basics: Not Very Hard Female Reproductive History: Para: 3 Spontaneous abortions: No Date of menopause: 08/27/17 Physical Exam Const: COMMON NORMALS: no acute distress, patient oriented x3, no limitations, alert and well nourished GENERAL APPEARANCE: cooperative ORIENTATION/CONSCIOUSNESS: Yes awake, Yes oriented to person, Yes oriented to place and Yes oriented to time Neck/C-Spine: COMMON NORMALS: full ROM, no lymphadenopathy, no meningeal signs and no JVD GENERAL: Yes normal visual inspection Resp: COMMON NORMALS: normal respiratory effort and clear to auscultation bilaterally AUSCULTATION: clear to auscultation bilaterally Cardio: COMMON NORMALS: no JVD, regular rate and regular rhythm RATE: regular rate RHYTHM: regular rhythm Extremity: COMMON NORMALS: full ROM, capillary refill normal, no joint enlargement and no clubbing, cyanosis or edema GENERAL: Yes normal exam except as noted LEFT UPPER EXTREMITY: Yes upper arm OTHER: no obvious swelling noted to L UE; distal pulses, cap refill, sensation normal; no redness/warmth/coolness/pallor noted; she is mainly tender throughout upper portion of arm where she states her IV was placed; strength intact; ROM normal; no obvious palpable cords appreciated Neuro: COMMON NORMALS: patient oriented x3, moves all extremities, no focal motor deficits and no sensory deficits noted SENSORIUM/ORIENTATION: Yes alert, Yes oriented to person, Yes oriented to place and Yes oriented to time MENINGEAL SIGNS: Yes no meningeal signs Skin: COMMON NORMALS: no rashes or lesions noted GENERAL SKIN EXAM: no rashes or lesions noted TRAUMA: no lacerations or abrasions Course Vital Signs: Vital signs: Vital Signs Temperature 98.1 F 09/04/22 15:36 Pulse Rate 74 09/04/22 18:59 Respiratory Rate 16 09/04/22 18:59 Blood Pressure 134/66 09/04/22 18:59 Pulse Oximetry 98 09/04/22 18:59 Oxygen Delivery Me thod 09/04/22 18:59 MDM - Extremity (Nontraumatic) Lab Data Radiology Impressions Venous Duplex 09/04/22 15:52 IMPRESSION: No evidence of deep vein thrombosis, left upper extremity. Discharge Plan Discharge Patient Disposition: Home Clinical Impression: Phlebitis Condition: Stable Prescriptions: No Action (DME) blood-glucose meter [OneTouch Ultra2 Meter] Misc See Rx Instructions .Route Qty: 1 0RF Rx Instructions: to use to check blood sugar TID (DME) OneTouch Ultra Test Strip See Rx Instructions .Route Qty: 300 3RF Rx Instructions: to use in onetouch meter TID to check blood sugar 90 supply nicotine 14 mg/24 hr patch 24 hour 1 patch transdermal DAILY Qty: 28 0RF hydrocodone-acetaminophen 7.5-325 mg tablet 1 tab PO QID PRN (Reason: pain) 30 Days Qty: 120 0RF Rx Instructions: fill on or after 09/05/21 fenofibrate nanocrystallized 145 mg tablet 145 mg PO DAILY Qty: 90 1RF (DME) lancets [OneTouch Delica Lancets] 30 gauge misc See Rx Instructions .Route Qty: 300 3RF Rx Instructions: use to check blood sugar TID 90 day supply hydroxyzine HCl 25 mg tablet 50 mg PO TID PRN (Reason: anxiety) Qty: 180 2RF lamotrigine 150 mg tablet 150 mg PO BID Qty: 60 2RF Januvia 25 mg tablet 25 mg PO DAILY Qty: 90 0RF budesonide-formoterol [Symbicort] 160-4.5 mcg/actuation HFA aerosol inhaler 2 puff inhalation Q12H Qty: 10.2 2RF methocarbamol 750 mg tablet 750 mg PO QID PRN (Reason: Muscle Spasm) omeprazole 20 mg capsule,delayed release(DR/EC) 20 mg PO DAILY albuterol sulfate [ProAir HFA] 90 mcg/actuation HFA aerosol inhaler 2 puff inhalation Q6H PRN (Reason: Shortness Of Breath Or Wheezing) Humalog U-100 Insulin 100 unit/mL Solution See Protocol SUBCUT WM&BEDTIME Qty: 10 0RF Protocol: Insulin Corrective High-Dose Regimen Condition: Fingerstick Blood Glucose Dose/Route: Insulin Units Condition: 141-180 mg/dl Dose/Route: 4 units/SQ Condition: 181-220 mg/dl Dose/Route: 6 units/SQ Condition: 221-260 mg/dl Dose/Route: 8 units/SQ Condition: 261-300 mg/dl Dose/Route: 12 units/SQ Condition: 301-350 mg/dl Dose/Route: 14 units/SQ Condition: 351-400 mg/dl Dose/Route: 16 units/SQ Condition: greater than 400 mg/dl Dose/Route: 18 units/SQ ferrous gluconate 324 mg (37.5 mg iron) Tablet 324 mg PO BIDWM Qty: 60 0RF atorvastatin 40 mg tablet 20 mg PO DAILY 90 Days Qty: 90 1RF Lantus Solostar U-100 Insulin 100 unit/mL (3 mL) insulin pen 30 unit SUBCUT QPM Qty: 30 0RF Discharge Orders: Discharge ED (Routine); Ordered 09/04/22 Ordered By: [facility]an [facility]ters [facility] Referrals: Annabel Arcos DO [Primary Care Provider] - Discharge Diet: Advance as tolerated Discharge Activity: Resume usual activity Patient Instructions: Phlebitis (ED), Opioid Safety, Pain Management Activity Restrictions/Additional Instructions: Activity as tolerated Take your normally prescribed medication as needed for pain. I would also add ice and heat to the tender areas. If your pain persists you may discuss with Dr. Arcos further. Additional imaging may be indicated. Please return to the emergency department for new, concerning, or worsening symptoms Coding Level of Care Code ED Furniture Dipper for Chg Fwd Documented by User: DIRK Brown 09/05/22 00:07 HPI - Extremity Problem General: Chief complaint: Extremity Problem,Nontraumatic Stated complaint: left arm swollen and hurting Time Seen by Provider: 09/04/22 15:46 PFSH ED PFSH: Medical History Bipolar 1 disorder Bipolar disorder, current episode depressed, severe, with psychotic features Chronic bilateral low back pain with bilateral sciatica Chronic headache with normal neurologic examination Dyslipidemia Encounter for long-term opiate analgesic use Encounter for long-term use of opiate analgesic Generalized anxiety disorder [place] use Long-term use of high-risk medication Migraine aura without headache Neck pain Opioid contract exists Panic disorder with agoraphobia Psychiatric care Type 2 diabetes mellitus, without long-term current use of insulin Surgical History History of adenoidectomy S/P tonsillectomy AGE 4 Family History Mother Hypertension Grandmother Hypertension Atrial fibrillation Other Bipolar 1 disorder CAD (coronary artery disease) Denies family history of Anesthesia complication Bleeding disorder Social History Smoking and tobacco status: current every day smoker Quit status (tobacco): has tried quititng Second hand smoke exposure: Yes Smoking risk assessment/counseling performed?: Yes Tobacco counseling given: counseling >3 minutes Alcohol intake: former Year of sobriety/quit date alcohol: 1999 Former alcohol use details: alcoholic - quit in 1999 Desire information about alcohol rehabilitation?: No Counseling given: No Adopted: No Caregiver/support person: No Lives independently: Yes Household members: family and children Housing: House Marital status: Number of children: 3 Number of grandchildren: 1 Highest education level completed: GED or Equivalent service: No Current occupational status: disabled Pets and animals: Yes Pets & animals: cat(s) and dog(s) Pets & animal details: indoor History of recent travel: No Leisure activites: music, reading and other Leisure activities details: watch TV Sexually active: No Current gender identity: Female Tessa/Oriental Orthodox: Bahai Special tessa needs: No Agree to transfusion: Yes Financial difficulty paying for basics: Not Very Hard Course Vital Signs: Vital signs: Vital Signs Temperature 98.1 F 09/04/22 15:36 Pulse Rate 74 09/04/22 18:59 Respiratory Rate 16 09/04/22 18:59 Blood Pressure 134/66 09/04/22 18:59 Pulse Oximetry 98 09/04/22 18:59 Oxygen Delivery Me thod 09/04/22 18:59 MDM - Extremity (Nontraumatic) Medical Decision Making Assumed care at 1700. Patient is a 52-year-old female with left bicep, tricep pain. Onset of symptoms since she was discharged from the hospital approximately 2 weeks ago. Patient had been admitted to [facility], then [facility], and then [facility] rehab due to lithium toxicity. During her hospitalization and subsequent care she developed left bicep pain. She had a PICC line in this extremity and was referred to the emergency department today for rule out DVT. Patient underwent ultrasound of the left upper extremity which reveals no evidence of deep vein thrombosis in the left upper extremity. I talked with patient about diagnostic findings and her complaints. She has chronic kidney disease and therefore cannot have any NSAIDs. She is currently taking Mcgregor at home for her chronic back pain. I have advised her to use her usual means of pain management along with ice or heat to the left upper extremity. Patient should return here for new concerning or worsening symptoms but otherwise follow-up with primary care. Questions sought and answered Lab Data Radiology Impressions Venous Duplex 09/04/22 15:52 IMPRESSION: No evidence of deep vein thrombosis, left upper extremity. Discharge Plan Discharge Patient Disposition: Home Clinical Impression: Phlebitis Condition: Stable Prescriptions: No Action (DME) blood-glucose meter [OneTouch Ultra2 Meter] [facility] See Rx Instructions .Route Qty: 1 0RF Rx Instructions: to use to check blood sugar TID (DME) OneTouch Ultra Test Strip See Rx Instructions .Route Qty: 300 3RF Rx Instructions: to use in onetouch meter TID to check blood sugar 90 supply nicotine 14 mg/24 hr patch 24 hour 1 patch transdermal DAILY Qty: 28 0RF hydrocodone-acetaminophen 7.5-325 mg tablet 1 tab PO QID PRN (Reason: pain) 30 Days Qty: 120 0RF Rx Instructions: fill on or after 09/05/21 fenofibrate nanocrystallized 145 mg tablet 145 mg PO DAILY Qty: 90 1RF (DME) lancets [OneTouch Delica Lancets] 30 gauge misc See Rx Instructions .Route Qty: 300 3RF Rx Instructions: use to check blood sugar TID 90 day supply hydroxyzine HCl 25 mg tablet 50 mg PO TID PRN (Reason: anxiety) Qty: 180 2RF lamotrigine 150 mg tablet 150 mg PO BID Qty: 60 2RF Januvia 25 mg tablet 25 mg PO DAILY Qty: 90 0RF budesonide-formoterol [Symbicort] 160-4.5 mcg/actuation HFA aerosol inhaler 2 puff inhalation Q12H Qty: 10.2 2RF methocarbamol 750 mg tablet 750 mg PO QID PRN (Reason: Muscle Spasm) omeprazole 20 mg capsule,delayed release(DR/EC) 20 mg PO DAILY albuterol sulfate [ProAir HFA] 90 mcg/actuation HFA aerosol inhaler 2 puff inhalation Q6H PRN (Reason: Shortness Of Breath Or Wheezing) Humalog U-100 Insulin 100 unit/mL Solution See Protocol SUBCUT WM&BEDTIME Qty: 10 0RF Protocol: Insulin Corrective High-Dose Regimen Condition: Fingerstick Blood Glucose Dose/Route: Insulin Units Condition: 141-180 mg/dl Dose/Route: 4 units/SQ Condition: 181-220 mg/dl Dose/Route: 6 units/SQ Condition: 221-260 mg/dl Dose/Route: 8 units/SQ Condition: 261-300 mg/dl Dose/Route: 12 units/SQ Condition: 301-350 mg/dl Dose/Route: 14 units/SQ Condition: 351-400 mg/dl Dose/Route: 16 units/SQ Condition: greater than 400 mg/dl Dose/Route: 18 units/SQ ferrous gluconate 324 mg (37.5 mg iron) Tablet 324 mg PO BIDWM Qty: 60 0RF atorvastatin 40 mg tablet 20 mg PO DAILY 90 Days Qty: 90 1RF Lantus Solostar U-100 Insulin 100 unit/mL (3 mL) insulin pen 30 unit SUBCUT QPM Qty: 30 0RF Discharge Orders: Discharge ED (Routine); Ordered 09/04/22 Ordered By: Ihsan Kearney Referrals: Annabel Arcos DO [Primary Care Provider] - Discharge Diet: Advance as tolerated Discharge Activity: Resume usual activity Patient Instructions: Phlebitis (ED), Opioid Safety, Pain Management Activity Restrictions/Additional Instructions: Activity as tolerated Take your normally prescribed medication as needed for pain. I would also add ice and heat to the tender areas. If your pain persists you may discuss with Dr. Arcos further. Additional imaging may be indicated. Please return to the emergency department for new, concerning, or worsening symptoms Coding Level of Care Code ED Furniture Dipper for Chg Fwd Documented by User: Mukul Capellan DO 09/08/22 05:54 HPI - Extremity Problem General: Chief complaint: Extremity Problem,Nontraumatic Stated complaint: left arm swollen and hurting Time Seen by Provider: 09/04/22 15:46 PFSH ED PFSH: Medical History Bipolar 1 disorder Bipolar disorder, current episode depressed, severe, with psychotic features Chronic bilateral low back pain with bilateral sciatica Chronic headache with normal neurologic examination Dyslipidemia Encounter for long-term opiate analgesic use Encounter for long-term use of opiate analgesic Generalized anxiety disorder [place] use Long-term use of high-risk medication Migraine aura without headache Neck pain Opioid contract exists Panic disorder with agoraphobia Psychiatric care Type 2 diabetes mellitus, without long-term current use of insulin Surgical History History of adenoidectomy S/P tonsillectomy AGE 4 Family History Mother Hypertension Grandmother Hypertension Atrial fibrillation Other Bipolar 1 disorder CAD (coronary artery disease) Denies family history of Anesthesia complication Bleeding disorder Social History Smoking and tobacco status: current every day smoker Quit status (tobacco): has tried quititng Second hand smoke exposure: Yes Smoking risk assessment/counseling performed?: Yes Tobacco counseling given: counseling >3 minutes Alcohol intake: former Year of sobriety/quit date alcohol: 1999 Former alcohol use details: alcoholic - quit in 1999 Desire information about alcohol rehabilitation?: No Counseling given: No Adopted: No Caregiver/support person: No Lives independently: Yes Household members: family and children Housing: House Marital status: Number of children: 3 Number of grandchildren: 1 Highest education level completed: GED or Equivalent service: No Current occupational status: disabled Pets and animals: Yes Pets & animals: cat(s) and dog(s) Pets & animal details: indoor History of recent travel: No Leisure activites: music, reading and other Leisure activities details: watch TV Sexually active: No Current gender identity: Female Tessa/Oriental Orthodox: Bahai Special tessa needs: No Agree to transfusion: Yes Financial difficulty paying for basics: Not Very Hard Course Vital Signs: Vital signs: Vital Signs Temperature 98.1 F 09/04/22 15:36 Pulse Rate 74 09/04/22 18:59 Respiratory Rate 16 09/04/22 18:59 Blood Pressure 134/66 09/04/22 18:59 Pulse Oximetry 98 09/04/22 18:59 Oxygen Delivery Me thod 09/04/22 18:59 MDM - Extremity (Nontraumatic) Medical Decision Making Assumed care at 1700. Patient is a 52-year-old female with left bicep, tricep pain. Onset of symptoms since she was discharged from the hospital approximately 2 weeks ago. Patient had been admitted to [facility], then [facility], and then [facility] rehab due to lithium toxicity. During her hospitalization and subsequent care she developed left bicep pain. She had a PICC line in this extremity and was referred to the emergency department today for rule out DVT. Patient underwent ultrasound of the left upper extremity which reveals no evidence of deep vein thrombosis in the left upper extremity. I talked with patient about diagnostic findings and her complaints. She has chronic kidney disease and therefore cannot have any NSAIDs. She is currently taking Mcgregor at home for her chronic back pain. I have advised her to use her usual means of pain management along with ice or heat to the left upper extremity. Patient should return here for new concerning or worsening symptoms but otherwise follow-up with primary care. Questions sought and answered Chart reviewed and patient discussed with midlevel. Agree with assessment and plan. Lab Data Radiology Impressions Venous Duplex 09/04/22 15:52 IMPRESSION: No evidence of deep vein thrombosis, left upper extremity. Discharge Plan Discharge Patient Disposition: Home Clinical Impression: Phlebitis Condition: Stable Prescriptions: No Action (DME) blood-glucose meter [OneTouch Ultra2 Meter] Misc See Rx Instructions .Route Qty: 1 0RF Rx Instructions: to use to check blood sugar TID (DME) OneTouch Ultra Test Strip See Rx Instructions .Route Qty: 300 3RF Rx Instructions: to use in onetouch meter TID to check blood sugar 90 supply nicotine 14 mg/24 hr patch 24 hour 1 patch transdermal DAILY Qty: 28 0RF hydrocodone-acetaminophen 7.5-325 mg tablet 1 tab PO QID PRN (Reason: pain) 30 Days Qty: 120 0RF Rx Instructions: fill on or after 09/05/21 fenofibrate nanocrystallized 145 mg tablet 145 mg PO DAILY Qty: 90 1RF (DME) lancets [OneTouch Delica Lancets] 30 gauge misc See Rx Instructions .Route Qty: 300 3RF Rx Instructions: use to check blood sugar TID 90 day supply hydroxyzine HCl 25 mg tablet 50 mg PO TID PRN (Reason: anxiety) Qty: 180 2RF lamotrigine 150 mg tablet 150 mg PO BID Qty: 60 2RF Januvia 25 mg tablet 25 mg PO DAILY Qty: 90 0RF budesonide-formoterol [Symbicort] 160-4.5 mcg/actuation HFA aerosol inhaler 2 puff inhalation Q12H Qty: 10.2 2RF methocarbamol 750 mg tablet 750 mg PO QID PRN (Reason: Muscle Spasm) omeprazole 20 mg capsule,delayed release(DR/EC) 20 mg PO DAILY albuterol sulfate [ProAir HFA] 90 mcg/actuation HFA aerosol inhaler 2 puff inhalation Q6H PRN (Reason: Shortness Of Breath Or Wheezing) Humalog U-100 Insulin 100 unit/mL Solution See Protocol SUBCUT WM&BEDTIME Qty: 10 0RF Protocol: Insulin Corrective High-Dose Regimen Condition: Fingerstick Blood Glucose Dose/Route: Insulin Units Condition: 141-180 mg/dl Dose/Route: 4 units/SQ Condition: 181-220 mg/dl Dose/Route: 6 units/SQ Condition: 221-260 mg/dl Dose/Route: 8 units/SQ Condition: 261-300 mg/dl Dose/Route: 12 units/SQ Condition: 301-350 mg/dl Dose/Route: 14 units/SQ Condition: 351-400 mg/dl Dose/Route: 16 units/SQ Condition: greater than 400 mg/dl Dose/Route: 18 units/SQ ferrous gluconate 324 mg (37.5 mg iron) Tablet 324 mg PO BIDWM Qty: 60 0RF atorvastatin 40 mg tablet 20 mg PO DAILY 90 Days Qty: 90 1RF Lantus Solostar U-100 Insulin 100 unit/mL (3 mL) insulin pen 30 unit SUBCUT QPM Qty: 30 0RF Discharge Orders: Discharge ED (Routine); Ordered 09/04/22 Ordered By: Ihsan Kearney Referrals: Annabel Arcos DO [Primary Care Provider] - Discharge Diet: Advance as tolerated Discharge Activity: Resume usual activity Patient Instructions: Phlebitis (ED), Opioid Safety, Pain Management Activity Restrictions/Additional Instructions: Activity as tolerated Take your normally prescribed medication as needed for pain. I would also add ice and heat to the tender areas. If your pain persists you may discuss with Dr. Arcos further. Additional imaging may be indicated. Please return to the emergency department for new, concerning, or worsening symptoms Coding Level of Care Code ED Furniture Dipper for Damir Conway
--- NOTE | 2022-09-04 15:52 | USR_ITS ---
PROCEDURE INFORMATION: Exam: US Duplex Left Upper Extremity Veins, Limited Exam date and time: 09/04/2022 5:12 PM Age: 52 years old Clinical indication: Pain; Arm, upper; Left; Additional info: Pain/swelling, reported iv placement recently TECHNIQUE: Imaging protocol: Real-time duplex ultrasound of the Left extremity with 2-D christianson scale, color Doppler flow and spectral waveform analysis including responses to compression and other maneuvers (when performed) with image documentation. Limited exam focused on the left upper extremity veins. COMPARISON: US chest [id number] 07/28/2022 7:58 PM FINDINGS: Left deep veins: Unremarkable. Axillary and brachial veins are patent throughout without thrombus. Normal Doppler waveforms. Normal compressibility and/or augmentation response. Visualized internal jugular and subclavian veins are patent. Left superficial veins: Unremarkable. Visualized cephalic and basilic veins are patent without thrombus. Soft tissues: Unremarkable. US/[place] [id number] IMPRESSION: No evidence of deep vein thrombosis, left upper extremity.
[2022-09-04 17:51] VITALS: PULSE 69; O2SAT 98
[2022-09-04 18:59] VITALS: BP 134/66; PULSE 74; RESP 16; O2SAT 98
== END 2022-09-04 19:04 | disposition home or self-care (01) ==
PROVIDERS: Emergency Provider Nurse Practitioner; PCP Family Medicine
DX: I80.9 Phlebitis and thrombophlebitis of unspecified site (principal); Z79.4 Long term (current) use of insulin; E78.5 Hyperlipidemia, unspecified; E11.9 Type 2 diabetes mellitus without complications; F17.210 Nicotine dependence, cigarettes, uncomplicated
CPT/HCPCS: 93971; 99283

== ENCOUNTER → 2022-09-10 15:31 | Outpatient (BNVA) | payer MEDICAID, SELFPAY ==
[2021-02-26 09:16] VITALS: BP 133/74; BMI 36.9
== END ==
PROVIDERS: PCP Family Medicine; Visit Provider Family Medicine
DX: E78.5 Hyperlipidemia, unspecified (principal); K21.9 Gastro-esophageal reflux disease without esophagitis; F31.9 Bipolar disorder, unspecified; G47.10 Hypersomnia, unspecified; N17.9 Acute kidney failure, unspecified; L30.4 Erythema intertrigo
CPT/HCPCS: 80053

== ENCOUNTER → 2022-09-15 09:24 | Outpatient (BNVA) | payer MEDICAID, SELFPAY ==
[2021-02-26 09:16] VITALS: BP 133/74; BMI 36.9
== END ==
PROVIDERS: PCP Family Medicine; Visit Provider Orthopaedic Surgery
DX: M25.551 Pain in right hip (principal)
CPT/HCPCS: 73502; 99213

== ENCOUNTER → 2022-10-06 12:21 | Outpatient (BNVA) | payer MEDICAID, SELFPAY ==
[2021-02-26 09:16] VITALS: BP 133/74; BMI 36.9
== END ==
PROVIDERS: PCP Family Medicine; Visit Provider Family Medicine
DX: N61.1 Abscess of the breast and nipple (principal); E83.52 Hypercalcemia
CPT/HCPCS: 82310; 83970

== ENCOUNTER → 2022-10-22 15:28 | Outpatient (BNVA) | payer MEDICAID, SELFPAY ==
[2021-02-26 09:16] VITALS: BP 133/74; BMI 36.9
== END ==
PROVIDERS: PCP Family Medicine; Visit Provider Nurse Practitioner Family
DX: R30.0 Dysuria (principal); R50.9 Fever, unspecified; J06.9 Acute upper respiratory infection, unspecified
CPT/HCPCS: 81000; 87426

== ENCOUNTER → 2022-11-04 13:56 | Outpatient (BNVA) | payer MEDICAID, SELFPAY ==
[2021-02-26 09:16] VITALS: BP 133/74; BMI 36.9
== END ==
PROVIDERS: PCP Family Medicine; Visit Provider Orthopaedic Surgery
DX: M17.12 Unilateral primary osteoarthritis, left knee (principal)
CPT/HCPCS: 99213

== ENCOUNTER 2022-11-07 11:50 | Outpatient (CLI) | payer MEDICAID, SELFPAY ==
[2021-02-26 09:16] VITALS: BP 133/74; BMI 36.9
--- NOTE | 2022-11-07 15:00 | CT_ITS ---
WS: [id number] CT LEFT knee, noncontrast HISTORY: pre op planning TECHNIQUE: Protocol for AMBIKA total knee replacement has been obtained. This includes axial imaging th rough the LEFT hip, LEFT knee and LEFT ankle. DLP: 890.57 mGy.cm COMPARISON: None available. Pelvis: No destructive bone lesions. No significant joint space narrowing. LEFT knee no destructive bone lesion. Mild tricompartment osteoarthritis, greatest involving the medi al compartment. Hypertrophic osteophytes. Moderate joint effusion. LEFT ankle: Negative. CT/CT knee LT wo con* [id number] IMPRESSION: CT imaging provided for [facility] robotic total knee replacement.
== END 2022-11-07 11:51 | disposition home or self-care (01) ==
LOC: RAD 11:53
PROVIDERS: PCP Family Medicine; Visit Provider Orthopaedic Surgery
DX: M17.12 Unilateral primary osteoarthritis, left knee (principal)
CPT/HCPCS: 73700

== ENCOUNTER 2022-11-23 09:51 | Outpatient (CLI) | payer MEDICAID, SELFPAY ==
[2021-02-26 09:16] VITALS: BP 133/74; BMI 36.9
--- NOTE | 2022-11-23 10:03 | MM_ITS ---
WS: [id number] Bilateral screening 3D tomosynthesis digital mammogram, 11/23/2022 Clinical Data: screening mammogram Comparison: None. Findings: The breast parenchymal pattern shows fibroglandular tissue. No spiculated masses or clustered calcifi cations are seen. There are no secondary signs of carcinoma. There is a mole marker on the right jim [address] MM/[place] [id number] Impression: 1. Negative bilateral mammogram unchanged. 2. Recommend annual screening mammograms. BIRADS: 1-Negative FOLLOW UP: 1 Year Follow-up The CAD photo checker and assembler was used.
== END 2022-11-23 09:52 | disposition home or self-care (01) ==
LOC: RAD 09:54
PROVIDERS: PCP Family Medicine; Visit Provider Family Medicine
DX: N61.1 Abscess of the breast and nipple (principal)
CPT/HCPCS: 77063; 77067

== ENCOUNTER 2022-12-07 12:26 | Observation (INO) | payer MEDICAID, SELFPAY ==
[2021-02-26 09:16] VITALS: BP 133/74; BMI 36.9
[2022-11-30 12:58] VITALS: BMI 32.9
--- NOTE | 2022-11-30 16:13 | ANES.PREANE2 ---
Pre-Anesthetic Assessment Height/Weight: Height 1.68 m Weight 92.533 kg Operation Date: 12/07/22 10:25 Proposed Procedures p left total knee arthroplasty/ 26906,M17.12(Left) - Oziel Goddard MD Familial anesthetic complications: none Was Beta Tamy taken within 24 hours: N/A Was Clonidine taken within 24 hours: N/A Social Tobacco and No alcohol Exam alert, oriented x 3 and regular rate & rhythm Airway Submandibular: within normal limits Cervical ROM: within normal limits Mallampati: Class II Dentition: false Pulmonary Chronic Obstructive Pulmonary Disease GI Gastroesophageal Reflux Disease Metabolic Diabetes Mellitus, Hyperlipidemia and Morbid Obesity [facility] [place] Lower Back Pain and Osteoarthritis/DJD Neuropsych Bipolar Anesthetic Plan ASA status: 3 Anesthesia: Regional (specify below) (SAB with adductor) Medications/Allergies Home Medications Medication Instructions Recorded Confirmed Last Taken Type blood-glucose meter (OneTouch #1 ea 08/04/21 11/17/22 Unknown Rx Ultra2 Meter) hydrocodone 7.5 mg-acetaminophen 1 tab PO QID PRN pain 30 days #120 08/06/21 11/30/22 11/30/22 Rx 325 mg tablet tabs albuterol sulfate 90 mcg/actuation 2 puff inhalation Q6H PRN 07/14/22 11/30/22 Unknown History aerosol inhaler (ProAir HFA) Shortness Of Breath Or Wheezing methocarbamol 750 mg tablet 750 mg PO QID PRN Muscle Spasm 07/14/22 11/30/22 11/30/22 History insulin lispro 100 unit/mL See Protocol SUBCUT WM&BEDTIME #10 08/07/22 11/30/22 11/29/22 Rx subcutaneous solution (Humalog mL U-100 Insulin) blood sugar diagnostic (OneTouch #300 ea 09/10/22 11/17/22 Unknown Rx Ultra Test strips) gabapentin 100 mg capsule 100 mg PO BID 09/10/22 11/30/22 11/30/22 History gemfibrozil 600 mg tablet (Lopid) 600 mg PO BID #60 tabs 09/10/22 11/30/22 11/30/22 Rx insulin glargine 100 unit/mL (3 30 unit (0.3 mL) SUBCUT QPM #15 mL 09/10/22 11/30/22 11/29/22 Rx mL) subcutaneous pen (Lantus Solostar U-100 Insulin) lamotrigine 150 mg tablet 150 mg PO BID #60 tabs 09/10/22 11/30/22 11/30/22 Rx lancets 30 gauge (OneTouch Delica #300 ea 09/10/22 11/17/22 Unknown Rx Lancets) melatonin 10 mg capsule 10 mg PO DAILY 09/10/22 11/30/22 11/29/22 History risperidone 0.5 mg tablet 0.5 mg PO DAILY #30 tabs 09/10/22 11/30/22 11/30/22 Rx risperidone 1 mg tablet 1 mg PO DAILY #30 tabs 09/10/22 11/30/22 11/30/22 Rx docusate sodium 100 mg capsule 100 mg PO BID #180 caps 09/28/22 11/30/22 11/30/22 Rx polyethylene glycol 3350 17 4 g PO DAILY #119 grams 09/28/22 11/30/22 Unknown Rx gram/dose oral powder (Miralax) clotrimazole-betamethasone 1 1 applic topical BID allergy 11/30/22 11/30/22 Unknown History %-0.05 % topical cream venlafaxine 37.5 mg 75 mg PO QAM 11/30/22 11/30/22 11/30/22 History capsule,extended release 24 hr Allergies Allergy/AdvReac Type Severity Reaction Status Date / Time sulfamethoxazole AdvReac UNKNOWN Verified 11/17/22 10:47 [From Bactrim] trimethoprim [From Bactrim] AdvReac UNKNOWN Verified 11/17/22 10:47 [facility] Anesthesia Medical History Bipolar 1 disorder Bipolar disorder, current episode depressed, severe, with psychotic features Chronic bilateral low back pain with bilateral sciatica Chronic headache with normal neurologic examination Dyslipidemia Encounter for long-term opiate analgesic use Encounter for long-term use of opiate analgesic Generalized anxiety disorder [place] use Long-term use of high-risk medication Migraine aura without headache Neck pain Opioid contract exists Panic disorder with agoraphobia Psychiatric care Type 2 diabetes mellitus, without long-term current use of insulin Surgical History History of adenoidectomy S/P tonsillectomy AGE 4 Family History Mother Hypertension Grandmother Hypertension Atrial fibrillation Other Bipolar 1 disorder CAD (coronary artery disease) Denies family history of Anesthesia complication Bleeding disorder Social History (Updated 11/04/22 @ 14:23 by Geoff Barker LPN) Smoking and tobacco status: former smoker Quit status (tobacco): has quit using tobacco Second hand smoke exposure: No Alcohol intake: former Year of sobriety/quit date alcohol: 1999 Former alcohol use details: alcoholic - quit in 1999 Desire information about alcohol rehabilitation?: No Counseling given: No Substance/Drug Use: never Adopted: No Caregiver/support person: No Lives independently: Yes Household members: family and children Housing: House Marital status: Number of children: 3 Number of grandchildren: 1 Highest education level completed: GED or Equivalent service: No Current occupational status: disabled Pets and animals: Yes Pets & animals: cat(s) and dog(s) Pets & animal details: indoor Leisure activites: music, reading and other Leisure activities details: watch TV Sexually active: No Do you think of yourself as: Straight/Heterosexual Current gender identity: Female Tessa/Pentecostalism: Orthodox Special tessa needs: No Agree to transfusion: Yes Financial difficulty paying for basics: Not Very Hard Female Reproductive History Para: 3 Spontaneous abortions: No Data Anesthesia Cardiac Studies: Echocardiogram 07/26/22
[2022-12-07] VITALS (27 sets, daily range): BP systolic 102–167; BP diastolic 69–92; PULSE 50–99; RESP 14–18; TEMP 36.3–36.8; O2SAT 92–100
[2022-12-07 08:12] LABS: Glucose Point of Care 118 mg/dL (70-110)
[2022-12-07] MEDS: sodium chloride 0.9% 1,000 ML 30 ML IV (08:22)
--- NOTE | 2022-12-07 08:22 | P.ANESUD_ITS ---
Pre-Anesthetic Update Pre-Anesthetic Assessment: Date of Surgery/Procedure: 12/07/22 Preop Fabiana gnosis: Osteoarthritis left knee Proposed Procedure: Operation Date: 12/07/22 09:45 Proposed Procedures p left total knee arthroplasty/AMBIKA 02029,M17.12(Left) - Oziel Goddard MD Any changes to Pre-Anesthetic Assessment?: Yes Changes from Pre-Anesthetic Assessment: patient declines spinal Last Intake: Intake Last Liquid Date 12/06/22 Last Liquid Time 23:55 Last Solid Date 12/06/22 Last Solid Time 23:55 Vitals: Temperature 97.5 F L 12/07/22 08:02 Temperature Source Temporal Artery S can 12/07/22 08:02 Pulse Rate 98 12/07/22 08:02 Respiratory Rate 15 12/07/22 08:02 Blood Pressure 137/92 12/07/22 08:02 Blood Pressure Natasha n 107 12/07/22 08:02 Pulse Oximetry 95 12/07/22 08:02 Oxygen Delivery Me thod Room Air 12/07/22 08:02 Exam: Pre-Anes Outpt Exam: alert, oriented x 3, clear to auscultation bilaterally and regular rate & rhythm Cardiac Studies: Echocardiogram 07/26/22
[2022-12-07 08:23] LABS: Basophils % 0.3 %; Eosinophils # 0.1 10^3/uL (0.0-0.8); Eosinophils % 1.9 %; Hematocrit 42.1 % (37.0-47.0); Lymphocytes # 1.3 10^3/uL (0.8-4.8); Lymphocytes % 17.3 %; Mean Corpuscular HGB Conc 33.3 g/dL (30.0-36.0); Mean Corpuscular Hemoglobin 30.8 pg (28.0-34.0); Mean Corpuscular Volume 92.7 fl (81-99); Monocytes # 0.7 10^3/uL (0.2-0.9); Monocytes % 9.6 %; Neutrophils # 5.07 10^3/uL (1.8-7.7); Neutrophils % 70.3 %; Nucleated Red Blood Cells % 0 %; Platelet Count 252 10^3/cmm (130-400); Red Blood Count 4.54 10^6/uL (4.1-5.3); Red Cell Distribution Width 12.8 % (12.1-15.1); White Blood Count 7.2 10^3/uL (4.0-10.0)
[2022-12-07] MEDS: acetaminophen 500 mg Tablet 1000 MG PO ×2 (08:24→15:30)
[2022-12-07] MEDS: gabapentin 300 mg Capsule PO ×2 (08:24→17:54)
[2022-12-07] MEDS: CELEcoxib 200 mg Capsule 400 MG PO (08:24)
[2022-12-07] MEDS: oxyCODONE 20 mg ER (12 HR) Tablet PO (08:24)
[2022-12-07] MEDS: midazolam 1 mg/mL INJ 2 mL 2 MG IVP (08:40)
[2022-12-07 08:44] LABS: Blood Urea Nitrogen 13 mg/dL (6-20); Calcium 10.4 mg/dL (8.5-10.5); Carbon Dioxide 22 mmol/L (22-29); Chloride 110 mmol/L (98-107); Glucose 99 mg/dL (65-115); Osmolality Calculated 306 mOsm/kg (285-295); Sodium 148 mmol/L (136-145)
--- NOTE | 2022-12-07 08:53 | ANES.PROC ---
Anesthesia Procedures Procedure/Date: 12/07/22 Nerve Block ^: Nerve Block 1: Main Anesthesia: general anesthesia Time Out Performed: Yes Consent: requested by attending/covering physician, from patient, from other, risks and benefits reviewed and patient agrees to proceed Nerve block location: adductor canal (L) Anesthesia monitors applied: pulse oximetry, EKG, BP cuff and oxygen Nerve block position: supine Anesthetic Used: ropivicaine 0.5% (30 ml) and with decadron (4 mg) Ultrasound used to: recognize landmarks and visualize and ID femerol nerve Nerve Stimulator Used?: No Interscalene/Femoral BLK: 4 stimuplex 21 g needle used for position and inplane approach, visualize local anesthetic spread and no vascular puncture identified Injection: neg aspiration of heme Patient Tolerated Procedure: well and no complications Complications: none
--- NOTE | 2022-12-07 09:45 | P.HP_ITS ---
Same Day Surgery H&P Indication for Procedure/HPI DATE OF PROCEDURE: December 07, 2022 CHIEF COMPLAINT/INDICATIONFOR SURGICAL PROCEDURE: Osteoarthritis left knee PREOP DIAGNOSIS: Osteoarthritis left knee PLANNED PROCEDURE: Operation Date: 12/07/22 09:45 Proposed Procedures p left total knee arthroplasty/AMBIKA 50012,M17.12(Left) - Oziel Goddard MD 52 year old female patient here for left total knee arthroplasty. Patient states that previous injection in August 2022 only gave her relief for a week. She states that she is ready to discuss total knee arthroplasty.? Describes significant pain with any time on her feet.? She is bothered by pain in her back as well and will be receiving some injections later this month.? She states that she reached a point where she can scarcely walk even short distances.? She states she is looking forward to being able to walk and exercise again and is ready to proceed with knee replaced Medications/Allergies* Home Medications Medication Instructions Recorded Confirmed Type albuterol sulfate 90 mcg/actuation 2 puff inhalation Q6H PRN 07/14/22 12/07/22 History aerosol inhaler (ProAir HFA) Shortness Of Breath Or Wheezing methocarbamol 750 mg tablet 750 mg PO QID PRN Muscle Spasm 07/14/22 11/30/22 History gabapentin 100 mg capsule 100 mg PO BID 09/10/22 12/07/22 History melatonin 10 mg capsule 10 mg PO DAILY 09/10/22 12/07/22 History clotrimazole-betamethasone 1 1 applic topical BID allergy 11/30/22 12/07/22 History %-0.05 % topical cream Allergies/Adverse Reactions Allergy/AdvReac Type Severity Reaction Status Date / Time sulfamethoxazole AdvReac UNKNOWN Verified 12/07/22 07:52 [From Bactrim] trimethoprim [From Bactrim] AdvReac UNKNOWN Verified 12/07/22 07:52 Current Medications: Generic Name Dose Route Start Last Admin Trade Name Freq PRN Reason Stop Dose Admin Sodium Chloride 1,000 mls @ 30 mls/hr 12/07/22 08:00 12/07/22 08:22 Sodium Chloride 0.9% IV 12/08/22 07:59 30 mls/hr .Q24H ÁNGEL Administration Midazolam HCl 2 mg 12/07/22 07:46 12/07/22 08:40 Midazolam 1 Mg/Ml Inj 2 Ml IVP 2 mg ONCE PRN Administration Preop Anxiety Pertinent History/Comorbid Conditions* Medical History (Updated 10/06/22 @ 12:17 by Annabel Arcos DO) Bipolar 1 disorder Bipolar disorder, current episode depressed, severe, with psychotic features Chronic bilateral low back pain with bilateral sciatica Chronic headache with normal neurologic examination Dyslipidemia Encounter for long-term opiate analgesic use Encounter for long-term use of opiate analgesic Generalized anxiety disorder [place] use Long-term use of high-risk medication Migraine aura without headache Neck pain Opioid contract exists Panic disorder with agoraphobia Psychiatric care Type 2 diabetes mellitus, without long-term current use of insulin Surgical History (Updated 08/29/19 @ 13:06 by Annabel Arcos DO) History of adenoidectomy S/P tonsillectomy AGE 4 Family History (Updated 11/21/19 @ 21:23 by Caroline Zeng) CAD (coronary artery disease) Atrial fibrillation Grandmother Bipolar 1 disorder Hypertension Mother Grandmother Denies family history of Anesthesia complication Bleeding disorder Social History Smoking and tobacco status: former smoker Quit status (tobacco): has quit using tobacco Second hand smoke exposure: No Alcohol intake: former Year of sobriety/quit date alcohol: 1999 Former alcohol use details: alcoholic - quit in 1999 Desire information about alcohol rehabilitation?: No Counseling given: No Substance/Drug Use: never Adopted: No Caregiver/support person: No Lives independently: Yes Household members: family and children Housing: House Marital status: Number of children: 3 Number of grandchildren: 1 Highest education level completed: GED or Equivalent service: No Current occupational status: disabled Pets and animals: Yes Pets & animals: cat(s) and dog(s) Pets & animal details: indoor Leisure activites: music, reading and other Leisure activities details: watch TV Sexually active: No Do you think of yourself as: Straight/Heterosexual Current gender identity: Female Tessa/Roman Catholic: Evangelical Special tessa needs: No Agree to transfusion: Yes Financial difficulty paying for basics: Not Very Hard Pertinent Exam Findings alert, oriented x 3, clear to auscultation bilaterally, regular rate & rhythm, operative site marked and procedure specific exam findings Patient has slight resting varus deformity across the left knee. He is tender over medial joint line. Motion is from 10 to 110 degrees. Patella tracks well. Cruciate collateral ligaments are stable. Palpable left dorsalis pedis pulse. Flexes and extends toes and ankle without motor deficits Recommendations Surgery/Procedure today Coding Level of Care Code Acute Code for Chg Fwd Diagnoses
[2022-12-07] MEDS: ceFAZolin 2,000 MG in sodium chloride 0.9% (plus) 50 ML 100 MG IV ×2 (10:00→17:53)
[2022-12-07] MEDS: tranexamic acid 1,000 mg/10mL SDV 1000 MG IV (10:30)
[2022-12-07] MEDS: ketorolac 30 mg/mL INJ XX (11:13)
[2022-12-07] MEDS: EPINEPHrine 1 mg/mL INJ XX (11:15)
--- NOTE | 2022-12-07 12:13 | XRR_ITS ---
PROCEDURE INFORMATION: Exam: XR Left Knee Exam date and time: 12/07/2022 11:25 AM Age: 52 years old Clinical indication: Device placement; Joint replacement hardware; Prior surgery; Surgery date: Post-operative (0-2 days); Surgery type: Left total knee arthroplasty TECHNIQUE: Imaging protocol: Radiologic exam of the left knee. Views: 1 or 2 views. COMPARISON: CT knee LT wo con* [id number] 11/07/2022 12:05 PM FINDINGS: Bones/joints: Patient has since undergone placement of left total knee prosthesis that appears in satisfactory position. Bone metal interface is unremarkable. There is no periprosthetic fracture. There are tubular shaped lucencies projecting over the distal femur and proximal tibia that may represent sequelae of temporary placed external fixation device. Soft tissues: There is generalized soft tissue swelling with air in the soft tissues and overlying surgical мария along the skin surface consistent with recent surgery. XR/XR knee LT 1-2V [id number] IMPRESSION: Recent left total knee replacement in satisfactory position.
--- NOTE | 2022-12-07 12:14 | P.OP_ITS ---
Operative Report Date of procedure: December 07, 2022 Pre-op diagnosis: Preop Diagnosis Osteoarthritis left knee Post-op diagnosis: same Post-op diagnosis: Same Post-op findings: Same Procedure done: [] total knee arthroplasty Implants: [place] Triathalon total knee arthroplasty components were used includin) Size [] triathalon cruciate retaining femoral component 2) Size [] Tritanium tibial component 3) Size []/[]mm thickness CS tibial bearing insert Pathology: none sent Surgeon: Oziel Goddard Plastic And Reconstructive Surgeon: Fredrick Prado Plastic And Reconstructive Surgeon: The nurse practitioner the nurse practitioner assisted with critical portions of the case including positioning, draping, exposure, component implantation, closure and dressing application and is present through the entirety of the case. Anesthesia: General and Nerve Block (Spinal, adductor canal block) Estimated blood loss (mL): 250 Findings: The patient eburnated bone over the medial and lateral femoral condyles and medial and lateral tibial plateaus. There was minimal patellar chondromalacia and the patella articulated well with the femoral component Condition: stable Disposition: PACU Brief History: 52 year old female with functionally limiting knee pain due to osteoarthritis. Requiring hydrocodone for pain control. Minimal improvment with corticosteroid injection. Procedure: The patient was taken to the operating room. Patient was given 1 g of tranexamic acid and 2 g of Ancef. The above anesthesia provided by the anesthesia service. A timeout was performed. The patient was prepped and draped in the usual fashion with the lower extremity exposed. A anterior incision was made, midline, from a point proximal to the patella to the distal tibial tubercle. The knee was entered through a medial parapatellar approach. The patella could be displaced laterally and the knee flexed. The patellar fat pad was resected to provide better visibility. Retractors were placed medially and laterally adjacent to the tibial plateau. At a point approximately 8 cm above the patella, 2 small incisions were made with a scalpel blade and 2 long threaded pins were placed into the anterior medial femur engaging both cortices. The femoral arrays were placed over these pins and secured. At a point 8 cm distal to the tibial tubercle. 2 shorter bicortical threaded pins were placed across the anterior medial tibia and the tibial arrays placed. A checkpoint was made just proximal and medial to the medial femoral condyle and just medial to the tibial plateau. Small osteotomes were placed in the joint in both flexion and extension to determine ligamentous laxity. The femur was externally rotated 2 degrees and the tibia cut in an an addtional 2 degrees of varus. Flexion gaps were left at 17mm in extension and 18mm in flexion to eliminate hyperextensioin. The AMBIKA robot was then introduced to the field and the femur and tibia cut in accordance with our plan. Lecture cautery was then applied across the posterior capsule for additional hemostasis. he posterior capsule and collateral ligaments were then injected with a solution of 100 mL of 0.2% ropivacaine, 1 mL of a 1:1000 epinephrine solution, 30 mg of Toradol, and 1 g of tranexamic acid. FA trial with the above components provided excellent stability and full range of motion. The femur was then prepared for the femoral pegs of the component in the tibia for the tibial component. The femur and tibia were then press-fit into place. An osteotome was used to remove the lateral 8 mm of the patella to minimize chances of later impingement. A neurectomy was accomplished circumferentially about the patella with electrocautery and lateral osteophytes removed. Surfaces were cleaned with a gentamicin solution. The femur and tibia were then press-fit into place. Tinal polyethylene component was then snapped into place into the tibia. The knee was irrigated with 1 L of saline and antibiotic solution. The extensor retinaculum was closed with a running 1 Stratafix interrupted 1 Ethibond. The subcutaneous tissues were closed with 2-0 Vicryl and the skin was closed with a running 4-0 Stratafix. The wound was covered with a Dermabond Prineo dressing. It was covered with 4xrs and a compressive Tubigauze was applied. The patient was taken to recovery room in stable condition.
[2022-12-07] MEDS: fentaNYL 50 mcg/mL INJ 2mL IVP (12:24)
[2022-12-07] MEDS: morphine 4 mg/mL SDV 1 mL 2 MG IVP ×4 (13:32→22:40)
[2022-12-07] MEDS: sodium chloride 0.9% 1,000 ML 100 ML IV ×2 (13:54→22:39)
[2022-12-07] MEDS: oxyCODONE 5 mg IR Tab/Cap PO ×3 (14:29→21:30)
--- NOTE | 2022-12-07 15:27 | ANE.PACU2 ---
Inpatient post-anesthesia follow up: Airway intact: Yes Vital signs: Temperature 98.2 F Pulse Rate 50 Respiratory Rate 18 Blood Pressure 163/81 Pulse Oximetry 100 Oxygen Delivery Me thod Room Air Oxygen Flow Rate 6 Fraction of Inspir ed Oxygen Hydration adequate: Yes Nausea and vomiting: No Pain level: 1 Mental status: Baseline
[2022-12-07] MEDS: LORazepam 0.5 mg Tablet 0.25 MG PO (15:29)
[2022-12-07 17:47] LABS: Glucose Point of Care 219 mg/dL (70-110)
[2022-12-07] MEDS: sennosides-docusate Tablet 2 TAB PO (17:53)
[2022-12-07] MEDS: gemfibrozil 600 mg Tablet PO (17:53)
[2022-12-07] MEDS: docusate sodium 100 mg Capsule PO (17:54)
[2022-12-07] MEDS: insulin lispro 100 unit/1 mL SUBCUT ×2 (18:52→21:29)
[2022-12-07] MEDS: lamoTRIgine 100 mg Tablet PO (20:14)
[2022-12-07] MEDS: lamoTRIgine 25 mg Tablet 50 MG PO (20:14)
[2022-12-07] MEDS: CELEcoxib 200 mg Capsule PO (20:14)
[2022-12-07] MEDS: methocarbamol 750 mg Tablet PO (20:19)
[2022-12-07 20:38] LABS: Glucose Point of Care 200 mg/dL (70-110)
[2022-12-08] VITALS (11 sets, daily range): BP systolic 148–166; BP diastolic 64–79; PULSE 58–90; RESP 16–20; TEMP 36.3–36.8; O2SAT 92–94
[2022-12-08] MEDS: ceFAZolin 2,000 MG in sodium chloride 0.9% (plus) 50 ML 100 MG IV ×2 (01:36→10:16)
[2022-12-08] MEDS: oxyCODONE 5 mg IR Tab/Cap PO ×2 (01:37→06:01)
[2022-12-08] MEDS: morphine 4 mg/mL SDV 1 mL 2 MG IVP (03:36)
[2022-12-08] MEDS: ondansetron 2 mg/ML SDV 2 mL 4 MG IVP (04:02)
[2022-12-08] MEDS: venlafaxine ER (24HR) 75 mg Capsule PO (05:26)
[2022-12-08 05:42] LABS: Hemoglobin 10.9 g/dL (11.5-15.3)
[2022-12-08 06:32] LABS: Glucose Point of Care 135 mg/dL (70-110)
[2022-12-08] MEDS: methocarbamol 750 mg Tablet PO (08:35)
[2022-12-08] MEDS: gabapentin 300 mg Capsule PO ×2 (08:35→17:30)
[2022-12-08] MEDS: aspirin 325 mg EC Tablet PO (08:35)
[2022-12-08] MEDS: risperiDONE 0.25 mg Tablet 0.5 MG PO (08:35)
[2022-12-08] MEDS: gemfibrozil 600 mg Tablet PO ×2 (08:35→17:30)
[2022-12-08] MEDS: CELEcoxib 200 mg Capsule PO (08:36)
[2022-12-08] MEDS: sennosides-docusate Tablet 2 TAB PO ×2 (08:36→17:30)
[2022-12-08] MEDS: docusate sodium 100 mg Capsule PO ×2 (08:36→17:30)
[2022-12-08] MEDS: acetaminophen 500 mg Tablet 1000 MG PO ×2 (08:37→17:08)
--- NOTE | 2022-12-08 10:08 | PC.CHAP ---
Pastoral Care Encounter/Spiritual Assessment Type of Contact [] Declined dispatch supervisor visit [] Patient/Family/Request visit [] Outpatient visit [] Follow-up visit [] Physician referral [] Code/Alert [x] Routine visit [] Staff referral [] Actively dying [] Patient sleeping [x] Family support [] [] Out of room [] Palliative care [] [] Receiving care in room [] Pre-surgical visit [] Trauma [] Long length of stay [] ICU visit [] Other: Relational/Emotional Strength [x] Patient feels connected with others/family/visitors/staff [] Distress [] Loneliness/isolation [] Abandonment Spirituality of Patient [x] Person of Tessa [] Attends Yazdanism of their Tessa [x] Believes in Prayer [] Reads Bible or Oriental Orthodox materials [] There are Spiritual issues to be addressed [place] Tender Interventions [x] Prayer [x] Active listening [] Non-anxious presence [x] Spiritual/emotional support [] Crisis/trauma care [] Spiritual counseling [] Bereavement support [] Provided bereavement packet [] Provided Bible/devotional materials [] Provided toy/stuffed animal, coloring book to patient or family member [] Provided Communion [] Anointing/[place] [] Salvation [x] Completed spiritual assessment [] Other: Impact on Illness or Injury [] Angry [] Fearful [] Anxious [] Often cries [] Exhaustion [] Unable to work [] Unable to attend orthodoxy [] Unable to walk/stand [] Unable to read [] Unable to drive [] Unable to eat/drink [] Unable to sleep [] Unable to be with family [] Patient intubated [] Other: Summary Time spent with patient 5 min
[2022-12-08] MEDS: oxyCODONE 5 mg IR Tab/Cap 10 MG PO ×2 (10:13→14:41)
[2022-12-08] MEDS: lamoTRIgine 100 mg Tablet PO (10:14)
[2022-12-08] MEDS: lamoTRIgine 25 mg Tablet 50 MG PO (10:14)
[2022-12-08] MEDS: LORazepam 0.5 mg Tablet PO ×2 (10:14→17:09)
[2022-12-08] MEDS: sodium chloride 0.9% 1,000 ML 100 ML IV (10:18)
[2022-12-08 11:24] LABS: Glucose Point of Care 175 mg/dL (70-110)
[2022-12-08] MEDS: insulin lispro 100 unit/1 mL SUBCUT ×2 (13:02→17:45)
--- NOTE | 2022-12-08 16:05 | P.DS_ITS ---
Discharge Providers Date of Admission: 12/07/22 12:26 Date of Discharge: December 08, 2022 Attending Provider at Admission: Oziel Goddard MD Attending Provider at Discharge: Oziel Goddard MD Primary Care Provider: Annabel Arcos DO Reason for Visit Reason for Visit: M17.12 Brief History: The patient is a 52-year-old female with progressive left knee pain unresponsive to medication injections. She was admitted for left total knee arthroplasty Hospital Course Hospital Course The patient tolerated surgery well. They remained hemodynamically stable. They was begun on aspirin and sequential compression dressing for DVT prophylaxis. The patient was mobilized with therapy beginning the day of surgery and by the first postoperative day independent with the walker. As the pain was adequately controlled and they were fully mobile they were discharged home. Physical Exam Narrative: On the day of discharge the knee incision was clean. They had no drainage. There is minimal swelling in the thigh and knee and the calf. No distal neurovascular deficits were noted Urinary Catheter Management: López: Cath Placed During This Visit: yes, but has since been removed by the nurse Reason for Continuing Indwelling Catheter: Required Immobilization for Trauma or Surgery or Anesthesia Urinary Catheter Date of Insertion: 12/07/22 Urinary Catheter Time of Insertion: 10:30 Date Urinary Catheter Removed: 12/08/22 Time Urinary Catheter Discontinued: 06:40 Discharge Data Studies Completed and Pending Completed Studies During Hospitalization Category Date Time Status XR knee LT 1-2V [id number] Routine Exams 12/07/22 12:13 Completed Radiology Impressions Knee X-Ray 12/07/22 12:13 IMPRESSION: Recent left total knee replacement in satisfactory position. Laboratory Results WBC 7.2 10^3/uL (4.0-10.0) 12/07/22 08:15 RBC 4.54 10^6/uL (4.1-5.3) 12/07/22 08:15 Hgb 10.9 g/dL (11.5-15.3) L 12/08/22 04:55 Hct 42.1 % (37.0-47.0) 12/07/22 08:15 MCV 92.7 fl (81-99) 12/07/22 08:15 MCH 30.8 pg (28.0-34.0) 12/07/22 08:15 MCHC 33.3 g/dL (30.0-36.0) 12/07/22 08:15 RDW 12.8 % (12.1-15.1) 12/07/22 08:15 Plt Count 252 10^3/cmm (130-400) 12/07/22 08:15 MPV 10.0 fL (7.4-10.4) 12/07/22 08:15 Neut % (Auto) 70.3 % 12/07/22 08:15 Lymph % (Auto) 17.3 % 12/07/22 08:15 [place] % (Auto) 9.6 % 12/07/22 08:15 Eos % (Auto) 1.9 % 12/07/22 08:15 Baso % (Auto) 0.3 % 12/07/22 08:15 Neut # (Auto) 5.07 10^3/uL (1.8-7.7) 12/07/22 08:15 Lymph # (Auto) 1.3 10^3/uL (0.8-4.8) 12/07/22 08:15 [place] # (Auto) 0.7 10^3/uL (0.2-0.9) 12/07/22 08:15 Eos # (Auto) 0.1 10^3/uL (0.0-0.8) 12/07/22 08:15 Baso # (Auto) 0.0 10^3/uL (0.0-0.1) 12/07/22 08:15 Nucleated RBC % (auto) 0 % 12/07/22 08:15 Nucleated RBCs # 0.0 /100WBC 12/07/22 08:15 Sodium 148 mmol/L (136-145) H 12/07/22 08:15 Potassium 4.0 mmol/L (3.5-5.1) 12/07/22 08:15 Chloride 110 mmol/L (98-107) H 12/07/22 08:15 Carbon Dioxide 22 mmol/L (22-29) 12/07/22 08:15 Anion Gap 20.0 (5-19) H 12/07/22 08:15 BUN 13 mg/dL (6-20) 12/07/22 08:15 Creatinine 1.0 mg/dL (0.5-0.9) H 12/07/22 08:15 GFR Calculation 58.0 mL/min (90-130) L 12/07/22 08:15 Glucose 99 mg/dL (65-115) 12/07/22 08:15 POC Glucose 175 mg/dL (70-110) H 12/08/22 11:16 Calculated Osmolality 306 mOsm/kg (285-295) H 12/07/22 08:15 Calcium 10.4 mg/dL (8.5-10.5) 12/07/22 08:15 Vitals Last Vital Signs Temp 98.1 F 12/08/22 12:00 Pulse 64 12/08/22 12:00 Resp 18 12/08/22 14:41 BP 166/75 12/08/22 12:00 Pulse Ox 92 12/08/22 14:41 O2 Del Method Room Air 12/08/22 12:00 O2 Flow Rate 6 12/07/22 12:19 Discharge Plan Discharge Condition: Stable Prescriptions: New oxycodone 5 mg Tablet 10 mg PO Q4H PRN (Reason: Moderate Pain) 7 Days Qty: 40 0RF Ativan 0.5 mg tablet 0.5 mg PO Q8H PRN (Reason: anxiety) 7 Days Qty: 20 0RF acetaminophen 500 mg Tablet 1,000 mg PO Q8H 14 Days Qty: 84 0RF aspirin 325 mg Tablet,Delayed Release (Dr/Ec) 325 mg PO DAILY 30 Days Qty: 30 0RF gabapentin 300 mg Capsule 300 mg PO BID 7 Days Qty: 14 0RF Continued (DME) blood-glucose meter [OneTouch Ultra2 Meter] Misc See Rx Instructions .Route Qty: 1 0RF Rx Instructions: to use to check blood sugar TID (DME) OneTouch Ultra Test Strip See Rx Instructions .Route Qty: 300 3RF Rx Instructions: to use in onetouch meter TID to check blood sugar 90 supply hydrocodone-acetaminophen 7.5-325 mg tablet 1 tab PO QID PRN (Reason: pain) 30 Days Qty: 120 0RF Rx Instructions: fill on or after 09/05/21 gabapentin 100 mg capsule 100 mg PO BID melatonin 10 mg capsule 10 mg PO DAILY gemfibrozil [Lopid] 600 mg tablet 600 mg PO BID Qty: 60 2RF risperidone 1 mg tablet 1 mg PO DAILY Qty: 30 2RF risperidone 0.5 mg tablet 0.5 mg PO DAILY Qty: 30 2RF lamotrigine 150 mg tablet 150 mg PO BID Qty: 60 2RF (DME) lancets [OneTouch Delica Lancets] 30 gauge misc See Rx Instructions .Route Qty: 300 3RF Rx Instructions: use to check blood sugar TID 90 day supply docusate sodium 100 mg capsule 100 mg PO BID Qty: 180 1RF polyethylene glycol 3350 [Miralax] 17 gram/dose powder 4 g PO DAILY Qty: 119 0RF venlafaxine 75 mg capsule,extended release 24hr 75 mg PO QAM 30 Days Qty: 30 3RF methocarbamol 750 mg tablet 750 mg PO QID PRN (Reason: Muscle Spasm) albuterol sulfate [ProAir HFA] 90 mcg/actuation HFA aerosol inhaler 2 puff inhalation Q6H PRN (Reason: Shortness Of Breath Or Wheezing) clotrimazole-betamethasone 1-0.05 % cream 1 applic topical BID insulin lispro [Humalog U-100 Insulin] 100 unit/mL Solution See Protocol SUBCUT WM&BEDTIME Qty: 10 0RF Protocol: Insulin Corrective High-Dose Regimen Condition: Fingerstick Blood Glucose Dose/Route: Insulin Units Condition: 141-180 mg/dl Dose/Route: 4 units/SQ Condition: 181-220 mg/dl Dose/Route: 6 units/SQ Condition: 221-260 mg/dl Dose/Route: 8 units/SQ Condition: 261-300 mg/dl Dose/Route: 12 units/SQ Condition: 301-350 mg/dl Dose/Route: 14 units/SQ Condition: 351-400 mg/dl Dose/Route: 16 units/SQ Condition: greater than 400 mg/dl Dose/Route: 18 units/SQ Lantus Solostar U-100 Insulin 100 unit/mL (3 mL) insulin pen 30 unit SUBCUT QPM Qty: 15 2RF Discharge Orders: Discharge Order (Routine); Ordered 12/08/22 Ordered By: Oziel Goddard Referrals: Oziel Goddard MD [Physician] - 12/22/22 10:45 am Discharge Diet: Advance as tolerated Discharge Activity: Limit activity as instructed Patient Instructions: Opioid Safety Activity Restrictions/Additional Instructions: Okay to shower Keep Tubigauze sleeve in place for swelling. Okay to remove for hygiene. Apply FirstIce up to 20 min/hr for pain and swelling Take Celebrex twice a day for the next 15 days for pain , discontinue other anti-inflammatories Take Neurontin twice a day for 7 days. Take Tylenol 500mg (2 tabs) as needed 3 times a day for mild pain Take hydrocodone for pain as previously prescribed take oxycodone for breakthrough pain. Take Ativan as needed for anxiety Exercises per physical therapy. May weight-bear as tolerated on total knee arthroplasty IF HAVE ANY PROBLEMS OR QUESTIONS CALL [facility]ORY TEACHER AT AND ASK TO HAVE DR. ANJU WILSON. Discharge Attestations Time Spent in Discharge Care*: other Status at Discharge: Cognitive status at discharge: moderately impaired cognition , Behavioral status at discharge: cooperative , Quality Metrics Clinical Quality Measures [ No reported AMI, CVA or VTE this stay] Coding Level of Care Code Acute Code for Chg Fwd Diagnoses
[2022-12-08 16:51] LABS: Glucose Point of Care 153 mg/dL (70-110)
--- NOTE | 2022-12-08 17:47 | PC.NURSE ---
Discussed discharge paperwork, medications and follow up appointments. Patient and family member verbalized understanding.
== END 2022-12-08 17:56 | disposition home or self-care (01) ==
LOC: MEDSURG 12:26
PROVIDERS: Anesthesiology; Admitting Provider Orthopaedic Surgery; PCP Family Medicine; Visit Provider Orthopaedic Surgery
PROC: (CPT 27447; principal; 2022-12-07 09:45)
DX: M17.12 Unilateral primary osteoarthritis, left knee (principal); K21.9 Gastro-esophageal reflux disease without esophagitis; E11.9 Type 2 diabetes mellitus without complications; E78.5 Hyperlipidemia, unspecified; E66.01 Morbid (severe) obesity due to excess calories; Z68.32 Body mass index [BMI] 32.0-32.9, adult; Z79.891 Long term (current) use of opiate analgesic; Z79.4 Long term (current) use of insulin; F31.9 Bipolar disorder, unspecified; Z87.891 Personal history of nicotine dependence; F41.1 Generalized anxiety disorder
CPT/HCPCS: 20985; 27447; 36415; 36416; 51702; 73560; 80048; 82962; 85018; 85025; 96372; 97110; 97116; 97161; 97165; 97530; C1776; G0378; J0171; J0690; J1100; J1170; J1580; J1815; J1885; J2250; J2270; J2405; J2704; J2795; J3010; J3490; J7030

== ENCOUNTER → 2022-12-22 10:28 | Outpatient (BNVA) | payer MEDICAID, SELFPAY ==
[2021-02-26 09:16] VITALS: BP 133/74; BMI 36.9
== END ==
PROVIDERS: PCP Family Medicine; Visit Provider Orthopaedic Surgery
DX: Z98.890 Other specified postprocedural states (principal)
CPT/HCPCS: 99024

== ENCOUNTER → 2023-01-19 13:19 | Outpatient (BNVA) | payer MEDICAID, SELFPAY ==
[2021-02-26 09:16] VITALS: BP 133/74; BMI 36.9
== END ==
PROVIDERS: PCP Family Medicine; Visit Provider Nurse Practitioner Family
DX: Z98.890 Other specified postprocedural states (principal); Z96.652 Presence of left artificial knee joint
CPT/HCPCS: 73560; 73565; 99024; 99213

== ENCOUNTER → 2023-03-30 09:56 | Outpatient (BNVA) | payer MEDICAID, SELFPAY ==
[2021-02-26 09:16] VITALS: BP 133/74; BMI 36.9
== END ==
PROVIDERS: PCP Family Medicine; Visit Provider Nurse Practitioner Family
DX: Z98.890 Other specified postprocedural states (principal); Z96.652 Presence of left artificial knee joint
CPT/HCPCS: 73560; 73565; 99213

== ENCOUNTER → 2023-04-05 09:32 | Outpatient (BNVA) | payer MEDICAID, SELFPAY ==
[2021-02-26 09:16] VITALS: BP 133/74; BMI 36.9
== END ==
PROVIDERS: PCP Family Medicine; Visit Provider Family Medicine
DX: E11.65 Type 2 diabetes mellitus with hyperglycemia (principal); M54.42 Lumbago with sciatica, left side; M54.41 Lumbago with sciatica, right side; G89.29 Other chronic pain; E78.5 Hyperlipidemia, unspecified
CPT/HCPCS: 80053; 82043; 83036; 85025

== ENCOUNTER 2023-04-27 10:16 | Outpatient (CLI) | payer MEDICAID, SELFPAY ==
[2021-02-26 09:16] VITALS: BP 133/74; BMI 36.9
[2023-04-27 10:59] LABS: Basophils % 0.5 %; Eosinophils # 0.2 10^3/uL (0.0-0.8); Eosinophils % 2.7 %; Hematocrit 35.5 % (36-47); Lymphocytes # 1.7 10^3/uL (0.8-4.8); Lymphocytes % 22.8 %; Mean Corpuscular HGB Conc 32.4 g/dL (30-55); Mean Corpuscular Hemoglobin 29.4 pg (27-33); Mean Corpuscular Volume 90.8 fl (85-98); Mean Platelet Volume 10.2 fL (7.4-10.4); Monocytes # 0.8 10^3/uL (0.2-0.9); Neutrophils # 4.72 10^3/uL (1.8-7.7); Neutrophils % 62.8 %; Nucleated Red Blood Cells % 0 %; Platelet Count 224 10^3/cmm (157-399); Red Blood Count 3.91 10^6/uL (3.85-5.65); Red Cell Distribution Width 14.8 % (12.1-15.1); White Blood Count 7.51 10^3/uL (3.29-11.43)
[2023-04-27 11:21] LABS: Creatinine Urine, Random 19 mg/dL (28-217); Microalbumin Random Urine 1 ug/dL (0-20)
[2023-04-27 11:22] LABS: Microalbum Creatinine Ratio Ur 53 mg/dL (0-20)
[2023-04-27 11:27] LABS: Albumin Level 3.8 g/dL (3.5-5.2); Anion Gap 14.6 (5-19); Blood Urea Nitrogen 16 mg/dL (6-20); Calcium 9.4 mg/dL (8.5-10.5); Carbon Dioxide 22 mmol/L (22-29); Chloride 107 mmol/L (98-107); Glomerular Filtration Rate 57.8 mL/min (90-130); Glucose 96 mg/dL (65-115); Phosphorus 3.6 mg/dL (2.5-4.5); Potassium 4.6 mmol/L (3.5-5.1); Sodium 139 mmol/L (136-145)
[2023-04-27 11:28] LABS: Calcium 9.3 mg/dL (8.5-10.5)
[2023-04-27 11:35] LABS: Parathyroid Hormone 51.7 pg/mL (15-65)
[2023-04-27 11:43] LABS: 25 Hydroxy Vitamin D 33 ng/mL (30-100)
== END 2023-04-27 10:17 | disposition home or self-care (01) ==
PROVIDERS: PCP Family Medicine; Visit Provider Registered Nurse
DX: N18.31 Chronic kidney disease, stage 3a (principal)
CPT/HCPCS: 80069; 82044; 82306; 82310; 83970; 85025

== ENCOUNTER → 2023-06-01 11:13 | Outpatient (BNVA) | payer MEDICAID, SELFPAY ==
[2021-02-26 09:16] VITALS: BP 133/74; BMI 36.9
== END ==
PROVIDERS: PCP Family Medicine; Visit Provider Nurse Practitioner Psychiatric/Mental Health
DX: Z03.89 Encounter for observation for other suspected diseases and conditions ruled out (principal)
CPT/HCPCS: 80306

== ENCOUNTER → 2023-06-21 09:42 | Outpatient (BNVA) | payer SELFPAY ==
[2021-02-26 09:16] VITALS: BP 133/74; BMI 36.9
== END ==
PROVIDERS: PCP Family Medicine; Visit Provider Nurse Practitioner Psychiatric/Mental Health
DX: F31.9 Bipolar disorder, unspecified (principal); Z79.899 Other long term (current) drug therapy
CPT/HCPCS: 80061; 83036; 83721

== ENCOUNTER → 2023-08-27 08:14 | Outpatient (BNVA) | payer MEDICAID, SELFPAY ==
[2023-06-30 11:30] VITALS: BP 138/79; BMI 32.5
== END ==
PROVIDERS: PCP Family Medicine; Visit Provider Family Medicine
DX: E78.5 Hyperlipidemia, unspecified (principal); Z87.891 Personal history of nicotine dependence; E11.65 Type 2 diabetes mellitus with hyperglycemia; R91.1 Solitary pulmonary nodule; R10.11 Right upper quadrant pain; Z86.010 Personal history of colon polyps
CPT/HCPCS: 80061

== ENCOUNTER 2023-09-21 10:38 | Outpatient (CLI) | payer MEDICAID, SELFPAY ==
[2023-06-30 11:30] VITALS: BP 138/79; BMI 32.5
--- NOTE | 2023-09-21 11:00 | CT_ITS ---
WS: [id number] CT chest w con* [id number] HISTORY: left upper lobe pulmonary nodule TECHNIQUE: Axial imaging performed through the thorax. Coronal and sagittal reformats are submitted. All CT scans at [facility] use at least one of these dose optimization techniques: automated exposure control; mA and/or kV adjustment per patient size (includes targeted exams where dose is mat ched to clinical indication); or iterative reconstruction. CONTRAST: Omnipaque 350; 100 mL IV. DLP: 454.64 mGy.cm COMPARISON: 08/03/2022 Lungs and central airway: Reidentified is a noncalcified LEFT upper lobe solid nodule with a maximum diameter of 11 mm. No additional nodules. No mass or pneumonia. Very thin area of scarring or atelect asis at the LEFT lung base. Pleura: Normal. No pleural effusion. Heart and pericardium: Normal size heart with no pericardial effusion. Mediastinum and dawit: No mediastinum or hilar adenopathy. Vessels: Normal size aortic and pulmonary artery. No coronary artery calcifications. Chest wall and lower neck: Nodular inferior RIGHT thyroid measures 2.5 x 4.1 cm. Upper abdomen: Hyperplastic LEFT adrenal gland. Osseous structures: No destructive process. IMPRESSION: 1. No interval change in the 11 mm LEFT upper lobe noncalcified pulmonary nodule since 08/03/2022. Rec ommend continued close imaging follow-up. PET/CT would provide additional information. Otherwise cont inued 12-month chest CT follow-up. 2. No adenopathy. 3. Inferior RIGHT thyroid nodule. No interval change since 08/03/2022.
[2023-09-21] MEDS: iohexol 350 mg/mL 100 mL Btl IV (11:12)
== END 2023-09-21 10:39 | disposition home or self-care (01) ==
LOC: RAD 10:39
PROVIDERS: PCP Family Medicine; Visit Provider Family Medicine
DX: R91.1 Solitary pulmonary nodule (principal); E04.1 Nontoxic single thyroid nodule
CPT/HCPCS: 71260; Q9967

== ENCOUNTER 2023-10-26 10:12 | Outpatient (CLI) | payer MEDICAID, SELFPAY ==
[2023-06-30 11:30] VITALS: BP 138/79; BMI 32.5
--- NOTE | 2023-10-26 10:30 | PETR_ITS ---
PROCEDURE INFORMATION: Exam: PET/CT Skull Base to Mid-thigh Exam date and time: 10/26/2023 10:59 AM Age: 53 years old Clinical indication: Abnormal findings; 1. No interval change in the 11 mm left upper lobe noncalcified pulmonary nodule since 08/03/2022. Recommend continued close imaging follow-up. Pet/ct would provide additional information. Otherwise. Continued 12-month chest CT follow-up. ; Additional info: Noncalcified left lobe pulmonary nodule LABS AND CLINICAL REPORTS: Glucose: 120 mg/dl Treatment strategy for malignancy (PET staging): Initial Staging (PI) TECHNIQUE: Imaging protocol: Following at least four-hour fasting and following the injection of radiopharmaceutical, low dose CT images were obtained. Then, PET images were obtained. Attenuation corrected images were constructed using the CT scan. Fused images of PET and CT were reviewed. The standardized uptake values (SUV) reported below are maximum values within a region of interest, expressed in gm/ml. Exam includes orbital meatal line to mid-thigh. Radiopharmaceutical: 13.64 mCi F-18 FDG (Fluorodeoxyglucose), IV. Time of imaging post radiopharmaceutical administration: 1 hour Injection site: Left hand COMPARISON: [place] [id number] 08/03/2022, CT chest with contrast 09/21/2023 FINDINGS: Brain: Visualized brain has normal physiologic uptake. Pharynx: No abnormal uptake. Larynx: No abnormal uptake. Thyroid: No abnormal uptake. Stable heterogenous density enlargement of the right thyroid lobe suggestive of benign goiter. Lungs, pleura and trachea: No abnormal uptake. 1.4 cm solid nodule in the left upper lobe on axial image 72 measures 1.2 SUV stable since 07/26/2022 Heart: Normal physiologic uptake. Mediastinal space: No abnormal uptake. Liver: No abnormal uptake. Gallbladder and bile ducts: No abnormal uptake. No calcified gallstones. Pancreas: No abnormal uptake. Spleen: No abnormal uptake. No splenomegaly. Adrenal glands: No abnormal uptake. Stable mild thickening of the left adrenal body up to 1.5 cm suggestive of benign adrenal cortical adenoma. Kidneys and ureters: Normal physiologic uptake. No hydronephrosis. 2.3 cm simple cyst laterally in the midpole of the right kidney. Stomach and bowel: No abnormal uptake. Mild diverticulosis of the left and right colon. Vasculature: No abnormal uptake. No aortic aneurysm. Lymph nodes: No abnormal uptake. No lymphadenopathy in the head, neck, chest, abdomen, pelvis, and extremities. Bones/joints: Mildly increased synovial uptake in the shoulders is suggestive of benign inflammatory finding. Otherwise no abnormal uptake in the visualized axial and appendicular skeleton. Soft tissues: No abnormal uptake in the visualized head, neck, chest, abdomen, pelvis, and extremities. [facility] [id number] IMPRESSION: No abnormal radiotracer uptake to suggest malignancy. 1.4 cm solid nodule with no abnormal uptake stable since 07/26/2022 represents benign finding requiring no follow-up imaging.
== END 2023-10-26 10:13 | disposition home or self-care (01) ==
LOC: RAD 10:13
PROVIDERS: PCP Family Medicine; Visit Provider Family Medicine
DX: R91.1 Solitary pulmonary nodule (principal)
CPT/HCPCS: 78815; A9552

== ENCOUNTER → 2023-11-15 11:24 | Outpatient (BNVA) | payer MEDICAID, SELFPAY ==
[2023-06-30 11:30] VITALS: BP 138/79; BMI 32.5
== END ==
PROVIDERS: PCP Family Medicine; Visit Provider Nurse Practitioner Family
DX: R39.9 Unspecified symptoms and signs involving the genitourinary system (principal)
CPT/HCPCS: 81000

== ENCOUNTER → 2023-12-16 08:22 | Outpatient (BNVA) | payer MEDICAID, SELFPAY ==
[2023-06-30 11:30] VITALS: BP 138/79; BMI 32.5
== END ==
PROVIDERS: PCP Family Medicine; Visit Provider Family Medicine
DX: E78.5 Hyperlipidemia, unspecified (principal); Z13.6 Encounter for screening for cardiovascular disorders; J43.1 Panlobular emphysema; Z87.891 Personal history of nicotine dependence
CPT/HCPCS: 80053; 80061; 83721

== ENCOUNTER 2024-01-04 07:35 | Outpatient (CLI) | payer MEDICAID, SELFPAY ==
[2023-06-30 11:30] VITALS: BP 138/79; BMI 32.5
--- NOTE | 2024-01-04 07:49 | US_ITS ---
WS: [id number] RIGHT UPPER QUADRANT ULTRASOUND HISTORY: ruq pain and bloating COMPARISON: None available. Liver: 17.5 cm in length. Normal size liver and echogenicity. No bile duct dilatation or mass. Portal Vein: Normal hepatopetal flow with monophasic waveform. Gallbladder: Normally distended gallbladder with no stones or wall thickening. CBD: 0.4 cm Pancreas: Normal size and echogenicity. Right kidney: 10.3 cm in length. Normal size kidney. Cyst from the mid to lower kidney measures 2.4 x 2.3 x 2.4 cm. No hydronephrosis or solid mass. Aorta and IVC: Unremarkable abdominal aorta and IVC. No ascites. US/US gall bladder [id number] IMPRESSION: 1. Normal gallbladder. 2. No bile duct dilatation. 3. Simple RIGHT renal cyst, maximum diameter 2.4 cm.
== END 2024-01-04 07:36 | disposition home or self-care (01) ==
LOC: RAD 07:36
PROVIDERS: PCP Family Medicine Adult Medicine; Visit Provider Family Medicine
DX: R10.11 Right upper quadrant pain (principal); N28.1 Cyst of kidney, acquired
CPT/HCPCS: 76705; 80061

== ENCOUNTER → 2024-01-14 13:47 | Outpatient (BNVA) | payer MEDICAID, SELFPAY ==
[2023-06-30 11:30] VITALS: BP 138/79; BMI 32.5
== END ==
PROVIDERS: PCP Family Medicine Adult Medicine; Visit Provider Registered Nurse Neonatal Intensive Care
DX: R39.9 Unspecified symptoms and signs involving the genitourinary system (principal); N39.0 Urinary tract infection, site not specified
CPT/HCPCS: 81000; 87077; 87086; 87184

== ENCOUNTER → 2024-03-11 10:18 | Outpatient (BNVA) | payer MEDICAID, SELFPAY ==
[2023-06-30 11:30] VITALS: BP 138/79; BMI 32.5
== END ==
PROVIDERS: PCP Family Medicine Adult Medicine; Visit Provider Registered Nurse Neonatal Intensive Care
DX: N39.0 Urinary tract infection, site not specified (principal)
CPT/HCPCS: 81000

== ENCOUNTER → 2024-04-15 12:36 | Outpatient (BNVA) | payer MEDICAID, SELFPAY ==
[2023-06-30 11:30] VITALS: BP 138/79; BMI 32.5
== END ==
PROVIDERS: PCP Family Medicine Adult Medicine; Visit Provider Emergency Medicine
DX: R39.9 Unspecified symptoms and signs involving the genitourinary system (principal); N12 Tubulo-interstitial nephritis, not specified as acute or chronic
CPT/HCPCS: 81000; 87086

== ENCOUNTER 2024-04-24 12:25 | Outpatient (CLI) | payer MEDICAID, SELFPAY ==
[2023-06-30 11:30] VITALS: BP 138/79; BMI 32.5
[2024-04-24 13:25] LABS: Urine Creatinine 70 mg/dL (28-217); Urine Protein Random 12 mg/dL
[2024-04-24 13:27] LABS: UPRO/UCREAT Ratio 0.17 mg/mg CR
== END 2024-04-24 12:26 | disposition home or self-care (01) ==
LOC: LAB 12:27
PROVIDERS: PCP Family Medicine Adult Medicine; Visit Provider Internal Medicine Nephrology
DX: N18.31 Chronic kidney disease, stage 3a (principal)
CPT/HCPCS: 82570; 84156

== ENCOUNTER 2024-04-25 12:02 | Outpatient (CLI) | payer MEDICAID, SELFPAY ==
[2023-06-30 11:30] VITALS: BP 138/79; BMI 32.5
[2024-04-25 12:32] LABS: Basophils % 0.4 %; Eosinophils # 0.1 10^3/uL (0.0-0.8); Hematocrit 38.2 % (36-47); Lymphocytes # 1.8 10^3/uL (0.8-4.8); Lymphocytes % 35.5 %; Mean Corpuscular HGB Conc 32.2 g/dL (30-55); Mean Corpuscular Hemoglobin 30.4 pg (27-33); Mean Corpuscular Volume 94.6 fl (85-98); Mean Platelet Volume 10.3 fL (7.4-10.4); Monocytes # 0.6 10^3/uL (0.2-0.9); Monocytes % 11.4 %; Neutrophils % 50.9 %; Nucleated Red Blood Cells % 0 %; Platelet Count 197 10^3/cmm (157-399); Red Blood Count 4.04 10^6/uL (3.85-5.65); Red Cell Distribution Width 13.2 % (12.1-15.1)
[2024-04-25 12:55] LABS: Albumin Level 4.4 g/dL (3.5-5.2); Anion Gap 16.4 (5-19); Blood Urea Nitrogen 22 mg/dL (6-20); Calcium 9.6 mg/dL (8.5-10.5); Carbon Dioxide 23 mmol/L (22-29); Chloride 104 mmol/L (98-107); Glucose 94 mg/dL (65-115); Phosphorus 3.4 mg/dL (2.5-4.5); Potassium 4.4 mmol/L (3.5-5.1); Sodium 139 mmol/L (136-145)
[2024-04-25 12:56] LABS: Calcium 9.8 mg/dL (8.5-10.5)
[2024-04-25 13:02] LABS: Parathyroid Hormone 60.6 pg/mL (15-65)
[2024-04-25 13:11] LABS: 25 Hydroxy Vitamin D 33 ng/mL (30-100)
== END 2024-04-25 12:03 | disposition home or self-care (01) ==
LOC: LAB 12:04
PROVIDERS: PCP Family Medicine Adult Medicine; Visit Provider Internal Medicine Nephrology
DX: N18.31 Chronic kidney disease, stage 3a (principal)
CPT/HCPCS: 36415; 80069; 82306; 82310; 83970; 85025

== ENCOUNTER → 2024-05-03 11:44 | Outpatient (BNVA) | payer MEDICAID, SELFPAY ==
[2023-06-30 11:30] VITALS: BP 138/79; BMI 32.5
== END ==
PROVIDERS: PCP Family Medicine Adult Medicine; Visit Provider Family Medicine
DX: R39.9 Unspecified symptoms and signs involving the genitourinary system (principal)
CPT/HCPCS: 81000

== ENCOUNTER → 2024-06-07 12:32 | Outpatient (BNVA) | payer MEDICAID, SELFPAY ==
[2023-06-30 11:30] VITALS: BP 138/79; BMI 32.5
== END ==
PROVIDERS: PCP Family Medicine Adult Medicine; Visit Provider Nurse Practitioner
DX: R39.9 Unspecified symptoms and signs involving the genitourinary system (principal); N39.0 Urinary tract infection, site not specified
CPT/HCPCS: 81000; 87086

== ENCOUNTER → 2024-07-27 12:20 | Outpatient (BNVA) | payer MEDICAID, SELFPAY ==
[2024-06-16 14:43] VITALS: BP 164/84; BMI 34.5
== END ==
PROVIDERS: PCP Family Medicine; Visit Provider Family Medicine
DX: E78.5 Hyperlipidemia, unspecified (principal); E11.9 Type 2 diabetes mellitus without complications; Z79.4 Long term (current) use of insulin; K21.9 Gastro-esophageal reflux disease without esophagitis; N18.31 Chronic kidney disease, stage 3a
CPT/HCPCS: 80053; 80061; 83036; 84439; 84443

== ENCOUNTER → 2024-08-01 12:14 | Outpatient (BNVA) | payer MEDICAID, SELFPAY ==
[2024-07-28 09:40] VITALS: BP 172/76
[2024-07-28 09:42] VITALS: BMI 34.9
== END ==
PROVIDERS: PCP Family Medicine; Visit Provider Family Medicine
DX: R39.9 Unspecified symptoms and signs involving the genitourinary system (principal); N39.0 Urinary tract infection, site not specified; R33.9 Retention of urine, unspecified
CPT/HCPCS: 81000

== ENCOUNTER → 2024-09-28 10:13 | Outpatient (BNVA) | payer OTHER, SELFPAY ==
[2024-07-28 09:40] VITALS: BP 172/76
[2024-07-28 09:42] VITALS: BMI 34.9
== END ==
PROVIDERS: PCP Family Medicine; Visit Provider Family Medicine
DX: R39.15 Urgency of urination (principal)
CPT/HCPCS: 81000; 87086

== ENCOUNTER 2024-10-20 11:03 | Outpatient (CLI) | payer MEDICAID, SELFPAY ==
[2024-07-28 09:40] VITALS: BP 172/76
[2024-07-28 09:42] VITALS: BMI 34.9
--- NOTE | 2024-10-20 11:12 | MM_ITS ---
WS: [id number] BILATERAL 3D TOMOSYNTHESIS DIGITAL SCREENING MAMMOGRAPHY WITH CAD CLINICAL INFORMATION: SCREENING HISTORY: Screening mammogram. No current complaints. COMPARISON: 2022 TECHNIQUE: Bilateral CC and MLO views. FINDINGS: Scattered fibroglandular densities bilaterally. No suspicious focal mass, asymmetry, calcifications, or architectural distortion. No evidence of malignancy. MM/MM scr BI tomosynthesis [id number] IMPRESSION: DENSITY: There are scattered areas of fibroglandular density. BI-RADS: 1 - Negative. FOLLOW UP: 1 Year Follow-up Recommend return to annual screening mammography.
== END 2024-10-20 11:04 | disposition home or self-care (01) ==
LOC: RAD 11:05
PROVIDERS: PCP Family Medicine; Visit Provider Family Medicine
DX: Z12.31 Encounter for screening mammogram for malignant neoplasm of breast (principal); R92.323 Mammographic fibroglandular density, bilateral breasts
CPT/HCPCS: 77063; 77067

== ENCOUNTER → 2025-01-22 10:36 | Outpatient (BNVA) | payer MEDICAID, SELFPAY ==
[2024-07-28 09:40] VITALS: BP 172/76
[2024-07-28 09:42] VITALS: BMI 34.9
== END ==
PROVIDERS: PCP Family Medicine; Visit Provider Family Medicine
DX: E11.9 Type 2 diabetes mellitus without complications (principal); Z79.4 Long term (current) use of insulin; R79.89 Other specified abnormal findings of blood chemistry
CPT/HCPCS: 80053; 82043; 83036; 84439; 84443

== ENCOUNTER → 2025-02-15 14:57 | Outpatient (BNVA) | payer MEDICAID, SELFPAY ==
[2024-07-28 09:40] VITALS: BP 172/76
[2024-07-28 09:42] VITALS: BMI 34.9
== END ==
PROVIDERS: PCP Family Medicine; Visit Provider Family Medicine
DX: R30.0 Dysuria (principal); R35.0 Frequency of micturition
CPT/HCPCS: 81000; 87077; 87086; 87184

== ENCOUNTER 2025-03-01 09:51 | Outpatient (CLI) | payer MEDICAID, SELFPAY ==
[2024-07-28 09:40] VITALS: BP 172/76
[2024-07-28 09:42] VITALS: BMI 34.9
--- NOTE | 2025-03-01 | ECG_ITS ---
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 Interpretive Statements Lung unchanged pre/post procedure; Intraprocedure shortess of breath; Symptoms resoled by discharge PROCEDURE: At the baseline, the blood pressure was 124/71 with a heart rate of 64. The electrocardiogram showed normal sinus rhythm with some nonspecific ST-T changes in inferolateral leads. The dobutamine was infused over a period of 13 minutes and 30 seconds. The maximum heart rate obtained was 141 (85% of the maximum predicted heart rate). The blood pressure at that time was 143/69 mmHg. The patient did not have any chest pain or any significant electrocardiogram changes with the dobutamine infusion.[] The physical examination remained unchanged. No arrhythmias were seen on the monitor. The sestamibi was injected at the peak heart rate-32.9 mCi During the recovery phase, the patient did not have any specific symptoms. The blood pressure at the end of the recovery phase was 167/79 with a heart rate of 96 per minute. CONCLUSION: 1. No significant EKG changes with the dobutamine infusion 2. No dobutamine used chest pain or cardiac arrhythmia 3. Appropriate heart rate and blood pressure response to dobutamine infusion 4. Sestamibi/Sestamibi perfusion scan pending; see separate report. Electronically Signed On 03-06-2025 10:00:48 CDT by Felton Guidry M.D. [email or web address]
[2025-03-01 10:47] VITALS: BMI 33.2
--- NOTE | 2025-03-01 10:50 | NMCV_ITS ---
NM karen perf SPECT r/s* [id number] Ignacio Eugene Age: 54 Gender: F : 1970 Exam Date: 03/01/2025 10:50 Ordering Phys: Annabel Arcos DO Technologist: KIM Pelletier Exam Location: [facility] Indications: cp STRESS TEST Please see separate stress test report in [facility] for full findings IMAGE PROTOCOL Rest/Stress 1 Dobutamine Day Radiopharmaceutical Dose (mCi) Administration Site Administered by Rest: Tc-99m 10.8 IV Ekaterina Vasquez PRINCIPAL SOFTWARE ENGINEER Sestamibi Stress:Tc-99m 32.9 IV Ekaterina Vasquez, PRINCIPAL SOFTWARE ENGINEER Sestamibi Rest: 01-Mar-2025 60 Discovery 630 Stress: 01-Mar-2025 15 Discovery 630 Radiopharmaceutical was injected at 85 % maximum heart rate. Supine position only as patient was unable to lay prone. SPECT RESULTS Technical Quality: Good Raw Data Analysis: Normal Image Corrections: No attenuation or motion correction applied Summed Stress Score: 0 Summed Rest Score: 6 Summed Difference Score: 0 PERFUSION FINDINGS Fairly uniform myocardial tracer uptake with no significant perfusion abnormalities FUNCTIONAL RESULTS (calculated via Gated SPECT) Stress Image LV EF (%): 74 Stress EDV (mL):94 TID: 1.09 Stress ESV (mL):24 FUNCTIONAL FINDINGS: Segmental wall motion analysis revealing no gross wall motion abnormalities IMPRESSIONS 1. Myocardial perfusion imaging revealing uniform myocardial tracer uptake with no significant perfusion abnormalities 2. Normal LV ejection fraction 74%. 3. LV wall motion analysis revealing no gross wall motion abnormalities. 4. Normal LV volume Low probability for coronary ischemia, based on the above findings No similar previous studies are available for comparison Dr Felton Guidry MD FACC (Electronically Signed) Final Date: 01 March 2025 18:21 S
[2025-03-01] MEDS: DOBUTtamine 200 MG in sodium chloride 0.9% 34 ML 14 MG IV (11:31)
[2025-03-01 11:51] VITALS: BP 167/79; PULSE 96
== END 2025-03-01 09:52 | disposition home or self-care (01) ==
LOC: CDL 09:52
PROVIDERS: PCP Family Medicine; Visit Provider Family Medicine
DX: R07.89 Other chest pain (principal)
CPT/HCPCS: 36415; 78452; 93017; A9500; J1250; J7050

== ENCOUNTER 2025-03-02 13:26 | Outpatient (CLI) | payer MEDICAID, SELFPAY ==
[2024-07-28 09:40] VITALS: BP 172/76
[2024-07-28 09:42] VITALS: BMI 34.9
--- NOTE | 2025-03-02 13:31 | CT_ITS ---
WS: [id number] LDCT LUNG CANCER SCREENING HISTORY: screening TECHNIQUE: Axial imaging performed from the apices to 1 cm below the costophrenic angles. Coronal and sagittal reformats are submitted with axial MIP series. All CT scans at [facility] use at least one of these dose optimization techniques: automated exposure control; mA and/or kV adjustment per patient size (includes targeted exams where dose is matched to clinical indication); or iterative reconstruction. DLP: 141.90 mGy.cm DIvol: Mean CTDIvol: 2.00 (mGy),Mean CTDIvol: 2.10 (mGy) COMPARISON: 09/21/2023, 08/03/2022, PET/CT 10/26/2023 Diagnostic quality: Satisfactory Lungs: Pulmonary hyperinflation. Well-circumscribed 1.2 cm solid nodule LEFT upper lobe with minimal change in size since 08/03/2022. Nodule was also negative on PET/CT from 10/26/2023. There are a few scattered benign granuloma. No pneumonia. No endobronchial lesions. Heart: Normal size heart. Increased pericardial fat.. Other findings: Nodular RIGHT thyroid extends substernal. No pathologically enlarged lymph nodes. Mild atherosclerosis aorta. Small hiatal hernia. LEFT adrenal hyperplasia stable. CT/CT lung screening [id number] IMPRESSION: LUNG-RADS: 2-Benign Appearance or Behavior FOLLOW UP: 12 Month: Continue annual screening with LDCT OTHER FINDINGS (S MODIFIER): None.
== END 2025-03-02 13:27 | disposition home or self-care (01) ==
LOC: RAD 13:27
PROVIDERS: PCP Family Medicine; Visit Provider Family Medicine
DX: Z12.2 Encounter for screening for malignant neoplasm of respiratory organs (principal); Z87.891 Personal history of nicotine dependence; R91.1 Solitary pulmonary nodule; J84.10 Pulmonary fibrosis, unspecified; K44.9 Diaphragmatic hernia without obstruction or gangrene; D35.02 Benign neoplasm of left adrenal gland; E04.1 Nontoxic single thyroid nodule
CPT/HCPCS: 71271

== ENCOUNTER → 2025-04-23 10:17 | Outpatient (BNVA) | payer MEDICAID, SELFPAY ==
[2024-07-28 09:40] VITALS: BP 172/76
[2024-07-28 09:42] VITALS: BMI 34.9
== END ==
PROVIDERS: PCP Family Medicine; Visit Provider Family Medicine
DX: E11.9 Type 2 diabetes mellitus without complications (principal); Z79.4 Long term (current) use of insulin; R30.0 Dysuria; R10.9 Unspecified abdominal pain
CPT/HCPCS: 81000; 83036; 85025; 87086

== ENCOUNTER → 2025-04-24 10:39 | Outpatient (BNVA) | payer MEDICAID, SELFPAY ==
[2024-07-28 09:40] VITALS: BP 172/76
[2024-07-28 09:42] VITALS: BMI 34.9
== END ==
PROVIDERS: PCP Family Medicine; Visit Provider Family Medicine
DX: D50.9 Iron deficiency anemia, unspecified (principal)
CPT/HCPCS: 82728; 83550

== ENCOUNTER → 2025-04-25 09:17 | Outpatient (BNVA) | payer MEDICAID, SELFPAY ==
[2024-07-28 09:40] VITALS: BP 172/76
[2024-07-28 09:42] VITALS: BMI 34.9
== END ==
PROVIDERS: PCP Family Medicine; Visit Provider Family Medicine
DX: R10.9 Unspecified abdominal pain (principal)
CPT/HCPCS: 81000

== ENCOUNTER 2025-05-01 10:40 | Outpatient (CLI) | payer MEDICAID, SELFPAY ==
[2024-07-28 09:40] VITALS: BP 172/76
[2024-07-28 09:42] VITALS: BMI 34.9
[2025-05-01 12:08] LABS: Hematocrit 34.3 % (36-47); Hemoglobin 10.70 g/dL (11.27-16.99); Mean Corpuscular HGB Conc 31.2 g/dL (30-55); Mean Corpuscular Hemoglobin 30.7 pg (27-33); Mean Corpuscular Volume 98.3 fl (85-98); Nucleated Red Blood Cells % 0 %; Platelet Count 313 10^3/cmm (157-399); Red Blood Count 3.49 10^6/uL (3.85-5.65); White Blood Count 7.78 10^3/uL (3.29-11.43)
[2025-05-01 12:26] LABS: Creatinine Urine, Random 74 mg/dL (28-217)
[2025-05-01 12:31] LABS: Albumin Level 4.4 g/dL (3.5-5.2); Anion Gap 18.4 (5-19); Blood Urea Nitrogen 27 mg/dL (6-20); Calcium 10.4 mg/dL (8.5-10.5); Carbon Dioxide 21 mmol/L (22-29); Chloride 102 mmol/L (98-107); Glucose 123 mg/dL (65-115); Potassium 4.4 mmol/L (3.5-5.1); Sodium 137 mmol/L (136-145)
[2025-05-01 12:32] LABS: Microalbum Creatinine Ratio Ur 68 mg/dL (0-20)
[2025-05-01 12:33] LABS: Calcium 10.2 mg/dL (8.5-10.5)
== END 2025-05-01 10:41 | disposition home or self-care (01) ==
LOC: LAB 10:45
PROVIDERS: PCP Family Medicine; Visit Provider Registered Nurse
DX: Z01.89 Encounter for other specified special examinations (principal)
CPT/HCPCS: 36415; 80069; 82044; 82306; 82310; 83970; 85025

== ENCOUNTER → 2025-05-16 13:27 | Outpatient (BNVA) | payer MEDICAID, SELFPAY ==
[2024-07-28 09:40] VITALS: BP 172/76
[2024-07-28 09:42] VITALS: BMI 34.9
== END ==
PROVIDERS: PCP Family Medicine
DX: R39.89 Other symptoms and signs involving the genitourinary system (principal); R30.0 Dysuria
CPT/HCPCS: 81000; 87086